=== PATIENT | male | born 1960 | race Caucasian/White ===

== ENCOUNTER → 2017-12-01 12:18 | Outpatient (CLI) | payer OTHER, MEDICAID, SELFPAY ==
[2017-12-01 15:00] LABS: Free T4, Direct Thyroxine 1.03 ng/dL (0.78-2.19)
[2017-12-01 15:14] LABS: Thyroid Stimulating Hormone 3.39 uIU/mL (0.47-4.68)
== END ==
PROVIDERS: Family Provider Physician Assistant; PCP Physician Assistant; Visit Provider Physician Assistant
DX: E03.9 Hypothyroidism, unspecified (principal)
CPT/HCPCS: 36415; 84439; 84443

== ENCOUNTER → 2018-05-12 11:30 | Outpatient (CLI) | payer OTHER, MEDICAID, SELFPAY ==
[2018-05-12 12:45] LABS: Alanine Aminotransferase 57 IU/L (21-72); Albumin 4.3 g/dL (3.5-5.0); Albumin Globulin Ratio 1.3 (1.0-2.8); Alkaline Phosphatase 69 U/L (38-126); Aspartate Aminotransferase 70 IU/L (17-59); Blood Urea Nitrogen 7 mg/dL (9-20); Calcium 9.2 mg/dL (8.4-10.2); Carbon Dioxide 25 mmol/L (22-32); Chloride 98 mmol/L (98-107); Cholesterol 232 mg/dL (140-199); Estimated Glomerular Filt Rate > 60.0 mL/min (>60); Globulin 3.4 g/dL (1.7-4.1); Glucose 123 mg/dL (70-100); HDL Cholesterol 56 mg/dL (40-60); HEMOLYSIS < 15 (0-50); LDL Cholesterol Calculated 147 mg/dL (<100); Potassium 4.8 mmol/L (3.4-5.1); Sodium 135 mmol/L (137-145); Total Protein 7.7 g/dL (6.3-8.2); Triglycerides 145 mg/dL (35-150); Uric Acid 5.5 mg/dL (3.5-8.5)
[2018-05-12 13:00] LABS: Free T4, Direct Thyroxine 1.12 ng/dL (0.78-2.19)
[2018-05-12 13:14] LABS: Thyroid Stimulating Hormone 3.42 uIU/mL (0.47-4.68)
== END ==
PROVIDERS: Family Provider Physician Assistant; PCP Physician Assistant; Visit Provider Physician Assistant
DX: E03.9 Hypothyroidism, unspecified (principal); E78.5 Hyperlipidemia, unspecified; I10 Essential (primary) hypertension; M10.9 Gout, unspecified
CPT/HCPCS: 36415; 80053; 80061; 84439; 84443; 84550

== ENCOUNTER → 2018-10-19 09:36 | Outpatient (CLI) | payer OTHER, MEDICAID, SELFPAY ==
[2018-10-19 11:12] LABS: Alanine Aminotransferase 45 IU/L (21-72); Albumin 4.3 g/dL (3.5-5.0); Albumin Globulin Ratio 1.1 (1.0-2.8); Alkaline Phosphatase 89 U/L (38-126); Aspartate Aminotransferase 70 IU/L (17-59); BUN Creatinine Ratio 7.1 (6-22); Bilirubin Total 1.2 mg/dL (0.2-1.3); Blood Urea Nitrogen 5 mg/dL (9-20); Calcium 9.4 mg/dL (8.4-10.2); Carbon Dioxide 25 mmol/L (22-32); Chloride 100 mmol/L (98-107); Cholesterol 254 mg/dL (140-199); Estimated Glomerular Filt Rate > 60.0 mL/min (>60); Glucose 134 mg/dL (70-100); HDL Cholesterol 48 mg/dL (40-60); HEMOLYSIS < 15 (0-50); LDL Cholesterol Calculated 165 mg/dL (<100); Potassium 4.4 mmol/L (3.4-5.1); Sodium 136 mmol/L (137-145); Total Protein 8.3 g/dL (6.3-8.2); Triglycerides 203 mg/dL (35-150); Uric Acid 6.7 mg/dL (3.5-8.5)
[2018-10-19 11:25] LABS: Thyroid Stimulating Hormone 3.32 uIU/mL (0.47-4.68)
== END ==
PROVIDERS: Family Provider Physician Assistant; PCP Physician Assistant; Visit Provider Physician Assistant
DX: E03.9 Hypothyroidism, unspecified (principal); E78.5 Hyperlipidemia, unspecified; I10 Essential (primary) hypertension; R73.01 Impaired fasting glucose; E79.0 Hyperuricemia without signs of inflammatory arthritis and tophaceous disease; Z51.81 Encounter for therapeutic drug level monitoring
CPT/HCPCS: 36415; 80053; 80061; 83036; 84443; 84550

== ENCOUNTER → 2018-12-21 08:13 | Outpatient (CLI) | payer OTHER, MEDICAID, SELFPAY ==
[2018-12-21 09:32] LABS: Cholesterol 165 mg/dL (140-199); HDL Cholesterol 62 mg/dL (40-60); LDL Cholesterol Calculated 69 mg/dL (<100); Triglycerides 168 mg/dL (35-150)
[2018-12-21 09:56] LABS: Creatinine Urine Random 66.9 mg/dL
[2018-12-21 09:59] LABS: Microalbumi Creatinin Ratio Ur 13.4 ug/mg CR (<30); Microalbumin Urine Random 0.9 mg/dL (0-1.6)
== END ==
PROVIDERS: PCP Physician Assistant; Visit Provider Physician Assistant
DX: E78.5 Hyperlipidemia, unspecified (principal); I10 Essential (primary) hypertension
CPT/HCPCS: 36415; 80061; 82043; 82570

== ENCOUNTER → 2019-05-24 10:50 | Outpatient (CLI) | payer OTHER, MEDICAID, SELFPAY ==
[2019-05-24 12:02] LABS: Hemoglobin A1C% w Est Avg Glu 5.2 % (4.0-6.0)
[2019-05-24 12:24] LABS: Alanine Aminotransferase 27 IU/L (<50); Albumin 4.3 g/dL (3.5-5.0); Albumin Globulin Ratio 1.2 (1.0-2.8); Alkaline Phosphatase 99 U/L (38-126); Aspartate Aminotransferase 54 IU/L (17-59); BUN Creatinine Ratio 7.1 (6-22); Bilirubin Total 0.7 mg/dL (0.2-1.3); Blood Urea Nitrogen 5 mg/dL (9-20); Carbon Dioxide 23 mmol/L (22-32); Chloride 98 mmol/L (98-107); Cholesterol 160 mg/dL (140-199); Estimated Glomerular Filt Rate > 60.0 mL/min (>60); Globulin 3.6 g/dL (1.7-4.1); Glucose 116 mg/dL (80-110); HDL Cholesterol 54 mg/dL (40-60); HEMOLYSIS < 15 (0-50); LDL Cholesterol Calculated 58 mg/dL (<100); Potassium 4.5 mmol/L (3.4-5.1); Sodium 135 mmol/L (137-145); Total Protein 7.9 g/dL (6.3-8.2); Triglycerides 241 mg/dL (35-150); Uric Acid 5.8 mg/dL (3.5-8.5)
[2019-05-24 12:54] LABS: Thyroid Stimulating Hormone 3.22 uIU/mL (0.47-4.68)
[2019-05-24 15:44] LABS: Creatinine Urine Random 29.5 mg/dL
[2019-05-24 15:49] LABS: Microalbumi Creatinin Ratio Ur 20.3 ug/mg CR (<30); Microalbumin Urine Random < 0.6 mg/dL (0-1.6)
== END ==
PROVIDERS: PCP Physician Assistant; Visit Provider Physician Assistant
DX: E03.9 Hypothyroidism, unspecified (principal); E78.5 Hyperlipidemia, unspecified; I10 Essential (primary) hypertension; R73.01 Impaired fasting glucose; E79.0 Hyperuricemia without signs of inflammatory arthritis and tophaceous disease
CPT/HCPCS: 36415; 80053; 80061; 82043; 82570; 83036; 84443; 84550

== ENCOUNTER → 2020-04-04 09:59 | Outpatient (CLI) | payer OTHER, MEDICAID, SELFPAY ==
[2020-04-04 11:17] LABS: Alanine Aminotransferase 17 IU/L (<50); Albumin 3.5 g/dL (3.5-5.0); Albumin Globulin Ratio 0.8 (1.0-2.8); Alkaline Phosphatase 124 U/L (38-126); Aspartate Aminotransferase 32 IU/L (17-59); BUN Creatinine Ratio 6.3 (6-22); Blood Urea Nitrogen 11 mg/dL (9-20); Calcium 8.6 mg/dL (8.4-10.2); Carbon Dioxide 22 mmol/L (22-32); Chloride 105 mmol/L (98-107); Cholesterol 99 mg/dL (140-199); Estimated Glomerular Filt Rate 40.2 mL/min (>60); Globulin 4.4 g/dL (1.7-4.1); Glucose 123 mg/dL (80-110); HDL Cholesterol 49 mg/dL (40-60); Potassium 4.7 mmol/L (3.4-5.1); Sodium 135 mmol/L (137-145); Total Protein 7.9 g/dL (6.3-8.2); Triglycerides 88 mg/dL (35-150); Uric Acid 5.8 mg/dL (3.5-8.5)
[2020-04-04 11:18] LABS: HEMOLYSIS < 15 (0-50); LDL Cholesterol Calculated 32 mg/dL (<100)
[2020-04-04 11:29] LABS: Free T4, Direct Thyroxine 1.19 ng/dL (0.78-2.19)
[2020-04-04 11:43] LABS: Thyroid Stimulating Hormone 4.39 uIU/mL (0.47-4.68)
== END ==
PROVIDERS: PCP Internal Medicine; Referring Provider Internal Medicine; Visit Provider Internal Medicine
DX: E03.9 Hypothyroidism, unspecified (principal); E78.5 Hyperlipidemia, unspecified; E79.0 Hyperuricemia without signs of inflammatory arthritis and tophaceous disease; I10 Essential (primary) hypertension
CPT/HCPCS: 36415; 80053; 80061; 84153; 84439; 84443; 84550

== ENCOUNTER → 2020-11-27 10:49 | Outpatient (CLI) | payer OTHER, MEDICAID, SELFPAY ==
[2020-11-27 12:34] LABS: Alanine Aminotransferase 16 IU/L (<50); Albumin 3.6 g/dL (3.5-5.0); Albumin Globulin Ratio 0.9 (1.0-2.8); Alkaline Phosphatase 106 U/L (38-126); Aspartate Aminotransferase 34 IU/L (17-59); BUN Creatinine Ratio 7.2 (6-22); Bilirubin Total 0.6 mg/dL (0.2-1.3); Blood Urea Nitrogen 10 mg/dL (9-20); Calcium 8.8 mg/dL (8.4-10.2); Carbon Dioxide 21 mmol/L (22-32); Chloride 103 mmol/L (98-107); Cholesterol 109 mg/dL (140-199); Estimated Glomerular Filt Rate 52.4 mL/min (>60); Glucose 105 mg/dL (80-110); HDL Cholesterol 76 mg/dL (40-60); HEMOLYSIS < 15 (0-50); LDL Cholesterol Calculated 23 mg/dL (<100); Sodium 131 mmol/L (137-145); Total Protein 7.6 g/dL (6.3-8.2); Triglycerides 50 mg/dL (35-150)
[2020-11-27 13:10] LABS: Free T4, Direct Thyroxine 1.06 ng/dL (0.78-2.19)
== END ==
PROVIDERS: PCP Internal Medicine; Referring Provider Internal Medicine; Visit Provider Internal Medicine
DX: E03.9 Hypothyroidism, unspecified (principal); E78.5 Hyperlipidemia, unspecified; I10 Essential (primary) hypertension; R73.01 Impaired fasting glucose
CPT/HCPCS: 36415; 80053; 80061; 84439; 84443

== ENCOUNTER 2021-05-29 09:45 | Outpatient (RCR) | payer OTHER, MEDICAID, SELFPAY ==
--- NOTE | 2021-03-14 09:04 | PT.OIE ---
Current Diagnoses Other abnormalities of gait and mobility (03/13/21) Unspecified abnormalities of gait and mobility (03/13/21) Past Medical History (Last Reviewed 01/02/20 @ 16:23 by Neil Silver MD) Anxiety Bipolar disorder (2007) Depression (2007) Essential hypertension Gout Hearing loss Hyperlipidemia Hypothyroidism (09/30/17) Past Surgical History (Last Reviewed 01/02/20 @ 16:23 by Neil Silver MD) Status post colonoscopy Visit Care Team Role Provider Type Neil Silver MD Attending Provider Physician Primary Care Provider Referring Provider Specialty: Internal Medicine Address: [address] [place] [address], [address] [place] [address], [facility] Email: [email or web address] Physical Therapy Initial Evaluation PT-OP-A Visit Information Start: 03/14/21 08:46 Freq: Status: Active Protocol: Document 03/13/21 12:58 OF (Rec: 03/14/21 09:04 OF [email or web address]) Out-Patient Physical Therapy Visit Information Visit Information Visit Type Initial Evaluation Visit Start Time 11:15 Visit Stop Time 11:58 Total Visit Minutes 43 Visit Number 1 Evaluation Information Evaluation Date 03/13/21 PT-OP-B Current Condition Start: 03/14/21 08:46 Freq: Status: Active Protocol: Document 03/13/21 12:58 OF (Rec: 03/14/21 09:04 OF [email or web address]) Current Condition History of Current Condition Onset Date 1.5yrs prior History of Current Condition Pt states he broke his pinky toe 01/2020, he claims this was the beginning of his balance difficulty Treatment Goals Patient/Caregiver Goals get back to riding my bike, improve my balance Prior Functional Status Baseline Function- ADL's Independent Baseline Function- Mobility Independent Baseline Function- Gait wide path, lateral lean bidirectional Baseline Function- Other 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 Current Functional Impairments (Reported) Functional Limitations- Other Pt has poor endurance, LE weakness, and impaired dynamic balance PT-OP-C Subjective Start: 03/14/21 08:46 Freq: Status: Active Protocol: Document 03/13/21 12:58 OF (Rec: 03/14/21 09:04 OF [email or web address]) OP-PT Subjective Patient Comments Patient Comments Pt reports single fall over past 6 months Patient Reported Progress Same OP-PT Pain Assessment Pain Assessment Grid Paper Pain Assessment Grid Completed Yes Location L lateral foot Intensity 4 Scale Used Numeric (0 - 10) Description Sharp Frequency Occasional Pain Aggravating Factors Activity,Exercise,Standing Pain Alleviating Factors Inactivity PT-OP-D Balance Start: 03/14/21 08:46 Freq: Status: Active Protocol: Document 03/13/21 12:58 OF (Rec: 03/14/21 09:04 OF [email or web address]) OP-PT Balance Assessment Sitting Balance Static Sitting Balance Ability Normal Dynamic Sitting Balance Ability Normal Standing Balance Static Standing Balance Ability Good Dynamic Standing Balance Ability Good Zavala Fall Scale Copyright Permission PT-OP-E Functional Tests Start: 03/14/21 08:46 Freq: Status: Active Protocol: Document 03/13/21 12:58 OF (Rec: 03/14/21 09:04 OF [email or web address]) Functional Tests Timed Up and Go (TUG) Score 18.5 Comments high fall risk TUG Impairment Rating 80 to <100% Impaired (Score 18 -19) PT-OP-G Mobility & Gait Start: 03/14/21 08:46 Freq: Status: Active Protocol: Document 03/13/21 12:58 OF (Rec: 03/14/21 09:04 OF [email or web address]) OP Gait Assessment Gait Gait Assistance Required: Standby Assistance Distance (Feet) 225 Able to Maintain Weight Bearing Status Yes During Gait Assistive Devices Assistive Device None Gait Deviations General Gait Pattern Decreased Stride Length, Lateral Trunk Lean,Wide Based Gait Factors Limiting Gait Function Factors Limiting Gait Function Incoordination,Poor Balance PT-OP-H Neuro Start: 03/14/21 08:46 Freq: Status: Active Protocol: Document 03/13/21 12:58 OF (Rec: 03/14/21 09:04 OF [email or web address]) Sensation Evaluation Gross Sensation Gross Sensation WNL Comments Summary Comments pt demonstrates normal sensation to light touch in all extremeties Coordination Evaluation Comments Coordination Comments slow heel/ching bilateral PT-OP-M Strength Start: 03/14/21 08:46 Freq: Status: Active Protocol: Document 03/13/21 12:58 OF (Rec: 03/14/21 09:04 OF [email or web address]) Hip Strength Hip Manual Muscle Testing L Flexion (L2) 3+ Fair+ Extension (S1) 3+ Fair+ Abduction 3+ Fair+ R Flexion (L2) 3+ Fair+ Extension (S1) 3+ Fair+ Abduction 3+ Fair+ Knee Strength Knee Manual Muscle Testing L Flexion (S2) 3+ Fair+ Extension (L3) 3 Fair R Flexion (S2) 3+ Fair+ Extension (L3) 3+ Fair+ Ankle/Foot Strength Ankle and Foot Manual Muscle Testing L Dorsiflexion (L4) 3+ Fair+ Plantarflexion (S1) 3+ Fair+ R Dorsiflexion (L4) 3+ Fair+ Plantarflexion (S1) 3 Fair PT-OP-Q Treatments Start: 03/14/21 08:46 Freq: Status: Active Protocol: Document 03/13/21 12:58 OF (Rec: 03/14/21 09:04 OF [email or web address]) Therapeutic Exercises Standing Exercises Marching Side bilateral Reps/Minutes 3x20 Comments difficulty coordinating leg lifts heel/toe lifts Side bilateral Reps/Minutes 3x10 Comments for HEP Self-Care/Home Management Treatment Education Patient Education Body Mechanics,Fall Risk,Home Exercise Program Other Education safety with AMB, benefits of cane to reduce fall risk PT-OP-T Assessment and Plan Start: 03/14/21 08:46 Freq: Status: Active Protocol: Document 03/13/21 12:58 OF (Rec: 03/14/21 09:04 OF [email or web address]) Physical Therapy Assessment Rehab Potential Rehabilitation Potential Good Evaluation Complexity Number of Personal Factors/Comorbidities 1-2 Number of Body Systems Impaired 1-2 Clinical Presentation at Evaluation Stable Impairments Impairments Activity Tolerance,Balance, Coordination,Gait,Strength Goals 3 Impairment high fall risk Short Term Goal (STG) Pt will improve TUG score < 15sec to demo improved dynamic balance STG Duration 2 weeks Compensation And Benefits Administrator Goal (LTG) pt will improve TUG score to < 12sec to reduce fall risk within community LTG Duration 6 weeks 2 Impairment LE weakness Short Term Goal (STG) Pt will perform sit to stand without UE assist x5 to demonstrate improved LE strength STG Duration 2 weeks Compensation And Benefits Administrator Goal (LTG) Pt will complete >14 sit to stands in 30sec to demonstrate improved community mobility LTG Duration 6 weeks 1 Impairment pt lacks HEP Short Term Goal (STG) Pt will be I with HEP for LE strengthening STG Duration 2 weeks Assessment Summary Assessment Moris is a 60yo male referred for difficulty walking and balance deficits. He states the problem originated January 2020 when he broke his pinky toe. He has been progressively less active since. He has impaired righting reactions, wide based gait, and is a high fall risk per TUG and 30sec sit to stand assessments. He reports bipolar depression and controlled hypertension as his only relevant PMHx. He was hypertensive upon evaluation 180/85 seated, 180/90 standing . He denies dizziness with positional changes. He will require skilled therapy to improve his LE strength, normalize his gait pattern, and reduce fall risk. Physical Therapy Plan Frequency and Duration Frequency of Treatment 1-2x/week Duration of Treatment 6 weeks Plan of Care Start Date 03/13/21 Plan of Care End Date 04/25/21 Therapeutic Interventions Therapeutic Interventions Balance Training,Gait Training ,Home Exercise Program,Joint Mobilizations,Manual Therapy, Neuromuscular Re-education, Patient/Caregiver Education, Self-Care/Home Management, Therapeutic Activities, Therapeutic Exercises Next Visit Focus/Plan Next Note Type Treatment Note Next Visit Plan assess HEP performance, progress LE strengthening, incorporate balance training
--- NOTE | 2021-03-14 09:04 | PT.OPPOC ---
Physical, Occupational & Speech Therapy At [facility] Current Diagnoses Other abnormalities of gait and mobility (03/13/21) Unspecified abnormalities of gait and mobility (03/13/21) Visit Care Team Role Provider Type Neil Silver MD Attending Provider Physician Primary Care Provider Referring Provider Specialty: Internal Medicine Address: [address] [place] [address], [address], [facility] Email: [email or web address] Plan Of Care PT-OP-T Assessment and Plan Start: 03/14/21 08:46 Freq: Status: Active Protocol: Document 03/13/21 12:58 OF (Rec: 03/14/21 09:04 OF [email or web address]) Physical Therapy Assessment Rehab Potential Rehabilitation Potential Good Evaluation Complexity Number of Personal Factors/Comorbidities 1-2 Number of Body Systems Impaired 1-2 Clinical Presentation at Evaluation Stable Impairments Impairments Activity Tolerance,Balance, Coordination,Gait,Strength Goals 3 Impairment high fall risk Short Term Goal (STG) Pt will improve TUG score < 15sec to demo improved dynamic balance STG Duration 2 weeks Assembler Type Bar And Segment Goal (LTG) pt will improve TUG score to < 12sec to reduce fall risk within community LTG Duration 6 weeks 2 Impairment LE weakness Short Term Goal (STG) Pt will perform sit to stand without UE assist x5 to demonstrate improved LE strength STG Duration 2 weeks Assembler Type Bar And Segment Goal (LTG) Pt will complete >14 sit to stands in 30sec to demonstrate improved community mobility LTG Duration 6 weeks 1 Impairment pt lacks HEP Short Term Goal (STG) Pt will be I with HEP for LE strengthening STG Duration 2 weeks Assessment Summary Assessment Moris is a 60yo male referred for difficulty walking and balance deficits. He states the problem originated January 2020 when he broke his pinky toe. He has been progressively less active since. He has impaired righting reactions, wide based gait, and is a high fall risk per TUG and 30sec sit to stand assessments. He reports bipolar depression and controlled hypertension as his only relevant PMHx. He was hypertensive upon evaluation 180/85 seated, 180/90 standing . He denies dizziness with positional changes. He will require skilled therapy to improve his LE strength, normalize his gait pattern, and reduce fall risk. Physical Therapy Plan Frequency and Duration Frequency of Treatment 1-2x/week Duration of Treatment 6 weeks Plan of Care Start Date 03/13/21 Plan of Care End Date 04/25/21 Therapeutic Interventions Therapeutic Interventions Balance Training,Gait Training ,Home Exercise Program,Joint Mobilizations,Manual Therapy, Neuromuscular Re-education, Patient/Caregiver Education, Self-Care/Home Management, Therapeutic Activities, Therapeutic Exercises Next Visit Focus/Plan Next Note Type Treatment Note Next Visit Plan assess HEP performance, progress LE strengthening, incorporate balance training Plan of Care Dates Plan of Care Start Date 03/13/21 Plan of Care End Date 04/25/21 Electronically Signed by: Sarkis Serrano, PT 03/14/21 0904 Please Sign and Return: I have reviewed this Plan of Care and certify that the skilled therapy services above are required to meet the patient?s needs. Physician Signature Date Printed Name and Credentials Clinical Instructor Signature Printed Name and Credentials
--- NOTE | 2021-03-22 14:37 | PT.OTN ---
Current Diagnoses Other abnormalities of gait and mobility (03/22/21) Unspecified abnormalities of gait and mobility (03/22/21) Physical Therapy Treatment Note PT-OP-A Visit Information Start: 03/14/21 08:46 Freq: Status: Active Protocol: Document 03/22/21 14:31 OF (Rec: 03/22/21 14:37 OF [email or web address]) Out-Patient Physical Therapy Visit Information Visit Information Visit Type Treatment Note Visit Start Time 13:48 Visit Stop Time 14:20 Total Visit Minutes 32 Visit Number 2 Evaluation Information Evaluation Date 03/13/21 PT-OP-B Current Condition Start: 03/14/21 08:46 Freq: Status: Active Protocol: Document 03/13/21 12:58 OF (Rec: 03/14/21 09:04 OF [email or web address]) Current Condition History of Current Condition Onset Date 1.5yrs prior History of Current Condition Pt states he broke his pinky toe 01/2020, he claims this was the beginning of his balance difficulty Treatment Goals Patient/Caregiver Goals get back to riding my bike, improve my balance Prior Functional Status Baseline Function- ADL's Independent Baseline Function- Mobility Independent Baseline Function- Gait wide path, lateral lean bidirectional Baseline Function- Other 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 Current Functional Impairments (Reported) Functional Limitations- Other Pt has poor endurance, LE weakness, and impaired dynamic balance PT-OP-C Subjective Start: 03/14/21 08:46 Freq: Status: Active Protocol: Document 03/22/21 14:31 OF (Rec: 03/22/21 14:37 OF [email or web address]) OP-PT Subjective Patient Comments Patient Comments I think my dizziness comes from my depression Patient Reported Progress Same OP-PT Pain Assessment Pain Assessment Grid Paper Pain Assessment Grid Completed No: pt denies pain today PT-OP-D Balance Start: 03/14/21 08:46 Freq: Status: Active Protocol: Document 03/13/21 12:58 OF (Rec: 03/14/21 09:04 OF [email or web address]) OP-PT Balance Assessment Sitting Balance Static Sitting Balance Ability Normal Dynamic Sitting Balance Ability Normal Standing Balance Static Standing Balance Ability Good Dynamic Standing Balance Ability Good Zavala Fall Scale Copyright Permission PT-OP-E Functional Tests Start: 03/14/21 08:46 Freq: Status: Active Protocol: Document 03/13/21 12:58 OF (Rec: 03/14/21 09:04 OF [email or web address]) Functional Tests Timed Up and Go (TUG) Score 18.5 Comments high fall risk TUG Impairment Rating 80 to <100% Impaired (Score 18 -19) PT-OP-G Mobility & Gait Start: 03/14/21 08:46 Freq: Status: Active Protocol: Document 03/13/21 12:58 OF (Rec: 03/14/21 09:04 OF [email or web address]) OP Gait Assessment Gait Gait Assistance Required: Standby Assistance Distance (Feet) 225 Able to Maintain Weight Bearing Status Yes During Gait Assistive Devices Assistive Device None Gait Deviations General Gait Pattern Decreased Stride Length, Lateral Trunk Lean,Wide Based Gait Factors Limiting Gait Function Factors Limiting Gait Function Incoordination,Poor Balance PT-OP-H Neuro Start: 03/14/21 08:46 Freq: Status: Active Protocol: Document 03/13/21 12:58 OF (Rec: 03/14/21 09:04 OF [email or web address]) Sensation Evaluation Gross Sensation Gross Sensation WNL Comments Summary Comments pt demonstrates normal sensation to light touch in all extremeties Coordination Evaluation Comments Coordination Comments slow heel/ching bilateral PT-OP-M Strength Start: 03/14/21 08:46 Freq: Status: Active Protocol: Document 03/13/21 12:58 OF (Rec: 03/14/21 09:04 OF [email or web address]) Hip Strength Hip Manual Muscle Testing L Flexion (L2) 3+ Fair+ Extension (S1) 3+ Fair+ Abduction 3+ Fair+ R Flexion (L2) 3+ Fair+ Extension (S1) 3+ Fair+ Abduction 3+ Fair+ Knee Strength Knee Manual Muscle Testing L Flexion (S2) 3+ Fair+ Extension (L3) 3 Fair R Flexion (S2) 3+ Fair+ Extension (L3) 3+ Fair+ Ankle/Foot Strength Ankle and Foot Manual Muscle Testing L Dorsiflexion (L4) 3+ Fair+ Plantarflexion (S1) 3+ Fair+ R Dorsiflexion (L4) 3+ Fair+ Plantarflexion (S1) 3 Fair PT-OP-Q Treatments Start: 03/14/21 08:46 Freq: Status: Active Protocol: Document 03/22/21 14:31 OF (Rec: 03/22/21 14:37 OF [email or web address]) Cardio Equipment Recumbent Bicycle Duration (Minutes) 3 Resistance 5 Other cues for consistent pedalling, pt declines further activity Therapeutic Exercises Standing Exercises sit to stands Side bilateral Reps/Minutes 3x5 Comments pt requires cues for anterior weightshifting Marching Side bilateral Reps/Minutes 3x20 Comments difficulty coordinating leg lifts heel/toe lifts Side bilateral Reps/Minutes 3x10 Comments for HEP Gait Training Gait Activity dual tasking Treatment Focus gaze dissociation, lateral stepping, ant/post stepping Comments pt reports inconsistent dizziness with varying activity Self-Care/Home Management Treatment Education Patient Education Home Exercise Program PT-OP-T Assessment and Plan Start: 03/14/21 08:46 Freq: Status: Active Protocol: Document 03/22/21 14:31 OF (Rec: 03/22/21 14:37 OF [email or web address]) Physical Therapy Assessment Rehab Potential Rehabilitation Potential Good Evaluation Complexity Number of Personal Factors/Comorbidities 1-2 Number of Body Systems Impaired 1-2 Clinical Presentation at Evaluation Stable Impairments Impairments Activity Tolerance,Balance, Coordination,Gait,Strength Goals 3 Impairment high fall risk Short Term Goal (STG) Pt will improve TUG score < 15sec to demo improved dynamic balance STG Duration 2 weeks Assisted Goal (LTG) pt will improve TUG score to < 12sec to reduce fall risk within community LTG Duration 6 weeks 2 Impairment LE weakness Short Term Goal (STG) Pt will perform sit to stand without UE assist x5 to demonstrate improved LE strength STG Duration 2 weeks Assisted Goal (LTG) Pt will complete >14 sit to stands in 30sec to demonstrate improved community mobility LTG Duration 6 weeks 1 Impairment pt lacks HEP Short Term Goal (STG) Pt will be I with HEP for LE strengthening STG Duration 2 weeks Progress Towards Goals Progress Towards Goals Progressing Toward Goals Assessment Summary Assessment Moris has difficulty participating today, states he has dizziness occasionally, he believes from his depression. He refuses >3min of cycling after requesting to use recumbant bike. He has limited endurance with standing activity and reports fatigue throughout session. Physical Therapy Plan Frequency and Duration Frequency of Treatment 1-2x/week Duration of Treatment 6 weeks Plan of Care Start Date 03/13/21 Plan of Care End Date 04/25/21 Therapeutic Interventions Therapeutic Interventions Balance Training,Gait Training ,Home Exercise Program,Joint Mobilizations,Manual Therapy, Neuromuscular Re-education, Patient/Caregiver Education, Self-Care/Home Management, Therapeutic Activities, Therapeutic Exercises Next Visit Focus/Plan Next Note Type Treatment Note Next Visit Plan gentle increase in activity, cues for safety with ADL and gait training, benefits of AD
--- NOTE | 2021-03-27 13:26 | PT.OTN ---
Current Diagnoses Other abnormalities of gait and mobility (03/27/21) Unspecified abnormalities of gait and mobility (03/27/21) Physical Therapy Treatment Note PT-OP-A Visit Information Start: 03/14/21 08:46 Freq: Status: Active Protocol: Document 03/27/21 13:22 OF (Rec: 03/27/21 13:26 OF [id number]) Out-Patient Physical Therapy Visit Information Visit Information Visit Type Treatment Note Visit Start Time 12:57 Visit Stop Time 13:21 Total Visit Minutes 24 Visit Number 3 Evaluation Information Evaluation Date 03/13/21 PT-OP-B Current Condition Start: 03/14/21 08:46 Freq: Status: Active Protocol: Document 03/13/21 12:58 OF (Rec: 03/14/21 09:04 OF [email or web address]) Current Condition History of Current Condition Onset Date 1.5yrs prior History of Current Condition Pt states he broke his pinky toe 01/2020, he claims this was the beginning of his balance difficulty Treatment Goals Patient/Caregiver Goals get back to riding my bike, improve my balance Prior Functional Status Baseline Function- ADL's Independent Baseline Function- Mobility Independent Baseline Function- Gait wide path, lateral lean bidirectional Baseline Function- Other 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 Patient Reported Progress Same OP-PT Pain Assessment Pain Assessment Grid Paper Pain Assessment Grid Completed No: pt denies pain today PT-OP-D Balance Start: 03/14/21 08:46 Freq: Status: Active Protocol: Document 03/13/21 12:58 OF (Rec: 03/14/21 09:04 OF [email or web address]) OP-PT Balance Assessment Sitting Balance Static Sitting Balance Ability Normal Dynamic Sitting Balance Ability Normal Standing Balance Static Standing Balance Ability Good Dynamic Standing Balance Ability Good Zavala Fall Scale Copyright Permission PT-OP-E Functional Tests Start: 03/14/21 08:46 Freq: Status: Active Protocol: Document 03/13/21 12:58 OF (Rec: 03/14/21 09:04 OF [email or web address]) Functional Tests Timed Up and Go (TUG) Score 18.5 Comments high fall risk TUG Impairment Rating 80 to <100% Impaired (Score 18 -19) PT-OP-G Mobility & Gait Start: 03/14/21 08:46 Freq: Status: Active Protocol: Document 03/13/21 12:58 OF (Rec: 03/14/21 09:04 OF [email or web address]) OP Gait Assessment Gait Gait Assistance Required: Standby Assistance Distance (Feet) 225 Able to Maintain Weight Bearing Status Yes During Gait Assistive Devices Assistive Device None Gait Deviations General Gait Pattern Decreased Stride Length, Lateral Trunk Lean,Wide Based Gait Factors Limiting Gait Function Factors Limiting Gait Function Incoordination,Poor Balance PT-OP-H Neuro Start: 03/14/21 08:46 Freq: Status: Active Protocol: Document 03/13/21 12:58 OF (Rec: 03/14/21 09:04 OF [email or web address]) Sensation Evaluation Gross Sensation Gross Sensation WNL Comments Summary Comments pt demonstrates normal sensation to light touch in all extremeties Coordination Evaluation Comments Coordination Comments slow heel/ching bilateral PT-OP-M Strength Start: 03/14/21 08:46 Freq: Status: Active Protocol: Document 03/13/21 12:58 OF (Rec: 03/14/21 09:04 OF [email or web address]) Hip Strength Hip Manual Muscle Testing L Flexion (L2) 3+ Fair+ Extension (S1) 3+ Fair+ Abduction 3+ Fair+ R Flexion (L2) 3+ Fair+ Extension (S1) 3+ Fair+ Abduction 3+ Fair+ Knee Strength Knee Manual Muscle Testing L Flexion (S2) 3+ Fair+ Extension (L3) 3 Fair R Flexion (S2) 3+ Fair+ Extension (L3) 3+ Fair+ Ankle/Foot Strength Ankle and Foot Manual Muscle Testing L Dorsiflexion (L4) 3+ Fair+ Plantarflexion (S1) 3+ Fair+ R Dorsiflexion (L4) 3+ Fair+ Plantarflexion (S1) 3 Fair PT-OP-Q Treatments Start: 03/14/21 08:46 Freq: Status: Active Protocol: Document 03/27/21 13:22 OF (Rec: 03/27/21 13:26 OF [id number]) Cardio Equipment Recumbent Bicycle Duration (Minutes) 2 Resistance 5 Other cues for consistent pedalling, pt declines further cycling Therapeutic Exercises Standing Exercises hamstring stretch Side bilateral Reps/Minutes [id number] Comments cues for UE assist and LE positioning sit to stands Side bilateral Reps/Minutes 3x5 Comments pt requires cues for anterior weightshifting Marching Side bilateral Reps/Minutes 3x20 Comments difficulty coordinating leg lifts heel/toe lifts Side bilateral Reps/Minutes 3x10 Comments for HEP Self-Care/Home Management Treatment Education Patient Education Home Exercise Program PT-OP-T Assessment and Plan Start: 03/14/21 08:46 Freq: Status: Active Protocol: Document 03/27/21 13:22 OF (Rec: 03/27/21 13:26 OF [id number]) Physical Therapy Assessment Rehab Potential Rehabilitation Potential Good Evaluation Complexity Number of Personal Factors/Comorbidities 1-2 Number of Body Systems Impaired 1-2 Clinical Presentation at Evaluation Stable Impairments Impairments Activity Tolerance,Balance, Coordination,Gait,Strength Goals 3 Impairment high fall risk Short Term Goal (STG) Pt will improve TUG score < 15sec to demo improved dynamic balance STG Duration 2 weeks Senior Living Goal (LTG) pt will improve TUG score to < 12sec to reduce fall risk within community LTG Duration 6 weeks 2 Impairment LE weakness Short Term Goal (STG) Pt will perform sit to stand without UE assist x5 to demonstrate improved LE strength STG Duration 2 weeks Produce Buyer Goal (LTG) Pt will complete >14 sit to stands in 30sec to demonstrate improved community mobility LTG Duration 6 weeks 1 Impairment pt lacks HEP Short Term Goal (STG) Pt will be I with HEP for LE strengthening STG Duration 2 weeks Progress Towards Goals Progress Towards Goals Slow Progress due to Attendance Issues,Slow Progress due to Medical Issues ,Slow Progress due to Noncompliance Assessment Summary Assessment Moris declines further activity today. He requests another HEP printout, and states he would like to be finished for the day. He denies pain or dizziness today. Declines further intervention today. Physical Therapy Plan Frequency and Duration Frequency of Treatment 1-2x/week Duration of Treatment 6 weeks Plan of Care Start Date 03/13/21 Plan of Care End Date 04/25/21 Therapeutic Interventions Therapeutic Interventions Balance Training,Gait Training ,Home Exercise Program,Joint Mobilizations,Manual Therapy, Neuromuscular Re-education, Patient/Caregiver Education, Self-Care/Home Management, Therapeutic Activities, Therapeutic Exercises Next Visit Focus/Plan Next Note Type Treatment Note Next Visit Plan progress LE strengthening and dynamic balance training
--- NOTE | 2021-04-03 12:03 | PT.OTN ---
Current Diagnoses Other abnormalities of gait and mobility (04/03/21) Unspecified abnormalities of gait and mobility (04/03/21) Physical Therapy Treatment Note PT-OP-A Visit Information Start: 03/14/21 08:46 Freq: Status: Active Protocol: Document 04/03/21 11:16 AMB (Rec: 04/03/21 12:03 AMB [id number]) Out-Patient Physical Therapy Visit Information Visit Information Visit Type Treatment Note Visit Start Time 11:15 Visit Stop Time 12:00 Total Visit Minutes 45 Visit Number 3 PT-OP-B Current Condition Start: 03/14/21 08:46 Freq: Status: Active Protocol: Document 03/13/21 12:58 OF (Rec: 03/14/21 09:04 OF [email or web address]) Current Condition History of Current Condition Onset Date 1.5yrs prior History of Current Condition Pt states he broke his pinky toe 01/2020, he claims this was the beginning of his balance difficulty Treatment Goals Patient/Caregiver Goals get back to riding my bike, improve my balance Prior Functional Status Baseline Function- ADL's Independent Baseline Function- Mobility Independent Baseline Function- Gait wide path, lateral lean bidirectional Baseline Function- Other 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 Wants to be able to perform a floor transfer, feels like legs are too weak to do that at this point. Patient Reported Progress Improving PT-OP-D Balance Start: 03/14/21 08:46 Freq: Status: Active Protocol: Document 03/13/21 12:58 OF (Rec: 03/14/21 09:04 OF [email or web address]) OP-PT Balance Assessment Sitting Balance Static Sitting Balance Ability Normal Dynamic Sitting Balance Ability Normal Standing Balance Static Standing Balance Ability Good Dynamic Standing Balance Ability Good Zavala Fall Scale Copyright Permission PT-OP-E Functional Tests Start: 03/14/21 08:46 Freq: Status: Active Protocol: Document 03/13/21 12:58 OF (Rec: 03/14/21 09:04 OF [email or web address]) Functional Tests Timed Up and Go (TUG) Score 18.5 Comments high fall risk TUG Impairment Rating 80 to <100% Impaired (Score 18 -19) PT-OP-G Mobility & Gait Start: 03/14/21 08:46 Freq: Status: Active Protocol: Document 03/13/21 12:58 OF (Rec: 03/14/21 09:04 OF [email or web address]) OP Gait Assessment Gait Gait Assistance Required: Standby Assistance Distance (Feet) 225 Able to Maintain Weight Bearing Status Yes During Gait Assistive Devices Assistive Device None Gait Deviations General Gait Pattern Decreased Stride Length, Lateral Trunk Lean,Wide Based Gait Factors Limiting Gait Function Factors Limiting Gait Function Incoordination,Poor Balance PT-OP-H Neuro Start: 03/14/21 08:46 Freq: Status: Active Protocol: Document 03/13/21 12:58 OF (Rec: 03/14/21 09:04 OF [email or web address]) Sensation Evaluation Gross Sensation Gross Sensation WNL Comments Summary Comments pt demonstrates normal sensation to light touch in all extremeties Coordination Evaluation Comments Coordination Comments slow heel/ching bilateral PT-OP-M Strength Start: 03/14/21 08:46 Freq: Status: Active Protocol: Document 03/13/21 12:58 OF (Rec: 03/14/21 09:04 OF [email or web address]) Hip Strength Hip Manual Muscle Testing L Flexion (L2) 3+ Fair+ Extension (S1) 3+ Fair+ Abduction 3+ Fair+ R Flexion (L2) 3+ Fair+ Extension (S1) 3+ Fair+ Abduction 3+ Fair+ Knee Strength Knee Manual Muscle Testing L Flexion (S2) 3+ Fair+ Extension (L3) 3 Fair R Flexion (S2) 3+ Fair+ Extension (L3) 3+ Fair+ Ankle/Foot Strength Ankle and Foot Manual Muscle Testing L Dorsiflexion (L4) 3+ Fair+ Plantarflexion (S1) 3+ Fair+ R Dorsiflexion (L4) 3+ Fair+ Plantarflexion (S1) 3 Fair PT-OP-Q Treatments Start: 03/14/21 08:46 Freq: Status: Active Protocol: Document 04/03/21 11:16 AMB (Rec: 04/03/21 12:03 AMB [id number]) Cardio Equipment Recumbent Bicycle Duration (Minutes) 5 Resistance 5 Gym Equipment Shuttle Recovery Bilateral Squats Resistance 50# Shuttle Recovery Platform Stable Reps/Time 2x10 Therapeutic Exercises Standing Exercises hip abd Reps/Minutes 10 Comments finger tip support on bar, cues for posture sit to stands Side bilateral Reps/Minutes 3x5 Comments pt requires cues for anterior weightshifting Neuro Re-Education Treatment Balance Activities head turns Details WBOS, slow, eyes open Surface firm Reps/Duration 30 seconds x 2 PT-OP-T Assessment and Plan Start: 03/14/21 08:46 Freq: Status: Active Protocol: Document 04/03/21 11:16 AMB (Rec: 04/03/21 12:03 AMB [id number]) Physical Therapy Assessment Goals 3 Impairment high fall risk Short Term Goal (STG) Pt will improve TUG score < 15sec to demo improved dynamic balance STG Duration 2 weeks Residential Goal (LTG) pt will improve TUG score to < 12sec to reduce fall risk within community LTG Duration 6 weeks 2 Impairment LE weakness Short Term Goal (STG) Pt will perform sit to stand without UE assist x5 to demonstrate improved LE strength STG Duration 2 weeks Octave Board Racker Goal (LTG) Pt will complete >14 sit to stands in 30sec to demonstrate improved community mobility LTG Duration 6 weeks 1 Impairment pt lacks HEP Short Term Goal (STG) Pt will be I with HEP for LE strengthening STG Duration 2 weeks Assessment Summary Assessment Moris was able to tolerate a full session of therapy today. He was able to tolerate more strengthening, although progression is slow. He reports he is compliant with his HEP. Physical Therapy Plan Next Visit Focus/Plan Next Note Type Treatment Note Next Visit Plan slowly progress LE strengthening and dynamic balance training
--- NOTE | 2021-04-05 11:10 | PT.OTN ---
Current Diagnoses Other abnormalities of gait and mobility (04/05/21) Unspecified abnormalities of gait and mobility (04/05/21) Physical Therapy Treatment Note PT-OP-A Visit Information Start: 03/14/21 08:46 Freq: Status: Active Protocol: Document 04/05/21 10:30 MB (Rec: 04/05/21 11:09 MB [id number]) Out-Patient Physical Therapy Visit Information Visit Information Visit Type Treatment Note Visit Start Time 10:30 Visit Stop Time 11:10 Total Visit Minutes 40 Visit Number 4 PT-OP-B Current Condition Start: 03/14/21 08:46 Freq: Status: Active Protocol: Document 03/13/21 12:58 OF (Rec: 03/14/21 09:04 OF [email or web address]) Current Condition History of Current Condition Onset Date 1.5yrs prior History of Current Condition Pt states he broke his pinky toe 01/2020, he claims this was the beginning of his balance difficulty Treatment Goals Patient/Caregiver Goals get back to riding my bike, improve my balance Prior Functional Status Baseline Function- ADL's Independent Baseline Function- Mobility Independent Baseline Function- Gait wide path, lateral lean bidirectional Baseline Function- Other 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 His neck muscles hurt. He has trouble rememering to stand up straight. PT-OP-D Balance Start: 03/14/21 08:46 Freq: Status: Active Protocol: Document 03/13/21 12:58 OF (Rec: 03/14/21 09:04 OF [email or web address]) OP-PT Balance Assessment Sitting Balance Static Sitting Balance Ability Normal Dynamic Sitting Balance Ability Normal Standing Balance Static Standing Balance Ability Good Dynamic Standing Balance Ability Good Zavala Fall Scale Copyright Permission PT-OP-E Functional Tests Start: 03/14/21 08:46 Freq: Status: Active Protocol: Document 03/13/21 12:58 OF (Rec: 03/14/21 09:04 OF [email or web address]) Functional Tests Timed Up and Go (TUG) Score 18.5 Comments high fall risk TUG Impairment Rating 80 to <100% Impaired (Score 18 -19) PT-OP-G Mobility & Gait Start: 03/14/21 08:46 Freq: Status: Active Protocol: Document 03/13/21 12:58 OF (Rec: 03/14/21 09:04 OF [email or web address]) OP Gait Assessment Gait Gait Assistance Required: Standby Assistance Distance (Feet) 225 Able to Maintain Weight Bearing Status Yes During Gait Assistive Devices Assistive Device None Gait Deviations General Gait Pattern Decreased Stride Length, Lateral Trunk Lean,Wide Based Gait Factors Limiting Gait Function Factors Limiting Gait Function Incoordination,Poor Balance PT-OP-H Neuro Start: 03/14/21 08:46 Freq: Status: Active Protocol: Document 03/13/21 12:58 OF (Rec: 03/14/21 09:04 OF [email or web address]) Sensation Evaluation Gross Sensation Gross Sensation WNL Comments Summary Comments pt demonstrates normal sensation to light touch in all extremeties Coordination Evaluation Comments Coordination Comments slow heel/ching bilateral PT-OP-M Strength Start: 03/14/21 08:46 Freq: Status: Active Protocol: Document 03/13/21 12:58 OF (Rec: 03/14/21 09:04 OF [email or web address]) Hip Strength Hip Manual Muscle Testing L Flexion (L2) 3+ Fair+ Extension (S1) 3+ Fair+ Abduction 3+ Fair+ R Flexion (L2) 3+ Fair+ Extension (S1) 3+ Fair+ Abduction 3+ Fair+ Knee Strength Knee Manual Muscle Testing L Flexion (S2) 3+ Fair+ Extension (L3) 3 Fair R Flexion (S2) 3+ Fair+ Extension (L3) 3+ Fair+ Ankle/Foot Strength Ankle and Foot Manual Muscle Testing L Dorsiflexion (L4) 3+ Fair+ Plantarflexion (S1) 3+ Fair+ R Dorsiflexion (L4) 3+ Fair+ Plantarflexion (S1) 3 Fair PT-OP-Q Treatments Start: 03/14/21 08:46 Freq: Status: Active Protocol: Document 04/05/21 10:30 MB (Rec: 04/05/21 11:09 MB [id number]) Cardio Equipment Recumbent Elliptical (CURRENT) Duration (Minutes) 10 Resistance 1-3 Seat Position 13 Other UEs and LEs Therapeutic Exercises Standing Exercises Chin tuck and scapular retraction against wall Comments 5 reps slowly Scapular retraction with band behind back Equipment Used Level 1 band Comments Too challenging for pt today hip abd Side bilateral Reps/Minutes 10 reps Comments Bar in the front and alternating leg, cues to keep leg straight hamstring stretch Side bilateral Reps/Minutes 2 reps each leg x30 sec Comments Right hand on step rail, leg up on rail sit to stands Comments UE use in 30 sec. 1st trial: 2 reps; 2nd trial: 5 reps; 3rd trial: 5 reps Marching Side bilateral Comments 20 reps x1, bar at the right, large movements, slow, alternating heel/toe lifts Side bilateral Equipment Used Bar in gym Comments 20 reps x1, cues to stand upright, chin tuck PT-OP-T Assessment and Plan Start: 03/14/21 08:46 Freq: Status: Active Protocol: Document 04/05/21 10:30 MB (Rec: 04/05/21 11:09 MB [id number]) Physical Therapy Assessment Rehab Potential Rehabilitation Potential Good Evaluation Complexity Number of Personal Factors/Comorbidities 1-2 Number of Body Systems Impaired 1-2 Clinical Presentation at Evaluation Stable Impairments Impairments Activity Tolerance,Balance, Coordination,Gait,Strength Goals 3 Impairment high fall risk Short Term Goal (STG) Pt will improve TUG score < 15sec to demo improved dynamic balance STG Duration 2 weeks Support Team Member Goal (LTG) pt will improve TUG score to < 12sec to reduce fall risk within community LTG Duration 6 weeks 2 Impairment LE weakness Short Term Goal (STG) Pt will perform sit to stand without UE assist x5 to demonstrate improved LE strength STG Duration 2 weeks Support Team Member Goal (LTG) Pt will complete >14 sit to stands in 30sec to demonstrate improved community mobility LTG Duration 6 weeks 1 Impairment pt lacks HEP Short Term Goal (STG) Pt will be I with HEP for LE strengthening STG Duration 2 weeks Assessment Summary Assessment Pt is a very deconditioned 60 y/o male and he has some cognitive and hearing challenges. 4 30 sec trials of sit to stands with UEs today and 4th trial, pt could do 5 reps. Progressed time on recumbent stepper today and reviewed current standing exercises. Added chin tuck and scapular retraction to improve posture and tried this against the wall today. See next treatment plan comments below for possible exercise progression exercises. Physical Therapy Plan Frequency and Duration Frequency of Treatment 1-2x/week Duration of Treatment 6 weeks Plan of Care Start Date 03/13/21 Plan of Care End Date 04/25/21 Therapeutic Interventions Therapeutic Interventions Balance Training,Gait Training ,Home Exercise Program,Joint Mobilizations,Manual Therapy, Neuromuscular Re-education, Patient/Caregiver Education, Self-Care/Home Management, Therapeutic Activities, Therapeutic Exercises Next Visit Focus/Plan Next Note Type Treatment Note Next Visit Plan Consider side stepping and backward walking with counter support Could add LAQ, clam, shoulder horizontal abduction with big chest and chin tuck and ankle eversion and DF with band for strengthening in sitting Could add Romberg or other balance exercise in the corner with chair in front of him Could add scapular retraction and shoulder ER with band in doorway for postural improvement
--- NOTE | 2021-04-09 15:03 | PT.OTN ---
Current Diagnoses Other abnormalities of gait and mobility (04/09/21) Unspecified abnormalities of gait and mobility (04/09/21) Physical Therapy Treatment Note PT-OP-A Visit Information Start: 03/14/21 08:46 Freq: Status: Active Protocol: Document 04/09/21 14:58 OF (Rec: 04/09/21 15:03 OF [id number]) Out-Patient Physical Therapy Visit Information Visit Information Visit Type Treatment Note Visit Start Time 14:25 Visit Stop Time 14:55 Total Visit Minutes 30 Visit Number 5 Evaluation Information Evaluation Date 03/13/21 PT-OP-B Current Condition Start: 03/14/21 08:46 Freq: Status: Active Protocol: Document 03/13/21 12:58 OF (Rec: 03/14/21 09:04 OF [email or web address]) Current Condition History of Current Condition Onset Date 1.5yrs prior History of Current Condition Pt states he broke his pinky toe 01/2020, he claims this was the beginning of his balance difficulty Treatment Goals Patient/Caregiver Goals get back to riding my bike, improve my balance Prior Functional Status Baseline Function- ADL's Independent Baseline Function- Mobility Independent Baseline Function- Gait wide path, lateral lean bidirectional Baseline Function- Other 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 Pt reports improved dynamic balance at home-I feel steadier Patient Reported Progress Improving OP-PT Pain Assessment Pain Assessment Grid Paper Pain Assessment Grid Completed No: pt denies pain today PT-OP-D Balance Start: 03/14/21 08:46 Freq: Status: Active Protocol: Document 03/13/21 12:58 OF (Rec: 03/14/21 09:04 OF [email or web address]) OP-PT Balance Assessment Sitting Balance Static Sitting Balance Ability Normal Dynamic Sitting Balance Ability Normal Standing Balance Static Standing Balance Ability Good Dynamic Standing Balance Ability Good Zavala Fall Scale Copyright Permission PT-OP-E Functional Tests Start: 03/14/21 08:46 Freq: Status: Active Protocol: Document 03/13/21 12:58 OF (Rec: 03/14/21 09:04 [email or web address] Functional Tests Timed Up and Go (TUG) Score 18.5 Comments high fall risk TUG Impairment Rating 80 to <100% Impaired (Score 18 -19) PT-OP-G Mobility & Gait Start: 03/14/21 08:46 Freq: Status: Active Protocol: Document 03/13/21 12:58 OF (Rec: 03/14/21 09:04 [email or web address] OP Gait Assessment Gait Gait Assistance Required: Standby Assistance Distance (Feet) 225 Able to Maintain Weight Bearing Status Yes During Gait Assistive Devices Assistive Device None Gait Deviations General Gait Pattern Decreased Stride Length, Lateral Trunk Lean,Wide Based Gait Factors Limiting Gait Function Factors Limiting Gait Function Incoordination,Poor Balance PT-OP-H Neuro Start: 03/14/21 08:46 Freq: Status: Active Protocol: Document 03/13/21 12:58 OF (Rec: 03/14/21 09:04 OF [email or web address]) Sensation Evaluation Gross Sensation Gross Sensation WNL Comments Summary Comments pt demonstrates normal sensation to light touch in all extremeties Coordination Evaluation Comments Coordination Comments slow heel/ching bilateral PT-OP-M Strength Start: 03/14/21 08:46 Freq: Status: Active Protocol: Document 03/13/21 12:58 OF (Rec: 03/14/21 09:04 OF [email or web address]) Hip Strength Hip Manual Muscle Testing L Flexion (L2) 3+ Fair+ Extension (S1) 3+ Fair+ Abduction 3+ Fair+ R Flexion (L2) 3+ Fair+ Extension (S1) 3+ Fair+ Abduction 3+ Fair+ Knee Strength Knee Manual Muscle Testing L Flexion (S2) 3+ Fair+ Extension (L3) 3 Fair R Flexion (S2) 3+ Fair+ Extension (L3) 3+ Fair+ Ankle/Foot Strength Ankle and Foot Manual Muscle Testing L Dorsiflexion (L4) 3+ Fair+ Plantarflexion (S1) 3+ Fair+ R Dorsiflexion (L4) 3+ Fair+ Plantarflexion (S1) 3 Fair PT-OP-Q Treatments Start: 03/14/21 08:46 Freq: Status: Active Protocol: Document 04/09/21 14:58 OF (Rec: 04/09/21 15:03 OF [id number]) Cardio Equipment Recumbent Bicycle Duration (Minutes) 5 Resistance 5 Therapeutic Exercises Sitting Exercises knee ext Sitting Exercise Name knee ext machine Side bilateral Resistance 2 plates Reps/Minutes 2x10 Standing Exercises hip abd Side bilateral Reps/Minutes 10 reps Comments Bar in the front and alternating leg, cues to keep leg straight hamstring stretch Side bilateral Reps/Minutes 2 reps each leg x30 sec Comments Right hand on step rail, leg up on rail sit to stands Comments pt completes 5 reps, 2 sets Marching Side bilateral Comments 20 reps x1, cues for stability with stance heel/toe lifts Side bilateral Equipment Used Bar in gym Comments 20 reps x1, cues to stand upright, chin tuck Self-Care/Home Management Treatment Education Patient Education Home Exercise Program PT-OP-T Assessment and Plan Start: 03/14/21 08:46 Freq: Status: Active Protocol: Document 04/09/21 14:58 OF (Rec: 04/09/21 15:03 OF [id number]) Physical Therapy Assessment Rehab Potential Rehabilitation Potential Good Evaluation Complexity Number of Personal Factors/Comorbidities 1-2 Number of Body Systems Impaired 1-2 Impairments Impairments Activity Tolerance,Balance, Coordination,Gait,Strength Goals 3 Impairment high fall risk Short Term Goal (STG) Pt will improve TUG score < 15sec to demo improved dynamic balance STG Duration 2 weeks Early Childhood Education Coordinator Goal (LTG) pt will improve TUG score to < 12sec to reduce fall risk within community LTG Duration 6 weeks 2 Impairment LE weakness Short Term Goal (STG) Pt will perform sit to stand without UE assist x5 to demonstrate improved LE strength STG Duration 2 weeks Half-Way Goal (LTG) Pt will complete >14 sit to stands in 30sec to demonstrate improved community mobility LTG Duration 6 weeks 1 Impairment pt lacks HEP Short Term Goal (STG) Pt will be I with HEP for LE strengthening STG Duration 2 weeks Progress Towards Goals Progress Towards Goals Slow Progress due to Attendance Issues,Slow Progress due to Medical Issues ,Slow Progress due to Noncompliance Assessment Summary Assessment Moris reports improved dynamic balance at home, soreness after HEP. He states he attempts HEP most days. He has limited endurance, flat affect throughout session. He declines further intervention today. Physical Therapy Plan Frequency and Duration Frequency of Treatment 1-2x/week Duration of Treatment 6 weeks Plan of Care Start Date 03/13/21 Plan of Care End Date 04/25/21 Therapeutic Interventions Therapeutic Interventions Balance Training,Gait Training ,Home Exercise Program,Joint Mobilizations,Manual Therapy, Neuromuscular Re-education, Patient/Caregiver Education, Self-Care/Home Management, Therapeutic Activities, Therapeutic Exercises Next Visit Focus/Plan Next Note Type Treatment Note Next Visit Plan Progress dynamic balance training, LE strengthening
--- NOTE | 2021-04-11 15:03 | PT.OTN ---
Current Diagnoses Other abnormalities of gait and mobility (04/11/21) Unspecified abnormalities of gait and mobility (04/11/21) Physical Therapy Treatment Note PT-OP-A Visit Information Start: 03/14/21 08:46 Freq: Status: Active Protocol: Document 04/11/21 14:56 OF (Rec: 04/11/21 15:03 OF [email or web address]) Out-Patient Physical Therapy Visit Information Visit Information Visit Type Treatment Note Visit Start Time 14:30 Visit Stop Time 14:56 Total Visit Minutes 26 Visit Number 6 Evaluation Information Evaluation Date 03/13/21 PT-OP-B Current Condition Start: 03/14/21 08:46 Freq: Status: Active Protocol: Document 03/13/21 12:58 OF (Rec: 03/14/21 09:04 OF [email or web address]) Current Condition History of Current Condition Onset Date 1.5yrs prior History of Current Condition Pt states he broke his pinky toe 01/2020, he claims this was the beginning of his balance difficulty Treatment Goals Patient/Caregiver Goals get back to riding my bike, improve my balance Prior Functional Status Baseline Function- ADL's Independent Baseline Function- Mobility Independent Baseline Function- Gait wide path, lateral lean bidirectional Baseline Function- Other 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 Patient Reported Progress Improving OP-PT Pain Assessment Pain Assessment Grid Paper Pain Assessment Grid Completed No: pt denies pain today PT-OP-D Balance Start: 03/14/21 08:46 Freq: Status: Active Protocol: Document 03/13/21 12:58 OF (Rec: 03/14/21 09:04 OF [email or web address]) OP-PT Balance Assessment Sitting Balance Static Sitting Balance Ability Normal Dynamic Sitting Balance Ability Normal Standing Balance Static Standing Balance Ability Good Dynamic Standing Balance Ability Good Zavala Fall Scale Copyright Permission PT-OP-E Functional Tests Start: 03/14/21 08:46 Freq: Status: Active Protocol: Document 03/13/21 12:58 OF (Rec: 03/14/21 09:04 OF [email or web address]) Functional Tests Timed Up and Go (TUG) Score 18.5 Comments high fall risk TUG Impairment Rating 80 to <100% Impaired (Score 18 -19) PT-OP-G Mobility & Gait Start: 03/14/21 08:46 Freq: Status: Active Protocol: Document 03/13/21 12:58 OF (Rec: 03/14/21 09:04 OF [email or web address]) OP Gait Assessment Gait Gait Assistance Required: Standby Assistance Distance (Feet) 225 Able to Maintain Weight Bearing Status Yes During Gait Assistive Devices Assistive Device None Gait Deviations General Gait Pattern Decreased Stride Length, Lateral Trunk Lean,Wide Based Gait Factors Limiting Gait Function Factors Limiting Gait Function Incoordination,Poor Balance PT-OP-H Neuro Start: 03/14/21 08:46 Freq: Status: Active Protocol: Document 03/13/21 12:58 OF (Rec: 03/14/21 09:04 OF [email or web address]) Sensation Evaluation Gross Sensation Gross Sensation WNL Comments Summary Comments pt demonstrates normal sensation to light touch in all extremeties Coordination Evaluation Comments Coordination Comments slow heel/ching bilateral PT-OP-M Strength Start: 03/14/21 08:46 Freq: Status: Active Protocol: Document 03/13/21 12:58 OF (Rec: 03/14/21 09:04 OF [email or web address]) Hip Strength Hip Manual Muscle Testing L Flexion (L2) 3+ Fair+ Extension (S1) 3+ Fair+ Abduction 3+ Fair+ R Flexion (L2) 3+ Fair+ Extension (S1) 3+ Fair+ Abduction 3+ Fair+ Knee Strength Knee Manual Muscle Testing L Flexion (S2) 3+ Fair+ Extension (L3) 3 Fair R Flexion (S2) 3+ Fair+ Extension (L3) 3+ Fair+ Ankle/Foot Strength Ankle and Foot Manual Muscle Testing L Dorsiflexion (L4) 3+ Fair+ Plantarflexion (S1) 3+ Fair+ R Dorsiflexion (L4) 3+ Fair+ Plantarflexion (S1) 3 Fair PT-OP-Q Treatments Start: 03/14/21 08:46 Freq: Status: Active Protocol: Document 04/11/21 14:56 OF (Rec: 04/11/21 15:03 OF [email or web address]) Cardio Equipment Recumbent Bicycle Duration (Minutes) 3 Resistance 3 Other pt declines further cycling Therapeutic Exercises Sitting Exercises knee ext Sitting Exercise Name knee ext machine Side bilateral Resistance 2 plates Reps/Minutes 3x10 Standing Exercises hip ext Side bilateral Reps/Minutes 3x10 Comments bar for UE support hip abd Side bilateral Reps/Minutes 10 reps Comments bilat UE, alternating leg, cues to keep leg straight hamstring stretch Side bilateral Reps/Minutes 2 reps each leg x30 sec Comments Right hand on step rail, leg up on rail sit to stands Comments pt completes 5 reps, 2 sets Marching Side bilateral Comments 20 reps x3, cues for stability with stance heel/toe lifts Side bilateral Equipment Used Bar in gym Comments 20 reps x1, cues to stand upright, chin tuck Self-Care/Home Management Treatment Education Patient Education Home Exercise Program PT-OP-T Assessment and Plan Start: 03/14/21 08:46 Freq: Status: Active Protocol: Document 04/11/21 14:56 OF (Rec: 04/11/21 15:03 OF [email or web address]) Physical Therapy Assessment Rehab Potential Rehabilitation Potential Good Evaluation Complexity Number of Personal Factors/Comorbidities 1-2 Number of Body Systems Impaired 1-2 Clinical Presentation at Evaluation Stable Impairments Impairments Activity Tolerance,Balance, Coordination,Gait,Strength Goals 3 Impairment high fall risk Short Term Goal (STG) Pt will improve TUG score < 15sec to demo improved dynamic balance STG Duration 2 weeks Flexible Machining System Machinist Goal (LTG) pt will improve TUG score to < 12sec to reduce fall risk within community LTG Duration 6 weeks 2 Impairment LE weakness Short Term Goal (STG) Pt will perform sit to stand without UE assist x5 to demonstrate improved LE strength STG Duration 2 weeks Flexible Machining System Machinist Goal (LTG) Pt will complete >14 sit to stands in 30sec to demonstrate improved community mobility LTG Duration 6 weeks 1 Impairment pt lacks HEP Short Term Goal (STG) Pt will be I with HEP for LE strengthening STG Duration 2 weeks Progress Towards Goals Progress Towards Goals Progressing Toward Goals Assessment Summary Assessment Moris states he has performed HEP at home, not daily, but more frequently. He reports difficulty with sit to stand without UE assist, he is aware of functional gains with increased strength, but again stops treatment early. He states he has had enough today Physical Therapy Plan Frequency and Duration Frequency of Treatment 1-2x/week Duration of Treatment 6 weeks Plan of Care Start Date 03/13/21 Plan of Care End Date 04/25/21 Therapeutic Interventions Therapeutic Interventions Balance Training,Gait Training ,Home Exercise Program,Joint Mobilizations,Manual Therapy, Neuromuscular Re-education, Patient/Caregiver Education, Self-Care/Home Management, Therapeutic Activities, Therapeutic Exercises Next Visit Focus/Plan Next Note Type Treatment Note Next Visit Plan progress quad, glute strengthening. Encourage pt for further tx time.
--- NOTE | 2021-04-19 13:42 | PT.OTN ---
Current Diagnoses Other abnormalities of gait and mobility (04/19/21) Unspecified abnormalities of gait and mobility (04/19/21) Physical Therapy Treatment Note PT-OP-A Visit Information Start: 03/14/21 08:46 Freq: Status: Active Protocol: Document 04/19/21 12:57 AMB (Rec: 04/19/21 13:42 AMB [id number]) Out-Patient Physical Therapy Visit Information Visit Information Visit Type Progress Note Visit Start Time 13:00 Visit Stop Time 13:45 Total Visit Minutes 45 Visit Number 7 PT-OP-B Current Condition Start: 03/14/21 08:46 Freq: Status: Active Protocol: Document 03/13/21 12:58 OF (Rec: 03/14/21 09:04 OF [email or web address]) Current Condition History of Current Condition Onset Date 1.5yrs prior History of Current Condition Pt states he broke his pinky toe 01/2020, he claims this was the beginning of his balance difficulty Treatment Goals Patient/Caregiver Goals get back to riding my bike, improve my balance Prior Functional Status Baseline Function- ADL's Independent Baseline Function- Mobility Independent Baseline Function- Gait wide path, lateral lean bidirectional Baseline Function- Other 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 Isn't yet ready to practice floor transfer. PT-OP-D Balance Start: 03/14/21 08:46 Freq: Status: Active Protocol: Document 03/13/21 12:58 OF (Rec: 03/14/21 09:04 OF [email or web address]) OP-PT Balance Assessment Sitting Balance Static Sitting Balance Ability Normal Dynamic Sitting Balance Ability Normal Standing Balance Static Standing Balance Ability Good Dynamic Standing Balance Ability Good Zavala Fall Scale Copyright Permission PT-OP-E Functional Tests Start: 03/14/21 08:46 Freq: Status: Active Protocol: Document 03/13/21 12:58 OF (Rec: 03/14/21 09:04 OF [email or web address]) Functional Tests Timed Up and Go (TUG) Score 18.5 Comments high fall risk TUG Impairment Rating 80 to <100% Impaired (Score 18 -19) PT-OP-G Mobility & Gait Start: 03/14/21 08:46 Freq: Status: Active Protocol: Document 03/13/21 12:58 OF (Rec: 03/14/21 09:04 OF [email or web address]) OP Gait Assessment Gait Gait Assistance Required: Standby Assistance Distance (Feet) 225 Able to Maintain Weight Bearing Status Yes During Gait Assistive Devices Assistive Device None Gait Deviations General Gait Pattern Decreased Stride Length, Lateral Trunk Lean,Wide Based Gait Factors Limiting Gait Function Factors Limiting Gait Function Incoordination,Poor Balance PT-OP-H Neuro Start: 03/14/21 08:46 Freq: Status: Active Protocol: Document 03/13/21 12:58 OF (Rec: 03/14/21 09:04 OF [email or web address]) Sensation Evaluation Gross Sensation Gross Sensation WNL Comments Summary Comments pt demonstrates normal sensation to light touch in all extremeties Coordination Evaluation Comments Coordination Comments slow heel/ching bilateral PT-OP-M Strength Start: 03/14/21 08:46 Freq: Status: Active Protocol: Document 03/13/21 12:58 OF (Rec: 03/14/21 09:04 OF [email or web address]) Hip Strength Hip Manual Muscle Testing L Flexion (L2) 3+ Fair+ Extension (S1) 3+ Fair+ Abduction 3+ Fair+ R Flexion (L2) 3+ Fair+ Extension (S1) 3+ Fair+ Abduction 3+ Fair+ Knee Strength Knee Manual Muscle Testing L Flexion (S2) 3+ Fair+ Extension (L3) 3 Fair R Flexion (S2) 3+ Fair+ Extension (L3) 3+ Fair+ Ankle/Foot Strength Ankle and Foot Manual Muscle Testing L Dorsiflexion (L4) 3+ Fair+ Plantarflexion (S1) 3+ Fair+ R Dorsiflexion (L4) 3+ Fair+ Plantarflexion (S1) 3 Fair PT-OP-Q Treatments Start: 03/14/21 08:46 Freq: Status: Active Protocol: Document 04/19/21 12:57 AMB (Rec: 04/19/21 13:42 AMB [id number]) Therapeutic Exercises Standing Exercises sit to stands Comments pt completes 5 reps, 2 sets Other Exercises quadruped LE ext Other Exercise Name on large mat table Reps/Minutes 2x5 Gait Training Gait Activity TUG Comments 19 then 17 second, no AD PT-OP-T Assessment and Plan Start: 03/14/21 08:46 Freq: Status: Active Protocol: Document 04/19/21 12:57 AMB (Rec: 04/19/21 13:42 AMB [id number]) Physical Therapy Assessment Goals 3 Impairment high fall risk Short Term Goal (STG) Pt will improve TUG score < 15sec to demo improved dynamic balance STG Duration 2 weeks Group Home Goal (LTG) pt will improve TUG score to < 12sec to reduce fall risk within community LTG Duration 6 weeks 2 Impairment LE weakness Short Term Goal (STG) Pt will perform sit to stand without UE assist x5 to demonstrate improved LE strength STG Duration 2 weeks Group Home Goal (LTG) Pt will complete >14 sit to stands in 30sec to demonstrate improved community mobility LTG Duration 6 weeks 1 Impairment pt lacks HEP Short Term Goal (STG) Pt will be I with HEP for LE strengthening STG Duration 2 weeks PROGRESSING Assessment Summary Assessment 18 sec TUG, 36 for 5x/sit to stand. Moris was moving slow today and was not able to tolerate a full 45 minute session. He is showing some improvement and reports consistency with his HEP. HE would benefit from further PT to further decrease his fall risk, improve his gait and advance transfers. Physical Therapy Plan Frequency and Duration Frequency of Treatment 1x/Week Duration of Treatment 6 weeks Plan of Care Start Date 04/19/21 Plan of Care End Date 05/31/21 Therapeutic Interventions Therapeutic Interventions Balance Training,Gait Training ,Home Exercise Program,Joint Mobilizations,Manual Therapy, Neuromuscular Re-education, Patient/Caregiver Education, Self-Care/Home Management, Therapeutic Activities, Therapeutic Exercises Next Visit Focus/Plan Next Note Type Treatment Note Next Visit Plan progress quad, glute strengthening. Encourage pt for further tx time.
--- NOTE | 2021-04-19 13:43 | PT.OPPOC ---
Physical, Occupational & Speech Therapy At [facility] Current Diagnoses Other abnormalities of gait and mobility (04/19/21) Unspecified abnormalities of gait and mobility (04/19/21) Visit Care Team Role Provider Type Neil Silver MD Attending Provider Physician Primary Care Provider Referring Provider Specialty: Internal Medicine Address: [address] [place] [address], [address], [facility] Email: [email or web address] Plan Of Care PT-OP-T Assessment and Plan Start: 03/14/21 08:46 Freq: Status: Active Protocol: Document 04/19/21 12:57 AMB (Rec: 04/19/21 13:42 AMB [id number]) Physical Therapy Assessment Goals 3 Impairment high fall risk Short Term Goal (STG) Pt will improve TUG score < 15sec to demo improved dynamic balance STG Duration 2 weeks Long-Term Goal (LTG) pt will improve TUG score to < 12sec to reduce fall risk within community LTG Duration 6 weeks 2 Impairment LE weakness Short Term Goal (STG) Pt will perform sit to stand without UE assist x5 to demonstrate improved LE strength STG Duration 2 weeks Metal Stud Framer Goal (LTG) Pt will complete >14 sit to stands in 30sec to demonstrate improved community mobility LTG Duration 6 weeks 1 Impairment pt lacks HEP Short Term Goal (STG) Pt will be I with HEP for LE strengthening STG Duration 2 weeks PROGRESSING Assessment Summary Assessment 18 sec TUG, 36 for 5x/sit to stand. Moris was moving slow today and was not able to tolerate a full 45 minute session. He is showing some improvement and reports consistency with his HEP. HE would benefit from further PT to further decrease his fall risk, improve his gait and advance transfers. Physical Therapy Plan Frequency and Duration Frequency of Treatment 1x/Week Duration of Treatment 6 weeks Plan of Care Start Date 04/19/21 Plan of Care End Date 05/31/21 Therapeutic Interventions Therapeutic Interventions Balance Training,Gait Training ,Home Exercise Program,Joint Mobilizations,Manual Therapy, Neuromuscular Re-education, Patient/Caregiver Education, Self-Care/Home Management, Therapeutic Activities, Therapeutic Exercises Next Visit Focus/Plan Next Note Type Treatment Note Next Visit Plan progress quad, glute strengthening. Encourage pt for further tx time. Plan of Care Dates Plan of Care Start Date 04/19/21 Plan of Care End Date 05/31/21 Electronically Signed by: Jeannette Lara, PT 04/19/21 0476 Please Sign and Return: I have reviewed this Plan of Care and certify that the skilled therapy services above are required to meet the patient?s needs. Physician Signature Date Printed Name and Credentials Clinical Instructor Signature Printed Name and Credentials
--- NOTE | 2021-04-26 10:01 | PT.OTN ---
Current Diagnoses Other abnormalities of gait and mobility (04/26/21) Unspecified abnormalities of gait and mobility (04/26/21) Physical Therapy Treatment Note PT-OP-A Visit Information Start: 03/14/21 08:46 Freq: Status: Active Protocol: Document 04/26/21 08:53 MA (Rec: 04/26/21 10:01 MA [id number]) Out-Patient Physical Therapy Visit Information Visit Information Visit Type Treatment Note Visit Start Time 08:58 Visit Stop Time 09:40 Total Visit Minutes 42 Visit Number 8 Number of ASPARAGUS BUNCHER Visits 1 PT-OP-B Current Condition Start: 03/14/21 08:46 Freq: Status: Active Protocol: Document 03/13/21 12:58 OF (Rec: 03/14/21 09:04 OF [email or web address]) Current Condition History of Current Condition Onset Date 1.5yrs prior History of Current Condition Pt states he broke his pinky toe 01/2020, he claims this was the beginning of his balance difficulty Treatment Goals Patient/Caregiver Goals get back to riding my bike, improve my balance Prior Functional Status Baseline Function- ADL's Independent Baseline Function- Mobility Independent Baseline Function- Gait wide path, lateral lean bidirectional Baseline Function- Other 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 I feel like I finally have my feet back underneath me, so that's good. PT-OP-D Balance Start: 03/14/21 08:46 Freq: Status: Active Protocol: Document 03/13/21 12:58 OF (Rec: 03/14/21 09:04 OF [email or web address]) OP-PT Balance Assessment Sitting Balance Static Sitting Balance Ability Normal Dynamic Sitting Balance Ability Normal Standing Balance Static Standing Balance Ability Good Dynamic Standing Balance Ability Good Zavala Fall Scale Copyright Permission PT-OP-E Functional Tests Start: 03/14/21 08:46 Freq: Status: Active Protocol: Document 03/13/21 12:58 OF (Rec: 03/14/21 09:04 OF [email or web address]) Functional Tests Timed Up and Go (TUG) Score 18.5 Comments high fall risk TUG Impairment Rating 80 to <100% Impaired (Score 18 -19) PT-OP-G Mobility & Gait Start: 03/14/21 08:46 Freq: Status: Active Protocol: Document 03/13/21 12:58 OF (Rec: 03/14/21 09:04 OF [email or web address]) OP Gait Assessment Gait Gait Assistance Required: Standby Assistance Distance (Feet) 225 Able to Maintain Weight Bearing Status Yes During Gait Assistive Devices Assistive Device None Gait Deviations General Gait Pattern Decreased Stride Length, Lateral Trunk Lean,Wide Based Gait Factors Limiting Gait Function Factors Limiting Gait Function Incoordination,Poor Balance PT-OP-H Neuro Start: 03/14/21 08:46 Freq: Status: Active Protocol: Document 03/13/21 12:58 OF (Rec: 03/14/21 09:04 OF [email or web address]) Sensation Evaluation Gross Sensation Gross Sensation WNL Comments Summary Comments pt demonstrates normal sensation to light touch in all extremeties Coordination Evaluation Comments Coordination Comments slow heel/ching bilateral PT-OP-M Strength Start: 03/14/21 08:46 Freq: Status: Active Protocol: Document 03/13/21 12:58 OF (Rec: 03/14/21 09:04 OF [email or web address]) Hip Strength Hip Manual Muscle Testing L Flexion (L2) 3+ Fair+ Extension (S1) 3+ Fair+ Abduction 3+ Fair+ R Flexion (L2) 3+ Fair+ Extension (S1) 3+ Fair+ Abduction 3+ Fair+ Knee Strength Knee Manual Muscle Testing L Flexion (S2) 3+ Fair+ Extension (L3) 3 Fair R Flexion (S2) 3+ Fair+ Extension (L3) 3+ Fair+ Ankle/Foot Strength Ankle and Foot Manual Muscle Testing L Dorsiflexion (L4) 3+ Fair+ Plantarflexion (S1) 3+ Fair+ R Dorsiflexion (L4) 3+ Fair+ Plantarflexion (S1) 3 Fair PT-OP-Q Treatments Start: 03/14/21 08:46 Freq: Status: Active Protocol: Document 04/26/21 08:53 MA (Rec: 04/26/21 10:01 MA [id number]) Cardio Equipment Recumbent Stepper (Sci-Fit) Duration (Minutes) 5 Seat Position 11 Gym Equipment Shuttle Balance Yellow Clips Details WBOS, NBOS Reps/Duration 4 min Comments allowing pt to hover hands over rails Therapeutic Exercises Supine Exercises SLR Supine Exercise Name Straight leg raise Side bilateral Reps/Minutes x5 Comments cues for knee extension Bridges Reps/Minutes x5 Comments added to HEP Standing Exercises hip ext Side bilateral Reps/Minutes 3x10 Comments bar for UE support hip abd Side bilateral Reps/Minutes 10 reps Comments bilat UE, alternating leg, cues to keep leg straight sit to stands Standing Exercise Name with armrests Comments pt completes 5 reps, 2 sets Other Exercises quadruped LE ext Other Exercise Name on large mat table Reps/Minutes x5 Neuro Re-Education Treatment Balance Activities Foam Details WBOS, NBOS - EC trials Surface blue foam Reps/Duration x1 min ea Tandem Stance Surface solid Reps/Duration x1 min Self-Care/Home Management Treatment Education Patient Education Home Exercise Program Other Education Added supine SLR, bridges, and tandem stance with support to HEP. Discussed building back up strength, challenging pt while in PT, and trying floor transfers while pt is in a controlled enviornment here in PT where he can be assisted. PT-OP-T Assessment and Plan Start: 03/14/21 08:46 Freq: Status: Active Protocol: Document 04/26/21 08:53 MA (Rec: 04/26/21 10:01 MA [id number]) Physical Therapy Assessment Goals 3 Impairment high fall risk Short Term Goal (STG) Pt will improve TUG score < 15sec to demo improved dynamic balance STG Duration 2 weeks Night Cleaner Goal (LTG) pt will improve TUG score to < 12sec to reduce fall risk within community LTG Duration 6 weeks 2 Impairment LE weakness Short Term Goal (STG) Pt will perform sit to stand without UE assist x5 to demonstrate improved LE strength STG Duration 2 weeks Night Cleaner Goal (LTG) Pt will complete >14 sit to stands in 30sec to demonstrate improved community mobility LTG Duration 6 weeks 1 Impairment pt lacks HEP Short Term Goal (STG) Pt will be I with HEP for LE strengthening STG Duration 2 weeks PROGRESSING Assessment Summary Assessment Pt has difficulty with newest HEP exercises of hip ext due to pt having pillow top mattress and c/o shoulders giving out. Practiced on solid surface here in therapy with pt only able to complete 5x before c/o fatigue. Educated pt on importance of keeping up with therapy and of practicing more difficult tasks while he is in a safe environment at PT with pt agreeing to try higher level balance challenge on shuttle balance this session. He continues to decline working on floor transfers. Spoke with pt about how long it will take to get strength back after primarily sitting for 6 months and becoming deconditioned. Pt showing good understanding of needing to attempt longer therapy sessions and pushing himself to try more challenging tasks while in controlled environment. Added bridges, SLR, and tandem stance with support to HEP. Pt completes ~ 5 of every exercise this session . PT encourages pt to try 2x5 of everyting and build up to completing 10 in a row as strength progresses. Physical Therapy Plan Frequency and Duration Frequency of Treatment 1x/Week Duration of Treatment 6 weeks Plan of Care Start Date 04/19/21 Plan of Care End Date 05/31/21 Therapeutic Interventions Therapeutic Interventions Balance Training,Gait Training ,Home Exercise Program,Joint Mobilizations,Manual Therapy, Neuromuscular Re-education, Patient/Caregiver Education, Self-Care/Home Management, Therapeutic Activities, Therapeutic Exercises Next Visit Focus/Plan Next Note Type Treatment Note Next Visit Plan Continue balance work on shuttle balance, tandem stance on solid surface, and encourage pt to build up to completing 10 reps of all exercises vs 2x5 reps progress quad, glute strengthening. Encourage pt for further tx time.
--- NOTE | 2021-05-08 10:28 | PT.OTN ---
Current Diagnoses Other abnormalities of gait and mobility (05/08/21) Unspecified abnormalities of gait and mobility (05/08/21) Physical Therapy Treatment Note PT-OP-A Visit Information Start: 03/14/21 08:46 Freq: Status: Active Protocol: Document 05/08/21 09:02 AMB (Rec: 05/08/21 09:47 AMB [id number]) Out-Patient Physical Therapy Visit Information Visit Information Visit Type Treatment Note Visit Start Time 09:00 Visit Stop Time 09:35 Total Visit Minutes 35 Visit Number 9 PT-OP-B Current Condition Start: 03/14/21 08:46 Freq: Status: Active Protocol: Document 03/13/21 12:58 OF (Rec: 03/14/21 09:04 OF [email or web address]) Current Condition History of Current Condition Onset Date 1.5yrs prior History of Current Condition Pt states he broke his pinky toe 01/2020, he claims this was the beginning of his balance difficulty Treatment Goals Patient/Caregiver Goals get back to riding my bike, improve my balance Prior Functional Status Baseline Function- ADL's Independent Baseline Function- Mobility Independent Baseline Function- Gait wide path, lateral lean bidirectional Baseline Function- Other 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 He has been having a bit of back pain , he thinks because of the bridges. PT-OP-D Balance Start: 03/14/21 08:46 Freq: Status: Active Protocol: Document 03/13/21 12:58 OF (Rec: 03/14/21 09:04 OF [email or web address]) OP-PT Balance Assessment Sitting Balance Static Sitting Balance Ability Normal Dynamic Sitting Balance Ability Normal Standing Balance Static Standing Balance Ability Good Dynamic Standing Balance Ability Good Zavala Fall Scale Copyright Permission PT-OP-E Functional Tests Start: 03/14/21 08:46 Freq: Status: Active Protocol: Document 03/13/21 12:58 OF (Rec: 03/14/21 09:04 OF [facility]) Functional Tests Timed Up and Go (TUG) Score 18.5 Comments high fall risk TUG Impairment Rating 80 to <100% Impaired (Score 18 -19) PT-OP-G Mobility & Gait Start: 03/14/21 08:46 Freq: Status: Active Protocol: Document 03/13/21 12:58 OF (Rec: 03/14/21 09:04 OF [email or web address]) OP Gait Assessment Gait Gait Assistance Required: Standby Assistance Distance (Feet) 225 Able to Maintain Weight Bearing Status Yes During Gait Assistive Devices Assistive Device None Gait Deviations General Gait Pattern Decreased Stride Length, Lateral Trunk Lean,Wide Based Gait Factors Limiting Gait Function Factors Limiting Gait Function Incoordination,Poor Balance PT-OP-H Neuro Start: 03/14/21 08:46 Freq: Status: Active Protocol: Document 03/13/21 12:58 OF (Rec: 03/14/21 09:04 OF [email or web address]) Sensation Evaluation Gross Sensation Gross Sensation WNL Comments Summary Comments pt demonstrates normal sensation to light touch in all extremeties Coordination Evaluation Comments Coordination Comments slow heel/ching bilateral PT-OP-M Strength Start: 03/14/21 08:46 Freq: Status: Active Protocol: Document 03/13/21 12:58 OF (Rec: 03/14/21 09:04 OF [facility]) Hip Strength Hip Manual Muscle Testing L Flexion (L2) 3+ Fair+ Extension (S1) 3+ Fair+ Abduction 3+ Fair+ R Flexion (L2) 3+ Fair+ Extension (S1) 3+ Fair+ Abduction 3+ Fair+ Knee Strength Knee Manual Muscle Testing L Flexion (S2) 3+ Fair+ Extension (L3) 3 Fair R Flexion (S2) 3+ Fair+ Extension (L3) 3+ Fair+ Ankle/Foot Strength Ankle and Foot Manual Muscle Testing L Dorsiflexion (L4) 3+ Fair+ Plantarflexion (S1) 3+ Fair+ R Dorsiflexion (L4) 3+ Fair+ Plantarflexion (S1) 3 Fair PT-OP-Q Treatments Start: 03/14/21 08:46 Freq: Status: Active Protocol: Document 05/08/21 09:00 AMB (Rec: 05/08/21 10:19 AMB [id number]) Cardio Equipment Recumbent Bicycle Duration (Minutes) 5 Resistance 10 Therapeutic Exercises Standing Exercises step ups Standing Exercise Name 6 forward alternating Reps/Minutes 10 Comments with rail support lunges Standing Exercise Name forward with UE support Reps/Minutes 10 PT-OP-T Assessment and Plan Start: 03/14/21 08:46 Freq: Status: Active Protocol: Document 05/08/21 09:00 AMB (Rec: 05/08/21 10:19 AMB [id number]) Physical Therapy Assessment Assessment Summary Assessment Moris was hesitant about practicing the floor transfer here today but agrees to try it next visit. Did well with lunges but does need heavy UE support, encouraged to be mindful not to overuse his back muscles with the bridges. Physical Therapy Plan Next Visit Focus/Plan Next Note Type Treatment Note Next Visit Plan Continue balance work on shuttle balance, tandem stance on solid surface, and encourage pt to build up to completing 10 reps of all exercises vs 2x5 reps progress quad, glute strengthening. Encourage pt for further tx time.
--- NOTE | 2021-05-15 15:32 | PT.OTN ---
Current Diagnoses Other abnormalities of gait and mobility (05/15/21) Unspecified abnormalities of gait and mobility (05/15/21) Physical Therapy Treatment Note PT-OP-A Visit Information Start: 03/14/21 08:46 Freq: Status: Active Protocol: Document 05/15/21 09:45 AMB (Rec: 05/15/21 15:23 AMB [email or web address]) Out-Patient Physical Therapy Visit Information Visit Information Visit Type Progress Note Visit Start Time 09:45 Visit Stop Time 10:30 Total Visit Minutes 45 Visit Number 10 PT-OP-B Current Condition Start: 03/14/21 08:46 Freq: Status: Active Protocol: Document 03/13/21 12:58 OF (Rec: 03/14/21 09:04 OF [email or web address]) Current Condition History of Current Condition Onset Date 1.5yrs prior History of Current Condition Pt states he broke his pinky toe 01/2020, he claims this was the beginning of his balance difficulty Treatment Goals Patient/Caregiver Goals get back to riding my bike, improve my balance Prior Functional Status Baseline Function- ADL's Independent Baseline Function- Mobility Independent Baseline Function- Gait wide path, lateral lean bidirectional Baseline Function- Other 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 PT-OP-D Balance Start: 03/14/21 08:46 Freq: Status: Active Protocol: Document 03/13/21 12:58 OF (Rec: 03/14/21 09:04 OF [email or web address]) OP-PT Balance Assessment Sitting Balance Static Sitting Balance Ability Normal Dynamic Sitting Balance Ability Normal Standing Balance Static Standing Balance Ability Good Dynamic Standing Balance Ability Good Zavala Fall Scale Copyright Permission PT-OP-E Functional Tests Start: 03/14/21 08:46 Freq: Status: Active Protocol: Document 03/13/21 12:58 OF (Rec: 03/14/21 09:04 OF [email or web address]) Functional Tests Timed Up and Go (TUG) Score 18.5 Comments high fall risk TUG Impairment Rating 80 to <100% Impaired (Score 18 -19) PT-OP-G Mobility & Gait Start: 03/14/21 08:46 Freq: Status: Active Protocol: Document 03/13/21 12:58 OF (Rec: 03/14/21 09:04 OF [email or web address]) OP Gait Assessment Gait Gait Assistance Required: Standby Assistance Distance (Feet) 225 Able to Maintain Weight Bearing Status Yes During Gait Assistive Devices Assistive Device None Gait Deviations General Gait Pattern Decreased Stride Length, Lateral Trunk Lean,Wide Based Gait Factors Limiting Gait Function Factors Limiting Gait Function Incoordination,Poor Balance PT-OP-H Neuro Start: 03/14/21 08:46 Freq: Status: Active Protocol: Document 03/13/21 12:58 OF (Rec: 03/14/21 09:04 OF [email or web address]) Sensation Evaluation Gross Sensation Gross Sensation WNL Comments Summary Comments pt demonstrates normal sensation to light touch in all extremeties Coordination Evaluation Comments Coordination Comments slow heel/ching bilateral PT-OP-M Strength Start: 03/14/21 08:46 Freq: Status: Active Protocol: Document 03/13/21 12:58 OF (Rec: 03/14/21 09:04 OF [email or web address]) Hip Strength Hip Manual Muscle Testing L Flexion (L2) 3+ Fair+ Extension (S1) 3+ Fair+ Abduction 3+ Fair+ R Flexion (L2) 3+ Fair+ Extension (S1) 3+ Fair+ Abduction 3+ Fair+ Knee Strength Knee Manual Muscle Testing L Flexion (S2) 3+ Fair+ Extension (L3) 3 Fair R Flexion (S2) 3+ Fair+ Extension (L3) 3+ Fair+ Ankle/Foot Strength Ankle and Foot Manual Muscle Testing L Dorsiflexion (L4) 3+ Fair+ Plantarflexion (S1) 3+ Fair+ R Dorsiflexion (L4) 3+ Fair+ Plantarflexion (S1) 3 Fair PT-OP-Q Treatments Start: 03/14/21 08:46 Freq: Status: Active Protocol: Document 05/15/21 09:45 AMB (Rec: 05/15/21 15:23 AMB [email or web address]) Cardio Equipment Recumbent Bicycle Duration (Minutes) 5 Resistance 10 Therapeutic Exercises Supine Exercises Bridges Reps/Minutes x5 Comments cues for TA stab, push heels into table Standing Exercises step ups Standing Exercise Name 6 forward alternating Reps/Minutes 10 Comments with rail support lunges Standing Exercise Name forward with UE support Reps/Minutes 10 sit to stands Standing Exercise Name without arm rests Reps/Minutes 10 Comments cue forward lean PT-OP-T Assessment and Plan Start: 03/14/21 08:46 Freq: Status: Active Protocol: Document 05/15/21 09:49 AMB (Rec: 05/15/21 10:27 AMB [id number]) Physical Therapy Assessment Goals 3 Impairment high fall risk Short Term Goal (STG) Pt will improve TUG score < 15sec to demo improved dynamic balance STG Duration 2 weeks--16 seconds Halfway Goal (LTG) pt will improve TUG score to < 12sec to reduce fall risk within community LTG Duration 6 weeks 2 Impairment LE weakness Short Term Goal (STG) Pt will perform sit to stand without UE assist x5 to demonstrate improved LE strength STG Duration MET Halfway Goal (LTG) Pt will complete >14 sit to stands in 30sec to demonstrate improved community mobility LTG Duration 6 weeks---5 in 30 seconds 1 Impairment pt lacks HEP Short Term Goal (STG) Pt will be I with HEP for LE strengthening STG Duration 2 weeks PROGRESSING Assessment Summary Assessment Moris has shown some improvement in gait speed, but self selects a slow pace due to feeling like he is falling forward when he walks faster. He has shown good improvement in LE strength. Physical Therapy Plan Frequency and Duration Frequency of Treatment 1x/Week Duration of Treatment 6 weeks Plan of Care Start Date 04/19/21 Plan of Care End Date 05/31/21 Next Visit Focus/Plan Next Note Type Treatment Note Next Visit Plan Continue balance work on shuttle balance, tandem stance on solid surface, and encourage pt to build up to completing 10 reps of all exercises vs 2x5 reps progress quad, glute strengthening. Encourage pt for further tx time.
--- NOTE | 2021-05-22 10:34 | PT.OTN ---
Current Diagnoses Other abnormalities of gait and mobility (05/22/21) Unspecified abnormalities of gait and mobility (05/22/21) Physical Therapy Treatment Note PT-OP-A Visit Information Start: 03/14/21 08:46 Freq: Status: Active Protocol: Document 05/22/21 09:05 AMB (Rec: 05/22/21 09:45 AMB [id number]) Out-Patient Physical Therapy Visit Information Visit Information Visit Type Treatment Note Visit Start Time 09:00 Visit Stop Time 09:45 Total Visit Minutes 45 Visit Number 11 PT-OP-B Current Condition Start: 03/14/21 08:46 Freq: Status: Active Protocol: Document 03/13/21 12:58 OF (Rec: 03/14/21 09:04 OF [email or web address]) Current Condition History of Current Condition Onset Date 1.5yrs prior History of Current Condition Pt states he broke his pinky toe 01/2020, he claims this was the beginning of his balance difficulty Treatment Goals Patient/Caregiver Goals get back to riding my bike, improve my balance Prior Functional Status Baseline Function- ADL's Independent Baseline Function- Mobility Independent Baseline Function- Gait wide path, lateral lean bidirectional Baseline Function- Other 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 PT-OP-D Balance Start: 03/14/21 08:46 Freq: Status: Active Protocol: Document 03/13/21 12:58 OF (Rec: 03/14/21 09:04 OF [email or web address]) OP-PT Balance Assessment Sitting Balance Static Sitting Balance Ability Normal Dynamic Sitting Balance Ability Normal Standing Balance Static Standing Balance Ability Good Dynamic Standing Balance Ability Good Zavala Fall Scale Copyright Permission PT-OP-E Functional Tests Start: 03/14/21 08:46 Freq: Status: Active Protocol: Document 03/13/21 12:58 OF (Rec: 03/14/21 09:04 OF [email or web address]) Functional Tests Timed Up and Go (TUG) Score 18.5 Comments high fall risk TUG Impairment Rating 80 to <100% Impaired (Score 18 -19) PT-OP-G Mobility & Gait Start: 03/14/21 08:46 Freq: Status: Active Protocol: Document 03/13/21 12:58 OF (Rec: 03/14/21 09:04 OF [email or web address]) OP Gait Assessment Gait Gait Assistance Required: Standby Assistance Distance (Feet) 225 Able to Maintain Weight Bearing Status Yes During Gait Assistive Devices Assistive Device None Gait Deviations General Gait Pattern Decreased Stride Length, Lateral Trunk Lean,Wide Based Gait Factors Limiting Gait Function Factors Limiting Gait Function Incoordination,Poor Balance PT-OP-H Neuro Start: 03/14/21 08:46 Freq: Status: Active Protocol: Document 03/13/21 12:58 OF (Rec: 03/14/21 09:04 OF [email or web address]) Sensation Evaluation Gross Sensation Gross Sensation WNL Comments Summary Comments pt demonstrates normal sensation to light touch in all extremeties Coordination Evaluation Comments Coordination Comments slow heel/ching bilateral PT-OP-M Strength Start: 03/14/21 08:46 Freq: Status: Active Protocol: Document 03/13/21 12:58 OF (Rec: 03/14/21 09:04 OF [email or web address]) Hip Strength Hip Manual Muscle Testing L Flexion (L2) 3+ Fair+ Extension (S1) 3+ Fair+ Abduction 3+ Fair+ R Flexion (L2) 3+ Fair+ Extension (S1) 3+ Fair+ Abduction 3+ Fair+ Knee Strength Knee Manual Muscle Testing L Flexion (S2) 3+ Fair+ Extension (L3) 3 Fair R Flexion (S2) 3+ Fair+ Extension (L3) 3+ Fair+ Ankle/Foot Strength Ankle and Foot Manual Muscle Testing L Dorsiflexion (L4) 3+ Fair+ Plantarflexion (S1) 3+ Fair+ R Dorsiflexion (L4) 3+ Fair+ Plantarflexion (S1) 3 Fair PT-OP-Q Treatments Start: 03/14/21 08:46 Freq: Status: Active Protocol: Document 05/22/21 09:00 AMB (Rec: 05/25/21 10:33 AMB [email or web address]) Cardio Equipment Recumbent Bicycle Duration (Minutes) 5 Resistance 10 Therapeutic Exercises Supine Exercises SLR Supine Exercise Name Straight leg raise Side bilateral Reps/Minutes x5 Comments cues for knee extension Bridges Reps/Minutes x5 Comments cues for TA stab, push heels into table Standing Exercises step ups Standing Exercise Name 6 forward alternating Reps/Minutes 10 Comments with rail support lunges Standing Exercise Name forward with UE support Reps/Minutes 10 sit to stands Standing Exercise Name without arm rests Reps/Minutes 10 Comments cue forward lean Neuro Re-Education Treatment Balance Activities Tandem Stance Surface solid Reps/Duration x1 min head turns Details WBOS, slow, eyes open Surface firm Reps/Duration 30 seconds x 2 PT-OP-T Assessment and Plan Start: 03/14/21 08:46 Freq: Status: Active Protocol: Document 05/22/21 09:05 AMB (Rec: 05/22/21 09:45 AMB [id number]) Physical Therapy Assessment Assessment Summary Assessment Worked on quad weakness today, does have quad lag with SLR. Continues to feel less balanced when walking faster. Physical Therapy Plan Next Visit Focus/Plan Next Note Type Treatment Note Next Visit Plan Continue balance work on shuttle balance, tandem stance on solid surface, and encourage pt to build up to completing 10 reps of all exercises vs 2x5 reps progress quad, glute strengthening. Encourage pt for further tx time.
--- NOTE | 2021-05-29 14:10 | PT.OTN ---
Current Diagnoses Other abnormalities of gait and mobility (05/29/21) Unspecified abnormalities of gait and mobility (05/29/21) Physical Therapy Treatment Note PT-OP-A Visit Information Start: 03/14/21 08:46 Freq: Status: Active Protocol: Document 05/29/21 09:45 AMB (Rec: 05/29/21 10:33 AMB [id number]) Out-Patient Physical Therapy Visit Information Visit Information Visit Type Treatment Note Visit Start Time 09:45 Visit Stop Time 10:30 Total Visit Minutes 45 Visit Number 12 PT-OP-B Current Condition Start: 03/14/21 08:46 Freq: Status: Active Protocol: Document 03/13/21 12:58 OF (Rec: 03/14/21 09:04 OF [email or web address]) Current Condition History of Current Condition Onset Date 1.5yrs prior History of Current Condition Pt states he broke his pinky toe 01/2020, he claims this was the beginning of his balance difficulty Treatment Goals Patient/Caregiver Goals get back to riding my bike, improve my balance Prior Functional Status Baseline Function- ADL's Independent Baseline Function- Mobility Independent Baseline Function- Gait wide path, lateral lean bidirectional Baseline Function- Other 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 PT-OP-D Balance Start: 03/14/21 08:46 Freq: Status: Active Protocol: Document 03/13/21 12:58 OF (Rec: 03/14/21 09:04 OF [email or web address]) OP-PT Balance Assessment Sitting Balance Static Sitting Balance Ability Normal Dynamic Sitting Balance Ability Normal Standing Balance Static Standing Balance Ability Good Dynamic Standing Balance Ability Good Zavala Fall Scale Copyright Permission PT-OP-E Functional Tests Start: 03/14/21 08:46 Freq: Status: Active Protocol: Document 03/13/21 12:58 OF (Rec: 03/14/21 09:04 OF [email or web address]) Functional Tests Timed Up and Go (TUG) Score 18.5 Comments high fall risk TUG Impairment Rating 80 to <100% Impaired (Score 18 -19) PT-OP-G Mobility & Gait Start: 03/14/21 08:46 Freq: Status: Active Protocol: Document 03/13/21 12:58 OF (Rec: 03/14/21 09:04 OF [email or web address]) OP Gait Assessment Gait Gait Assistance Required: Standby Assistance Distance (Feet) 225 Able to Maintain Weight Bearing Status Yes During Gait Assistive Devices Assistive Device None Gait Deviations General Gait Pattern Decreased Stride Length, Lateral Trunk Lean,Wide Based Gait Factors Limiting Gait Function Factors Limiting Gait Function Incoordination,Poor Balance PT-OP-H Neuro Start: 03/14/21 08:46 Freq: Status: Active Protocol: Document 03/13/21 12:58 OF (Rec: 03/14/21 09:04 OF [email or web address]) Sensation Evaluation Gross Sensation Gross Sensation WNL Comments Summary Comments pt demonstrates normal sensation to light touch in all extremeties Coordination Evaluation Comments Coordination Comments slow heel/ching bilateral PT-OP-M Strength Start: 03/14/21 08:46 Freq: Status: Active Protocol: Document 03/13/21 12:58 OF (Rec: 03/14/21 09:04 OF [email or web address]) Hip Strength Hip Manual Muscle Testing L Flexion (L2) 3+ Fair+ Extension (S1) 3+ Fair+ Abduction 3+ Fair+ R Flexion (L2) 3+ Fair+ Extension (S1) 3+ Fair+ Abduction 3+ Fair+ Knee Strength Knee Manual Muscle Testing L Flexion (S2) 3+ Fair+ Extension (L3) 3 Fair R Flexion (S2) 3+ Fair+ Extension (L3) 3+ Fair+ Ankle/Foot Strength Ankle and Foot Manual Muscle Testing L Dorsiflexion (L4) 3+ Fair+ Plantarflexion (S1) 3+ Fair+ R Dorsiflexion (L4) 3+ Fair+ Plantarflexion (S1) 3 Fair PT-OP-Q Treatments Start: 03/14/21 08:46 Freq: Status: Active Protocol: Document 05/29/21 09:45 AMB (Rec: 05/29/21 10:33 AMB [id number]) Cardio Equipment Recumbent Bicycle Duration (Minutes) 5 Resistance 10 Therapeutic Exercises Sitting Exercises knee ext Sitting Exercise Name 2# ankle weight Side bilateral Reps/Minutes 3x10 Standing Exercises lunges Standing Exercise Name forward with UE support Reps/Minutes 10 hip ext Standing Exercise Name #2 t band Side bilateral Reps/Minutes 3x10 Comments bar for UE support hip abd Standing Exercise Name #2 t band Side bilateral Reps/Minutes 10 reps Comments bilat UE, alternating leg, cues to keep leg straight sit to stands Standing Exercise Name without arm rests Reps/Minutes 10 Comments cue forward lean Gait Training Gait Activity 1 Description for speed Device Used none Level of Assistance SBA Surface smooth Distance/Duration 400' PT-OP-T Assessment and Plan Start: 03/14/21 08:46 Freq: Status: Active Protocol: Document 05/29/21 09:45 AMB (Rec: 05/29/21 10:33 AMB [id number]) Physical Therapy Assessment Assessment Summary Assessment Worked on glute strengthening, standing abd with t band was challenging. Physical Therapy Plan Next Visit Focus/Plan Next Note Type Treatment Note Next Visit Plan Continue balance work on shuttle balance, tandem stance on solid surface, and encourage pt to build up to completing 10 reps of all exercises vs 2x5 reps progress quad, glute strengthening. Encourage pt for further tx time.
--- NOTE | 2021-06-10 15:52 | PT.OPPOC ---
Physical, Occupational & Speech Therapy At [facility] Current Diagnoses Other abnormalities of gait and mobility (05/29/21) Unspecified abnormalities of gait and mobility (05/29/21) Visit Care Team Role Provider Type Neil Silver MD Attending Provider Physician Primary Care Provider Referring Provider Specialty: Internal Medicine Address: [address] [place] [address], [address], [facility] Email: [email or web address] Plan Of Care PT-OP-T Assessment and Plan Start: 03/14/21 08:46 Freq: Status: Active Protocol: Document 06/10/21 15:50 AMB (Rec: 06/10/21 15:52 AMB [email or web address]) Physical Therapy Assessment Goals 3 Impairment high fall risk Short Term Goal (STG) Pt will improve TUG score < 15sec to demo improved dynamic balance STG Duration 2 weeks--16 seconds Detention Goal (LTG) pt will improve TUG score to < 12sec to reduce fall risk within community LTG Duration 6 weeks 2 Impairment LE weakness Short Term Goal (STG) Pt will perform sit to stand without UE assist x5 to demonstrate improved LE strength STG Duration MET Detention Goal (LTG) Pt will complete >14 sit to stands in 30sec to demonstrate improved community mobility LTG Duration 6 weeks---5 in 30 seconds 1 Impairment pt lacks HEP Short Term Goal (STG) Pt will be I with HEP for LE strengthening STG Duration 2 weeks PROGRESSING Physical Therapy Plan Frequency and Duration Frequency of Treatment 1x/Week Duration of Treatment 6 weeks Plan of Care Start Date 06/10/21 Plan of Care End Date 07/22/21 Therapeutic Interventions Therapeutic Interventions Balance Training,Gait Training ,Home Exercise Program,Joint Mobilizations,Manual Therapy, Neuromuscular Re-education, Patient/Caregiver Education, Self-Care/Home Management, Therapeutic Activities, Therapeutic Exercises Next Visit Focus/Plan Next Note Type Treatment Note Next Visit Plan Continue balance work on shuttle balance, tandem stance on solid surface, and encourage pt to build up to completing 10 reps of all exercises vs 2x5 reps progress quad, glute strengthening. Encourage pt for further tx time. Plan of Care Dates Plan of Care Start Date 06/10/21 Plan of Care End Date 07/22/21 Electronically Signed by: Jeannette Lara, PT 06/10/21 1552 Please Sign and Return: I have reviewed this Plan of Care and certify that the skilled therapy services above are required to meet the patient?s needs. Physician Signature Date Printed Name and Credentials Clinical Instructor Signature Printed Name and Credentials
--- NOTE | 2021-06-19 10:22 | PT.OPDS ---
Current Diagnoses Other abnormalities of gait and mobility (05/29/21) Unspecified abnormalities of gait and mobility (05/29/21) Visit Care Team Role Provider Type Neil Silver MD Attending Provider Physician Primary Care Provider Referring Provider Specialty: Internal Medicine Address: [address] [place] [address], [address], [facility] Email: [email or web address] Visit Number Visit Number 12 Discharge Summary PT-OP-B Current Condition Start: 03/14/21 08:46 Freq: Status: Active Protocol: Document 03/13/21 12:58 OF (Rec: 03/14/21 09:04 OF [email or web address]) Current Condition History of Current Condition Onset Date 1.5yrs prior History of Current Condition Pt states he broke his pinky toe 01/2020, he claims this was the beginning of his balance difficulty Treatment Goals Patient/Caregiver Goals get back to riding my bike, improve my balance Prior Functional Status Baseline Function- ADL's Independent Baseline Function- Mobility Independent Baseline Function- Gait wide path, lateral lean bidirectional Baseline Function- Other 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 PT-OP-D Balance Start: 03/14/21 08:46 Freq: Status: Active Protocol: Document 03/13/21 12:58 OF (Rec: 03/14/21 09:04 OF [email or web address]) OP-PT Balance Assessment Sitting Balance Static Sitting Balance Ability Normal Dynamic Sitting Balance Ability Normal Standing Balance Static Standing Balance Ability Good Dynamic Standing Balance Ability Good Zavala Fall Scale Copyright Permission PT-OP-E Functional Tests Start: 03/14/21 08:46 Freq: Status: Active Protocol: Document 03/13/21 12:58 OF (Rec: 03/14/21 09:04 OF [email or web address]) Functional Tests Timed Up and Go (TUG) Score 18.5 Comments high fall risk TUG Impairment Rating 80 to <100% Impaired (Score 18 -19) PT-OP-G Mobility & Gait Start: 03/14/21 08:46 Freq: Status: Active Protocol: Document 03/13/21 12:58 OF (Rec: 03/14/21 09:04 OF [email or web address]) OP Gait Assessment Gait Gait Assistance Required: Standby Assistance Distance (Feet) 225 Able to Maintain Weight Bearing Status Yes During Gait Assistive Devices Assistive Device None Gait Deviations General Gait Pattern Decreased Stride Length, Lateral Trunk Lean,Wide Based Gait Factors Limiting Gait Function Factors Limiting Gait Function Incoordination,Poor Balance PT-OP-H Neuro Start: 03/14/21 08:46 Freq: Status: Active Protocol: Document 03/13/21 12:58 OF (Rec: 03/14/21 09:04 OF [email or web address]) Sensation Evaluation Gross Sensation Gross Sensation WNL Comments Summary Comments pt demonstrates normal sensation to light touch in all extremeties Coordination Evaluation Comments Coordination Comments slow heel/ching bilateral PT-OP-M Strength Start: 03/14/21 08:46 Freq: Status: Active Protocol: Document 03/13/21 12:58 OF (Rec: 03/14/21 09:04 OF [email or web address]) Hip Strength Hip Manual Muscle Testing L Flexion (L2) 3+ Fair+ Extension (S1) 3+ Fair+ Abduction 3+ Fair+ R Flexion (L2) 3+ Fair+ Extension (S1) 3+ Fair+ Abduction 3+ Fair+ Knee Strength Knee Manual Muscle Testing L Flexion (S2) 3+ Fair+ Extension (L3) 3 Fair R Flexion (S2) 3+ Fair+ Extension (L3) 3+ Fair+ Ankle/Foot Strength Ankle and Foot Manual Muscle Testing L Dorsiflexion (L4) 3+ Fair+ Plantarflexion (S1) 3+ Fair+ R Dorsiflexion (L4) 3+ Fair+ Plantarflexion (S1) 3 Fair PT-OP-T Assessment and Plan Start: 03/14/21 08:46 Freq: Status: Active Protocol: Document 06/19/21 10:17 AMB (Rec: 06/19/21 10:22 AMB [email or web address]) Physical Therapy Assessment Goals 3 Impairment high fall risk Short Term Goal (STG) Pt will improve TUG score < 15sec to demo improved dynamic balance STG Duration 2 weeks--16 seconds Residential Goal (LTG) pt will improve TUG score to < 12sec to reduce fall risk within community LTG Duration 6 weeks 2 Impairment LE weakness Short Term Goal (STG) Pt will perform sit to stand without UE assist x5 to demonstrate improved LE strength STG Duration MET Residential Goal (LTG) Pt will complete >14 sit to stands in 30sec to demonstrate improved community mobility LTG Duration 6 weeks---5 in 30 seconds 1 Impairment pt lacks HEP Short Term Goal (STG) Pt will be I with HEP for LE strengthening STG Duration 2 weeks PROGRESSING Assessment Summary Assessment Pt had canceled and no showed his last few appointments, so he is now discharged. He had met some of his goals and was very consistent with his HEP, but continued to have slow gait.
== END 2021-08-13 09:31 ==
LOC: PHYS 09:45
PROVIDERS: PCP Internal Medicine; Referring Provider Internal Medicine; Visit Provider Internal Medicine
DX: R26.9 Unspecified abnormalities of gait and mobility (principal); R26.89 Other abnormalities of gait and mobility
CPT/HCPCS: 97110; 97112; 97116; 97161

== ENCOUNTER → 2022-02-25 15:55 | Outpatient (CLI) | payer OTHER, MEDICAID, SELFPAY ==
[2022-02-25 16:35] LABS: Add Manual Diff / Slide Review NO; Basophils Absolute Auto 0 /uL (0-100); Basophils Percent Auto 1.2 % (0-2); Eosinophils Absolute Auto 300 /uL (0-450); Eosinophils Percent Auto 14.7 % (2-4); Hematocrit 22.1 % (41-53); Hemoglobin 7.4 g/dL (13.5-17.5); Lymphocytes Absolute Auto 600 /uL (1100-4500); Lymphocytes Percent Auto 30.9 % (25-40); Mean Corpuscular HGB Conc 33.3 % (30-36); Mean Corpuscular Hemoglobin 31.6 PG (26-34); Mean Corpuscular Volume 95.1 fL (80-100); Monocytes Absolute Auto 200 /uL (0-900); Monocytes Percent Auto 13.4 % (3-14); Neutrophils Absolute Auto 700 /uL (1500-7000); Neutrophils Percent Auto 39.8 % (50-75); Platelet Count 101 X10^3/uL (150-400); Red Blood Cell Count 2.33 X10^6/uL (4.5-5.9); Red Cell Distribution Width 14.4 % (11.6-14.8)
[2022-02-25 16:47] LABS: Alanine Aminotransferase 9 IU/L (<50); Albumin 2.9 g/dL (3.5-5.0); Albumin Globulin Ratio 0.7 (1.0-2.8); Alkaline Phosphatase 96 U/L (38-126); Aspartate Aminotransferase 20 IU/L (17-59); BUN Creatinine Ratio 12.7 (6-22); Bilirubin Total 0.5 mg/dL (0.2-1.3); Blood Urea Nitrogen 20 mg/dL (9-20); C-Reactive Protein Quant 1.2 mg/dL (<1.0); Calcium 8.1 mg/dL (8.4-10.2); Carbon Dioxide 19 mmol/L (22-32); Chloride 108 mmol/L (98-107); Estimated Glomerular Filt Rate 49 mL/min (>60); Globulin 4.2 g/dL (1.7-4.1); Glucose 85 mg/dL (80-110); HEMOLYSIS < 15 (0-50); Potassium 4.7 mmol/L (3.4-5.1); Sodium 133 mmol/L (137-145); Total Protein 7.1 g/dL (6.3-8.2); Uric Acid 4.3 mg/dL (3.5-8.5)
[2022-02-25 17:02] LABS: Free T4, Direct Thyroxine 1.19 ng/dL (0.78-2.19)
[2022-02-25 17:27] LABS: Thyroid Stimulating Hormone 8.31 uIU/mL (0.47-4.68)
[2022-02-25 20:14] LABS: Erythrocyte Sedimentation Rate 89 MM/HR (0-15)
[2022-02-26 06:56] LABS: Hemoglobin A1C% w Est Avg Glu 4.6 % (4.0-6.0)
== END ==
PROVIDERS: PCP Internal Medicine; Referring Provider Internal Medicine; Visit Provider Internal Medicine
DX: E03.9 Hypothyroidism, unspecified (principal); E78.5 Hyperlipidemia, unspecified; E79.0 Hyperuricemia without signs of inflammatory arthritis and tophaceous disease; I10 Essential (primary) hypertension; M10.9 Gout, unspecified; R73.9 Hyperglycemia, unspecified
CPT/HCPCS: 36415; 80053; 83036; 84439; 84443; 84550; 85025; 85651; 86140

== ENCOUNTER → 2022-03-04 14:06 | Outpatient (CLI) | payer OTHER, MEDICAID, SELFPAY ==
--- NOTE | 2022-03-04 14:07 | DI.US.S_ITS ---
PROCEDURE: US ABDOMEN LIMITED INDICATIONS: ENLARGED LIVER; ASCITIES TECHNIQUE: Real-time focused scanning was performed of the abdomen, with image documentation. COMPARISON: None. FINDINGS: The liver demonstrates enlarged size. The liver demonstrates generalized moderately increased echogenicity. This decreases ultrasound sensitivity for detection of hepatic masses. The liver demonstrates a nodular appearance. The main portal vein demonstrates normal size and demonstrates normal appearing, hepatopetal flow. Moderate to prominent ascites can be seen. IMPRESSION: Moderate to prominent ascites is seen. Cirrhotic appearing liver. Dictated by: Alfred Estrada M.D. on 03/04/2022 at 13:51 Approved by: Alfred Estrada M.D. on 03/04/2022 at 13:52
== END ==
PROVIDERS: PCP Internal Medicine; Referring Provider Internal Medicine; Visit Provider Internal Medicine
DX: R18.8 Other ascites (principal)
CPT/HCPCS: 76705

== ENCOUNTER → 2022-05-19 13:12 | Outpatient (CLI) | payer OTHER, MEDICAID, SELFPAY ==
[2022-05-19 13:35] VITALS: BP 135/68; PULSE 61; RESP 20; TEMP 36.1; O2SAT 100
[2022-05-19] MEDS: EPOETIN ALFA-EPBX 20,000 UNIT/ML VIAL 20000 UNIT SUBCUT (13:59)
== END ==
PROVIDERS: PCP Internal Medicine; Referring Provider Internal Medicine Hematology & Oncology; Visit Provider Internal Medicine Hematology & Oncology
DX: D46.Z Other myelodysplastic syndromes (principal); I12.9 Hypertensive chronic kidney disease with stage 1 through stage 4 chronic kidney disease, or unspecified chronic kidney disease; N18.9 Chronic kidney disease, unspecified; D63.1 Anemia in chronic kidney disease
CPT/HCPCS: 36415; 85014; 85018; 96372; Q5106

== ENCOUNTER → 2022-06-02 13:23 | Outpatient (CLI) | payer OTHER, MEDICAID, SELFPAY ==
[2022-06-02 13:47] VITALS: BP 147/74; PULSE 66; RESP 18; TEMP 35.9; O2SAT 100
[2022-06-02] MEDS: EPOETIN ALFA-EPBX 20,000 UNIT/ML VIAL 20000 UNIT SUBCUT (14:24)
== END ==
PROVIDERS: PCP Internal Medicine; Referring Provider Internal Medicine Hematology & Oncology; Visit Provider Internal Medicine Hematology & Oncology
DX: D46.Z Other myelodysplastic syndromes (principal); I12.9 Hypertensive chronic kidney disease with stage 1 through stage 4 chronic kidney disease, or unspecified chronic kidney disease; N18.9 Chronic kidney disease, unspecified; D63.1 Anemia in chronic kidney disease
CPT/HCPCS: 36415; 85007; 85025; 96372; Q5106

== ENCOUNTER 2022-06-13 13:58 | Inpatient (IN) | payer OTHER, MEDICAID, SELFPAY ==
[2022-06-13] VITALS (17 sets, daily range): BP systolic 93–119; BP diastolic 52–82; PULSE 41–66; RESP 15–22; TEMP 35.6–36.4; O2SAT 92–100; BMI 25.7; BMI 22.8
[2022-06-13 14:33] LABS: Add Manual Diff / Slide Review NO; Basophils Absolute Auto 0 /uL (0-100); Basophils Percent Auto 0.8 % (0-2); Eosinophils Absolute Auto 100 /uL (0-450); Eosinophils Percent Auto 3.5 % (2-4); Hematocrit 25.4 % (41-53); Hemoglobin 8.5 g/dL (13.5-17.5); Lymphocytes Absolute Auto 400 /uL (1100-4500); Lymphocytes Percent Auto 14.1 % (25-40); Mean Corpuscular HGB Conc 33.3 % (30-36); Mean Corpuscular Hemoglobin 31.6 PG (26-34); Mean Corpuscular Volume 94.7 fL (80-100); Monocytes Absolute Auto 500 /uL (0-900); Monocytes Percent Auto 16.8 % (3-14); Neutrophils Absolute Auto 2100 /uL (1500-7000); Neutrophils Percent Auto 64.8 % (50-75); Platelet Count 93 X10^3/uL (150-400); Red Blood Cell Count 2.69 X10^6/uL (4.5-5.9); Red Cell Distribution Width 15.2 % (11.6-14.8); White Blood Cell Count 3.2 X10^3/uL (4.5-11.0)
[2022-06-13 14:37] LABS: INR 1.1 (0.9-1.3); Prothrombin Time 12.9 SECONDS (10.1-12.7)
[2022-06-13 14:40] LABS: Ammonia (NH3) < 9 umol/L (9-30); PTT Partial Thromboplastin Tim 28 SECONDS (26-36)
[2022-06-13 14:41] LABS: Alanine Aminotransferase 14 IU/L (<50); Albumin 3.8 g/dL (3.5-5.0); Albumin Globulin Ratio 0.9 (1.0-2.8); Alkaline Phosphatase 85 U/L (38-126); Aspartate Aminotransferase 17 IU/L (17-59); BUN Creatinine Ratio 21.1 (6-22); Bilirubin Total 0.6 mg/dL (0.2-1.3); Blood Urea Nitrogen 62 mg/dL (9-20); Carbon Dioxide 11 mmol/L (22-32); Chloride 100 mmol/L (98-107); Creatine Kinase 39 U/L (55-170); Estimated Glomerular Filt Rate 23 mL/min (>60); Globulin 4.3 g/dL (1.7-4.1); Glucose 105 mg/dL (80-110); HEMOLYSIS < 15 (0-50); Lipase 47 U/L (23-300); Sodium 127 mmol/L (137-145); Total Protein 8.1 g/dL (6.3-8.2)
[2022-06-13 14:44] LABS: Potassium 6.4 mmol/L (3.4-5.1)
[2022-06-13 14:52] LABS: Troponin I < 0.012 ng/mL (0.01-0.034)
[2022-06-13 15:50] LABS: COVID19 -Nasal RAPID Negative (Negative)
--- NOTE | 2022-06-13 15:58 | ED_ITS ---
HPI - General Adult General Chief complaint: Abdominal Pain Stated complaint: naval hernia is leaking shooting out of a hole Time Seen by Provider: 06/13/22 14:32 History of Present Illness HPI narrative: Patient has history of liver cirrhosis/alcohol abuse/in vocal hernia/ascites. Patient states 3 days ago the umbilical hernia started leaking clear/yellow fluid. Worse when he stands up. Currently not taking. Ostomy bag placed over patient's hernia. It was removed for examination. No prior history umbilical hernia surgery. Related Data Previous Rx's Medication Instructions Recorded levothyroxine 75 mcg tablet 75 mcg PO DAILY #90 tabs 03/18/22 quetiapine 300 mg tablet,extended 300 mg PO BID #120 tabs 03/24/22 release 24 hr (Seroquel XR) atorvastatin 20 mg tablet 20 mg PO BEDTIME #90 tabs 04/21/22 cyanocobalamin (vitamin B-12) 1,000 mcg PO DAILY #90 tabs 04/25/22 1,000 mcg tablet folic acid 1 mg tablet 1 mg PO DAILY #90 tabs 04/25/22 propranolol 60 mg tablet 30 mg PO HS #90 tabs 05/22/22 trazodone 100 mg tablet 200 mg PO HS #60 tabs 06/02/22 spironolactone 25 mg tablet 50 mg PO BID #180 tabs 06/16/22 tramadol 50 mg tablet 50 mg PO QID PRN Pain, Moderate 06/16/22 (4-6) #30 tabs Allergies Allergy/AdvReac Type Severity Reaction Status Date / Time No Known Drug Allergies Allergy Verified 06/13/22 14:25 Review of Systems Review of Systems Narrative: GENERAL: negative chills, fatigue, malaise, fever, sweats. HEENT: negative sinus pain, ear pain, sore throat RESPIRATORY: negative dyspnea, cough CARDIOVASCULAR: negative chest pain, palpitations GASTROINTESTINAL: negative nausea, vomiting, abdominal pain : negative dysuria, frequency, hematuria MUSCULOSKELETAL: negative muscle or bony pain SKIN: negative rash, skin lesions NEUROLOGIC: negative weakness, numbness ROS Unobtainable: All systems reviewed & are unremarkable except as noted in HPI and below Patient History Medical History Anxiety Bipolar disorder (2007) Depression (2007) Essential hypertension Gout Hearing loss Hyperlipidemia Hypothyroidism (09/30/17) Surgical History Status post colonoscopy Family History Father Age: 89 History of stroke History of cancer Prostate cancer Social History household members: none Smoking Status: Never smoker second hand exposure: No alcohol intake: current substance use type: former substance user Smoking Status: Never smoker alcohol intake frequency: 3 or more drinks per day Alcohol type: hard liquor Substance Use Type: does not use Exam Narrative Exam Narrative: GENERAL: in no distress, not toxic not dyspneic HEAD: Normocephalic. EYES: Pupils equal round No scleral icterus. ENT: Mucous membranes moist. NECK: Trachea midline. CARDIOVASCULAR: Regular rate and rhythm without murmurs RESPIRATORY: Clear to auscultation. Breath sounds equal bilaterally. No wheezes, rales, or rhonchi. GASTROINTESTINAL: Abdomen soft, non-tender, there is a soft reducible umbilical hernia. Small opening at the center of the hernia. However no drainage. Ostomy bag is placed over to collect any fluid. Abdomen soft nontender no peritoneal signs. Bowel sounds are present. EXTREMITIES: No gross deformities. BACK: No flank tenderness. NEURO: AOx4. Clear speech no facial droop steady self gait in hallway to the bathroom and back. SKIN: Warm and dry PSYCH: Not anxious, is cooperative Initial Vital Signs Initial Vital Signs: Vital Signs Temperature 96.1 F L 06/13/22 14:04 Pulse Rate 46 L 06/13/22 14:04 Respiratory Rate 18 06/13/22 14:04 Blood Pressure 108/54 L 06/13/22 14:04 Pulse Oximetry 100 06/13/22 14:04 Oxygen Delivery Method 06/13/22 14:04 Course Course Course Narrative: No new issues during course of stay Decision to Admit Date: 06/13/22 Decision to Admit time: 16:07 Orders Ordered: Discontinued Medications Acetaminophen (Acetaminophen 325 Mg Tablet) 650 mg PO Q6H PRN PRN Reason: Fever/Mild Pain (1-3) Atorvastatin Calcium (Atorvastatin 20 Mg Tablet) 20 mg PO BEDTIME JANIE Last Admin: 06/13/22 20:49 Dose: 20 mg Documented By: TITA Bupivacaine HCl (Bupivacaine 0.5% (Pf) Vial) 30 ml INJ NOW ONE Stop: 06/14/22 15:14 Last Admin: 06/14/22 15:13 Dose: 20 ml Documented By: PETER Cyanocobalamin (Cyanocobalamin (Vitamin B-12) 500 Mcg Tablet) 1,000 mcg PO DAILY [facility] Last Admin: 06/14/22 09:25 Dose: 1,000 mcg Documented By: WANDA Dextrose (Dextrose 50 % In Water 25 Gm/50 Ml Syringe) 25 gm IV NOW ONE Stop: 06/14/22 06:28 Last Admin: 06/14/22 08:46 Dose: 25 gm Documented By: WANDA Folic Acid (Folic Acid 1 Mg Tablet) 1 mg PO DAILY [facility] Last Admin: 06/14/22 09:25 Dose: 1 mg Documented By: WANDA Furosemide (Furosemide 40 Mg/4 Ml Vial) 20 mg IV NOW ONE Stop: 06/14/22 06:54 Last Admin: 06/14/22 08:47 Dose: 20 mg Documented By: WANDA Furosemide (Furosemide 20 Mg Tablet) 40 mg PO DAILY [facility] Last Admin: 06/15/22 09:36 Dose: Not Given Documented By: ANTHONY Hydromorphone HCl (Hydromorphone 2 Mg Inj) 0 mg IV Q5MIN PRN PRN Reason: Pain, Mild (1-3) Calcium Gluconate 9.3 meq/ (Sodium Chloride) 70 mls @ 140 mls/hr IV NOW ONE Stop: 06/13/22 16:37 Last Infusion: 06/13/22 17:31 Dose: 140 mls/hr Documented By: Admin: 06/13/22 17:07 Dose: 140 mls/hr Documented By: NISHA Sodium Chloride (Normal Saline 0.9%) 1,000 mls @ 100 mls/hr IV CONT [facility] Last Admin: 06/14/22 08:01 Dose: 100 mls/hr Documented By: Infusion: 06/14/22 08:01 Dose: 0 mls/hr Documented By: Infusion: 06/14/22 06:36 Dose: 0 mls/hr Documented By: Infusion: 06/14/22 05:38 Dose: 100 mls/hr Documented By: Infusion: 06/14/22 04:25 Dose: 0 mls/hr Documented By: Admin: 06/13/22 18:38 Dose: 75 mls/hr Documented By: FAREED Sodium Chloride (Normal Saline 0.9%) 500 mls @ 500 mls/hr IV NOW [facility] Stop: 06/14/22 06:00 Last Admin: 06/14/22 04:25 Dose: 500 mls/hr Documented By: TITA Sodium Chloride (Normal Saline 0.9%) 1,000 mls @ 1,000 mls/hr IV BOLUS ONE Stop: 06/14/22 07:22 Last Admin: 06/14/22 06:41 Dose: 1,000 mls/hr Documented By: TITA Dextrose (D10w) 1,000 mls @ 50 mls/hr IV CONT [facility] Last Admin: 06/14/22 09:05 Dose: 50 mls/hr Documented By: WANDA Calcium Gluconate 9.3 meq/ (Sodium Chloride) 70 mls @ 140 mls/hr IV NOW ONE Stop: 06/14/22 12:31 Last Infusion: 06/14/22 13:23 Dose: 0 mls/hr Documented By: Admin: 06/14/22 12:15 Dose: 140 mls/hr Documented By: LILIANE Cefotetan Disodium 2 gm/ (Sodium Chloride) 100 mls @ 200 mls/hr IV NOW ONE Stop: 06/14/22 12:07 Last Infusion: 06/14/22 14:46 Dose: 0 mls/hr Documented By: Admin: 06/14/22 14:30 Dose: 200 mls/hr Documented By: FREDY Insulin Human Regular (Insulin Regular 100 Unit/Ml 3 Ml Vial) 10 unit IV NOW ONE Stop: 06/14/22 06:51 Last Admin: 06/14/22 08:47 Dose: 10 unit Documented By: WANDA Co-signed By: Levothyroxine Sodium (Levothyroxine 75 Mcg Tablet) 75 mcg PO DAILY@0600 [facility] Last Admin: 06/14/22 06:24 Dose: 75 mcg Documented By: TITA Naloxone HCl (Naloxone 0.4 Mg/Ml Vial) 0.2 mg IV Q2MIN PRN PRN Reason: Opiate Reversal Nf - Quetiapine ( Seroquel Xr) 300 Mg Er Tablet 300 mg PO BID [facility] Last Admin: 06/16/22 11:20 Dose: 300 mg Documented By: Admin: 06/15/22 21:01 Dose: 300 mg Documented By: MS(2) Admin: 06/15/22 11:03 Dose: Not Given Documented By: Admin: 06/15/22 09:19 Dose: Not Given Documented By: Admin: 06/14/22 09:26 Dose: 300 mg Documented By: Admin: 06/13/22 22:22 Dose: Not Given Documented By: TITA Home Medication (Storage) 0 each PO PRN PRN PRN Reason: HOME MEDICATION STORAGE Nf - Quetiapine ( Seroquel Xr) 300 Mg Er Tablet 300 mg PO BEDTIME [facility] Last Admin: 06/15/22 21:02 Dose: 300 mg Documented By: PATO2) Nf - Quetiapine Er ( (Seroquel Xr) 300 Mg) 300 mg PO BID [facility] Last Admin: 06/17/22 09:37 Dose: 300 mg Documented By: Admin: 06/16/22 21:32 Dose: 300 mg Documented By: Admin: 06/16/22 11:25 Dose: Not Given Documented By: FAREED Ondansetron HCl (Ondansetron 4 Mg/2 Ml Inj) 4 mg IV NOW PRN PRN Reason: Nausea And Vomiting Ondansetron HCl (Ondansetron 4 Mg/2 Ml Inj) 4 mg IV Q4HR PRN PRN Reason: Nausea And Vomiting Potassium Chloride (Potassium Chloride 20 Meq Tab) 20 meq PO DAILY [facility] Last Admin: 06/15/22 09:34 Dose: Not Given Documented By: ANTHONY Propranolol HCl (Propranolol 10 Mg Tablet) 30 mg PO BEDTIME [facility] Last Admin: 06/16/22 21:32 Dose: 30 mg Documented By: Admin: 06/15/22 21:01 Dose: 30 mg Documented By: MS(2) Admin: 06/14/22 20:24 Dose: 30 mg Documented By: PATO2) Sodium Chloride (Sodium Chloride 0.9% 100 Ml) 500 ml INJ NOW ONE Stop: 06/14/22 04:17 Last Admin: 06/14/22 05:00 Dose: Not Given Documented By: TITA Sodium Chloride (Sodium Chloride 0.9% Flush) 10 ml IV BID [facility] Last Admin: 06/17/22 09:42 Dose: Not Given Documented By: Admin: 06/16/22 21:32 Dose: 10 ml Documented By: Admin: 06/16/22 10:00 Dose: 10 ml Documented By: Admin: 06/16/22 02:25 Dose: 10 ml Documented By: MS(2) Sodium Polystyrene Sulfonate (Sodium Polystyrene Sulfon/Sorb 15 Gm/60 Ml Cup) 30 gm PO NOW ONE Stop: 06/13/22 16:09 Last Admin: 06/13/22 17:07 Dose: 30 gm Documented By: NISHA Sodium Polystyrene Sulfonate (Sodium Polystyrene Sulfon/Sorb 15 Gm/60 Ml Cup) 30 gm PO NOW ONE Stop: 06/14/22 04:06 Last Admin: 06/14/22 04:36 Dose: 30 gm Documented By: TITA Spironolactone (Spironolactone 25 Mg Tablet) 25 mg PO BID [facility] Last Admin: 06/15/22 21:01 Dose: 25 mg Documented By: (2) Admin: 06/15/22 09:35 Dose: Not Given Documented By: Admin: 06/14/22 20:24 Dose: 25 mg Documented By: (2) Spironolactone (Spironolactone 25 Mg Tablet) 50 mg PO BID [facility] Last Admin: 06/17/22 09:37 Dose: 50 mg Documented By: Admin: 06/16/22 21:33 Dose: 50 mg Documented By: Admin: 06/16/22 10:00 Dose: 50 mg Documented By: FAREED Tramadol HCl (Tramadol 50 Mg Tablet) 50 mg PO QID PRN PRN Reason: Pain, Moderate (4-6) Tramadol HCl (Tramadol 50 Mg Tablet) 100 mg PO QID PRN PRN Reason: Pain, Moderate (6-8) Last Admin: 06/15/22 17:30 Dose: 100 mg Documented By: Admin: 06/15/22 04:54 Dose: 100 mg Documented By: (2) Trazodone HCl (Trazodone 100 Mg Tablet) 200 mg PO BEDTIME [facility] Last Admin: 06/13/22 20:48 Dose: 200 mg Documented By: TITA Trazodone HCl (Trazodone 100 Mg Tablet) 200 mg PO BEDTIME [facility] Last Admin: 06/16/22 21:32 Dose: 200 mg Documented By: Admin: 06/15/22 21:00 Dose: 200 mg Documented By: MS(2) Reevaluation(s) Reevaluation #1: No new issues. Patient does agree understand for admission. Time: 16:07 Consultations Consultation #1: Spoke with primary care, Dr. Silver, will admit patient. Agrees for calcium glu conate and Kayexalate p.o.. Agrees with general surgery consult. Time: 16:07 Consultation #2: Spoke with general surgery Dr. Mitchell, she will speak with Dr. Silver regarding surgery Time: 16:21 Vital Signs Vital signs: Vital Signs - 8 hr 06/13/22 14:04 06/13/22 14:21 06/13/22 14:21 Temperature 96.1 F L Pulse Rate 46 L 41 L Respiratory Rate 18 16 Blood Pressure 108/54 L 93/52 L Pulse Oximetry 100 98 Oxygen Delivery Method Room Air Room Air 06/13/22 14:30 06/13/22 14:31 06/13/22 14:31 Temperature Pulse Rate 50 L 61 Respiratory Rate 19 17 Blood Pressure 115/82 Pulse Oximetry 98 100 Oxygen Delivery Method 06/13/22 14:45 06/13/22 14:45 06/13/22 15:00 Temperature Pulse Rate 62 Respiratory Rate 15 Blood Pressure 117/57 L 119/56 L Pulse Oximetry 99 Oxygen Delivery Method 06/13/22 15:00 06/13/22 15:15 06/13/22 15:15 Temperature Pulse Rate 62 62 Respiratory Rate 15 20 Blood Pressure 113/59 L Pulse Oximetry 100 98 Oxygen Delivery Method 06/13/22 15:30 06/13/22 15:30 06/13/22 15:45 Temperature Pulse Rate 62 64 Respiratory Rate 15 22 Blood Pressure 112/59 L Pulse Oximetry 99 99 Oxygen Delivery Method 06/13/22 16:00 Temperature Pulse Rate 66 Respiratory Rate 17 Blood Pressure Pulse Oximetry 100 Oxygen Delivery Method Room Air Medical Decision Making Differential Diagnosis Differential Diagnosis: Ascites/umbilical hernia/fistula/hyperkalemia/renal injury Lab Data Result diagrams: 06/16/22 07:11 06/17/22 07:57 Labs: Lab Results 06/13/22 06/13/22 06/13/22 Range/Units 14:15 14:15 14:15 WBC 3.2 L (4.5-11.0) X10^3/uL RBC 2.69 L (4.5-5.9) X10^6/uL Hgb 8.5 L (13.5-17.5) g/dL Hct 25.4 L (41-53) % MCV 94.7 (80-100) fL MCH 31.6 (26-34) PG MCHC 33.3 (30-36) % RDW 15.2 H (11.6-14.8) % Plt Count 93 L (150-400) X10^3/uL Neut % (Auto) 64.8 (50-75) % Lymph % (Auto) 14.1 L (25-40) % [place] % (Auto) 16.8 H (3-14) % Eos % (Auto) 3.5 (2-4) % Baso % (Auto) 0.8 (0-2) % Neut # (Auto) 2100 (2654-5963) /uL Lymph # (Auto) 400 L (4892-2869) /uL [place] # (Auto) 500 (0-900) /uL Eos # (Auto) 100 (0-450) /uL Baso # (Auto) 0 (0-100) /uL PT 12.9 H (10.1-12.7) SECONDS INR 1.1 (0.9-1.3) APTT 28 (26-36) SECONDS Sodium 127 L (137-145) mmol/L Potassium 6.4 H* (3.4-5.1) mmol/L Chloride 100 (98-107) mmol/L Carbon Dioxide 11 L (22-32) mmol/L BUN 62 H (9-20) mg/dL Creatinine 2.94 H (0.66-1.25) mg/dL Estimated GFR 23 L (>60) mL/min BUN/Creatinine Ratio 21.1 (6-22) Glucose 105 (80-110) mg/dL Calcium 9.0 (8.4-10.2) mg/dL Total Bilirubin 0.6 (0.2-1.3) mg/dL AST 17 (17-59) IU/L ALT 14 (<50) IU/L Alkaline Phosphatase 85 (38-126) U/L Ammonia (9-30) umol/L Total Creatine Kinase 39 L (55-170) U/L CK-MB (CK-2) TNP CK-MB (CK-2) Rel Index TNP Troponin I < 0.012 (0.01-0.034) ng/mL Total Protein 8.1 (6.3-8.2) g/dL Albumin 3.8 (3.5-5.0) g/dL Globulin 4.3 H (1.7-4.1) g/dL Albumin/Globulin Ratio 0.9 L (1.0-2.8) Lipase 47 (23-300) U/L Ethyl Alcohol ( - 10) mg/dL SARS-CoV-2 (PCR) (Negative) Blood Type Antibody Screen 06/13/22 06/13/22 06/13/22 Range/Units 14:15 14:15 15:09 WBC (4.5-11.0) X10^3/uL RBC (4.5-5.9) X10^6/uL Hgb (13.5-17.5) g/dL Hct (41-53) % MCV (80-100) fL MCH (26-34) PG MCHC (30-36) % RDW (11.6-14.8) % Plt Count (150-400) X10^3/uL Neut % (Auto) (50-75) % Lymph % (Auto) (25-40) % [place] % (Auto) (3-14) % Eos % (Auto) (2-4) % Baso % (Auto) (0-2) % Neut # (Auto) (0509-1553) /uL Lymph # (Auto) (6583-6174) /uL [place] # (Auto) (0-900) /uL Eos # (Auto) (0-450) /uL Baso # (Auto) (0-100) /uL PT (10.1-12.7) SECONDS INR (0.9-1.3) APTT (26-36) SECONDS Sodium (137-145) mmol/L Potassium (3.4-5.1) mmol/L Chloride (98-107) mmol/L Carbon Dioxide (22-32) mmol/L BUN (9-20) mg/dL Creatinine (0.66-1.25) mg/dL Estimated GFR (>60) mL/min BUN/Creatinine Ratio (6-22) Glucose (80-110) mg/dL Calcium (8.4-10.2) mg/dL Total Bilirubin (0.2-1.3) mg/dL AST (17-59) IU/L ALT (<50) IU/L Alkaline Phosphatase (38-126) U/L Ammonia < 9 L (9-30) umol/L Total Creatine Kinase (55-170) U/L CK-MB (CK-2) CK-MB (CK-2) Rel Index Troponin I (0.01-0.034) ng/mL Total Protein (6.3-8.2) g/dL Albumin (3.5-5.0) g/dL Globulin (1.7-4.1) g/dL Albumin/Globulin Ratio (1.0-2.8) Lipase (23-300) U/L Ethyl Alcohol ( - 10) mg/dL SARS-CoV-2 (PCR) Negative (Negative) Blood Type B Positive Antibody Screen Negative 06/13/22 Range/Units 16:10 WBC (4.5-11.0) X10^3/uL RBC (4.5-5.9) X10^6/uL Hgb (13.5-17.5) g/dL Hct (41-53) % MCV (80-100) fL MCH (26-34) PG MCHC (30-36) % RDW (11.6-14.8) % Plt Count (150-400) X10^3/uL Neut % (Auto) (50-75) % Lymph % (Auto) (25-40) % [place] % (Auto) (3-14) % Eos % (Auto) (2-4) % Baso % (Auto) (0-2) % Neut # (Auto) (7857-0864) /uL Lymph # (Auto) (5253-2876) /uL [place] # (Auto) (0-900) /uL Eos # (Auto) (0-450) /uL Baso # (Auto) (0-100) /uL PT (10.1-12.7) SECONDS INR (0.9-1.3) APTT (26-36) SECONDS Sodium (137-145) mmol/L Potassium (3.4-5.1) mmol/L Chloride (98-107) mmol/L Carbon Dioxide (22-32) mmol/L BUN (9-20) mg/dL Creatinine (0.66-1.25) mg/dL Estimated GFR (>60) mL/min BUN/Creatinine Ratio (6-22) Glucose (80-110) mg/dL Calcium (8.4-10.2) mg/dL Total Bilirubin (0.2-1.3) mg/dL AST (17-59) IU/L ALT (<50) IU/L Alkaline Phosphatase (38-126) U/L Ammonia (9-30) umol/L Total Creatine Kinase (55-170) U/L CK-MB (CK-2) CK-MB (CK-2) Rel Index Troponin I (0.01-0.034) ng/mL Total Protein (6.3-8.2) g/dL Albumin (3.5-5.0) g/dL Globulin (1.7-4.1) g/dL Albumin/Globulin Ratio (1.0-2.8) Lipase (23-300) U/L Ethyl Alcohol 13 H ( - 10) mg/dL SARS-CoV-2 (PCR) (Negative) Blood Type Antibody Screen ECG Data Interpretation: Sinus rhythm rate [address] elevation or depression MDM Narrative Medical decision making narrative: 62-year-old male patient here for reducible umbilical hernia ongoing for years however last 3 days has had what appears to be a fistula with leaking ascitic fluid since this past Thursday. Denies any fever abdominal pain. Patient has history of alcohol abuse and chronic renal failure and anemia. I have reviewed laboratory studies and vital signs. No imaging indicated at this time. Differential diagnosis includes but not limited to ascites/umbilical hernia fistula/acute renal failure/hyperkalemia. Kayexalate as well as calcium gluconate have been started in the emergency department . General surgery consult has been started. Discharge Plan Departure Patient Disposition: Admitted as Observation Clinical Impression: Acute hyperkalemia, Acute kidney injury, Hernia, umbilical Admit Date/Time: 06/13/22 16:11 Admit Provider: Neil Silver
--- NOTE | 2022-06-13 16:08 | P.HP_ITS ---
History of Present Illness History of Present Illness Date Patient Seen: 06/13/22 Time Patient Seen: 16:08 Chief complaint: naval hernia is leaking shooting out of a hole Narrative: 62-year-old male admitted via emergency department because of acute kidney injur y and hyperkalemia. He presented to the ER actually complaining about fluid leaking out of his known umbilical hernia. Patient with history of significant ascites with abdominal distention etcetera. He reports that for the last 3 or 4 days he is had leakage including an actual stream coming from his umbilical hernia which is been quite bothersome. No abdominal pain no pain around the area no redness just the annoyance of fluid leaking out. He did not take any more of his diuretics or changes medications except cutting back on the propranolol as he and I had suggested. ER evaluation discovered his elevated creatinine over baseline as well as his hyperkalemia. He is admitted for continued management of these 2 issues primarily as well as evaluation of his umbilical hernia Patient also with significant myelodysplastic syndrome although his CBC today is at baseline or better. Does have persistent thrombocytopenia as well as anemia. Patient with known cirrhosis of the liver likely secondary to alcohol, with referral to GI not yet completed, slight he is controlled with diuretic therapy including spironolactone and furosemide Patient History Medical History (Updated 06/13/22 @ 19:14 by Milagros Mitchell MD) Anxiety Bipolar disorder (2007) Depression (2007) Essential hypertension Gout Hearing loss Hyperlipidemia Hypothyroidism (09/30/17) Surgical History Status post colonoscopy Family & Social History Family History Father Age: 89 History of stroke History of cancer Prostate cancer Safety & Behavioral: Feels Safe in Current Yes Environment Been Physically Hurt or No Threatened By a Person Tobacco & Substance use: Smoking Status Never smoker alcohol intake current alcohol intake frequency 3 or more drinks per day Substance Use Type does not use Meds Home Medications and Allergies Home Medications Medication Instructions Recorded Confirmed Type furosemide 20 mg tablet 40 mg PO QAM #60 tabs 02/25/22 06/13/22 Rx spironolactone 25 mg tablet 25 mg PO BID #90 tabs 03/14/22 06/13/22 Rx levothyroxine 75 mcg tablet 75 mcg PO DAILY #90 tabs 03/18/22 06/13/22 Rx quetiapine 300 mg tablet,extended 300 mg PO BID #120 tabs 03/24/22 06/13/22 Rx release 24 hr (Seroquel XR) potassium chloride 20 mEq 20 meq PO DAILY #90 tabs 03/25/22 06/13/22 Rx tablet,extended release(part/cryst) atorvastatin 20 mg tablet 20 mg PO BEDTIME #90 tabs 04/21/22 06/13/22 Rx cyanocobalamin (vitamin B-12) 1,000 mcg PO DAILY #90 tabs 04/25/22 06/13/22 Rx 1,000 mcg tablet folic acid 1 mg tablet 1 mg PO DAILY #90 tabs 04/25/22 06/13/22 Rx propranolol 60 mg tablet 30 mg PO HS #90 tabs 05/22/22 06/13/22 Rx trazodone 100 mg tablet 200 mg PO HS #60 tabs 06/02/22 06/13/22 Rx tramadol 50 mg tablet 50 mg PO QID PRN Pain, Moderate 06/16/22 Rx (4-6) #30 tabs Allergies Allergy/AdvReac Type Severity Reaction Status Date / Time No Known Drug Allergies Allergy Verified 06/13/22 14:25 Review of Systems Review of Systems ROS: Yes All systems reviewed with the patient and are negative except as otherwise documented Exam Vital Signs (past 8 hours): - 06/13/22 14:04 06/13/22 14:21 06/13/22 14:21 Temperature 96.1 F L Pulse Rate 46 L 41 L Respiratory Rate 18 16 Blood Pressure 108/54 L 93/52 L Pulse Oximetry 100 98 Oxygen Delivery Method Room Air Room Air 06/13/22 14:30 06/13/22 14:31 06/13/22 14:31 Temperature Pulse Rate 50 L 61 Respiratory Rate 19 17 Blood Pressure 115/82 Pulse Oximetry 98 100 Oxygen Delivery Method 06/13/22 14:45 06/13/22 14:45 06/13/22 15:00 Temperature Pulse Rate 62 Respiratory Rate 15 Blood Pressure 117/57 L 119/56 L Pulse Oximetry 99 Oxygen Delivery Method 06/13/22 15:00 06/13/22 15:15 06/13/22 15:15 Temperature Pulse Rate 62 62 Respiratory Rate 15 20 Blood Pressure 113/59 L Pulse Oximetry 100 98 Oxygen Delivery Method 06/13/22 15:30 06/13/22 15:30 06/13/22 15:45 Temperature Pulse Rate 62 64 Respiratory Rate 15 22 Blood Pressure 112/59 L Pulse Oximetry 99 99 Oxygen Delivery Method 06/13/22 16:00 Temperature Pulse Rate 66 Respiratory Rate 17 Blood Pressure Pulse Oximetry 100 Oxygen Delivery Method Room Air Oxygen Delivery Method Room Air Narrative Exam Narrative: Middle-aged male who looks somewhat older than his stated age in no obvious distress lying on a gurney in the emergency department HEENT-unremarkable Lungs-clear with good breath sounds Heart-regular rate and rhythm Abdomen-modestly distended but less so than I have seen previously, positive fluid wave, positive bowel tones, no tenderness rebound or guarding, umbilical hernia covered by ostomy bag but no obvious abnormality Extremities-no cyanosis clubbing or edema Neuro-alert orient x3 moves all 4 extremities no focal findings gait not tested Objective Labs Result Diagrams: 06/15/22 11:50 06/15/22 11:50 Labs: Laboratory Results - last 24 hr 06/13/22 06/13/22 06/13/22 14:15 14:15 14:15 WBC 3.2 L RBC 2.69 L Hgb 8.5 L Hct 25.4 L MCV 94.7 MCH 31.6 MCHC 33.3 RDW 15.2 H Plt Count 93 L Neut % (Auto) 64.8 Lymph % (Auto) 14.1 L [place] % (Auto) 16.8 H Eos % (Auto) 3.5 Baso % (Auto) 0.8 Neut # (Auto) 2100 Lymph # (Auto) 400 L [place] # (Auto) 500 Eos # (Auto) 100 Baso # (Auto) 0 PT 12.9 H INR 1.1 APTT 28 Sodium 127 L Potassium 6.4 H* Chloride 100 Carbon Dioxide 11 L BUN 62 H Creatinine 2.94 H Estimated GFR 23 L BUN/Creatinine Ratio 21.1 Glucose 105 Calcium 9.0 Total Bilirubin 0.6 AST 17 ALT 14 Alkaline Phosphatase 85 Ammonia Total Creatine Kinase 39 L CK-MB (CK-2) TNP CK-MB (CK-2) Rel Index TNP Troponin I < 0.012 Total Protein 8.1 Albumin 3.8 Globulin 4.3 H Albumin/Globulin Ratio 0.9 L Lipase 47 SARS-CoV-2 (PCR) 06/13/22 06/13/22 14:15 15:09 WBC RBC Hgb Hct MCV MCH MCHC RDW Plt Count Neut % (Auto) Lymph % (Auto) [place] % (Auto) Eos % (Auto) Baso % (Auto) Neut # (Auto) Lymph # (Auto) [place] # (Auto) Eos # (Auto) Baso # (Auto) PT INR APTT Sodium Potassium Chloride Carbon Dioxide BUN Creatinine Estimated GFR BUN/Creatinine Ratio Glucose Calcium Total Bilirubin AST ALT Alkaline Phosphatase Ammonia < 9 L Total Creatine Kinase CK-MB (CK-2) CK-MB (CK-2) Rel Index Troponin I Total Protein Albumin Globulin Albumin/Globulin Ratio Lipase SARS-CoV-2 (PCR) Negative Assessment & Plan Assessment & Plan narrative: 1. Hyperkalemia with acute kidney injury-hopefully secondary to a bit of over- diuresis in attempt to treat his abdominal ascites. Will hold his diuretic therapy and given some gentle IV fluids in effort to improve both of these numbers. As far as the hyperkalemia go he is already been effectively initially treated in emergency department will plan to repeat potassium later this evening and give additional Kayexalate as necessary. Fortunately no evidence of complic ation his EKG looks okay etcetera. Continue monitor him on telemetry until his potassium is under 5.5 or so 2. Umbilical hernia with probable ascitic fluid leaking-no evidence of complication at this point. ER suggested General surgery evaluate him for need for potential future repair and I think that is entirely appropriate. Could consider paracentesis to reduce intra-abdominal pressure to allow us to heal to some degree although he is certainly going to reaccumulate fluid on some level. 3. GI-patient with known cirrhosis still pending GI evaluation unfortunately. Continue with perhaps lower dose diuretic therapy in the future assuming his acute kidney injury improves off diuretics as above 4. Bradycardia-patient known to be bradycardic at times. Does take beta-sacha at bedtime and I think that should be further decreased (already been decreased his an outpatient) and perhaps even discontinue. I am going to hold it for now and may not need to restart upon discharge. Patient wants to have registered nurse cardiac telemetry performed still waiting for that to be done as well. 5. Hypertension-as of patient on beta-sacha therapy but somewhat hypotensive at this time. That would go along with his relative volume depletion from the diuretic therapy. Continue to hold his beta-sacha and monitor blood pressure while we gently give him some IV fluids 6. Hypothyroidism-continue patient's usual thyroid replacement 7. Bipolar-continue patient's usual medications 8. VTE prophylaxis-SCDs will be employed. Given his thrombocytopenia I do not believe he is a candidate for any sort of heparin 9. Code status-patient should be full code in the event of a sudden cardiac or respiratory arrest which is not at this point anticipated in any way shape or form COVID-19 COVID-19 status: Negative Result date/Date tested (Pos, Neg/Pending): 06/13/22
[2022-06-13 17:06] LABS: Ethanol (ETOH) 13 mg/dL
[2022-06-13] MEDS: SODIUM POLYSTYRENE SULFON/SORB 15 GM/60 ML CUP 30 GM PO (17:07)
[2022-06-13] MEDS: CALCIUM GLUCONATE 9.3 MEQ in SODIUM CHLORIDE 0.9% 50 ML 140 MEQ IV (17:07)
[2022-06-13] MEDS: SODIUM CHLORIDE 0.9% 1,000 ML 75 ML IV (18:38)
--- NOTE | 2022-06-13 18:54 | PC.NURSE ---
Pt arrived from ED at 1725, settled in to room. VSS, afebrile, denies SOB on RA. Abdomen distended. He is given a low sodium tray but denies appetite due to feeling bloated. LBM 06/12/22. Belly button with outpouching hernia appears stoma like and draining scant mariajose looking fluid. MD Mitchell at bedside evaluating patient. Plan for pt to go to surgery and be NPO after midnight for surgery in A.M. If medically cleared by MD Silver. pt placed on telemetry. Given Kaexylate by ED and calicium acetate for k+6.4. pt reports slight dizziness with standing. Oriented to room and unit routines. He acknowledged he will call when wanting to get out of bed. call light in reach, bed alarm on.
--- NOTE | 2022-06-13 19:01 | P.CONS_ITS ---
History of Present Illness Consult details Date Patient Seen: 06/13/22 Time Patient Seen: 17:30 Chief complaint: naval hernia is leaking shooting out of a hole Reason for consult: leaking umbilical hernia Requesting provider: ED* *Temvaibhav Narrative: Mr. Bae is presenting to the ED with about 3 days of drainage from skin breakdown at the point of an umbilical hernia. He states that he has had the hernia for 6-8 months. He seems to have little understanding of his liver disease and doesn't recognize the word, acites. He states he has not ever needed a drainage of his abdominal fluid before. Each day that passed, more drainage was occurring. He estimates about 1 liter (about the amount that would fit in the urinal at his bedside) has drained in total. Per the medical record, he is an alcoholic, has myelodysplastic syndrome with anemia and throbocytopenia (plt 93 today) and poor compliance with medication. His INR is 1.1. He presents with ALEXIS and hyperkalemia among other electrolyte abnormalities. Meds Home Medications and Allergies Home Medications Medication Instructions Recorded Confirmed Type furosemide 20 mg tablet 40 mg PO QAM #60 tabs 02/25/22 05/22/22 Rx spironolactone 25 mg tablet 25 mg PO BID #90 tabs 03/14/22 05/22/22 Rx levothyroxine 75 mcg tablet 75 mcg PO DAILY #90 tabs 03/18/22 05/22/22 Rx quetiapine 300 mg tablet,extended 300 mg PO BID #120 tabs 03/24/22 05/22/22 Rx release 24 hr (Seroquel XR) potassium chloride 20 mEq 20 meq PO DAILY #90 tabs 03/25/22 05/22/22 Rx tablet,extended release(part/cryst) atorvastatin 20 mg tablet 20 mg PO BEDTIME #90 tabs 04/21/22 05/22/22 Rx cyanocobalamin (vitamin B-12) 1,000 mcg PO DAILY #90 tabs 04/25/22 05/22/22 Rx 1,000 mcg tablet folic acid 1 mg tablet 1 mg PO DAILY #90 tabs 04/25/22 05/22/22 Rx propranolol 60 mg tablet 30 mg PO HS #90 tabs 05/22/22 05/22/22 Rx trazodone 100 mg tablet 200 mg PO HS #60 tabs 06/02/22 Rx Allergies Allergy/AdvReac Type Severity Reaction Status Date / Time No Known Drug Allergies Allergy Verified 06/13/22 14:25 Exam Vital Signs (past 8 hours): - 06/13/22 14:04 06/13/22 14:21 06/13/22 14:21 Temperature 96.1 F L Pulse Rate 46 L 41 L Respiratory Rate 18 16 Blood Pressure 108/54 L 93/52 L Pulse Oximetry 100 98 Oxygen Delivery Method Room Air Room Air Oxygen Flow Rate 06/13/22 14:30 06/13/22 14:31 06/13/22 14:31 Temperature Pulse Rate 50 L 61 Respiratory Rate 19 17 Blood Pressure 115/82 Pulse Oximetry 98 100 Oxygen Delivery Method Oxygen Flow Rate 06/13/22 14:45 06/13/22 14:45 06/13/22 15:00 Temperature Pulse Rate 62 Respiratory Rate 15 Blood Pressure 117/57 L 119/56 L Pulse Oximetry 99 Oxygen Delivery Method Oxygen Flow Rate 06/13/22 15:00 06/13/22 15:15 06/13/22 15:15 Temperature Pulse Rate 62 62 Respiratory Rate 15 20 Blood Pressure 113/59 L Pulse Oximetry 100 98 Oxygen Delivery Method Oxygen Flow Rate 06/13/22 15:30 06/13/22 15:30 06/13/22 15:45 Temperature Pulse Rate 62 64 Respiratory Rate 15 22 Blood Pressure 112/59 L Pulse Oximetry 99 99 Oxygen Delivery Method Oxygen Flow Rate 06/13/22 16:00 06/13/22 16:52 06/13/22 16:15 Temperature Pulse Rate 66 65 Respiratory Rate 17 18 Blood Pressure 107/56 L 99/56 L Pulse Oximetry 100 99 Oxygen Delivery Method Room Air Room Air Oxygen Flow Rate 06/13/22 16:15 06/13/22 16:30 06/13/22 16:30 Temperature Pulse Rate 64 65 Respiratory Rate Blood Pressure 107/56 L Pulse Oximetry 98 99 Oxygen Delivery Method Oxygen Flow Rate 06/13/22 16:45 06/13/22 16:45 06/13/22 17:00 Temperature Pulse Rate 65 Respiratory Rate 15 Blood Pressure 112/57 L 113/56 L Pulse Oximetry 99 Oxygen Delivery Method Oxygen Flow Rate 06/13/22 17:00 06/13/22 17:51 Temperature 97.5 F L Pulse Rate 66 61 Respiratory Rate 17 17 Blood Pressure 119/73 Pulse Oximetry 99 92 Oxygen Delivery Method Oxygen Flow Rate 0 Oxygen Delivery Method Room Air Oxygen Flow Rate 0 Narrative Exam Narrative: Gen: is is alert oriented cooperative and pleasant. he has a thin appearance of malnourishment. Res: breathing non labored on room air Abd: there is distension with fluid wave. There is a non tender umbilical hernia with leakage of acites fluid. THis has been dressed with an ostomy appliance. Ext: very thin, with muscle wasting. Objective Labs Result Diagrams: 06/13/22 14:15 06/13/22 14:15 Labs: Laboratory Results - last 24 hr 06/13/22 06/13/22 06/13/22 14:15 14:15 14:15 WBC 3.2 L RBC 2.69 L Hgb 8.5 L Hct 25.4 L MCV 94.7 MCH 31.6 MCHC 33.3 RDW 15.2 H Plt Count 93 L Neut % (Auto) 64.8 Lymph % (Auto) 14.1 L [place] % (Auto) 16.8 H Eos % (Auto) 3.5 Baso % (Auto) 0.8 Neut # (Auto) 2100 Lymph # (Auto) 400 L [place] # (Auto) 500 Eos # (Auto) 100 Baso # (Auto) 0 PT 12.9 H INR 1.1 APTT 28 Sodium 127 L Potassium 6.4 H* Chloride 100 Carbon Dioxide 11 L BUN 62 H Creatinine 2.94 H Estimated GFR 23 L BUN/Creatinine Ratio 21.1 Glucose 105 Calcium 9.0 Total Bilirubin 0.6 AST 17 ALT 14 Alkaline Phosphatase 85 Ammonia Total Creatine Kinase 39 L CK-MB (CK-2) TNP CK-MB (CK-2) Rel Index TNP Troponin I < 0.012 Total Protein 8.1 Albumin 3.8 Globulin 4.3 H Albumin/Globulin Ratio 0.9 L Lipase 47 Ethyl Alcohol SARS-CoV-2 (PCR) Blood Type Antibody Screen 06/13/22 06/13/22 06/13/22 14:15 14:15 15:09 WBC RBC Hgb Hct MCV MCH MCHC RDW Plt Count Neut % (Auto) Lymph % (Auto) [place] % (Auto) Eos % (Auto) Baso % (Auto) Neut # (Auto) Lymph # (Auto) [place] # (Auto) Eos # (Auto) Baso # (Auto) PT INR APTT Sodium Potassium Chloride Carbon Dioxide BUN Creatinine Estimated GFR BUN/Creatinine Ratio Glucose Calcium Total Bilirubin AST ALT Alkaline Phosphatase Ammonia < 9 L Total Creatine Kinase CK-MB (CK-2) CK-MB (CK-2) Rel Index Troponin I Total Protein Albumin Globulin Albumin/Globulin Ratio Lipase Ethyl Alcohol SARS-CoV-2 (PCR) Negative Blood Type B Positive Antibody Screen Negative 06/13/22 16:10 WBC RBC Hgb Hct MCV MCH MCHC RDW Plt Count Neut % (Auto) Lymph % (Auto) [place] % (Auto) Eos % (Auto) Baso % (Auto) Neut # (Auto) Lymph # (Auto) [place] # (Auto) Eos # (Auto) Baso # (Auto) PT INR APTT Sodium Potassium Chloride Carbon Dioxide BUN Creatinine Estimated GFR BUN/Creatinine Ratio Glucose Calcium Total Bilirubin AST ALT Alkaline Phosphatase Ammonia Total Creatine Kinase CK-MB (CK-2) CK-MB (CK-2) Rel Index Troponin I Total Protein Albumin Globulin Albumin/Globulin Ratio Lipase Ethyl Alcohol 13 H SARS-CoV-2 (PCR) Blood Type Antibody Screen [facility] Medical History (Updated 06/13/22 @ 19:14 by Milagros Mitchell MD) Anxiety Bipolar disorder (2007) Depression (2007) Essential hypertension Gout Hearing loss Hyperlipidemia Hypothyroidism (09/30/17) Surgical History Status post colonoscopy Family History Father Age: 89 History of stroke History of cancer Prostate cancer Tobacco & Substance Use Smoking Status: Never smoker second hand exposure: No alcohol intake: current substance use type: former substance user Assessment & Plan Assessment and plan (1) Skin breakdown: Status: Acute (2) Hernia, umbilical: Status: Acute (3) Acute hyperkalemia: Status: Acute (4) Acute kidney injury: Status: Acute (5) Cirrhosis of liver: Qualifiers: Hepatic cirrhosis type: alcoholic cirrhosis Ascites presence: with ascites Qualified Code(s): K70.31 - Alcoholic cirrhosis of liver with ascites Status: Acute (6) Malnutrition: Status: Acute Assessment & Plan narrative: Repair of this hernia is recommended. First his ALEXIS and electrolytes should be corrected, but it is possible that the loss of fluid from this lesion is what has caused these imbalances, and I recommend that the repair is urgent. Of course surgical repair in the setting of malnourishment, poor compliance, alcoholism and liver failure with asites if frought with difficulties; however, it must be done, if not repaired the skin break down will be expected to continue to worsen and leak causing worsening skin problems and electrolyte imb alances. I discussed this with the patient and explained the risks. He understands the benefit of repair and the risks and would like to proceed as soon as possible. I have reserved a slot on the OR schedule for tomorrow. This will be cancelled or delayed if the electrolytes are still not corrected, but repair should be done prior to discharge. Please contact me directly on my cell at [phone] with questions or concerns. Time Spent With Patient Critical Care time: I spent a total of [] minutes of critical care time on this patient's care today; this time is exclusive of procedural time.
[2022-06-13] MEDS: TRAZODONE 100 MG TABLET 200 MG PO (20:48)
[2022-06-13] MEDS: ATORVASTATIN 20 MG TABLET PO (20:49)
[2022-06-13 22:16] LABS: HEMOLYSIS < 15 (0-50)
[2022-06-13 22:21] LABS: Potassium 6.3 mmol/L (3.4-5.1)
[2022-06-14] VITALS (9 sets, daily range): BP systolic 114–148; BP diastolic 43–77; PULSE 77–111; RESP 12–18; TEMP 35.5–36.3; O2SAT 96–100
[2022-06-14] MEDS: SODIUM CHLORIDE 0.9% 500 ML IV (04:25)
[2022-06-14] MEDS: SODIUM POLYSTYRENE SULFON/SORB 15 GM/60 ML CUP 30 GM PO (04:36)
[2022-06-14 06:03] LABS: Add Manual Diff / Slide Review NO; Basophils Absolute Auto 0 /uL (0-100); Basophils Percent Auto 0.6 % (0-2); Eosinophils Absolute Auto 100 /uL (0-450); Eosinophils Percent Auto 3.4 % (2-4); Hematocrit 24.3 % (41-53); Hemoglobin 8.3 g/dL (13.5-17.5); Lymphocytes Absolute Auto 200 /uL (1100-4500); Lymphocytes Percent Auto 9.1 % (25-40); Mean Corpuscular HGB Conc 34.2 % (30-36); Mean Corpuscular Hemoglobin 31.5 PG (26-34); Mean Corpuscular Volume 92.2 fL (80-100); Monocytes Absolute Auto 300 /uL (0-900); Monocytes Percent Auto 15.7 % (3-14); Neutrophils Absolute Auto 1500 /uL (1500-7000); Neutrophils Percent Auto 71.2 % (50-75); Platelet Count 85 X10^3/uL (150-400); Red Blood Cell Count 2.64 X10^6/uL (4.5-5.9); Red Cell Distribution Width 14.9 % (11.6-14.8); White Blood Cell Count 2.1 X10^3/uL (4.5-11.0)
[2022-06-14 06:07] LABS: BUN Creatinine Ratio 22.9 (6-22); Blood Urea Nitrogen 58 mg/dL (9-20); Calcium 8.2 mg/dL (8.4-10.2); Carbon Dioxide 13 mmol/L (22-32); Chloride 104 mmol/L (98-107); Estimated Glomerular Filt Rate 28 mL/min (>60); Glucose 128 mg/dL (80-110); HEMOLYSIS < 15 (0-50); Sodium 128 mmol/L (137-145)
[2022-06-14 06:08] LABS: Potassium 5.6 mmol/L (3.4-5.1)
[2022-06-14] MEDS: LEVOTHYROXINE 75 MCG TABLET PO (06:24)
[2022-06-14] MEDS: SODIUM CHLORIDE 0.9% 1,000 ML 1000 ML IV (06:41)
--- NOTE | 2022-06-14 07:37 | PC.NURSE ---
Dr. Mitchell notified with potassium level of 5.6 ordered bolus of NS 1000. Infusing at this time, also ordered to place another IV access & pt. is agreeable to the plan. Will report to day RN.
[2022-06-14] MEDS: SODIUM CHLORIDE 0.9% 1,000 ML 100 ML IV (08:01)
--- NOTE | 2022-06-14 08:36 | PM.PN.1 ---
Subjective Subjective Date Patient Seen: 06/14/22 Time Patient Seen: 08:36 Interval history: Patient seen and evaluated this morning says he is doing well. Has lots of leakage from his umbilical hernia. No complaints of pain fever chills nausea or vomiting. Discussed care with Dr. Mitchell. Exam Vital Signs (past 8 hours): - 06/14/22 04:18 Temperature 96.7 F L Pulse Rate 87 Respiratory Rate 18 Blood Pressure 115/58 L Pulse Oximetry 99 Oxygen Flow Rate 0 Oxygen Delivery Method Room Air Oxygen Flow Rate 0 Narrative Exam Narrative: Gen.: Alert good historian HEENT: Pupils equal round and reactive or mucosa is moist neck is supple Cardio: S1-S2 regular rate and rhythm Respiratory: Normal respiratory effort lungs are clear Abdomen: Abdomen distended. Drainage from his umbilical hernia site Extremities: Warm dry perfused some mild edema Neurologic: Grossly intact. Objective Labs Result Diagrams: 06/14/22 05:40 06/14/22 19:09 Labs: Laboratory Results - last 24 hr 06/13/22 06/13/22 06/13/22 14:15 14:15 14:15 WBC 3.2 L RBC 2.69 L Hgb 8.5 L Hct 25.4 L MCV 94.7 MCH 31.6 MCHC 33.3 RDW 15.2 H Plt Count 93 L Neut % (Auto) 64.8 Lymph % (Auto) 14.1 L [place] % (Auto) 16.8 H Eos % (Auto) 3.5 Baso % (Auto) 0.8 Neut # (Auto) 2100 Lymph # (Auto) 400 L [place] # (Auto) 500 Eos # (Auto) 100 Baso # (Auto) 0 PT 12.9 H INR 1.1 APTT 28 Sodium 127 L Potassium 6.4 H* Chloride 100 Carbon Dioxide 11 L BUN 62 H Creatinine 2.94 H Estimated GFR 23 L BUN/Creatinine Ratio 21.1 Glucose 105 Calcium 9.0 Total Bilirubin 0.6 AST 17 ALT 14 Alkaline Phosphatase 85 Ammonia Total Creatine Kinase 39 L CK-MB (CK-2) TNP CK-MB (CK-2) Rel Index TNP Troponin I < 0.012 Total Protein 8.1 Albumin 3.8 Globulin 4.3 H Albumin/Globulin Ratio 0.9 L Lipase 47 Ethyl Alcohol SARS-CoV-2 (PCR) Blood Type Antibody Screen 06/13/22 06/13/22 06/13/22 14:15 14:15 15:09 WBC RBC Hgb Hct MCV MCH MCHC RDW Plt Count Neut % (Auto) Lymph % (Auto) [place] % (Auto) Eos % (Auto) Baso % (Auto) Neut # (Auto) Lymph # (Auto) [place] # (Auto) Eos # (Auto) Baso # (Auto) PT INR APTT Sodium Potassium Chloride Carbon Dioxide BUN Creatinine Estimated GFR BUN/Creatinine Ratio Glucose Calcium Total Bilirubin AST ALT Alkaline Phosphatase Ammonia < 9 L Total Creatine Kinase CK-MB (CK-2) CK-MB (CK-2) Rel Index Troponin I Total Protein Albumin Globulin Albumin/Globulin Ratio Lipase Ethyl Alcohol SARS-CoV-2 (PCR) Negative Blood Type B Positive Antibody Screen Negative 06/13/22 06/13/22 06/14/22 16:10 22:05 05:40 WBC 2.1 L RBC 2.64 L Hgb 8.3 L Hct 24.3 L MCV 92.2 MCH 31.5 MCHC 34.2 RDW 14.9 H Plt Count 85 L Neut % (Auto) 71.2 Lymph % (Auto) 9.1 L [place] % (Auto) 15.7 H Eos % (Auto) 3.4 Baso % (Auto) 0.6 Neut # (Auto) 1500 Lymph # (Auto) 200 L [place] # (Auto) 300 Eos # (Auto) 100 Baso # (Auto) 0 PT INR APTT Sodium Potassium 6.3 H* Chloride Carbon Dioxide BUN Creatinine Estimated GFR BUN/Creatinine Ratio Glucose Calcium Total Bilirubin AST ALT Alkaline Phosphatase Ammonia Total Creatine Kinase CK-MB (CK-2) CK-MB (CK-2) Rel Index Troponin I Total Protein Albumin Globulin Albumin/Globulin Ratio Lipase Ethyl Alcohol 13 H SARS-CoV-2 (PCR) Blood Type Antibody Screen 06/14/22 05:40 WBC RBC Hgb Hct MCV MCH MCHC RDW Plt Count Neut % (Auto) Lymph % (Auto) [place] % (Auto) Eos % (Auto) Baso % (Auto) Neut # (Auto) Lymph # (Auto) [place] # (Auto) Eos # (Auto) Baso # (Auto) PT INR APTT Sodium 128 L Potassium 5.6 H Chloride 104 Carbon Dioxide 13 L BUN 58 H Creatinine 2.53 H Estimated GFR 28 L BUN/Creatinine Ratio 22.9 H Glucose 128 H Calcium 8.2 L Total Bilirubin AST ALT Alkaline Phosphatase Ammonia Total Creatine Kinase CK-MB (CK-2) CK-MB (CK-2) Rel Index Troponin I Total Protein Albumin Globulin Albumin/Globulin Ratio Lipase Ethyl Alcohol SARS-CoV-2 (PCR) Blood Type Antibody Screen [facility] Medical History (Updated 06/13/22 @ 19:14 by Milagros Mitchell MD) Anxiety Bipolar disorder (2007) Depression (2007) Essential hypertension Gout Hearing loss Hyperlipidemia Hypothyroidism (09/30/17) Surgical History Status post colonoscopy Family History Father Age: 89 History of stroke History of cancer Prostate cancer Social History household members: none Smoking Status: Never smoker second hand exposure: No alcohol intake: current substance use type: former substance user Assessment & Plan Assessment and plan (1) Hernia, umbilical: Status: Acute (2) Cirrhosis of liver: Qualifiers: Hepatic cirrhosis type: alcoholic cirrhosis Ascites presence: with ascites Qualified Code(s): K70.31 - Alcoholic cirrhosis of liver with ascites Status: Acute Plan Hyperkalemia with acute kidney injury possible causes diuresis and continue leakage from ascites from his umbilical hernia. Continue to work on improved kidney function received some fluid boluses last night. Kidney function has improved. Continue with D10 insulin Kayexalate. Was given calcium gluconate in the emergency department. Do not need to do that again. Once potassium under 5.5 I think patient should be stable for surgery. Umbilical hernia ascites leak no signs of infection. General surgery has evaluated him. Anticipated taking him to surgery NPO status. Discussed case with Dr. Mitchell. Feels like patient needs urgent surgery to repair hernia. Continue to work on potassium lowering mechanisms. Acute on chronic kidney failure. Continue with IV fluids. Cirrhosis. Patient known cirrhosis pending GI evaluation. Patient on Lasix spironolactone. Significant abdominal ascites. Pancytopenia. With neutropenia anemia thrombocytopenia due to underlying alcohol misuse disorder. Hemoglobin hematocrit stable at this point. Platelet counts 80. White blood cell counts low. No signs of current infection. Hypertension. Patient previously on beta-sacha. Blood pressure stable at this point. Will adjust blood pressure medication as needed Hypothyroidism continue with thyroid replacement. Bipolar continue with current medication. VTE prophylaxis with SCDs. Code status full code. Time Spent With Patient Critical Care time: I spent a total of [] minutes of critical care time on this patient's care today; this time is exclusive of procedural time.
[2022-06-14] MEDS: DEXTROSE 50 % IN WATER 25 GM/50 ML SYRINGE IV (08:46)
[2022-06-14] MEDS: FUROSEMIDE 40 MG/4 ML VIAL 20 MG IV (08:47)
[2022-06-14] MEDS: INSULIN REGULAR 100 UNIT/ML 3 ML VIAL 10 UNIT IV (08:47)
[2022-06-14] MEDS: DEXTROSE 10 % IN WATER 1,000 ML 50 ML IV (09:05)
[2022-06-14] MEDS: FOLIC ACID 1 MG TABLET PO (09:25)
[2022-06-14] MEDS: CYANOCOBALAMIN (VITAMIN B-12) 500 MCG TABLET 1000 MCG PO (09:25)
[2022-06-14] MEDS: QUETIAPINE 300 MG 300 EACH PO (09:26)
[2022-06-14] MEDS: CALCIUM GLUCONATE 9.3 MEQ in SODIUM CHLORIDE 0.9% 50 ML 140 MEQ IV (12:15)
[2022-06-14 12:43] LABS: HEMOLYSIS < 15 (0-50); Potassium 4.4 mmol/L (3.4-5.1)
--- NOTE | 2022-06-14 14:24 | PM.PREOP ---
Pre-operative Note Interval Note History & Physical reviewed/Exam performed by Physician: Yes Changes to H&P: No H&P completed within 30 days and has changed as indicated here:: K corrected. fluid resus - Cr improved.
[2022-06-14] MEDS: CEFOTETAN 2 GM in SODIUM CHLORIDE 0.9% 100 ML IV (14:30)
--- NOTE | 2022-06-14 14:57 | SUR.OPER ---
Supine on padded OR bed, head on pillow, arms secured on padded arm boards at <90 degrees abduction, legs uncrossed, safety belt at thigh, tape over blanket over lower legs.
[2022-06-14] MEDS: BUPIVACAINE 0.5% (PF) VIAL 30 ML INJ (15:13)
--- NOTE | 2022-06-14 15:15 | CM.DANOTE ---
Initial DCP Assessment Note Pt is a 62 yo male, resident of [place] , arrives with a leaking umbilical hernia and being taken to the OR for repair, patient with acute kidney injury and hyperkalemia Consult to social media director placed. Per chart, patient is an alcoholic with known cirrhosis of the liver likely secondary to alcohol with medication non compliance. In addition, patient w/dx of Bipolar Disorder with Depression PCP: Neil Silver Payer: Isma/REBA Met w/patient at bedside this afternoon to introduce self and role, MILLICENT Mansfield in room as well Patient explains that he lives alone in his mother's house, his mom recently moved into [facility] and is doing well Patient admits he does not like going out much and does not like being around others. When asked why patient waited 6 months to see a doctor about his hernia he replied I guess I'm stubborn and thought it would get better on it's own Discussed dx of Bipolar Disorder; patient says he feels stable on his current medication regimen and that they work for me. Patient denies the need for a counselor or psychiatrist at this time. Patient reports drinking two beers every evening and denies other substance use Patient becomes tearful when this MEDICAL TRANSPORT SPECIALIST asks about his adult children; patient says he doesn't like to call and bother them. Patient says he has a brother, does not elaborate Patient denies drinking as a problem in his life. Patient willing to consider HH services if recommended by the doctor. EBER team will plan to follow closely as medical POC unfolds EBER Kuo Discharge Planning/Care Management CM Discharge Assessment Start: 06/14/22 15:12 Freq: Status: Active Protocol: Document 06/14/22 15:12 FLY (Rec: 06/14/22 15:15 FLY [id number]) Discharge Planning Assessment Assigned [employer] Operator EBER Perla DPOA/Assigned Designee Name brother Reyes Contact Information [phone] Advance Directives? No Advance Directives on File No History Provided By Patient Prior Living Arrangements House Household Members none Type of transporation used prior to Drives own vehicle admit Independent with ADL's Yes Is patient alert and oriented? Yes Patient/Family Preference Home with Home Health Barriers to Discharge No Comment Patient plans to discharge home; willing to discuss HH services if recommended upon DC Discharge Plan Home Transportation Arrangement Family vs REBA transport (?) Referrals Initiated None needed Additional Comment Follow to r/o need for HH Whiteboard Updated in Patient Room with Yes name and ext. # of [employer]ing Unit Operator
[2022-06-14 19:28] LABS: Alanine Aminotransferase 13 IU/L (<50); Albumin 3.1 g/dL (3.5-5.0); Albumin Globulin Ratio 0.9 (1.0-2.8); Alkaline Phosphatase 79 U/L (38-126); Aspartate Aminotransferase 16 IU/L (17-59); BUN Creatinine Ratio 22.2 (6-22); Bilirubin Total 0.4 mg/dL (0.2-1.3); Blood Urea Nitrogen 53 mg/dL (9-20); Calcium 8.5 mg/dL (8.4-10.2); Carbon Dioxide 16 mmol/L (22-32); Chloride 102 mmol/L (98-107); Estimated Glomerular Filt Rate 30 mL/min (>60); Globulin 3.6 g/dL (1.7-4.1); Glucose 129 mg/dL (80-110); HEMOLYSIS < 15 (0-50); Potassium 4.1 mmol/L (3.4-5.1); Sodium 131 mmol/L (137-145); Total Protein 6.7 g/dL (6.3-8.2)
--- NOTE | 2022-06-14 19:37 | PM.OP.1 ---
Procedure & Clinicians Procedure: umbilical hernia repair Same procedure as scheduled: Yes Indications: skin breakdown and leakage of peritoneal fluid from umbilical hernia Surgeon: Milagros Mitchell Click Yes if Unassisted: Yes Anesthesia Type: General Operative Notes Specimen(s): none sent Procedure in detail: Patient was taken to the operating room and placed supine on the operating room table. Preoperative cefotetan was given. Bilateral SCDs were in place and running. A time out was preformed. General endotracheal anesthesia was induced. An ostomy appliance was taken down from the umbilical leakage site. The abdomen was then prepped and draped in the usual sterile fashion. A local anesthetic was used to infuse around the umbilicus. An incision was made with a 15 blade scalpel removing all macerated and injured skin. Next this incision was carried down through into the subcutaneous tissues and the hernia sac was identified. The sac was dissected free from the surrounding subcutaneous tissues and followed down to the fascial layer. The fascial layer was freed and the peritoneal sac was removed along with the macerated skin and then the remaining edges of the peritoneal sac were closed with a pursestring suture. The hernia was able to be pulled quite a bit away from the abdominal cavity due to the laxity of the abdominal wall, and all bowel and fluid was well below any dissection or sac that was encountered or closed. The actual fascial defect was, in fact quite small, approximately 2 cm in diameter. I was able to clear a pocket between the peritoneal layer underneath and the fascia that would accommodate a small sized Ventralex mesh. The mesh was placed into position and secured with 2x 0 Prolene sutures. Next in order to just restore the normal anatomy, a figure of 8 was placed through the fascial layer and closed the defect over top of the mesh using a 0-Prolene. Next, the subcutaneous tissue was closed with 3-0 Vicryl sutures in an interrupted fashion. Finally, more 3-0 Vicryl sutures were used in a pursestring technique to bring together the remaining skin edges into a wound resembling an umbilicus. The skin was covered with skin glue. The patient tolerated the procedure well there was minimal blood loss and there were no complications. Post-operative Condition: stable Disposition: Acute Care Plan for aftercare: If there is significant acites build up, could consider paracentesis to protect the wound from tension while healing. Will follow along.
[2022-06-14] MEDS: PROPRANOLOL 10 MG TABLET 30 MG PO (20:24)
[2022-06-14] MEDS: SPIRONOLACTONE 25 MG TABLET PO (20:24)
[2022-06-15 01:00] VITALS: BP 98/49; PULSE 60; RESP 18; TEMP 36.7; O2SAT 98
[2022-06-15] MEDS: TRAMADOL 50 MG TABLET 100 MG PO ×2 (04:54→17:30)
[2022-06-15 05:47] VITALS: BP 105/74; PULSE 58; RESP 16; TEMP 36.4; O2SAT 100
[2022-06-15 08:00] VITALS: BP 109/56; PULSE 73; RESP 16; TEMP 36.3; O2SAT 99
--- NOTE | 2022-06-15 08:13 | P.PN_ITS ---
Subjective Subjective Date Patient Seen: 06/15/22 Time Patient Seen: 08:14 Interval history: Patient seen and evaluated this morning. Says he is doing well. Feels good. Diarrhea little bit yesterday that is improved due to the Kayexalate that was given. Some mild abdominal pain. Says he feels much better. Still little bit of weakness. Says he only drinks 2 beers a day to go through pretty severe withdrawal he does not do that anymore. No significant drainage from his umbilical repair. Patient's kidney function has improved. Potassium is in a stable range. Exam Vital Signs (past 8 hours): - 06/15/22 01:00 06/15/22 05:47 Temperature 98.1 F 97.6 F Pulse Rate 60 58 L Respiratory Rate 18 16 Blood Pressure 98/49 L 105/74 Pulse Oximetry 98 100 Oxygen Flow Rate 0 0 Oxygen Delivery Method Room Air Oxygen Flow Rate 0 Narrative Exam Narrative: Gen.: Alert good historian HEENT: Pupils round and reactive or mucosa is moist Cardio: Regular rate and rhythm Respiratory: Lungs are clear no wheezes or crackles Abdomen: Abdomen soft increase fluid. Hernia site no signs of infection and intact Extremities: Warm dry perfused Objective Labs Result Diagrams: 06/14/22 05:40 06/14/22 19:09 Labs: Laboratory Results - last 24 hr 06/14/22 06/14/22 12:24 19:09 Sodium 131 L Potassium 4.4 D 4.1 Chloride 102 Carbon Dioxide 16 L BUN 53 H Creatinine 2.39 H Estimated GFR 30 L BUN/Creatinine Ratio 22.2 H Glucose 129 H Calcium 8.5 Total Bilirubin 0.4 AST 16 L ALT 13 Alkaline Phosphatase 79 Total Protein 6.7 Albumin 3.1 L Globulin 3.6 Albumin/Globulin Ratio 0.9 L [facility] Medical History (Updated 06/13/22 @ 19:14 by Milagros Mitchell MD) Anxiety Bipolar disorder (2007) Depression (2007) Essential hypertension Gout Hearing loss Hyperlipidemia Hypothyroidism (09/30/17) Surgical History Status post colonoscopy Family History Father Age: 89 History of stroke History of cancer Prostate cancer Social History household members: none Smoking Status: Never smoker second hand exposure: No alcohol intake: current substance use type: former substance user Assessment & Plan Assessment and plan (1) Hernia, umbilical: Status: Acute (2) Essential hypertension: Status: Chronic (3) Myelodysplastic syndrome with single lineage dysplasia: Status: Acute Plan Hyperkalemia with acute kidney injury patient's hyperkalemia is improved. Given Kayexalate D5 insulin had some diarrhea yesterday. Potassium last check was 4.1. Labs are pending for this morning. Monitor closely ins and outs and fluid status. Umbilical hernia ascites leak no signs of infection.? Patient had surgical repair yesterday of his hernia. Looks good today no significant drainage. Up ambulate and advance diet as per General surgery. Will need therapeutic para centesis to keep the fluid off while the surgical site heals. Acute on chronic kidney failure.? Improving. Received lots of IV fluid yesterday. Having significant output from his hernia which is made fluid balance judgment difficult. Cirrhosis.? Patient known cirrhosis pending GI evaluation.? Patient on Lasix spironolactone.? Significant abdominal ascites. Will need paracentesis over the next few weeks to allow for healing of abdominal hernia Pancytopenia.? With neutropenia anemia thrombocytopenia evaluation by Oncology. Patient has mild myelodysplastic disorder. Monitor blood counts including hemoglobin hematocrit platelet and white blood cell count. Hypertension.? Patient previously on beta-sacha.? Blood pressure stable at this point.? Will adjust blood pressure medication as needed Hypothyroidism continue with thyroid replacement.? Bipolar continue with current medication by restarting his trazodone and Seroquel. He says he does not do well off of it. He takes it every night. As well as his propranolol. VTE prophylaxis with SCDs. Disposition and plan. Ambulate food hopefully discharge 24 hours. Time Spent With Patient Critical Care time: I spent a total of [] minutes of critical care time on this patient's care today; this time is exclusive of procedural time.
--- NOTE | 2022-06-15 11:53 | PM.PNPO.1 ---
Subjective Subjective Interval history: Feeling better today. Pleased with the hernia repair appearance. Pain is controlled Exam Vital Signs (past 8 hours): - 06/15/22 05:47 06/15/22 08:00 Temperature 97.6 F 97.3 F L Pulse Rate 58 L 73 Respiratory Rate 16 16 Blood Pressure 105/74 109/56 L Pulse Oximetry 100 99 Oxygen Flow Rate 0 0 Oxygen Delivery Method Room Air Oxygen Flow Rate 0 Narrative Exam Narrative: Alert oriented and pleasant. Poor dentition. The wound is clean dry and intact. There is an increasing amount of abdominal fluid though no tension on the abdominal wall today. Fluid wave. Objective Labs Result Diagrams: 06/14/22 05:40 06/14/22 19:09 Labs: Laboratory Results - last 24 hr 06/14/22 06/14/22 12:24 19:09 Sodium 131 L Potassium 4.4 D 4.1 Chloride 102 Carbon Dioxide 16 L BUN 53 H Creatinine 2.39 H Estimated GFR 30 L BUN/Creatinine Ratio 22.2 H Glucose 129 H Calcium 8.5 Total Bilirubin 0.4 AST 16 L ALT 13 Alkaline Phosphatase 79 Total Protein 6.7 Albumin 3.1 L Globulin 3.6 Albumin/Globulin Ratio 0.9 L PFSH Medical History (Updated 06/13/22 @ 19:14 by Milagros Mitchell MD) Anxiety Bipolar disorder (2007) Depression (2007) Essential hypertension Gout Hearing loss Hyperlipidemia Hypothyroidism (09/30/17) Surgical History Status post colonoscopy Family History Father Age: 89 History of stroke History of cancer Prostate cancer Social History household members: none Smoking Status: Never smoker second hand exposure: No alcohol intake: current substance use type: former substance user Assessment & Plan Post-op Postoperative Procedures: Procedures Operation Date: 06/14/22 09:30 Actual Procedure Side Surgeon p Hernia Repair - Umbilical Not Applicable Milagros Mitchell MD Postoperative day: 1 Postoperative plan narrative: Postop day 1 status post umbilical hernia repair. From a surgical perspective generally these patients can be discharged. In this particular case I would request that he has close follow-up with me to monitor for signs of infection and buildup of ascites. In the next few days if enough ascites the build up I may ask for a paracentesis to keep tension off of the repair as it heals for the 1st couple weeks. I want him to see me in my office on Thursday this week if he is discharged prior to then. If he is discharged afterwards then Thursday next week should be good. I will continue to follow please contact me directly if you have any questions or concerns thank you.
[2022-06-15 11:58] VITALS: BP 109/65; PULSE 74; RESP 16; TEMP 35.9; O2SAT 98
[2022-06-15 12:41] LABS: Add Manual Diff / Slide Review NO; Basophils Absolute Auto 0 /uL (0-100); Basophils Percent Auto 1.2 % (0-2); Eosinophils Absolute Auto 100 /uL (0-450); Eosinophils Percent Auto 3.9 % (2-4); Hematocrit 23.8 % (41-53); Hemoglobin 8.2 g/dL (13.5-17.5); Lymphocytes Absolute Auto 400 /uL (1100-4500); Lymphocytes Percent Auto 14.9 % (25-40); Mean Corpuscular HGB Conc 34.6 % (30-36); Mean Corpuscular Hemoglobin 31.8 PG (26-34); Monocytes Absolute Auto 400 /uL (0-900); Monocytes Percent Auto 15.2 % (3-14); Neutrophils Absolute Auto 1600 /uL (1500-7000); Neutrophils Percent Auto 64.8 % (50-75); Platelet Count 117 X10^3/uL (150-400); Red Blood Cell Count 2.59 X10^6/uL (4.5-5.9); Red Cell Distribution Width 14.9 % (11.6-14.8); White Blood Cell Count 2.5 X10^3/uL (4.5-11.0)
[2022-06-15 13:03] LABS: BUN Creatinine Ratio 20.7 (6-22); Blood Urea Nitrogen 53 mg/dL (9-20); Calcium 8.1 mg/dL (8.4-10.2); Carbon Dioxide 15 mmol/L (22-32); Chloride 101 mmol/L (98-107); Estimated Glomerular Filt Rate 27 mL/min (>60); Glucose 101 mg/dL (80-110); HEMOLYSIS < 15 (0-50); Potassium 4.2 mmol/L (3.4-5.1); Sodium 128 mmol/L (137-145)
[2022-06-15 17:47] VITALS: BP 102/65; PULSE 74; RESP 16; TEMP 35.9; O2SAT 100
[2022-06-15] MEDS: TRAZODONE 100 MG TABLET 200 MG PO (21:00)
[2022-06-15] MEDS: SPIRONOLACTONE 25 MG TABLET PO (21:01)
[2022-06-15] MEDS: PROPRANOLOL 10 MG TABLET 30 MG PO (21:01)
[2022-06-15] MEDS: QUETIAPINE 300 MG 300 EACH PO ×2 (21:01→21:02)
[2022-06-15 21:04] VITALS: BP 121/69; PULSE 73; RESP 17; TEMP 36.1; O2SAT 98
[2022-06-16] VITALS (8 sets, daily range): BP systolic 94–118; BP diastolic 45–66; PULSE 58–72; RESP 15–18; TEMP 35.8–36.6; O2SAT 94–100
[2022-06-16] MEDS: SODIUM CHLORIDE 0.9% FLUSH 10 ML IV ×3 (02:25→21:32)
--- NOTE | 2022-06-16 07:43 | P.PN_ITS ---
Subjective Subjective Date Patient Seen: 06/16/22 Time Patient Seen: 07:43 Interval history: Patient had is ventral hernia repair done on the third, day after admission, very small defect apparently and easily closed. Concern of course remains over reaccumulation of tense ascitic fluid with abdominal distention to interfere with wound healing Patient's renal function borderline improved. Hyperkalemia now resolved. Exam Vital Signs (past 8 hours): - 06/16/22 01:39 06/16/22 05:45 Temperature 96.7 F L 96.4 F L Pulse Rate 62 62 Respiratory Rate 17 17 Blood Pressure 117/66 94/60 Pulse Oximetry 99 99 Oxygen Delivery Method Room Air Oxygen Flow Rate 0 Objective Labs Result Diagrams: 06/16/22 07:11 06/15/22 11:50 Labs: Laboratory Results - last 24 hr 06/15/22 06/15/22 11:50 11:50 WBC 2.5 L RBC 2.59 L Hgb 8.2 L Hct 23.8 L MCV 92.0 MCH 31.8 MCHC 34.6 RDW 14.9 H Plt Count 117 L Neut % (Auto) 64.8 Lymph % (Auto) 14.9 L [place] % (Auto) 15.2 H Eos % (Auto) 3.9 Baso % (Auto) 1.2 Neut # (Auto) 1600 Lymph # (Auto) 400 L [place] # (Auto) 400 Eos # (Auto) 100 Baso # (Auto) 0 Sodium 128 L Potassium 4.2 Chloride 101 Carbon Dioxide 15 L BUN 53 H Creatinine 2.56 H Estimated GFR 27 L BUN/Creatinine Ratio 20.7 Glucose 101 Calcium 8.1 L [facility] Medical History (Updated 06/13/22 @ 19:14 by Milagros Mitchell MD) Anxiety Bipolar disorder (2007) Depression (2007) Essential hypertension Gout Hearing loss Hyperlipidemia Hypothyroidism (09/30/17) Surgical History Status post colonoscopy Family History Father Age: 89 History of stroke History of cancer Prostate cancer Social History household members: none Smoking Status: Never smoker second hand exposure: No alcohol intake: current substance use type: former substance user Assessment & Plan Assessment & Plan narrative: 1. Status post ventral hernia repair-as per surgery yesterday patient likely ready for discharge from a surgical standpoint. Emphasis on keeping his ascitic fluid buildup to a minimum. This will be complicated by his new renal dysfunction. May need repeat paracentesis to manage his fluid more than diuretic therapy given the renal dysfunction 2. Cirrhosis with significant abdominal ascites-as above I am hesitant to return him to his prior level of diuretic therapy. Perhaps emphasizing more spironolactone unless furosemide will be the answer. I have discontinued furosemide and potassium with it today in favor of increasing his spironolactone and will plan to do that upon discharge 3. Acute kidney injury-this could be secondary to more of a hepatorenal syndrome or secondary to to aggressive diuresis with both spironolactone and furosemide. Hopeful for the latter rather than the former. I am going to have patient remain off furosemide and potassium for now but increase his spironolactone. As above need to keep his ascitic fluid to a minimum but I am afraid that is likely going to require frequent paracentesis rather than aggressive diuretic therapy. 4. Hypertension-if anything patient is modestly hypotensive which is his standard. On minimal dose beta-sacha therapy which provides both some control the blood pressure as well as some prophylaxis for development esophageal varices, variceal bleeding etcetera. Continue with low-dose propranolol 5. Bipolar-continue patient's usual medications 6. Myelodysplastic disorder-patient is somewhat more anemic than usual this morning. Do not believe he would benefit from transfusion at this time. Continue monitor his overall physical status. Overall patient is much improved. However given his persistent renal dysfunction as well as the need to continue monitor his level of ascites I think he would benefit from an additional 24 hours in the hospital. Plan to recheck renal function tomorrow and reassess his abdominal fluid with some alteration in his oral diuretic therapy as above. However in all likelihood he will be ready for discharge tomorrow with close outpatient follow-up both with General surgery and myself Note: Greater than 30 minutes total time was spent on day of service, evaluating the patient on the floor, including examining the patient, discussing clinical course with clinical and nursing staff, reviewing clinical course in the computer, preparing documentation and writing orders for continued management of care, discussing status with family as appropriate, reviewing plans for the next 24 hours with both patient/family and nursing staff as appropriate.
[2022-06-16 08:08] LABS: Add Manual Diff / Slide Review NO; Basophils Absolute Auto 0 /uL (0-100); Basophils Percent Auto 1.4 % (0-2); Eosinophils Absolute Auto 200 /uL (0-450); Eosinophils Percent Auto 11.1 % (2-4); Hemoglobin 7.2 g/dL (13.5-17.5); Lymphocytes Absolute Auto 500 /uL (1100-4500); Lymphocytes Percent Auto 23.6 % (25-40); Mean Corpuscular HGB Conc 34.6 % (30-36); Mean Corpuscular Hemoglobin 31.3 PG (26-34); Mean Corpuscular Volume 90.5 fL (80-100); Monocytes Absolute Auto 400 /uL (0-900); Monocytes Percent Auto 17.8 % (3-14); Neutrophils Absolute Auto 900 /uL (1500-7000); Neutrophils Percent Auto 46.1 % (50-75); Platelet Count 123 X10^3/uL (150-400); Red Cell Distribution Width 14.9 % (11.6-14.8); White Blood Cell Count 2.1 X10^3/uL (4.5-11.0)
[2022-06-16 08:10] LABS: Hematocrit 20.8 % (41-53)
[2022-06-16] MEDS: SPIRONOLACTONE 25 MG TABLET 50 MG PO ×2 (10:00→21:33)
[2022-06-16] MEDS: QUETIAPINE 300 MG 300 EACH PO ×2 (11:20→21:32)
--- NOTE | 2022-06-16 11:48 | P.PN_ITS ---
Subjective Subjective Interval history: No complaints or concerns this morning pain is controlled. Tolerating regular diet. Exam Vital Signs (past 8 hours): - 06/16/22 05:45 06/16/22 07:00 Temperature 96.4 F L 97.8 F Pulse Rate 62 63 Respiratory Rate 17 16 Blood Pressure 94/60 118/61 Pulse Oximetry 99 100 Oxygen Flow Rate 0 Oxygen Delivery Method Room Air Oxygen Flow Rate 0 Narrative Exam Narrative: Wound is clean dry and intact. Ascitic fluid is beginning to buildup. Objective Labs Result Diagrams: 06/16/22 07:11 06/15/22 11:50 Labs: Laboratory Results - last 24 hr 06/15/22 06/15/22 06/16/22 11:50 11:50 07:11 WBC 2.5 L 2.1 L RBC 2.59 L 2.30 L Hgb 8.2 L 7.2 L Hct 23.8 L 20.8 L* MCV 92.0 90.5 MCH 31.8 31.3 MCHC 34.6 34.6 RDW 14.9 H 14.9 H Plt Count 117 L 123 L Neut % (Auto) 64.8 46.1 L Lymph % (Auto) 14.9 L 23.6 L [place] % (Auto) 15.2 H 17.8 H Eos % (Auto) 3.9 11.1 H Baso % (Auto) 1.2 1.4 Neut # (Auto) 1600 900 L Lymph # (Auto) 400 L 500 L [place] # (Auto) 400 400 Eos # (Auto) 100 200 Baso # (Auto) 0 0 Sodium 128 L Potassium 4.2 Chloride 101 Carbon Dioxide 15 L BUN 53 H Creatinine 2.56 H Estimated GFR 27 L BUN/Creatinine Ratio 20.7 Glucose 101 Calcium 8.1 L PFS Medical History (Updated 06/13/22 @ 19:14 by Milagros Mitchell MD) Anxiety Bipolar disorder (2007) Depression (2007) Essential hypertension Gout Hearing loss Hyperlipidemia Hypothyroidism (09/30/17) Surgical History Status post colonoscopy Family History Father Age: 89 History of stroke History of cancer Prostate cancer Social History household members: none Smoking Status: Never smoker second hand exposure: No alcohol intake: current substance use type: former substance user Assessment & Plan Assessment and plan (1) Skin breakdown: Status: Acute (2) Malnutrition: Status: Acute (3) Cirrhosis of liver: Qualifiers: Hepatic cirrhosis type: alcoholic cirrhosis Ascites presence: with ascites Qualified Code(s): K70.31 - Alcoholic cirrhosis of liver with ascites Status: Acute (4) Hernia, umbilical: Status: Acute Plan Postop day 2 status post umbilical hernia repair Ascitic fluid is beginning to build up and I am wondering if in the next 2 or 3 days he would bear benefit from a paracentesis. I will talk to my office staff to see how this can be arranged. I definitely want to see him no later than Thursday in my clinic next week. I think he will need a close follow-up and I am thinking maybe I wonder if I could get him in some wear to be checked the end of this week, if he is discharged tomorrow. Time Spent With Patient Critical Care time: I spent a total of [] minutes of critical care time on this patient's care today; this time is exclusive of procedural time.
[2022-06-16 12:01] LABS: BUN Creatinine Ratio 20.4 (6-22); Blood Urea Nitrogen 51 mg/dL (9-20); Calcium 7.9 mg/dL (8.4-10.2); Carbon Dioxide 15 mmol/L (22-32); Chloride 101 mmol/L (98-107); Estimated Glomerular Filt Rate 28 mL/min (>60); Glucose 90 mg/dL (80-110); HEMOLYSIS < 15 (0-50); Potassium 4.2 mmol/L (3.4-5.1); Sodium 127 mmol/L (137-145)
--- NOTE | 2022-06-16 12:49 | CM.DPC ---
DCP Cont: Per MD and Surgeon, pt making some progress but will likely continue to have fluid build up and may need regular paracentesis to drain the fluid. Surgeon and MD anticipate pt may be stable for d/c home tomorrow but will need very close follow up with [facility] and PCP. Plan: SW to follow closely for possible d/c home tomorrow if medically stable and very close outpt follow up and follow for any further identified discharge planning needs. EBER Villafana
[2022-06-16 19:26] LABS: Hepatitis B Surface Antigen NEGATIVE s/c (NEGATIVE)
[2022-06-16 19:44] LABS: Hep C Virus Ab w/Reflex Quant NEGATIVE s/c (NEGATIVE)
[2022-06-16] MEDS: PROPRANOLOL 10 MG TABLET 30 MG PO (21:32)
[2022-06-16] MEDS: TRAZODONE 100 MG TABLET 200 MG PO (21:32)
[2022-06-17 03:00] VITALS: BP 108/66; PULSE 83; RESP 20; TEMP 35.8; O2SAT 93
[2022-06-17 08:00] VITALS: BP 107/68; PULSE 63; RESP 16; TEMP 35.9; O2SAT 100
--- NOTE | 2022-06-17 08:28 | PM.DS.1 ---
History of Present Illness History of Present Illness Date Patient Seen: 06/17/22 Time Patient Seen: 08:29 Chief complaint: Naval hernia is leaking shooting out of a hole Narrative: 62-year-old male admitted via emergency department because of acute kidney injury and hyperkalemia.? He presented to the ER actually complaining about fluid leaking out of his known umbilical hernia.? Patient with history of significant ascites with abdominal distention etcetera.? He reports that for the last 3 or 4 days he is had leakage including an actual stream coming from his umbilical hernia which is been quite bothersome.? No abdominal pain no pain around the area no redness just the annoyance of fluid leaking out.? He did not take any more of his diuretics or changes medications except cutting back on the propranolol as he and I had suggested. ER evaluation discovered his elevated creatinine over baseline as well as his hyperkalemia.? He is admitted for continued management of these 2 issues primarily as well as evaluation of his umbilical hernia Patient also with significant myelodysplastic syndrome although his CBC today is at baseline or better.? Does have persistent thrombocytopenia as well as anemia.? Patient with known cirrhosis of the liver likely secondary to alcohol, with referral to GI not yet completed, slight he is controlled with diuretic therapy including spironolactone and furosemide Discharge Providers Provider Date of admission: 06/13/22 16:11 Discharge Date: 06/17/22 Primary care physician: Neil Silver MD Consults: 06/13/22 18:54 Consult to Physician Practice Consultant Routine Comment: 06/14/22 12:08 Consult to General Surgery Routine Comment: Consulting Provider: Milagros Mitchell Reason for consultation: umbilical hernia wiuth skin break down, leaking acites. Has provider been notified: Yes Discharge provider: Neil Silver MD Summary Hospital Course Discharge Diagnosis: 1. Umbilical hernia, now repair 2. Large volume ascites with resulting leak through umbilical hernia 3. Acute kidney injury 4. Cirrhosis of liver secondary to alcohol 5. Hypertension 6. Hypothyroidism 7. Myelodysplastic syndrome with anemia thrombocytopenia 8. Bipolar disorder with depression, in remission 9. Hyperlipidemia 10. Hyperkalemia, resolved Hospital Course: Patient presented to the ED because of leakage from his umbilical hernia. He had only modest volume ascites present at the time. Evaluation in the ER revealed the acute kidney injury As far as the hernia goes he was seen in consultation by General surgery who took him to the OR for repair of his hernia on the 14 of June. He had apparently a small defect and easy repair performed Because of his elevated creatinine and evidence of acute kidney injury his diuretic therapy was adjusted as it was felt to be a source of his acute kidney injury. Diuretics including spironolactone and furosemide were started in effort to help control his ascites. Was also given small volume of IV fluids. With this his creatinine did improve slightly. However it did not dramatically improved. Upon discharge patient was discharged off of furosemide and on spironolactone in effort to control the ascites but allow for improvement in renal function at the same time. Patient was also hyperkalemic upon admission. This is felt to be multifactorial including patient's ongoing use of oral potassium supplementation as well as his acute kidney injury. The potassium was corrected his renal function improved slightly and his oral potassium will be discontinued upon discharge Patient's blood counts were relatively stable within his usual range. He was somewhat more anemic prior to discharge any was upon admission. He will continue follow with Hematology as an outpatient Patient modestly bradycardic intermittently his propranolol doses been reduced but continued due to its beneficial effect on reducing risk of variceal bleeding in the setting of cirrhosis etcetera Status at Discharge Cognitive/behavioral status at discharge: at baseline, oriented Functional status at discharge: uses cane/walker Overall status at discharge: patient is progressing back to baseline Time Spent with Patient Time spent: Greater than 30 minutes Exam Vital Signs (past 8 hours): - 06/17/22 03:00 Temperature 96.5 F L Pulse Rate 83 Respiratory Rate 20 Blood Pressure 108/66 Pulse Oximetry 93 Oxygen Flow Rate 0 Oxygen Delivery Method Room Air Oxygen Flow Rate 0 Objective Labs Result Diagrams: 06/16/22 07:11 06/16/22 07:11 Labs: Laboratory Results - last 24 hr 06/15/22 06/15/22 06/16/22 11:50 15:15 07:11 Sodium 127 L Potassium 4.2 Chloride 101 Carbon Dioxide 15 L BUN 51 H Creatinine 2.50 H Estimated GFR 28 L BUN/Creatinine Ratio 20.4 Glucose 90 Calcium 7.9 L Ceruloplasmin 25.0 Hep Bs Antigen Negative Hepatitis C Antibody Negative [facility] Medical History Anxiety Bipolar disorder (2007) Depression (2007) Essential hypertension Gout Hearing loss Hyperlipidemia Hypothyroidism (09/30/17) Surgical History Status post colonoscopy Family History Father Age: 89 History of stroke History of cancer Prostate cancer Social History household members: none Smoking Status: Never smoker second hand exposure: No alcohol intake: current substance use type: former substance user Discharge Assessment & Plan Assessment and Plan Plan of Treatment: Patient to be discharged home. He will continue on spironolactone at a higher dose than upon admission but will have his furosemide and potassium supplementation discontinued. He will be followed closely by General surgery regarding wound healing and development of recurrent ascites. He may need paracentesis to better control his ascites while allowing his wound to heal Patient be seen by Dr. Silver in the outpatient clinic at an upcoming appointment that was previously scheduled. He will need careful management of his renal dysfunction Patient has been referred to gastroenterology but has yet to actually be seen. This process needs to continue to fully help evaluate and manage his cirrhosis and end-stage liver disease Discharge Plan Discharge Plan Patient Disposition: Home Discharge orders & Medications Prescriptions: New tramadol 50 mg Tablet 50 mg PO QID PRN (Reason: Pain, Moderate (4-6)) Qty: 30 0RF Continued levothyroxine 75 mcg tablet 75 mcg PO DAILY Qty: 90 3RF Rx Instructions: Take one tablet daily. quetiapine [Seroquel XR] 300 mg tablet extended release 24 hr 300 mg PO BID Qty: 120 6RF atorvastatin 20 mg tablet 20 mg PO BEDTIME Qty: 90 3RF trazodone 100 mg tablet 200 mg PO HS Qty: 60 6RF folic acid 1 mg tablet 1 mg PO DAILY Qty: 90 3RF cyanocobalamin (vitamin B-12) 1,000 mcg tablet 1,000 mcg PO DAILY Qty: 90 3RF propranolol 60 mg tablet 30 mg PO HS Qty: 90 0RF Rx Instructions: Take one tablet by mouth once a day. Changed spironolactone 25 mg tablet 50 mg PO BID Qty: 180 3RF Discontinued potassium chloride 20 mEq tablet,ER particles/crystals 20 meq PO DAILY Qty: 90 3RF furosemide 20 mg tablet 40 mg PO QAM Qty: 60 3RF Follow up/Referrals: Milagros Mitchell MD [Physician] - 1 Week (Before end of day ThursdayJun 20, per Dr. Mitchell) Neil Silver MD [Primary Care Provider] - 06/27/22 3:00 pm (Keep June 27 appointment) Discharge Health Status Multidrug resistant organism: No MDRO Diet/Activity/Treatments Diet: Diet as Tolerated Visit Report/Discharge Packet Instructions: DI for Hernia Repair, DI for Prescription Opioid Use, [facility]: Wound Care Stand Alone Forms: Surgery Discharge Discharge Data Primary Care Provider: Neil Silver
[2022-06-17 08:30] LABS: BUN Creatinine Ratio 23.9 (6-22); Blood Urea Nitrogen 54 mg/dL (9-20); Calcium 8.4 mg/dL (8.4-10.2); Carbon Dioxide 17 mmol/L (22-32); Chloride 98 mmol/L (98-107); Estimated Glomerular Filt Rate 32 mL/min (>60); Glucose 99 mg/dL (80-110); HEMOLYSIS < 15 (0-50); Potassium 5.3 mmol/L (3.4-5.1); Sodium 126 mmol/L (137-145)
[2022-06-17] MEDS: SPIRONOLACTONE 25 MG TABLET 50 MG PO (09:37)
[2022-06-17] MEDS: QUETIAPINE 300 MG 300 EACH PO (09:37)
--- NOTE | 2022-06-17 12:15 | PC.NURSE ---
Discharge instructions and home care handouts reviewed with patient. He states understanding and has no further questions at this time. Follow up appointments as scheduled with surgeon and his PCP. Patient escorted out via wheelchair by LC with all his belongings to discharge to home.
--- NOTE | 2022-06-17 15:20 | CM.DPNOTE ---
DC Note Discharge home today, close outpatient f/u. patient denies needs from this [facility] JW
[2022-06-18 05:27] LABS: Hepatitis B Surf Ab Qualitativ Non Reactive (.)
[2022-06-18 10:31] LABS: Smooth Muscle Antibody 7 Units (0-19)
[2022-06-19 13:47] LABS: ANA Screen, IFA Negative (.)
== END 2022-06-17 12:22 | disposition home or self-care (01) | DRG 229 ==
LOC: ED 16:08 → AC 19:16
PROVIDERS: Family Medicine; Surgery; Admitting Provider Internal Medicine; Emergency Provider Emergency Medicine; PCP Internal Medicine; Referring Provider Emergency Medicine; Visit Provider Internal Medicine
PROC: 0DQV0ZZ Repair Mesentery, Open Approach (ICD-10-PCS; principal; 2022-06-14 09:30)
DX: K42.9 Umbilical hernia without obstruction or gangrene (principal); N17.9 Acute kidney failure, unspecified; E87.5 Hyperkalemia; D61.818 Other pancytopenia; I10 Essential (primary) hypertension; E03.9 Hypothyroidism, unspecified; R00.1 Bradycardia, unspecified; D46.9 Myelodysplastic syndrome, unspecified; K70.31 Alcoholic cirrhosis of liver with ascites; F31.70 Bipolar disorder, currently in remission, most recent episode unspecified; E78.5 Hyperlipidemia, unspecified; Z20.822 Contact with and (suspected) exposure to COVID-19
CPT/HCPCS: 36415; 49585; 80048; 80053; 80320; 82140; 82390; 82550; 82784; 82962; 83516; 83690; 84132; 84484; 85025; 85610; 85730; 86038; 86255; 86706; 86803; 86850; 86900; 86901; 87340; 87635; 93005; 96365; 99222; 99232; 99233; 99238; 99283; 99284; C9803; J0330; J0610; J1940; J2405; J2704; J3010

== ENCOUNTER → 2022-06-27 15:30 | Outpatient (CLI) | payer OTHER, MEDICAID, SELFPAY ==
[2022-06-13 18:42] VITALS: BMI 22.8
[2022-06-27 17:27] LABS: BUN Creatinine Ratio 16.7 (6-22); Blood Urea Nitrogen 40 mg/dL (9-20); Calcium 8.3 mg/dL (8.4-10.2); Carbon Dioxide 14 mmol/L (22-32); Chloride 103 mmol/L (98-107); Estimated Glomerular Filt Rate 30 mL/min (>60); Glucose 99 mg/dL (80-110); HEMOLYSIS < 15 (0-50); Sodium 129 mmol/L (137-145)
== END ==
PROVIDERS: PCP Internal Medicine; Referring Provider Internal Medicine; Visit Provider Internal Medicine
DX: K70.31 Alcoholic cirrhosis of liver with ascites (principal); N17.9 Acute kidney failure, unspecified
CPT/HCPCS: 36415; 80048

== ENCOUNTER → 2022-07-09 11:22 | Outpatient (CLI) | payer OTHER, MEDICAID, SELFPAY ==
[2022-06-13 18:42] VITALS: BMI 22.8
[2022-07-09 12:41] LABS: BUN Creatinine Ratio 15.9 (6-22); Blood Urea Nitrogen 40 mg/dL (9-20); Calcium 8.3 mg/dL (8.4-10.2); Carbon Dioxide 10 mmol/L (22-32); Chloride 110 mmol/L (98-107); Estimated Glomerular Filt Rate 28 mL/min (>60); Glucose 83 mg/dL (80-110); HEMOLYSIS < 15 (0-50); Sodium 133 mmol/L (137-145)
== END ==
PROVIDERS: Student in an Organized Health Care Education/Training Program; PCP Internal Medicine; Referring Provider Internal Medicine; Visit Provider Internal Medicine
DX: E87.5 Hyperkalemia (principal)
CPT/HCPCS: 36415; 80048

== ENCOUNTER 2022-07-09 13:50 | Observation (INO) | payer OTHER, MEDICAID, SELFPAY ==
[2022-06-13 18:42] VITALS: BMI 22.8
[2022-07-09] VITALS (138 sets, daily range): BP systolic 87–159; BP diastolic 46–83; PULSE 28–72; RESP 11–23; TEMP 35.3–36.4; O2SAT 88–100; BMI 24.3
--- NOTE | 2022-07-09 14:21 | DI.RAD.S_ITS ---
PROCEDURE: XR CHEST 1V INDICATIONS: chest pain TECHNIQUE: One view of the chest was acquired. COMPARISON: None. FINDINGS: Surgical changes and devices: None. Lungs and pleura: Subtle pulmonary radiopacities are present at the right lung base. The lungs are otherwise clear. No pleural effusion or pneumothorax. Mediastinum: Mediastinal contours appear normal. Heart size is normal. Bones and chest wall: No suspicious bony lesions. Overlying soft tissues appear unremarkable. IMPRESSION: Right basilar pulmonary radiopacities suspicious for aspiration/infection. Short interval followup is recommended with resolution of the patient's symptoms to ensure there is no underlying pulmonary pathology. Dictated by: Keesha English M.D. on 07/09/2022 at 15:31 Approved by: Keesha English M.D. on 07/09/2022 at 15:31
[2022-07-09] MEDS: ATROPINE 1 MG/10 ML SYRINGE IV (14:22)
--- NOTE | 2022-07-09 14:24 | ED.RECABL ---
HPI - Recheck/Abnormal Lab/Rx General Chief Complaint: Recheck/Abnormal Lab/Rx Stated Complaint: Poss cardiac arrest Time Seen by Provider: 07/09/22 14:21 Source: patient Mode of arrival: Wheelchair History of Present Illness HPI narrative: Patient is a 62-year-old male who presents from clinic today with hyperkalemia potassium of 7. 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 Patient states that he is noticed that he is had low heart rate for a little while now. It sounds as though he had a syncopal episode on he has contusion around his right eye. He overall looks extremely pale week he is hard of hearing. He is is able to stand. However his heart rate is noted to be in the 30 Related Data Previous Rx's Medication Instructions Recorded levothyroxine 75 mcg tablet 75 mcg PO DAILY #90 tabs 03/18/22 quetiapine 300 mg tablet,extended 300 mg PO BID #120 tabs 03/24/22 release 24 hr (Seroquel XR) atorvastatin 20 mg tablet 20 mg PO BEDTIME #90 tabs 04/21/22 cyanocobalamin (vitamin B-12) 1,000 mcg PO DAILY #90 tabs 04/25/22 1,000 mcg tablet folic acid 1 mg tablet 1 mg PO DAILY #90 tabs 04/25/22 trazodone 100 mg tablet 200 mg PO HS #60 tabs 06/02/22 tramadol 50 mg tablet 50 mg PO QID PRN Pain, Moderate 06/16/22 (4-6) #30 tabs furosemide 20 mg tablet 20 mg PO DAILY #90 tabs 07/10/22 Allergies Allergy/AdvReac Type Severity Reaction Status Date / Time No Known Drug Allergies Allergy Verified 06/27/22 14:54 Review of Systems Review of Systems ROS Unobtainable: All systems reviewed & are unremarkable except as noted in HPI and below Patient History Medical History (Updated 07/10/22 @ 07:43 by Neil Silver MD) Anxiety Bipolar disorder (2007) Chronic renal failure, stage 3 (moderate) Depression (2007) Essential hypertension Gout Hearing loss Hernia, umbilical Hyperlipidemia Hypothyroidism (09/30/17) Surgical History H/O hernia repair Status post colonoscopy Family History Father Age: 89 History of stroke History of cancer Prostate cancer Social History household members: none Smoking Status: Never smoker second hand exposure: No alcohol intake: current substance use type: former substance user Smoking Status: Never smoker alcohol intake frequency: 3 or more drinks per day Alcohol type: beer Substance Use Type: does not use Exam Initial Vital Signs Initial Vital Signs: Vital Signs Temperature 97.5 F L 07/09/22 13:57 Pulse Rate 35 L 07/09/22 13:57 Respiratory Rate 20 07/09/22 13:57 Blood Pressure 113/52 L 07/09/22 13:57 Pulse Oximetry 97 07/09/22 13:57 Oxygen Delivery Method 07/09/22 13:57 GENERAL: Pale alert 62-year-old male hard of hearing HEENT: Head atraumatic,EOMI, pupils reactive, face symmetric, moist mucous membranes CARDIOVASCULAR: Regular rate and rhythm without murmurs, rubs or gallops. RESPIRATORY: Breath sounds equal bilaterally, no wheezes rales or rhonchi. ABDOMEN: Soft, ascites noted but not distended EXTREMITIES: Normal range of motion, no clubbing or edema. Neurovascularly intact NEUROLOGICAL: Alert and oriented x4 SKIN: Warm, dry, no laceration, no petechiae, no rashes or lesions. Course Orders Ordered: Discontinued Medications Albuterol (Albuterol 2.5 Mg/3 Ml Neb (Adult)) 10 mg INH NOW ONE Stop: 07/09/22 14:37 Last Admin: 07/09/22 14:41 Dose: 10 mg Documented By: CAPO Atorvastatin Calcium (Atorvastatin 20 Mg Tablet) 20 mg PO BEDTIME JANIE Atropine Sulfate (Atropine 1 Mg/10 Ml Syringe) 0.5 mg IV NOW ONE Stop: 07/09/22 15:30 Last Admin: 07/09/22 15:30 Dose: 0.5 mg Documented By: TRAVIS Atropine Sulfate (Atropine 1 Mg/10 Ml Syringe) 0.5 mg IV NOW ONE Stop: 07/09/22 18:34 Last Admin: 07/09/22 14:18 Dose: Not Given Documented By: TRAVIS Furosemide (Furosemide 40 Mg/4 Ml Vial) 40 mg IV NOW ONE Stop: 07/09/22 14:37 Last Admin: 07/09/22 14:43 Dose: 40 mg Documented By: TRAVIS(2) Glucagon (Glucagon,Human Recombinant 1 Mg/Ml Vial) 1 mg IV NOW ONE Stop: 07/09/22 17:00 Last Admin: 07/09/22 18:04 Dose: 1 mg Documented By: TRAVIS Sodium Chloride (Normal Saline 0.9%) 1,000 mls @ 150 mls/hr IV CONT JANIE Last Infusion: 07/10/22 08:26 Dose: 0 mls/hr Documented By: Admin: 07/09/22 14:39 Dose: 150 mls/hr Documented By: TRAVIS(2) Sodium Chloride (Normal Saline 0.9%) 1,000 mls @ 1,000 mls/hr IV BOLUS ONE Stop: 07/09/22 15:22 Last Infusion: 07/09/22 15:34 Dose: 0 mls/hr Documented By: Admin: 07/09/22 14:28 Dose: 1,000 mls/hr Documented By: TRAVIS(2) Dextrose (D10w) 250 mls @ 999 mls/hr IV PRN PRN PRN Reason: Hypoglycemia Last Infusion: 07/09/22 16:25 Dose: 0 mls/hr Documented By: Admin: 07/09/22 16:13 Dose: 999 mls/hr Documented By: Infusion: 07/09/22 14:53 Dose: 0 mls/hr Documented By: TRAVIS(2) Admin: 07/09/22 14:33 Dose: 999 mls/hr Documented By: TRAVIS(2) Calcium Chloride 1,000 mg/ (Sodium Chloride) 110 mls @ 110 mls/hr IV NOW ONE Stop: 07/09/22 14:30 Last Infusion: 07/09/22 15:34 Dose: 0 mls/hr Documented By: Admin: 07/09/22 14:43 Dose: 110 mls/hr Documented By: TRAVIS(2) Calcium Gluconate 4.65 meq/ (Sodium Chloride) 60 mls @ 180 mls/hr IV NOW ONE Stop: 07/09/22 14:51 Last Admin: 07/09/22 14:44 Dose: Not Given Documented By: TRAVIS(2) NOREPINEPHRINE BITARTRATE/D5W (Levophed) 4 mg in 250 mls @ 30 mls/hr IV TITRATE JANIE; Protocol Last Titration: 07/09/22 16:30 Dose: 0 mcg/min, 0 mls/hr Documented By: Titration: 07/09/22 16:25 Dose: 0 mcg/min, 0 mls/hr Documented By: Titration: 07/09/22 16:05 Dose: 4 mcg/min, 15 mls/hr Documented By: Admin: 07/09/22 15:50 Dose: 8 mcg/min, 30 mls/hr Documented By: TRAVIS Dextrose (D10w) 1,000 mls @ 200 mls/hr IV CONT JANIE Last Infusion: 07/09/22 21:15 Dose: 250 mls/hr Documented By: Admin: 07/09/22 17:14 Dose: 200 mls/hr Documented By: TRAVIS Sodium Chloride (Normal Saline 0.45%) 1,000 mls @ 100 mls/hr IV CONT JANIE Last Infusion: 07/10/22 10:36 Dose: 0 mls/hr Documented By: TRAVIS(2) Admin: 07/10/22 00:30 Dose: 100 mls/hr Documented By: NAINA Insulin Human Regular (Insulin Regular 100 Unit/Ml 3 Ml Vial) 5 unit IV NOW ONE Stop: 07/09/22 14:24 Last Admin: 07/09/22 14:34 Dose: 5 unit Documented By: TRAVIS(2) Co-signed By: TRAVIS Insulin Human Regular (Insulin Regular 100 Unit/Ml 3 Ml Vial) 10 unit IV NOW ONE Stop: 07/09/22 16:58 Last Admin: 07/09/22 17:14 Dose: 10 unit Documented By: TRAVIS Co-signed By: TRAVIS(2) Levothyroxine Sodium (Levothyroxine 75 Mcg Tablet) 75 mcg PO DAILY JANIE Naloxone HCl (Naloxone 0.4 Mg/Ml Vial) 0.2 mg IV Q2MIN PRN PRN Reason: Opiate Reversal Tramadol HCl (Tramadol 50 Mg Tablet) 50 mg PO QID PRN PRN Reason: Pain, Moderate (4-6) Trazodone HCl (Trazodone 100 Mg Tablet) 200 mg PO BEDTIME JANIE Last Admin: 07/10/22 00:27 Dose: 200 mg Documented By: NAINA Vital Signs Vital signs: Vital Signs - 8 hr 07/09/22 13:57 07/09/22 14:07 07/09/22 14:08 Temperature 97.5 F L Pulse Rate 35 L 33 L 32 L Respiratory Rate 20 20 18 Blood Pressure 113/52 L Pulse Oximetry 97 97 97 Oxygen Delivery Method Room Air 07/09/22 14:08 07/09/22 14:10 07/09/22 14:15 Temperature Pulse Rate 31 L 28 L Respiratory Rate 17 18 Blood Pressure 114/56 L Pulse Oximetry 98 100 Oxygen Delivery Method 07/09/22 14:19 07/09/22 14:19 07/09/22 14:20 Temperature Pulse Rate 53 L 53 L Respiratory Rate 15 17 Blood Pressure 128/68 Pulse Oximetry 88 L 97 Oxygen Delivery Method 07/09/22 14:25 07/09/22 14:25 07/09/22 14:30 Temperature Pulse Rate 50 L 56 L Respiratory Rate 17 20 Blood Pressure 159/66 H Pulse Oximetry 99 99 Oxygen Delivery Method 07/09/22 14:33 07/09/22 14:33 07/09/22 14:35 Temperature Pulse Rate 53 L 51 L Respiratory Rate 19 18 Blood Pressure 136/58 L Pulse Oximetry 99 98 Oxygen Delivery Method 07/09/22 14:36 07/09/22 14:36 07/09/22 14:38 Temperature Pulse Rate 53 L 51 L Respiratory Rate 17 16 Blood Pressure 155/66 H Pulse Oximetry 98 98 Oxygen Delivery Method 07/09/22 14:38 07/09/22 14:40 07/09/22 14:40 Temperature Pulse Rate 35 L Respiratory Rate 15 Blood Pressure 133/60 115/57 L Pulse Oximetry 98 Oxygen Delivery Method 07/09/22 14:43 07/09/22 14:43 07/09/22 14:45 Temperature Pulse Rate 36 L 36 L Respiratory Rate 16 18 Blood Pressure 132/57 L Pulse Oximetry 99 98 Oxygen Delivery Method 07/09/22 14:46 07/09/22 14:46 07/09/22 14:50 Temperature Pulse Rate 37 L 37 L Respiratory Rate 11 L 14 Blood Pressure 104/57 L Pulse Oximetry 99 98 Oxygen Delivery Method 07/09/22 14:51 07/09/22 14:51 07/09/22 14:54 Temperature 96.1 F L Pulse Rate 37 L 38 L Respiratory Rate 14 16 Blood Pressure 107/53 L Pulse Oximetry 98 100 Oxygen Delivery Method 07/09/22 14:54 07/09/22 14:55 07/09/22 14:58 Temperature 96.3 F L 96.4 F L Pulse Rate 38 L 38 L Respiratory Rate 13 14 Blood Pressure 87/55 L Pulse Oximetry 100 99 Oxygen Delivery Method 07/09/22 14:58 07/09/22 15:00 07/09/22 15:01 Temperature 96.4 F L 96.4 F L Pulse Rate 37 L 38 L Respiratory Rate 13 15 Blood Pressure 120/57 L Pulse Oximetry 100 99 Oxygen Delivery Method 07/09/22 15:01 07/09/22 15:03 07/09/22 15:03 Temperature 96.4 F L Pulse Rate 38 L Respiratory Rate 16 Blood Pressure 116/56 L 116/52 L Pulse Oximetry 98 Oxygen Delivery Method 07/09/22 15:05 07/09/22 15:05 07/09/22 15:10 Temperature 96.4 F L 96.4 F L Pulse Rate 38 L 38 L Respiratory Rate 19 14 Blood Pressure 112/57 L Pulse Oximetry 100 100 Oxygen Delivery Method 07/09/22 15:15 07/09/22 15:20 07/09/22 15:23 Temperature 96.4 F L 96.4 F L 96.4 F L Pulse Rate 40 L 37 L 36 L Respiratory Rate 17 12 13 Blood Pressure Pulse Oximetry 100 100 100 Oxygen Delivery Method 07/09/22 15:23 07/09/22 15:25 07/09/22 15:25 Temperature 96.4 F L Pulse Rate 36 L Respiratory Rate 11 L Blood Pressure 114/56 L 114/58 L Pulse Oximetry 100 Oxygen Delivery Method 07/09/22 15:28 07/09/22 15:28 07/09/22 15:30 Temperature 96.3 F L Pulse Rate 37 L Respiratory Rate 15 Blood Pressure 116/55 L 122/58 L Pulse Oximetry 100 Oxygen Delivery Method 07/09/22 15:30 07/09/22 15:33 07/09/22 15:33 Temperature 96.3 F L 96.3 F L Pulse Rate 36 L 42 L Respiratory Rate 16 13 Blood Pressure 125/59 L Pulse Oximetry 100 100 Oxygen Delivery Method 07/09/22 15:35 07/09/22 15:36 07/09/22 15:36 Temperature 96.3 F L 96.3 F L Pulse Rate 41 L 41 L Respiratory Rate 14 15 Blood Pressure 124/59 L Pulse Oximetry 99 99 Oxygen Delivery Method 07/09/22 15:38 07/09/22 15:38 07/09/22 15:40 Temperature 96.3 F L Pulse Rate 41 L Respiratory Rate 14 Blood Pressure 128/59 L 123/58 L Pulse Oximetry 100 Oxygen Delivery Method 07/09/22 15:40 07/09/22 15:43 07/09/22 15:43 Temperature 96.3 F L 96.3 F L Pulse Rate 41 L 39 L Respiratory Rate 13 15 Blood Pressure 117/59 L Pulse Oximetry 100 100 Oxygen Delivery Method 07/09/22 15:45 07/09/22 15:45 07/09/22 15:48 Temperature 96.3 F L Pulse Rate 40 L Respiratory Rate 15 Blood Pressure 115/59 L 119/58 L Pulse Oximetry 100 Oxygen Delivery Method 07/09/22 15:48 07/09/22 15:50 07/09/22 15:53 Temperature 96.3 F L 96.3 F L Pulse Rate 38 L 38 L Respiratory Rate 14 13 Blood Pressure 107/54 L Pulse Oximetry 100 100 Oxygen Delivery Method 07/09/22 15:53 07/09/22 15:55 07/09/22 16:00 Temperature 96.3 F L 96.3 F L 96.3 F L Pulse Rate 38 L 37 L 50 L Respiratory Rate 17 17 17 Blood Pressure Pulse Oximetry 100 100 100 Oxygen Delivery Method 07/09/22 16:04 07/09/22 16:04 07/09/22 16:05 Temperature 96.3 F L 96.3 F L Pulse Rate 36 L 36 L Respiratory Rate 18 15 Blood Pressure 131/59 L Pulse Oximetry 100 100 Oxygen Delivery Method 07/09/22 16:06 07/09/22 16:06 07/09/22 16:08 Temperature 96.3 F L Pulse Rate 35 L Respiratory Rate 15 Blood Pressure 128/59 L 123/55 L Pulse Oximetry 100 Oxygen Delivery Method 07/09/22 16:08 07/09/22 16:10 07/09/22 16:11 Temperature 96.3 F L 96.3 F L 96.3 F L Pulse Rate 36 L 35 L 35 L Respiratory Rate 17 14 15 Blood Pressure Pulse Oximetry 100 100 100 Oxygen Delivery Method 07/09/22 16:11 07/09/22 16:13 07/09/22 16:13 Temperature 96.3 F L Pulse Rate 35 L Respiratory Rate 17 Blood Pressure 103/56 L 114/59 L Pulse Oximetry 100 Oxygen Delivery Method 07/09/22 16:15 07/09/22 16:15 07/09/22 16:19 Temperature 96.3 F L Pulse Rate 35 L Respiratory Rate 14 Blood Pressure 117/61 129/58 L Pulse Oximetry 100 Oxygen Delivery Method 07/09/22 16:19 07/09/22 16:20 07/09/22 16:20 Temperature 96.3 F L 96.3 F L Pulse Rate 34 L 34 L Respiratory Rate 16 16 Blood Pressure 115/55 L Pulse Oximetry 100 100 Oxygen Delivery Method 07/09/22 16:23 07/09/22 16:23 07/09/22 16:25 Temperature 96.3 F L Pulse Rate 33 L Respiratory Rate 16 Blood Pressure 122/58 L 113/59 L Pulse Oximetry 99 Oxygen Delivery Method 07/09/22 16:25 07/09/22 16:28 07/09/22 16:28 Temperature 96.3 F L 96.3 F L Pulse Rate 34 L 34 L Respiratory Rate 12 15 Blood Pressure 115/55 L Pulse Oximetry 100 100 Oxygen Delivery Method 07/09/22 16:30 07/09/22 16:30 07/09/22 16:33 Temperature 96.3 F L 96.3 F L Pulse Rate 35 L 34 L Respiratory Rate 13 13 Blood Pressure 103/57 L Pulse Oximetry 100 100 Oxygen Delivery Method 07/09/22 16:33 07/09/22 16:35 07/09/22 16:36 Temperature 96.3 F L 96.3 F L Pulse Rate 35 L 35 L Respiratory Rate 14 16 Blood Pressure 101/58 L Pulse Oximetry 100 100 Oxygen Delivery Method 07/09/22 16:36 07/09/22 16:38 07/09/22 16:38 Temperature 96.1 F L Pulse Rate 35 L Respiratory Rate 14 Blood Pressure 109/55 L 109/55 L Pulse Oximetry 100 Oxygen Delivery Method 07/09/22 16:40 07/09/22 16:40 07/09/22 16:45 Temperature 96.1 F L 96.1 F L Pulse Rate 34 L 34 L Respiratory Rate 14 15 Blood Pressure 114/55 L Pulse Oximetry 100 100 Oxygen Delivery Method 07/09/22 16:46 07/09/22 16:46 07/09/22 16:50 Temperature 96.1 F L 96.1 F L Pulse Rate 34 L 34 L Respiratory Rate 18 14 Blood Pressure 105/53 L Pulse Oximetry 100 100 Oxygen Delivery Method 07/09/22 16:54 07/09/22 16:54 07/09/22 16:55 Temperature 96.1 F L 96.1 F L Pulse Rate 35 L 34 L Respiratory Rate 13 14 Blood Pressure 118/54 L Pulse Oximetry 100 100 Oxygen Delivery Method 07/09/22 16:56 07/09/22 16:56 07/09/22 17:00 Temperature 96.1 F L 96.1 F L Pulse Rate 34 L 34 L Respiratory Rate 14 13 Blood Pressure 115/57 L Pulse Oximetry 100 100 Oxygen Delivery Method 07/09/22 17:05 07/09/22 17:06 07/09/22 17:06 Temperature 96.1 F L 96.1 F L Pulse Rate 34 L 34 L Respiratory Rate 14 13 Blood Pressure 108/58 L Pulse Oximetry 100 100 Oxygen Delivery Method 07/09/22 17:10 07/09/22 17:15 07/09/22 17:18 Temperature 96.1 F L 96.1 F L 96.1 F L Pulse Rate 34 L 32 L 33 L Respiratory Rate 16 20 18 Blood Pressure Pulse Oximetry 100 100 100 Oxygen Delivery Method 07/09/22 17:18 07/09/22 17:20 07/09/22 17:20 Temperature 96.1 F L Pulse Rate 33 L Respiratory Rate 17 Blood Pressure 106/51 L 105/53 L Pulse Oximetry 100 Oxygen Delivery Method 07/09/22 17:25 07/09/22 17:26 07/09/22 17:26 Temperature 96.1 F L 96.1 F L Pulse Rate 34 L 34 L Respiratory Rate 15 15 Blood Pressure 112/55 L Pulse Oximetry 100 100 Oxygen Delivery Method 07/09/22 17:30 07/09/22 17:30 07/09/22 17:35 Temperature 96.1 F L 96.1 F L Pulse Rate 39 L 41 L Respiratory Rate 20 14 Blood Pressure 100/50 L Pulse Oximetry 94 100 Oxygen Delivery Method 07/09/22 17:36 07/09/22 17:36 07/09/22 17:40 Temperature 96.1 F L 96.1 F L Pulse Rate 38 L 58 L Respiratory Rate 15 18 Blood Pressure 96/46 L Pulse Oximetry 100 100 Oxygen Delivery Method 07/09/22 17:40 07/09/22 17:45 07/09/22 17:45 Temperature 95.9 F L Pulse Rate 63 Respiratory Rate 19 Blood Pressure 129/60 130/68 Pulse Oximetry 100 Oxygen Delivery Method 07/09/22 17:50 07/09/22 17:50 07/09/22 17:55 Temperature 95.9 F L Pulse Rate 62 Respiratory Rate 17 Blood Pressure 126/62 125/83 Pulse Oximetry 100 Oxygen Delivery Method 07/09/22 17:55 07/09/22 18:00 07/09/22 18:00 Temperature 95.9 F L 95.7 F L Pulse Rate 63 61 Respiratory Rate 21 19 Blood Pressure 129/60 Pulse Oximetry 100 100 Oxygen Delivery Method 07/09/22 18:05 07/09/22 18:05 07/09/22 18:10 Temperature 95.7 F L 95.7 F L Pulse Rate 61 63 Respiratory Rate 19 21 Blood Pressure 131/61 Pulse Oximetry 100 99 Oxygen Delivery Method 07/09/22 18:10 07/09/22 18:28 07/09/22 18:15 Temperature Pulse Rate 60 Respiratory Rate 18 Blood Pressure 123/57 L 147/63 H 125/58 L Pulse Oximetry 99 Oxygen Delivery Method 07/09/22 18:15 07/09/22 18:23 07/09/22 18:23 Temperature 95.7 F L 95.7 F L Pulse Rate 62 61 Respiratory Rate 18 19 Blood Pressure 136/63 Pulse Oximetry 100 100 Oxygen Delivery Method 07/09/22 18:25 07/09/22 18:25 07/09/22 18:29 Temperature 95.7 F L 95.7 F L Pulse Rate 72 59 L Respiratory Rate 23 22 Blood Pressure 122/57 L Pulse Oximetry 100 100 Oxygen Delivery Method 07/09/22 18:29 07/09/22 18:30 07/09/22 18:30 Temperature 95.7 F L Pulse Rate 62 Respiratory Rate 17 Blood Pressure 149/66 H 149/66 H Pulse Oximetry 100 Oxygen Delivery Method 07/09/22 18:35 07/09/22 18:35 07/09/22 18:40 Temperature 95.7 F L 95.7 F L Pulse Rate 61 61 Respiratory Rate 18 20 Blood Pressure 146/58 H Pulse Oximetry 100 100 Oxygen Delivery Method 07/09/22 18:40 07/09/22 18:45 07/09/22 18:45 Temperature 95.7 F L Pulse Rate 61 Respiratory Rate 18 Blood Pressure 136/65 137/67 Pulse Oximetry 100 Oxygen Delivery Method 07/09/22 18:51 07/09/22 18:51 07/09/22 18:55 Temperature 95.7 F L Pulse Rate 60 Respiratory Rate 20 Blood Pressure 141/62 H 137/61 Pulse Oximetry 100 Oxygen Delivery Method 07/09/22 18:55 07/09/22 19:00 07/09/22 19:00 Temperature 95.5 F L 95.5 F L Pulse Rate 61 60 Respiratory Rate 17 15 Blood Pressure 149/68 H Pulse Oximetry 100 100 Oxygen Delivery Method 07/09/22 19:05 07/09/22 19:05 07/09/22 19:10 Temperature 95.5 F L 95.5 F L Pulse Rate 62 60 Respiratory Rate 20 16 Blood Pressure 151/72 H Pulse Oximetry 100 100 Oxygen Delivery Method 07/09/22 19:10 07/09/22 19:15 07/09/22 19:15 Temperature 95.5 F L Pulse Rate 60 Respiratory Rate 17 Blood Pressure 149/65 H 146/69 H Pulse Oximetry 100 Oxygen Delivery Method 07/09/22 19:20 07/09/22 19:20 07/09/22 19:25 Temperature 95.7 F L 95.7 F L Pulse Rate 59 L 60 Respiratory Rate 16 16 Blood Pressure 140/63 Pulse Oximetry 100 100 Oxygen Delivery Method 07/09/22 19:25 07/09/22 19:30 07/09/22 19:30 Temperature 95.7 F L Pulse Rate 59 L Respiratory Rate 16 Blood Pressure 137/64 145/68 H Pulse Oximetry 100 Oxygen Delivery Method 07/09/22 19:36 07/09/22 19:36 07/09/22 19:40 Temperature 95.7 F L Pulse Rate 60 Respiratory Rate 16 Blood Pressure 140/76 133/72 Pulse Oximetry 100 Oxygen Delivery Method 07/09/22 19:40 07/09/22 19:45 07/09/22 19:45 Temperature 95.7 F L 95.7 F L Pulse Rate 59 L 59 L Respiratory Rate 15 16 Blood Pressure 143/76 H Pulse Oximetry 100 100 Oxygen Delivery Method 07/09/22 19:50 07/09/22 19:50 07/09/22 19:56 Temperature 95.7 F L Pulse Rate 58 L Respiratory Rate 15 Blood Pressure 142/72 H 146/62 H Pulse Oximetry 100 Oxygen Delivery Method 07/09/22 19:56 07/09/22 20:00 Temperature 95.7 F L 95.7 F L Pulse Rate 58 L 58 L Respiratory Rate 16 16 Blood Pressure Pulse Oximetry 100 100 Oxygen Delivery Method MDM - Recheck/Abnormal Lab/Rx Lab Data Result diagrams: 07/10/22 06:38 07/10/22 06:38 Labs: Lab Results 07/09/22 07/09/22 07/09/22 Range/Units 14:13 14:13 14:13 WBC 2.4 L (4.5-11.0) X10^3/uL RBC 2.23 L (4.5-5.9) X10^6/uL Hgb 7.0 L (13.5-17.5) g/dL Hct 21.0 L (41-53) % MCV 94.2 (80-100) fL MCH 31.3 (26-34) PG MCHC 33.2 (30-36) % RDW 15.8 H (11.6-14.8) % Plt Count 96 L (150-400) X10^3/uL Neut % (Auto) 44.0 L (50-75) % Lymph % (Auto) 31.4 (25-40) % [place] % (Auto) 15.4 H (3-14) % Eos % (Auto) 8.2 H (2-4) % Baso % (Auto) 1.0 (0-2) % Neut # (Auto) 1000 L (2658-6081) /uL Lymph # (Auto) 700 L (2625-0789) /uL [place] # (Auto) 400 (0-900) /uL Eos # (Auto) 200 (0-450) /uL Baso # (Auto) 0 (0-100) /uL PT 13.1 H (10.1-12.7) SECONDS INR 1.1 (0.9-1.3) APTT 31 (26-36) SECONDS Sodium 131 L (137-145) mmol/L Potassium 7.0 H* (3.4-5.1) mmol/L Chloride 109 H (98-107) mmol/L Carbon Dioxide 10 L (22-32) mmol/L BUN 39 H (9-20) mg/dL Creatinine 2.42 H (0.66-1.25) mg/dL Estimated GFR 29 L (>60) mL/min BUN/Creatinine Ratio 16.1 (6-22) Glucose 97 (80-110) mg/dL Lactate (0.7-2.1) mmol/L Calcium 8.2 L (8.4-10.2) mg/dL Phosphorus (2.3-3.7) mg/dL Magnesium (1.6-2.3) mg/dL Total Bilirubin 0.3 (0.2-1.3) mg/dL AST 22 (17-59) IU/L ALT 17 (<50) IU/L Alkaline Phosphatase 69 (38-126) U/L Total Creatine Kinase 43 L (55-170) U/L CK-MB (CK-2) TNP CK-MB (CK-2) Rel Index TNP Troponin I < 0.012 (0.01-0.034) ng/mL Total Protein 7.2 (6.3-8.2) g/dL Albumin 3.3 L (3.5-5.0) g/dL Globulin 3.9 (1.7-4.1) g/dL Albumin/Globulin Ratio 0.8 L (1.0-2.8) Lipase 112 (23-300) U/L Procalcitonin 0.07 (<0.5) ng/mL SARS-CoV-2 (PCR) (Negative) Blood Type Antibody Screen 07/09/22 07/09/22 07/09/22 Range/Units 14:13 14:13 14:20 WBC (4.5-11.0) X10^3/uL RBC (4.5-5.9) X10^6/uL Hgb (13.5-17.5) g/dL Hct (41-53) % MCV (80-100) fL MCH (26-34) PG MCHC (30-36) % RDW (11.6-14.8) % Plt Count (150-400) X10^3/uL Neut % (Auto) (50-75) % Lymph % (Auto) (25-40) % [place] % (Auto) (3-14) % Eos % (Auto) (2-4) % Baso % (Auto) (0-2) % Neut # (Auto) (0520-2540) /uL Lymph # (Auto) (3294-4711) /uL [place] # (Auto) (0-900) /uL Eos # (Auto) (0-450) /uL Baso # (Auto) (0-100) /uL PT (10.1-12.7) SECONDS INR (0.9-1.3) APTT (26-36) SECONDS Sodium (137-145) mmol/L Potassium (3.4-5.1) mmol/L Chloride (98-107) mmol/L Carbon Dioxide (22-32) mmol/L BUN (9-20) mg/dL Creatinine (0.66-1.25) mg/dL Estimated GFR (>60) mL/min BUN/Creatinine Ratio (6-22) Glucose (80-110) mg/dL Lactate 1.4 (0.7-2.1) mmol/L Calcium (8.4-10.2) mg/dL Phosphorus 5.1 H (2.3-3.7) mg/dL Magnesium 2.0 (1.6-2.3) mg/dL Total Bilirubin (0.2-1.3) mg/dL AST (17-59) IU/L ALT (<50) IU/L Alkaline Phosphatase (38-126) U/L Total Creatine Kinase (55-170) U/L CK-MB (CK-2) CK-MB (CK-2) Rel Index Troponin I (0.01-0.034) ng/mL Total Protein (6.3-8.2) g/dL Albumin (3.5-5.0) g/dL Globulin (1.7-4.1) g/dL Albumin/Globulin Ratio (1.0-2.8) Lipase (23-300) U/L Procalcitonin (<0.5) ng/mL SARS-CoV-2 (PCR) (Negative) Blood Type B Positive Antibody Screen Negative 07/09/22 07/09/22 07/09/22 Range/Units 16:22 17:40 17:59 WBC (4.5-11.0) X10^3/uL RBC (4.5-5.9) X10^6/uL Hgb (13.5-17.5) g/dL Hct (41-53) % MCV (80-100) fL MCH (26-34) PG MCHC (30-36) % RDW (11.6-14.8) % Plt Count (150-400) X10^3/uL Neut % (Auto) (50-75) % Lymph % (Auto) (25-40) % [place] % (Auto) (3-14) % Eos % (Auto) (2-4) % Baso % (Auto) (0-2) % Neut # (Auto) (5387-7240) /uL Lymph # (Auto) (0199-1240) /uL [place] # (Auto) (0-900) /uL Eos # (Auto) (0-450) /uL Baso # (Auto) (0-100) /uL PT (10.1-12.7) SECONDS INR (0.9-1.3) APTT (26-36) SECONDS Sodium 131 L 130 L (137-145) mmol/L Potassium 6.6 H* 6.0 H (3.4-5.1) mmol/L Chloride 111 H 109 H (98-107) mmol/L Carbon Dioxide 10 L 10 L (22-32) mmol/L BUN 37 H 37 H (9-20) mg/dL Creatinine 2.26 H 2.22 H (0.66-1.25) mg/dL Estimated GFR 32 L 32 L (>60) mL/min BUN/Creatinine Ratio 16.4 16.7 (6-22) Glucose 101 77 L (80-110) mg/dL Lactate (0.7-2.1) mmol/L Calcium 8.7 8.5 (8.4-10.2) mg/dL Phosphorus (2.3-3.7) mg/dL Magnesium (1.6-2.3) mg/dL Total Bilirubin 0.3 (0.2-1.3) mg/dL AST 20 (17-59) IU/L ALT 16 (<50) IU/L Alkaline Phosphatase 67 (38-126) U/L Total Creatine Kinase (55-170) U/L CK-MB (CK-2) CK-MB (CK-2) Rel Index Troponin I (0.01-0.034) ng/mL Total Protein 6.8 (6.3-8.2) g/dL Albumin 3.1 L (3.5-5.0) g/dL Globulin 3.7 (1.7-4.1) g/dL Albumin/Globulin Ratio 0.8 L (1.0-2.8) Lipase (23-300) U/L Procalcitonin (<0.5) ng/mL SARS-CoV-2 (PCR) Negative (Negative) Blood Type Antibody Screen Point of Care Testing Glucose POC [address] scan - head: Radiologist's Impression: [address] [address] [address] Scan Report Signed Patient: Moris Bae MR#: [id number] : 1960 Acct:[id number] Age/Sex: 62 / M Date of Service: 07/09/22 Loc: 90A-1 Accession Number: [id number] ?? Procedure: CT head/brain wo con Ordering Provider: Harriet Ordonez D.O. PROCEDURE:? CT HEAD/BRAIN WO CON ? INDICATIONS:? syncope ? TECHNIQUE:? Noncontrast 4.5 mm thick angled axial sections acquired from the foramen magnum to the vertex, with coronal and sagittal reformats.? For radiation dose reduction, the following was used:? automated exposure control, adjustment of mA and/or kV according to patient size.? ? COMPARISON:? None. ? FINDINGS:? Image quality:? Excellent.? ? CSF spaces:? Basal cisterns are patent.? No extra-axial fluid collections.? Ventricles are normal in size and shape.? ? Brain:? No midline shift.? No intracranial masses or hemorrhage.? Lutz-white matter interface is normal.? ? Skull and face:? Calvarium and visualized facial bones are intact, without suspicious lesions.? ? Sinuses:? Visualized sinuses demonstrate trace right maxillary sinus mucosal thickening. ? IMPRESSION:? 1. No acute intracranial process. ? ? Dictated by: Yvonne Aponte M.D. on 07/09/2022 at 20:26 ? ? Chest x-ray: Radiologist's Impression: nt: Moris Bae MR#: [id number] : 1960 Acct:[id number] Age/Sex: 62 / M Date of Service: 07/09/22 Loc: ED Accession Number: [id number] ?? Procedure: XR chest 1V Ordering Provider: Harriet Ordonez D.O. PROCEDURE:? XR CHEST 1V ? INDICATIONS:? chest pain ? TECHNIQUE:? One view of the chest was acquired.? ? COMPARISON:? None. ? FINDINGS:? ? Surgical changes and devices:? None.? ? Lungs and pleura:? Subtle pulmonary radiopacities are present at the right lung base.? The lungs are otherwise clear.? No pleural effusion or pneumothorax. ? Mediastinum:? Mediastinal contours appear normal.? Heart size is normal.? ? Bones and chest wall:? No suspicious bony lesions.? Overlying soft tissues appear unremarkable.? ? IMPRESSION:? Right basilar pulmonary radiopacities suspicious for aspiration/infection. Short interval followup is recommended with resolution of the patient's symptoms to ensure there is no underlying pulmonary pathology. ? ? ? Dictated by: Keesha English M.D. on 07/09/2022 at 15:31 ? ? Approved by: Keesha English M.D. on 07/09/2022 at 15:31 ? ECG Data Interpretation: Sinus bradycardia rate [address] changes EKG 2. Normal sinus rhythm rate 61 ID interval 204 QRS [address] changes MDM Narrative Medical decision making narrative: Patient 62-year-old male history of liver cirrhosis secondary to alcohol abuse recent admission with hyperkalemia and acute kidney injury presents today with outpatient labs and elevated potassium of 7.0. Patient is also noted to be extremely bradycardic with heart rate in the 30s. He reports a syncopal episode last week. Potassium is confirmed of 7.0 he is given 5 units of insulin dextrose calcium gluconate, Lokelma Lasix and albuterol. Repeat potassium shows a mild decreased to 6.6. He remains bradycardic. Concern that patient might need dialysis for his persistent hyperkalemia. He is given a 2nd dose of 5 units of insulin. He is also given glucagon he is noted to be on a beta sacha nadolol. Who was also given 2 doses of atropine which did to briefly health. He was briefly put on Levophed to help with heart rate. Does 1700 Dr. Guo cardiology consulted in regards to persistent bradycardia. At this time he agrees hold beta-sacha correct potassium nothing for Cardiology to do at this time. 1720 Dr Lerma, nephrology updated on patient's persistent hyperkalemia persistent bradycardia at this time can give bicarb drip of 150 mEq for persistent hyperkalemia agrees with 2nd dose of IV insulin can still have another dose of calcium gluconate. Try to get potassium below 6. If potassium can go below 6 there is no need for emergent dialysis. He does not have any beds available any way. Agrees with holding beta-sacha. 2nd dose of insulin seems to have helped patient's heart rate is in certainly went from the 30s to 60s and he has remained stable. Glucose has also stabilized as well Dr. Montes updated on patient's symptoms test results Cardiology and Nephrology recommendations agrees with admission. Unfortunately no beds available upstairs the patient will be boarding in the emergency department. Repeat BMP is pending. Critical Care Time Critical Care Time Critical Care Time: Yes Total Critical Care Time: 100 Attestation: The high probability of a clinically significant, sudden or life threatening deterioration of the [cardiovascular] system(s) required my full and direct attention, intervention and personal management. The aggregate critical care time was 100 minutes. This time is in addition to time spent performing reported procedures but includes the following: [x] Data Review and interpretation [x] Patient assessment and monitoring of vital signs [x] Documentation [x] Medication orders and management Discharge Plan Departure Patient Disposition: Admitted As Inpatient Clinical Impression: Acute hyperkalemia, CKD (chronic kidney disease), Bradycardia Admit Date/Time: 07/09/22 20:24 Admit Provider: Phani Montes
[2022-07-09 14:28] LABS: Add Manual Diff / Slide Review NO; Basophils Absolute Auto 0 /uL (0-100); Eosinophils Absolute Auto 200 /uL (0-450); Eosinophils Percent Auto 8.2 % (2-4); Lymphocytes Absolute Auto 700 /uL (1100-4500); Lymphocytes Percent Auto 31.4 % (25-40); Mean Corpuscular HGB Conc 33.2 % (30-36); Mean Corpuscular Hemoglobin 31.3 PG (26-34); Mean Corpuscular Volume 94.2 fL (80-100); Monocytes Absolute Auto 400 /uL (0-900); Monocytes Percent Auto 15.4 % (3-14); Neutrophils Absolute Auto 1000 /uL (1500-7000); Platelet Count 96 X10^3/uL (150-400); Red Blood Cell Count 2.23 X10^6/uL (4.5-5.9); Red Cell Distribution Width 15.8 % (11.6-14.8); White Blood Cell Count 2.4 X10^3/uL (4.5-11.0)
[2022-07-09] MEDS: SODIUM CHLORIDE 0.9% 1,000 ML 1000 ML IV (14:28)
[2022-07-09] MEDS: DEXTROSE 10 % IN WATER 250 ML 999 ML IV ×2 (14:33→16:13)
[2022-07-09 14:34] LABS: INR 1.1 (0.9-1.3); Prothrombin Time 13.1 SECONDS (10.1-12.7)
[2022-07-09] MEDS: INSULIN REGULAR 100 UNIT/ML 3 ML VIAL IV (14:34)
[2022-07-09 14:37] LABS: PTT Partial Thromboplastin Tim 31 SECONDS (26-36)
[2022-07-09 14:38] LABS: Lactate (Lactic Acid) 1.4 mmol/L (0.7-2.1)
[2022-07-09 14:39] LABS: Alanine Aminotransferase 17 IU/L (<50); Albumin 3.3 g/dL (3.5-5.0); Albumin Globulin Ratio 0.8 (1.0-2.8); Alkaline Phosphatase 69 U/L (38-126); Aspartate Aminotransferase 22 IU/L (17-59); BUN Creatinine Ratio 16.1 (6-22); Bilirubin Total 0.3 mg/dL (0.2-1.3); Blood Urea Nitrogen 39 mg/dL (9-20); Calcium 8.2 mg/dL (8.4-10.2); Carbon Dioxide 10 mmol/L (22-32); Chloride 109 mmol/L (98-107); Creatine Kinase 43 U/L (55-170); Estimated Glomerular Filt Rate 29 mL/min (>60); Globulin 3.9 g/dL (1.7-4.1); Glucose 97 mg/dL (80-110); HEMOLYSIS 16 (0-50); Lipase 112 U/L (23-300); Sodium 131 mmol/L (137-145); Total Protein 7.2 g/dL (6.3-8.2)
[2022-07-09] MEDS: SODIUM CHLORIDE 0.9% 1,000 ML 150 ML IV (14:39)
[2022-07-09] MEDS: ALBUTEROL 2.5 MG/3 ML NEB (ADULT) 10 MG INH (14:41)
[2022-07-09] MEDS: CALCIUM CHLORIDE 1,000 MG in SODIUM CHLORIDE 0.9% 100 ML 110 MG IV (14:43)
[2022-07-09] MEDS: FUROSEMIDE 40 MG/4 ML VIAL IV (14:43)
[2022-07-09 14:51] LABS: Troponin I < 0.012 ng/mL (0.01-0.034)
[2022-07-09 14:55] LABS: Phosphorous 5.1 mg/dL (2.3-3.7); Procalcitonin 0.07 ng/mL (<0.5)
--- NOTE | 2022-07-09 15:00 | PC.NURSE ---
1415 pt triaged with significant bradycardia, pt placed with pads on chest and code cart off but nearby, 1418 pharmacy at , atropine given 0.5 mg and ns started at bolus rate, running to gravity. 1422 ongoing iv and labs 1440 labs and blood gas confirm critical labs 1455 lasix iv given, dextrose bolus completed, iv insulin completed, first ns bolus almost complete, calcium chloride from pharmacy infusing, duron catheter placed with total 100 cc urine clear yellow sent to lab, albuterol treatment running by consumer experience consultant.
--- NOTE | 2022-07-09 15:18 | PC.NURSE ---
md dr almodovar verbal order to increase infusion rate of cacl to run over 10 mins, infusion increased to run as such on pump.
[2022-07-09] MEDS: SODIUM ZIRCONIUM CYCLOSILICATE 10 GM POWD.PACK PO (15:30)
[2022-07-09] MEDS: ATROPINE 1 MG/10 ML SYRINGE 0.5 MG IV (15:30)
[2022-07-09] MEDS: NOREPINEPHRINE BITARTRATE/D5W 4 MG/250 ML PLAST..BAG 30 MG IV (15:50)
--- NOTE | 2022-07-09 16:17 | PC.NURSE ---
1600 urine in lab if needed for ua
[2022-07-09 16:52] LABS: Alanine Aminotransferase 16 IU/L (<50); Albumin 3.1 g/dL (3.5-5.0); Albumin Globulin Ratio 0.8 (1.0-2.8); Alkaline Phosphatase 67 U/L (38-126); Aspartate Aminotransferase 20 IU/L (17-59); BUN Creatinine Ratio 16.4 (6-22); Bilirubin Total 0.3 mg/dL (0.2-1.3); Blood Urea Nitrogen 37 mg/dL (9-20); Calcium 8.7 mg/dL (8.4-10.2); Carbon Dioxide 10 mmol/L (22-32); Chloride 111 mmol/L (98-107); Estimated Glomerular Filt Rate 32 mL/min (>60); Globulin 3.7 g/dL (1.7-4.1); Glucose 101 mg/dL (80-110); HEMOLYSIS < 15 (0-50); Sodium 131 mmol/L (137-145); Total Protein 6.8 g/dL (6.3-8.2)
[2022-07-09 16:57] LABS: Potassium 6.6 mmol/L (3.4-5.1)
[2022-07-09] MEDS: INSULIN REGULAR 100 UNIT/ML 3 ML VIAL 10 UNIT IV (17:14)
[2022-07-09] MEDS: DEXTROSE 10 % IN WATER 1,000 ML 200 ML IV (17:14)
[2022-07-09] MEDS: GLUCAGON,HUMAN RECOMBINANT 1 MG/ML VIAL IV (18:04)
--- NOTE | 2022-07-09 18:13 | DI.CT.S_ITS ---
PROCEDURE: CT HEAD/BRAIN WO CON INDICATIONS: syncope TECHNIQUE: Noncontrast 4.5 mm thick angled axial sections acquired from the foramen magnum to the vertex, with coronal and sagittal reformats. For radiation dose reduction, the following was used: automated exposure control, adjustment of mA and/or kV according to patient size. COMPARISON: None. FINDINGS: Image quality: Excellent. CSF spaces: Basal cisterns are patent. No extra-axial fluid collections. Ventricles are normal in size and shape. Brain: No midline shift. No intracranial masses or hemorrhage. Lutz-white matter interface is normal. Skull and face: Calvarium and visualized facial bones are intact, without suspicious lesions. Sinuses: Visualized sinuses demonstrate trace right maxillary sinus mucosal thickening. IMPRESSION: 1. No acute intracranial process. Dictated by: Yvonne Aponte M.D. on 07/09/2022 at 20:26 Approved by: Yvonne Aponte M.D. on 07/09/2022 at 20:27
[2022-07-09 18:16] LABS: BUN Creatinine Ratio 16.7 (6-22); Blood Urea Nitrogen 37 mg/dL (9-20); Calcium 8.5 mg/dL (8.4-10.2); Carbon Dioxide 10 mmol/L (22-32); Chloride 109 mmol/L (98-107); Estimated Glomerular Filt Rate 32 mL/min (>60); Glucose 77 mg/dL (80-110); HEMOLYSIS < 15 (0-50); Sodium 130 mmol/L (137-145)
[2022-07-09 18:24] LABS: COVID19 -Nasal RAPID Negative (Negative)
--- NOTE | 2022-07-09 19:20 | PC.NURSE ---
Report received - assumed care of pt at this time
--- NOTE | 2022-07-09 19:45 | PC.NURSE ---
Pt states that he is feeling ok - warm blankets provided for comfort - asking about home medications for the evening (trazadone and seroquel) - aware
--- NOTE | 2022-07-09 20:15 | PC.NURSE ---
Resting quietly in NAD - no needs voiced - PWD with respirations equal and unlabored bilaterally - alert and oriented - speaking in full clear sentences - VSS
--- NOTE | 2022-07-09 20:50 | PC.NURSE ---
Redraw of labs at this time - tolerated well Warm blankets given for comfort
[2022-07-09 21:14] LABS: BUN Creatinine Ratio 17.4 (6-22); Blood Urea Nitrogen 38 mg/dL (9-20); Calcium 8.1 mg/dL (8.4-10.2); Carbon Dioxide 12 mmol/L (22-32); Chloride 108 mmol/L (98-107); Estimated Glomerular Filt Rate 33 mL/min (>60); Glucose 117 mg/dL (80-110); HEMOLYSIS 18 (0-50); Sodium 129 mmol/L (137-145)
[2022-07-09 21:24] LABS: Potassium 6.4 mmol/L (3.4-5.1)
--- NOTE | 2022-07-09 21:30 | PC.NURSE ---
Continues to rest easily without concern - no needs voiced - awaiting admit orders
--- NOTE | 2022-07-09 22:00 | PC.NURSE ---
Resting quietly in NAD - no needs voiced - PWD with respirations equal and unlabored bilaterally - alert and oriented - speaking in full clear sentences
--- NOTE | 2022-07-09 22:05 | PC.NURSE ---
No changes in pt status at this time
--- NOTE | 2022-07-09 23:00 | PC.NURSE ---
No changes in pt status at this time
[2022-07-10] VITALS (18 sets, daily range): BP systolic 115–153; BP diastolic 55–69; PULSE 52–59; RESP 13–22; TEMP 35.9–37; O2SAT 97–100
--- NOTE | 2022-07-10 | PC.NURSE ---
Resting quietly with eyes closed - left to rest at this time - VSS - PWD with respirations equal and unlabored bilaterally
[2022-07-10] MEDS: TRAZODONE 100 MG TABLET 200 MG PO (00:27)
[2022-07-10] MEDS: SODIUM ZIRCONIUM CYCLOSILICATE 10 GM POWD.PACK PO ×2 (00:27→10:15)
[2022-07-10] MEDS: SODIUM CHLORIDE 0.45% 1,000 ML 100 ML IV (00:30)
--- NOTE | 2022-07-10 01:00 | PC.NURSE ---
No changes in pt status at this time
--- NOTE | 2022-07-10 02:00 | PC.NURSE ---
Continues to rest quietly in NAD with eyes closed - no needs voiced - PWD -VSS
--- NOTE | 2022-07-10 03:00 | PC.NURSE ---
No changes at this time in pt status
--- NOTE | 2022-07-10 04:00 | PC.NURSE ---
No changes in pt status or assessment at this time
--- NOTE | 2022-07-10 05:00 | PC.NURSE ---
No changes at this time - eyes closed - VSS
--- NOTE | 2022-07-10 05:25 | PC.NURSE ---
Awake - states that he is doing ok - alert and oriented - PWD with respirations equal and unlabored bilaterally - warm blankets given for comfort
--- NOTE | 2022-07-10 06:24 | PC.NURSE ---
No changes in pt status at this time
[2022-07-10 06:59] LABS: Hematocrit 21.7 % (41-53); Hemoglobin 7.3 g/dL (13.5-17.5); Mean Corpuscular HGB Conc 33.7 % (30-36); Mean Corpuscular Hemoglobin 31.7 PG (26-34); Mean Corpuscular Volume 94.1 fL (80-100); Platelet Count 86 X10^3/uL (150-400); Red Blood Cell Count 2.31 X10^6/uL (4.5-5.9); Red Cell Distribution Width 15.7 % (11.6-14.8)
[2022-07-10 07:01] LABS: White Blood Cell Count 1.7 X10^3/uL (4.5-11.0)
[2022-07-10 07:02] LABS: Add Manual Diff / Slide Review YES; INR 1.1 (0.9-1.3)
[2022-07-10 07:09] LABS: Alanine Aminotransferase 15 IU/L (<50); Albumin Globulin Ratio 0.8 (1.0-2.8); Alkaline Phosphatase 75 U/L (38-126); Aspartate Aminotransferase 17 IU/L (17-59); BUN Creatinine Ratio 16.7 (6-22); Bilirubin Total 0.5 mg/dL (0.2-1.3); Blood Urea Nitrogen 34 mg/dL (9-20); Calcium 8.1 mg/dL (8.4-10.2); Carbon Dioxide 10 mmol/L (22-32); Chloride 108 mmol/L (98-107); Estimated Glomerular Filt Rate 36 mL/min (>60); Globulin 3.6 g/dL (1.7-4.1); Glucose 93 mg/dL (80-110); HEMOLYSIS < 15 (0-50); Sodium 130 mmol/L (137-145); Total Protein 6.6 g/dL (6.3-8.2)
--- NOTE | 2022-07-10 07:16 | PC.NURSE ---
Report to dayshift RN team - care relinquished at this time
[2022-07-10 07:19] LABS: Potassium 6.5 mmol/L (3.4-5.1)
--- NOTE | 2022-07-10 07:33 | P.HP_ITS ---
History of Present Illness History of Present Illness Date Patient Seen: 07/10/22 Time Patient Seen: 07:34 Chief complaint: Poss cardiac arrest Narrative: 62-year-old male well known to me admitted via emergency department because of hyperkalemia Patient with known cirrhosis secondary to alcohol intake as well as myelodysplastic syndrome status post recent umbilical hernia repair also with known chronic renal failure demonstrated hyperkalemia with potassium of 7.0 on routine lab work. He was directed to the emergency department after repeat labs demonstrated similar numbers Patient was asymptomatic and treated appropriately emergency department with p otassium after treatment ranging from 6.0-6.5. Patient chronically on spironolactone in effort to help manage his ascites specially in the setting of a recent abdominal hernia repair to allow for full healing. Patient recently demonstrated some hyperkalemia and had his furosemide and potassium supplementation discontinued at that point. In addition patient was found to have a heart rate in the 30s with apparently a syncopal or near syncopal event on the 06 of July. With correction of his electrolyte disturbances and discontinuation of his nadolol monitoring in the hospital has demonstrated return of heart rate to the 50s with no further significant bradycardia Patient History Medical History (Updated 07/10/22 @ 07:43 by Neil Silver MD) Anxiety Bipolar disorder (2007) Chronic renal failure, stage 3 (moderate) Depression (2007) Essential hypertension Gout Hearing loss Hernia, umbilical Hyperlipidemia Hypothyroidism (09/30/17) Surgical History H/O hernia repair Status post colonoscopy Family & Social History Family History Father Age: 89 History of stroke History of cancer Prostate cancer Social History: household members none Safety & Behavioral: Feels Safe in Current Yes Environment Been Physically Hurt or No Threatened By a Person Tobacco & Substance use: Smoking Status Never smoker alcohol intake current alcohol intake frequency 3 or more drinks per day Substance Use Type does not use Meds Home Medications and Allergies Home Medications Medication Instructions Recorded Confirmed Type levothyroxine 75 mcg tablet 75 mcg PO DAILY #90 tabs 03/18/22 06/27/22 Rx quetiapine 300 mg tablet,extended 300 mg PO BID #120 tabs 03/24/22 06/27/22 Rx release 24 hr (Seroquel XR) atorvastatin 20 mg tablet 20 mg PO BEDTIME #90 tabs 04/21/22 06/27/22 Rx cyanocobalamin (vitamin B-12) 1,000 mcg PO DAILY #90 tabs 04/25/22 06/27/22 Rx 1,000 mcg tablet folic acid 1 mg tablet 1 mg PO DAILY #90 tabs 04/25/22 06/27/22 Rx trazodone 100 mg tablet 200 mg PO HS #60 tabs 06/02/22 06/27/22 Rx tramadol 50 mg tablet 50 mg PO QID PRN Pain, Moderate 06/16/22 06/27/22 Rx (4-6) #30 tabs furosemide 20 mg tablet 20 mg PO DAILY #90 tabs 07/10/22 Rx Allergies Allergy/AdvReac Type Severity Reaction Status Date / Time No Known Drug Allergies Allergy Verified 06/27/22 14:54 Review of Systems Review of Systems ROS: Yes All systems reviewed with the patient and are negative except as otherwise documented Exam Vital Signs (past 8 hours): - 07/09/22 23:35 07/09/22 23:35 07/09/22 23:40 Temperature 96.4 F L 96.4 F L Pulse Rate 56 L 55 L Respiratory Rate 15 15 Blood Pressure 135/66 Pulse Oximetry 100 100 07/09/22 23:40 07/09/22 23:45 07/09/22 23:45 Temperature 96.4 F L Pulse Rate 55 L Respiratory Rate 16 Blood Pressure 126/68 128/66 Pulse Oximetry 100 07/09/22 23:50 07/09/22 23:50 07/09/22 23:55 Temperature 96.4 F L 96.4 F L Pulse Rate 54 L 55 L Respiratory Rate 17 15 Blood Pressure 132/63 Pulse Oximetry 100 100 07/09/22 23:55 07/10/22 00:00 07/10/22 00:00 Temperature 96.6 F L Pulse Rate 54 L Respiratory Rate 16 Blood Pressure 129/64 130/64 Pulse Oximetry 100 07/10/22 00:05 07/10/22 00:05 07/10/22 00:10 Temperature 96.6 F L 96.6 F L Pulse Rate 54 L 55 L Respiratory Rate 16 16 Blood Pressure 125/62 Pulse Oximetry 100 100 07/10/22 00:10 07/10/22 00:15 07/10/22 00:15 Temperature 96.6 F L Pulse Rate 54 L Respiratory Rate 14 Blood Pressure 125/63 133/65 Pulse Oximetry 100 07/10/22 00:20 07/10/22 00:20 07/10/22 00:25 Temperature 96.6 F L 96.6 F L Pulse Rate 54 L 56 L Respiratory Rate 16 20 Blood Pressure 135/65 Pulse Oximetry 100 100 07/10/22 00:25 07/10/22 00:30 07/10/22 00:30 Temperature 96.6 F L Pulse Rate 57 L Respiratory Rate 19 Blood Pressure 132/64 149/65 H Pulse Oximetry 100 07/10/22 00:35 07/10/22 00:35 07/10/22 00:40 Temperature 96.6 F L 96.6 F L Pulse Rate 56 L 56 L Respiratory Rate 15 13 Blood Pressure 146/66 H Pulse Oximetry 100 100 07/10/22 00:40 07/10/22 00:45 07/10/22 00:45 Temperature 96.6 F L Pulse Rate 57 L Respiratory Rate 22 Blood Pressure 142/68 H 138/69 Pulse Oximetry 100 07/10/22 02:00 07/10/22 04:00 07/10/22 04:00 Temperature 97.2 F L 97.7 F Pulse Rate 56 L 57 L Respiratory Rate 16 16 Blood Pressure 135/63 Pulse Oximetry 100 100 07/10/22 06:00 Temperature 98.1 F Pulse Rate 56 L Respiratory Rate 17 Blood Pressure Pulse Oximetry 100 Oxygen Delivery Method Room Air Narrative Exam Narrative: Pale male who looks much older than his stated age lying on a gurney in the emergency department HEENT unremarkable, with the exception of bruising around the right eye (from recent fall per patient) Lungs-clear with good breath sounds Heart-regular rate and rhythm Abdomen-minimal distention no fluid wave well-healed umbilical hernia surgery with tiny eschar Extremities-no cyanosis clubbing or edema Neuro-alert oriented x3 moves all 4 extremities no asterixis or other changes. Gait not tested Objective Labs Result Diagrams: 07/10/22 06:38 07/10/22 06:38 Labs: Laboratory Results - last 24 hr 07/09/22 07/09/22 07/09/22 14:13 14:13 14:13 WBC 2.4 L RBC 2.23 L Hgb 7.0 L Hct 21.0 L MCV 94.2 MCH 31.3 MCHC 33.2 RDW 15.8 H Plt Count 96 L Neut % (Auto) 44.0 L Lymph % (Auto) 31.4 [place] % (Auto) 15.4 H Eos % (Auto) 8.2 H Baso % (Auto) 1.0 Neut # (Auto) 1000 L Lymph # (Auto) 700 L [place] # (Auto) 400 Eos # (Auto) 200 Baso # (Auto) 0 PT 13.1 H INR 1.1 APTT 31 Sodium 131 L Potassium 7.0 H* Chloride 109 H Carbon Dioxide 10 L BUN 39 H Creatinine 2.42 H Estimated GFR 29 L BUN/Creatinine Ratio 16.1 Glucose 97 Lactate Calcium 8.2 L Phosphorus Magnesium Total Bilirubin 0.3 AST 22 ALT 17 Alkaline Phosphatase 69 Total Creatine Kinase 43 L CK-MB (CK-2) TNP CK-MB (CK-2) Rel Index TNP Troponin I < 0.012 Total Protein 7.2 Albumin 3.3 L Globulin 3.9 Albumin/Globulin Ratio 0.8 L Lipase 112 Procalcitonin 0.07 SARS-CoV-2 (PCR) Blood Type Antibody Screen 07/09/22 07/09/22 07/09/22 14:13 14:13 14:20 WBC RBC Hgb Hct MCV MCH MCHC RDW Plt Count Neut % (Auto) Lymph % (Auto) [place] % (Auto) Eos % (Auto) Baso % (Auto) Neut # (Auto) Lymph # (Auto) [place] # (Auto) Eos # (Auto) Baso # (Auto) PT INR APTT Sodium Potassium Chloride Carbon Dioxide BUN Creatinine Estimated GFR BUN/Creatinine Ratio Glucose Lactate 1.4 Calcium Phosphorus 5.1 H Magnesium 2.0 Total Bilirubin AST ALT Alkaline Phosphatase Total Creatine Kinase CK-MB (CK-2) CK-MB (CK-2) Rel Index Troponin I Total Protein Albumin Globulin Albumin/Globulin Ratio Lipase Procalcitonin SARS-CoV-2 (PCR) Blood Type B Positive Antibody Screen Negative 07/09/22 07/09/22 07/09/22 16:22 17:40 17:59 WBC RBC Hgb Hct MCV MCH MCHC RDW Plt Count Neut % (Auto) Lymph % (Auto) [place] % (Auto) Eos % (Auto) Baso % (Auto) Neut # (Auto) Lymph # (Auto) [place] # (Auto) Eos # (Auto) Baso # (Auto) PT INR APTT Sodium 131 L 130 L Potassium 6.6 H* 6.0 H Chloride 111 H 109 H Carbon Dioxide 10 L 10 L BUN 37 H 37 H Creatinine 2.26 H 2.22 H Estimated GFR 32 L 32 L BUN/Creatinine Ratio 16.4 16.7 Glucose 101 77 L Lactate Calcium 8.7 8.5 Phosphorus Magnesium Total Bilirubin 0.3 AST 20 ALT 16 Alkaline Phosphatase 67 Total Creatine Kinase CK-MB (CK-2) CK-MB (CK-2) Rel Index Troponin I Total Protein 6.8 Albumin 3.1 L Globulin 3.7 Albumin/Globulin Ratio 0.8 L Lipase Procalcitonin SARS-CoV-2 (PCR) Negative Blood Type Antibody Screen 07/09/22 07/10/22 07/10/22 20:50 06:38 06:38 WBC 1.7 L* RBC 2.31 L Hgb 7.3 L Hct 21.7 L MCV 94.1 MCH 31.7 MCHC 33.7 RDW 15.7 H Plt Count 86 L Neut % (Auto) Not Reportable Lymph % (Auto) Not Reportable [place] % (Auto) Not Reportable Eos % (Auto) Not Reportable Baso % (Auto) Not Reportable Neut # (Auto) Lymph # (Auto) Not Reportable [place] # (Auto) Not Reportable Eos # (Auto) Baso # (Auto) Not Reportable PT 13.0 H INR 1.1 APTT Sodium 129 L Potassium 6.4 H* Chloride 108 H Carbon Dioxide 12 L BUN 38 H Creatinine 2.19 H Estimated GFR 33 L BUN/Creatinine Ratio 17.4 Glucose 117 H Lactate Calcium 8.1 L Phosphorus Magnesium Total Bilirubin AST ALT Alkaline Phosphatase Total Creatine Kinase CK-MB (CK-2) CK-MB (CK-2) Rel Index Troponin I Total Protein Albumin Globulin Albumin/Globulin Ratio Lipase Procalcitonin SARS-CoV-2 (PCR) Blood Type Antibody Screen 07/10/22 06:38 WBC RBC Hgb Hct MCV MCH MCHC RDW Plt Count Neut % (Auto) Lymph % (Auto) [place] % (Auto) Eos % (Auto) Baso % (Auto) Neut # (Auto) Lymph # (Auto) [place] # (Auto) Eos # (Auto) Baso # (Auto) PT INR APTT Sodium 130 L Potassium 6.5 H* Chloride 108 H Carbon Dioxide 10 L BUN 34 H Creatinine 2.04 H Estimated GFR 36 L BUN/Creatinine Ratio 16.7 Glucose 93 Lactate Calcium 8.1 L Phosphorus Magnesium Total Bilirubin 0.5 AST 17 ALT 15 Alkaline Phosphatase 75 Total Creatine Kinase CK-MB (CK-2) CK-MB (CK-2) Rel Index Troponin I Total Protein 6.6 Albumin 3.0 L Globulin 3.6 Albumin/Globulin Ratio 0.8 L Lipase Procalcitonin SARS-CoV-2 (PCR) Blood Type Antibody Screen Assessment & Plan Assessment & Plan narrative: 1. Hyperkalemia-now much improved after treatment via emergency department. Patient obviously needs to stay off spironolactone and I think will need ultimately outpatient consultation with Nephrology given that he is demonstrating inability to manage electrolytes appropriately in addition to his elevated creatinine BUN etcetera. These numbers (BUN/creatinine) remained relatively stable however. Patient's potassium has been stable and we have a known etiology for his hyperkalemia. I feel comfortable discharging him later this morning with close outpatient follow-up 2. Myelodysplasia-patient's CBC continues to demonstrate abnormalities consistent with his known bone marrow disease. Nothing particularly new or different he remains quite anemic with leukopenia, and thrombocytopenia. However all these numbers are within their most recent ranges. Patient has missed several appointments with Hematology due to his hospitalization with his hernia repair etcetera. Would need to get him back on track with Oncology/Hem atology as well. 3. Status post recent umbilical hernia repair-repair appears to be healing nicely no particular issues with this. Would advocate continued diuretic therapy to minimize ascites to allow for complete healing 4. Cirrhosis-patient is not going to tolerate spironolactone for control of his ascites. I am going to put him back on low-dose furosemide without any potassium supplementation obviously. He continues on nadolol for prevention varices and or variceal bleeding 5. Bradycardia/hypertension-patient's bradycardia likely at least in part due to his electrolyte disturbances but also did was beta-sacha therapy. Patient does not demonstrated varices (in part because he is yet to be seen by GI despite several attempts to get him seen dating back several months). At this point he needs to have his beta-sacha therapy discontinued obviously upon discharge as well. He has been stable with heart rate in the 50s since his electrolytes were corrected and without additional dosing of his nadolol while being monitored here in the hospital. Overall patient's numbers are much improved and stable over a long enough time that I feel comfortable discharging him COVID-19 COVID-19 status: Negative Result date/Date tested (Pos, Neg/Pending): 07/09/22
[2022-07-10 07:41] LABS: Neutrophils Absolute Manual 986 /uL (3000-5900); Total Cells Counted 50
[2022-07-10 07:43] LABS: Anisocytosis 1+
--- NOTE | 2022-07-10 10:47 | PC.NURSE ---
spoke to dr lawrence verified pt dc home, piv and duron catheter removed.
== END 2022-07-10 12:00 | disposition home or self-care (01) | DRG 425 ==
LOC: ED 14:21 → AC 20:44
PROVIDERS: Admitting Provider Family Medicine; Emergency Provider Emergency Medicine; PCP Internal Medicine; Referring Provider Emergency Medicine; Visit Provider Internal Medicine
DX: E87.6 Hypokalemia (principal); D46.9 Myelodysplastic syndrome, unspecified; R00.1 Bradycardia, unspecified; I10 Essential (primary) hypertension; K70.31 Alcoholic cirrhosis of liver with ascites; R55 Syncope and collapse; S00.11XA Contusion of right eyelid and periocular area, initial encounter; X58.XXXA Exposure to other specified factors, initial encounter; Z20.822 Contact with and (suspected) exposure to COVID-19; E78.5 Hyperlipidemia, unspecified
CPT/HCPCS: 36415; 70450; 71045; 80048; 80053; 82550; 82962; 83605; 83690; 83735; 84100; 84145; 84484; 85007; 85025; 85610; 85730; 86850; 86900; 86901; 87635; 93005; 93010; 96365; 96367; 96368; 96375; 96376; 99235; 99285; 99291; 99292; C9803; G0378; J0461; J1610; J1940; J7050; J7613

== ENCOUNTER → 2022-07-15 14:34 | Outpatient (CLI) | payer OTHER, MEDICAID, SELFPAY ==
[2022-06-13 18:42] VITALS: BMI 22.8
[2022-07-15 15:33] LABS: BUN Creatinine Ratio 14.6 (6-22); Blood Urea Nitrogen 23 mg/dL (9-20); Calcium 7.8 mg/dL (8.4-10.2); Carbon Dioxide 15 mmol/L (22-32); Chloride 102 mmol/L (98-107); Estimated Glomerular Filt Rate 49 mL/min (>60); Glucose 87 mg/dL (80-110); HEMOLYSIS < 15 (0-50); Potassium 5.1 mmol/L (3.4-5.1); Sodium 128 mmol/L (137-145)
== END ==
PROVIDERS: PCP Internal Medicine; Referring Provider Internal Medicine; Visit Provider Internal Medicine
DX: E87.5 Hyperkalemia (principal); N18.30 Chronic kidney disease, stage 3 unspecified
CPT/HCPCS: 36415; 80048

== ENCOUNTER → 2022-07-24 17:10 | Outpatient (CLI) | payer OTHER, MEDICAID, SELFPAY ==
[2022-06-13 18:42] VITALS: BMI 22.8
[2022-07-24 18:25] LABS: BUN Creatinine Ratio 14.9 (6-22); Blood Urea Nitrogen 24 mg/dL (9-20); Calcium 7.9 mg/dL (8.4-10.2); Carbon Dioxide 19 mmol/L (22-32); Chloride 98 mmol/L (98-107); Estimated Glomerular Filt Rate 48 mL/min (>60); Glucose 88 mg/dL (80-110); HEMOLYSIS < 15 (0-50); Potassium 4.1 mmol/L (3.4-5.1); Sodium 130 mmol/L (137-145)
== END ==
PROVIDERS: PCP Internal Medicine; Referring Provider Internal Medicine; Visit Provider Internal Medicine
DX: E87.5 Hyperkalemia (principal); K74.60 Unspecified cirrhosis of liver; N18.30 Chronic kidney disease, stage 3 unspecified
CPT/HCPCS: 36415; 80048

== ENCOUNTER → 2022-09-11 11:45 | Outpatient (CLI) | payer OTHER, MEDICAID, SELFPAY ==
[2022-06-13 18:42] VITALS: BMI 22.8
[2022-09-11 12:49] LABS: Hematocrit 22.6 % (41-53); Hemoglobin 7.6 g/dL (13.5-17.5)
[2022-09-11 13:08] LABS: BUN Creatinine Ratio 13.7 (6-22); Blood Urea Nitrogen 26 mg/dL (9-20); Carbon Dioxide 28 mmol/L (22-32); Chloride 100 mmol/L (98-107); Estimated Glomerular Filt Rate 39 mL/min (>60); Glucose 98 mg/dL (80-110); HEMOLYSIS < 15 (0-50); Potassium 3.8 mmol/L (3.4-5.1); Sodium 136 mmol/L (137-145)
== END ==
PROVIDERS: PCP Internal Medicine; Referring Provider Internal Medicine Nephrology; Visit Provider Internal Medicine Nephrology
DX: N17.9 Acute kidney failure, unspecified (principal)
CPT/HCPCS: 36415; 80048; 85014; 85018

== ENCOUNTER → 2022-09-19 12:04 | Outpatient (CLI) | payer OTHER, MEDICAID, SELFPAY ==
[2022-06-13 18:42] VITALS: BMI 22.8
[2022-09-19 12:48] LABS: Platelet Count 167 X10^3/uL (150-400)
[2022-09-19 12:56] LABS: INR 1.3 (0.9-1.3); Prothrombin Time 15.5 SECONDS (10.1-12.7)
== END ==
PROVIDERS: PCP Internal Medicine; Referring Provider Internal Medicine; Visit Provider Internal Medicine
DX: Z01.812 Encounter for preprocedural laboratory examination (principal); Z01.818 Encounter for other preprocedural examination
CPT/HCPCS: 85049; 85610

== ENCOUNTER → 2022-09-24 07:48 | Outpatient (CLI) | payer OTHER, MEDICAID, SELFPAY ==
[2022-06-13 18:42] VITALS: BMI 22.8
--- NOTE | 2022-09-24 07:49 | DI.US.S_ITS ---
PROCEDURE: US PARACENTESIS INDICATIONS: cirrhosis of liver with ascites TECHNIQUE: The indications, alternatives, benefits, risks, and complications of the procedure were explained to the patient. Written informed consent was obtained and placed in the chart. The abdomen and pelvis were examined sonographically, and an appropriate site was chosen for paracentesis. The skin was prepared and draped in the usual sterile fashion, and 1% lidocaine was infiltrated from the skin down through the peritoneal surface. A 19-gauge catheter-covered needle was then introduced into the peritoneal space, the catheter was advanced and the needle was withdrawn, and thereafter peritoneal fluid was withdrawn. The catheter was then removed and a dressing was applied. The fluid was discarded if the clinician did not order diagnostic testing of the fluid. COMPARISON: None. FINDINGS: Access site: Right lower quadrant. Needle: One-Step centesis catheter with introducer needle. Fluid volume and description: Clear yellow ascites. Fluid sent for diagnostic testing: No Medications: 1% lidocaine for local anaesthesia. Complications: None. IMPRESSION: Successful ultrasound-guided paracentesis. Dictated by: Moris Davila M.D. on 09/24/2022 at 9:25 Approved by: Moris Davila M.D. on 09/24/2022 at 9:26
== END ==
PROVIDERS: PCP Internal Medicine; Referring Provider Internal Medicine; Visit Provider Internal Medicine
DX: K70.31 Alcoholic cirrhosis of liver with ascites (principal)
CPT/HCPCS: 49083

== ENCOUNTER → 2022-10-03 10:43 | Outpatient (CLI) | payer OTHER, MEDICAID, SELFPAY ==
[2022-06-13 18:42] VITALS: BMI 22.8
[2022-10-03 11:32] LABS: INR 1.2 (0.9-1.3); Prothrombin Time 13.6 SECONDS (10.1-12.7)
[2022-10-03 11:37] LABS: Alanine Aminotransferase 19 IU/L (<50); Albumin 2.7 g/dL (3.5-5.0); Albumin Globulin Ratio 0.7 (1.0-2.8); Alkaline Phosphatase 62 U/L (38-126); Aspartate Aminotransferase 27 IU/L (17-59); BUN Creatinine Ratio 15.4 (6-22); Bilirubin Total 0.3 mg/dL (0.2-1.3); Blood Urea Nitrogen 26 mg/dL (9-20); Calcium 7.7 mg/dL (8.4-10.2); Carbon Dioxide 27 mmol/L (22-32); Chloride 100 mmol/L (98-107); Estimated Glomerular Filt Rate 45 mL/min (>60); Globulin 3.8 g/dL (1.7-4.1); Glucose 93 mg/dL (80-110); HEMOLYSIS < 15 (0-50); Potassium 3.2 mmol/L (3.4-5.1); Sodium 136 mmol/L (137-145); Total Protein 6.5 g/dL (6.3-8.2)
[2022-10-03 12:04] LABS: Iron 43 ug/dL (49-181)
[2022-10-03 12:12] LABS: Ferritin 49 ng/mL (18-464)
[2022-10-03 12:13] LABS: Total Iron Binding Capacity 178 ug/dL (261-462)
== END ==
PROVIDERS: PCP Internal Medicine; Referring Provider Internal Medicine; Visit Provider Internal Medicine
DX: K70.31 Alcoholic cirrhosis of liver with ascites (principal); N18.31 Chronic kidney disease, stage 3a; K76.7 Hepatorenal syndrome; I10 Essential (primary) hypertension; D64.9 Anemia, unspecified
CPT/HCPCS: 36415; 80053; 82728; 83540; 83550; 85610

== ENCOUNTER → 2022-10-27 10:00 | Outpatient (CLI) | payer OTHER, MEDICAID, SELFPAY ==
[2022-06-13 18:42] VITALS: BMI 22.8
[2022-10-27 10:41] LABS: Hematocrit 21.7 % (41-53); Hemoglobin 7.4 g/dL (13.5-17.5)
[2022-10-27 10:58] LABS: BUN Creatinine Ratio 13.3 (6-22); Blood Urea Nitrogen 26 mg/dL (9-20); Calcium 8.2 mg/dL (8.4-10.2); Carbon Dioxide 26 mmol/L (22-32); Chloride 101 mmol/L (98-107); Estimated Glomerular Filt Rate 38 mL/min (>60); Glucose 101 mg/dL (80-110); HEMOLYSIS < 15 (0-50); Potassium 3.2 mmol/L (3.4-5.1); Sodium 137 mmol/L (137-145)
[2022-10-27 11:26] LABS: Iron 45 ug/dL (49-181)
[2022-10-27 11:33] LABS: Ferritin 41 ng/mL (18-464)
[2022-10-27 11:35] LABS: Total Iron Binding Capacity 219 ug/dL (261-462)
== END ==
PROVIDERS: PCP Internal Medicine; Referring Provider Internal Medicine Nephrology; Visit Provider Internal Medicine Nephrology
DX: N17.9 Acute kidney failure, unspecified (principal); N18.31 Chronic kidney disease, stage 3a; K76.7 Hepatorenal syndrome; I10 Essential (primary) hypertension; D64.9 Anemia, unspecified
CPT/HCPCS: 36415; 80048; 82728; 83540; 83550; 85014; 85018

== ENCOUNTER → 2022-11-04 12:04 | Outpatient (CLI) | payer OTHER, MEDICAID, SELFPAY ==
[2022-06-13 18:42] VITALS: BMI 22.8
--- NOTE | 2022-11-04 12:05 | DI.US.S_ITS ---
PROCEDURE: US PARACENTESIS INDICATIONS: Ascites TECHNIQUE: The indications, alternatives, benefits, risks, and complications of the procedure were explained to the patient. Written informed consent was obtained and placed in the chart. The abdomen and pelvis were examined sonographically, and an appropriate site was chosen for paracentesis. The skin was prepared and draped in the usual sterile fashion, and 1% lidocaine was infiltrated from the skin down through the peritoneal surface. A 19-gauge catheter-covered needle was then introduced into the peritoneal space, the catheter was advanced and the needle was withdrawn, and thereafter peritoneal fluid was withdrawn. The catheter was then removed and a dressing was applied. The fluid was discarded if the clinician did not order diagnostic testing of the fluid. COMPARISON: [facility], , PARACENTESIS, 09/24/2022, 8:19. FINDINGS: Access site: Right lower quadrant. Needle: One-Step centesis catheter with introducer needle. Fluid volume and description: 5000 mL; clear. Fluid sent for diagnostic testing: Mild requested. Medications: 1% lidocaine for local anaesthesia. Complications: None. IMPRESSION: Successful ultrasound-guided paracentesis. Dictated by: Alon Velasquez M.D. on 11/04/2022 at 15:11 Approved by: Alon Velasquez M.D. on 11/04/2022 at 15:11
[2022-11-04 12:35] LABS: INR 1.2 (0.9-1.3)
== END ==
PROVIDERS: PCP Internal Medicine; Referring Provider Student in an Organized Health Care Education/Training Program; Visit Provider Student in an Organized Health Care Education/Training Program
DX: Z01.812 Encounter for preprocedural laboratory examination (principal); K70.31 Alcoholic cirrhosis of liver with ascites
CPT/HCPCS: 36415; 49083; 85610

== ENCOUNTER 2022-12-02 10:27 | Emergency (ER) | payer OTHER, MEDICAID, SELFPAY ==
[2022-06-13 18:42] VITALS: BMI 22.8
[2022-12-02 11:08] VITALS: BP 120/70; PULSE 95; RESP 16; TEMP 36.1; O2SAT 99; BMI 29.7
[2022-12-02 11:34] LABS: Add Manual Diff / Slide Review NO; Basophils Absolute Auto 100 /uL (0-100); Eosinophils Absolute Auto 100 /uL (0-450); Eosinophils Percent Auto 5.7 % (2-4); Hemoglobin 8.2 g/dL (13.5-17.5); Lymphocytes Absolute Auto 600 /uL (1100-4500); Lymphocytes Percent Auto 24.8 % (25-40); Mean Corpuscular HGB Conc 34.2 % (30-36); Mean Corpuscular Hemoglobin 29.7 PG (26-34); Mean Corpuscular Volume 86.7 fL (80-100); Monocytes Absolute Auto 200 /uL (0-900); Neutrophils Absolute Auto 1300 /uL (1500-7000); Neutrophils Percent Auto 57.5 % (50-75); Platelet Count 156 X10^3/uL (150-400); Red Blood Cell Count 2.76 X10^6/uL (4.5-5.9); Red Cell Distribution Width 13.5 % (11.6-14.8); White Blood Cell Count 2.3 X10^3/uL (4.5-11.0)
[2022-12-02 11:39] LABS: INR 1.2 (0.9-1.3)
[2022-12-02 11:41] LABS: PTT Partial Thromboplastin Tim 34 SECONDS (26-36)
[2022-12-02 11:44] LABS: Alanine Aminotransferase 15 IU/L (<50); Albumin 3.2 g/dL (3.5-5.0); Albumin Globulin Ratio 0.9 (1.0-2.8); Alkaline Phosphatase 87 U/L (38-126); Aspartate Aminotransferase 24 IU/L (17-59); BUN Creatinine Ratio 16.6 (6-22); Bilirubin Total 0.3 mg/dL (0.2-1.3); Blood Urea Nitrogen 30 mg/dL (9-20); Calcium 8.3 mg/dL (8.4-10.2); Carbon Dioxide 26 mmol/L (22-32); Chloride 101 mmol/L (98-107); Estimated Glomerular Filt Rate 41 mL/min (>60); Globulin 3.7 g/dL (1.7-4.1); Glucose 101 mg/dL (80-110); HEMOLYSIS 16 (0-50); Lipase 96 U/L (23-300); Potassium 3.7 mmol/L (3.4-5.1); Sodium 136 mmol/L (137-145); Total Protein 6.9 g/dL (6.3-8.2)
--- NOTE | 2022-12-02 11:54 | DI.US.S_ITS ---
PROCEDURE: US PARACENTESIS INDICATIONS: abd distension, h/o cirrosis, labs completed. TECHNIQUE: The indications, alternatives, benefits, risks, and complications of the procedure were explained to the patient. Written informed consent was obtained and placed in the chart. The abdomen and pelvis were examined sonographically, and an appropriate site was chosen for paracentesis. The skin was prepared and draped in the usual sterile fashion, and 1% lidocaine was infiltrated from the skin down through the peritoneal surface. A 19-gauge catheter-covered needle was then introduced into the peritoneal space, the catheter was advanced and the needle was withdrawn, and thereafter peritoneal fluid was withdrawn. The catheter was then removed and a dressing was applied. The fluid was discarded if the clinician did not order diagnostic testing of the fluid. COMPARISON: [facility], PARACENTESIS, 09/24/2022, 8:19. FINDINGS: Access site: Right lower quadrant Needle: One-Step centesis catheter with introducer needle. Fluid volume and description: 5000 mL; clear. Fluid sent for diagnostic testing: Not ordered by referring physician. Medications: 1% lidocaine for local anaesthesia. Complications: None. IMPRESSION: Successful ultrasound-guided paracentesis. Dictated by: Alon Velasquez M.D. on 12/02/2022 at 15:16 Approved by: Alon Velasquez M.D. on 12/02/2022 at 15:17
[2022-12-02 12:02] LABS: Bacteria Urine None Seen; Culture Indicated Urine Cult Not Indicated; RBC Urine 0-1/HPF (0-5/HPF); Squamous Epithelial Cell Urine None Seen (0-5/HPF); WBC Urine None Seen (0-5/HPF)
[2022-12-02 13:02] VITALS: BP 145/76; PULSE 82; O2SAT 98
[2022-12-02 13:30] VITALS: PULSE 72; O2SAT 99
[2022-12-02 13:45] VITALS: BP 131/65; PULSE 78; O2SAT 99
--- NOTE | 2022-12-02 13:54 | ED_ITS ---
HPI - Abdominal Pain General Chief Complaint: Abdominal Pain Stated Complaint: paracentisis Time Seen by Provider: 12/02/22 13:32 Source: patient Mode of arrival: Ambulatory History of Present Illness HPI narrative: This is a 62-year-old male with history of chronic kidney disease stage III, cirrhosis who has received repeated paracentesis patient states he is scheduled for monthly paracentesis but did not think that he could make it until his next scheduled appointment. Patient states no fevers or chills. No shortness of breath but his abdomen became very distended and tight and quite uncomfortable. He denies any diarrhea, no black or bloody stools. No vomiting. No issues with urination. He states that he is following with Dr. Huertas with Gastroenterology through 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 Dr. Silver is his primary care. Patient is not actively drinking any alcohol. He is on torsemide as well as spironolactone for diuretics. He states he has not appointment in December with his physician. He states they typically take off 5 L. Related Data Home Medications Medication Instructions Recorded Confirmed spironolactone 25 mg tablet 12.5 mg PO QPM 09/25/22 09/25/22 torsemide 20 mg tablet 40 mg PO QAM 09/25/22 09/25/22 Previous Rx's Medication Instructions Recorded levothyroxine 75 mcg tablet 75 mcg PO DAILY #90 tabs 03/18/22 quetiapine 300 mg tablet,extended 300 mg PO BID #120 tabs 03/24/22 release 24 hr (Seroquel XR) atorvastatin 20 mg tablet 20 mg PO BEDTIME #90 tabs 04/21/22 cyanocobalamin (vitamin B-12) 1,000 mcg PO DAILY #90 tabs 04/25/22 1,000 mcg tablet folic acid 1 mg tablet 1 mg PO DAILY #90 tabs 04/25/22 trazodone 100 mg tablet 200 mg PO HS #60 tabs 06/02/22 Allergies Allergy/AdvReac Type Severity Reaction Status Date / Time No Known Drug Allergies Allergy Verified 09/25/22 16:01 Review of Systems Review of Systems ROS Unobtainable: All systems reviewed & are unremarkable except as noted in HPI and below Patient History Medical History Anxiety Bipolar disorder (2007) Chronic renal failure, stage 3 (moderate) Depression (2008) Essential hypertension Gout Hearing loss Hernia, umbilical Hyperlipidemia Hypothyroidism (09/30/17) Obesity Surgical History H/O hernia repair Status post colonoscopy Family History Father Age: 89 History of stroke History of cancer Prostate cancer Social History household members: none Smoking Status: Never smoker second hand exposure: No alcohol intake: current substance use type: former substance user Smoking Status: Never smoker alcohol intake frequency: 3 or more drinks per day Alcohol type: beer Substance Use Type: does not use Exam Narrative Exam Narrative: GENERAL: Alert and oriented x three, thin male in his face and upper extremities with significantly distended abdomen. HEENT: Head normocephalic, atraumatic, EOMI, pupils reactive, face symmetric, moist mucous membranes NECK: Supple, full range of motion CARDIOVASCULAR: Regular rate and rhythm without murmurs, rubs or gallops. RESPIRATORY: Breath sounds equal bilaterally, no wheezes rales or rhonchi. ABDOMEN: Soft, nontender. Distended. Positive for fluid wave. Positive for caput. Normoactive bowel sounds all 4 quadrants. No guarding or rebound, rigidity, no mass : No CVA tenderness EXTREMITIES: Normal range of motion, no clubbing, mild edema bilateral lower extremities.. Neurovascularly intact NEUROLOGICAL: Cranial nerves II through XII grossly intact. Moving all extremities SKIN: Warm, dry, no petechiae, no rashes or lesions. Initial Vital Signs Initial Vital Signs: Vital Signs Temperature 97.0 F L 12/02/22 11:08 Pulse Rate 95 H 12/02/22 11:08 Respiratory Rate 16 12/02/22 11:08 Blood Pressure 120/70 12/02/22 11:08 Pulse Oximetry 99 12/02/22 11:08 Oxygen Delivery Method Room Air 12/02/22 11:08 Course Orders Ordered: ED Orders 12/02/22 11:20 Complete Blood Count AUTO DIFF Stat Comprehensive Metabolic Panel Stat Lipase Stat PTT Partial Thromboplastin Riley Stat Prothrombin Time INR Stat Urine Microscopic Stat 12/02/22 11:54 US paracentesis Stat Vital Signs Vital signs: Vital Signs - 8 hr 12/02/22 11:08 12/02/22 13:02 12/02/22 13:02 Temperature 97.0 F L Pulse Rate 95 H 82 Respiratory Rate 16 Blood Pressure 120/70 145/76 H Pulse Oximetry 99 98 Oxygen Delivery Method Room Air 12/02/22 13:30 12/02/22 13:45 12/02/22 13:45 Temperature Pulse Rate 72 78 Respiratory Rate Blood Pressure 131/65 Pulse Oximetry 99 99 Oxygen Delivery Method 12/02/22 13:58 12/02/22 13:58 Temperature Pulse Rate 79 Respiratory Rate 18 Blood Pressure 132/68 Pulse Oximetry 99 Oxygen Delivery Method Room Air MDM - Abdominal Pain Lab Data 12/02/22 11:20 12/02/22 11:20 Labs: Lab Results 12/02/22 12/02/22 12/02/22 Range/Units 11:20 11:20 11:20 WBC 2.3 L (4.5-11.0) X10^3/uL RBC 2.76 L (4.5-5.9) X10^6/uL Hgb 8.2 L (13.5-17.5) g/dL Hct 24.0 L (41-53) % MCV 86.7 (80-100) fL MCH 29.7 (26-34) PG MCHC 34.2 (30-36) % RDW 13.5 (11.6-14.8) % Plt Count 156 (150-400) X10^3/uL Neut % (Auto) 57.5 (50-75) % Lymph % (Auto) 24.8 L (25-40) % [place] % (Auto) 9.0 (3-14) % Eos % (Auto) 5.7 H (2-4) % Baso % (Auto) 3.0 H (0-2) % Neut # (Auto) 1300 L (9087-9290) /uL Lymph # (Auto) 600 L (8628-3107) /uL [place] # (Auto) 200 (0-900) /uL Eos # (Auto) 100 (0-450) /uL Baso # (Auto) 100 (0-100) /uL PT 14.0 H (10.1-12.7) SECONDS INR 1.2 (0.9-1.3) APTT 34 (26-36) SECONDS Sodium 136 L (137-145) mmol/L Potassium 3.7 (3.4-5.1) mmol/L Chloride 101 (98-107) mmol/L Carbon Dioxide 26 (22-32) mmol/L BUN 30 H (9-20) mg/dL Creatinine 1.81 H (0.66-1.25) mg/dL Estimated GFR 41 L (>60) mL/min BUN/Creatinine Ratio 16.6 (6-22) Glucose 101 (80-110) mg/dL Calcium 8.3 L (8.4-10.2) mg/dL Total Bilirubin 0.3 (0.2-1.3) mg/dL AST 24 (17-59) IU/L ALT 15 (<50) IU/L Alkaline Phosphatase 87 (38-126) U/L Total Protein 6.9 (6.3-8.2) g/dL Albumin 3.2 L (3.5-5.0) g/dL Globulin 3.7 (1.7-4.1) g/dL Albumin/Globulin Ratio 0.9 L (1.0-2.8) Lipase 96 (23-300) U/L Urine RBC (0-5/HPF) Urine WBC (0-5/HPF) Ur Squamous Epith Cells (0-5/HPF) Urine Bacteria (None) Ur Culture Indicated? 12/02/22 Range/Units 11:20 WBC (4.5-11.0) X10^3/uL RBC (4.5-5.9) X10^6/uL Hgb (13.5-17.5) g/dL Hct (41-53) % MCV (80-100) fL MCH (26-34) PG MCHC (30-36) % RDW (11.6-14.8) % Plt Count (150-400) X10^3/uL Neut % (Auto) (50-75) % Lymph % (Auto) (25-40) % [place] % (Auto) (3-14) % Eos % (Auto) (2-4) % Baso % (Auto) (0-2) % Neut # (Auto) (9302-7032) /uL Lymph # (Auto) (2156-5869) /uL [place] # (Auto) (0-900) /uL Eos # (Auto) (0-450) /uL Baso # (Auto) (0-100) /uL PT (10.1-12.7) SECONDS INR (0.9-1.3) APTT (26-36) SECONDS Sodium (137-145) mmol/L Potassium (3.4-5.1) mmol/L Chloride (98-107) mmol/L Carbon Dioxide (22-32) mmol/L BUN (9-20) mg/dL Creatinine (0.66-1.25) mg/dL Estimated GFR (>60) mL/min BUN/Creatinine Ratio (6-22) Glucose (80-110) mg/dL Calcium (8.4-10.2) mg/dL Total Bilirubin (0.2-1.3) mg/dL AST (17-59) IU/L ALT (<50) IU/L Alkaline Phosphatase (38-126) U/L Total Protein (6.3-8.2) g/dL Albumin (3.5-5.0) g/dL Globulin (1.7-4.1) g/dL Albumin/Globulin Ratio (1.0-2.8) Lipase (23-300) U/L Urine RBC 0-1/hpf (0-5/HPF) Urine WBC None seen (0-5/HPF) Ur Squamous Epith Cells None seen (0-5/HPF) Urine Bacteria None seen (None) Ur Culture Indicated? Cult not indicated Point of care testing: Urine Dip Bedside Urine Glucose Negative Bedside Urine Bilirubin - Negative Bedside Urine Ketone - Negative Urine Specific [place] 1.010 Bedside Urine Occult Blood + Bedside Urine pH 6.0 Bedside Urine Protein - Negative Bedside Urine Urobilinogen - Negative Bedside Urine Nitrite - Negative Bedside Urine Leukocytes - Negative Esterase MDM Narrative Medical decision making narrative: This is a pleasant 62-year-old male, patient platelets, INR are appropriate. Patient's labs show a stable anemia. No significant change to renal function. Patient felt appropriate for paracentesis, this was performed by radiology with ultrasound guidance patient had 5 L removed. Patient tolerated very well no hypotension. He is feeling much improved. He still has some can not fluid on board but feels much better. 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 We will hold off on any medication changes at this time. Discharge Plan Departure Patient Disposition: Home Clinical Impression: Ascites, S/P abdominal paracentesis Activity Restrictions/Additional Instructions: Please reach out to your motor vehicle dispatcher to see if they want to make any medication changes or schedule your outpatient paracentesis more frequently. I hope you continue to feel better. Please return for fevers, new or worsening abdominal back or flank pain, vomiting, new swelling of extremities, chest pain or shortness of breath, lightheadedness or passing out, black or bloody stools or other new or concerning changes. Prescriptions: No Action levothyroxine 75 mcg tablet 75 mcg PO DAILY Qty: 90 3RF Rx Instructions: Take one tablet daily. quetiapine [Seroquel XR] 300 mg tablet extended release 24 hr 300 mg PO BID Qty: 120 6RF atorvastatin 20 mg tablet 20 mg PO BEDTIME Qty: 90 3RF trazodone 100 mg tablet 200 mg PO HS Qty: 60 6RF folic acid 1 mg tablet 1 mg PO DAILY Qty: 90 3RF cyanocobalamin (vitamin B-12) 1,000 mcg tablet 1,000 mcg PO DAILY Qty: 90 3RF spironolactone 25 mg tablet 12.5 mg PO QPM torsemide 20 mg tablet 40 mg PO QAM Referrals: Juan Kelly MD [Non-Staff] - Neil Silver MD [Primary Care Provider] - Stand Alone Forms: Patient Portal/API
[2022-12-02 13:58] VITALS: BP 132/68; PULSE 79; RESP 18; O2SAT 99
== END 2022-12-02 14:13 | disposition home or self-care (01) ==
PROVIDERS: Emergency Provider Emergency Medicine; PCP Internal Medicine
DX: R18.8 Other ascites (principal)
CPT/HCPCS: 36415; 49083; 80053; 81003; 81015; 83690; 85025; 85610; 85730; 99284

== ENCOUNTER → 2022-12-09 12:27 | Outpatient (CLI) | payer OTHER, MEDICAID, SELFPAY ==
[2022-06-13 18:42] VITALS: BMI 22.8
--- NOTE | 2022-12-09 | DI.US.S_ITS ---
PROCEDURE: US PARACENTESIS INDICATIONS: ALCOHOLIC CIRRHOSIS OF LIVER W/ASCITES TECHNIQUE: The indications, alternatives, benefits, risks, and complications of the procedure were explained to the patient. Written informed consent was obtained and placed in the chart. The abdomen and pelvis were examined sonographically, and an appropriate site was chosen for paracentesis. The skin was prepared and draped in the usual sterile fashion, and 1% lidocaine was infiltrated from the skin down through the peritoneal surface. A 19-gauge catheter-covered needle was then introduced into the peritoneal space, the catheter was advanced and the needle was withdrawn, and thereafter peritoneal fluid was withdrawn. The catheter was then removed and a dressing was applied. The fluid was discarded if the clinician did not order diagnostic testing of the fluid. COMPARISON: [facility], , PARACENTESIS, 11/04/2022, 12:48. FINDINGS: Access site: Right lower quadrant. Needle: One-Step centesis catheter with introducer needle. Fluid volume and description: 5000 mL. Fluid sent for diagnostic testing: Not ordered by referring physician. Medications: 1% lidocaine for local anaesthesia. Complications: None. IMPRESSION: Successful ultrasound-guided paracentesis. Dictated by: Alon Velasquez M.D. on 12/09/2022 at 18:18 Approved by: Alon Velasquez M.D. on 12/09/2022 at 18:19
== END ==
PROVIDERS: PCP Internal Medicine; Referring Provider Internal Medicine; Visit Provider Internal Medicine
DX: K70.31 Alcoholic cirrhosis of liver with ascites (principal)
CPT/HCPCS: 49083

== ENCOUNTER 2022-12-12 09:13 | Emergency (ER) | payer OTHER, MEDICAID, SELFPAY ==
[2022-06-13 18:42] VITALS: BMI 22.8
[2022-12-12 09:27] VITALS: BP 130/81; PULSE 85; RESP 18; TEMP 36.8; O2SAT 100; BMI 28.2
[2022-12-12 10:02] LABS: Add Manual Diff / Slide Review NO; Basophils Absolute Auto 0 /uL (0-100); Basophils Percent Auto 1.6 % (0-2); Eosinophils Absolute Auto 200 /uL (0-450); Eosinophils Percent Auto 7.8 % (2-4); Hematocrit 24.2 % (41-53); Hemoglobin 8.2 g/dL (13.5-17.5); Lymphocytes Absolute Auto 500 /uL (1100-4500); Mean Corpuscular HGB Conc 33.8 % (30-36); Mean Corpuscular Volume 85.7 fL (80-100); Monocytes Absolute Auto 200 /uL (0-900); Monocytes Percent Auto 8.2 % (3-14); Neutrophils Absolute Auto 1200 /uL (1500-7000); Neutrophils Percent Auto 57.4 % (50-75); Platelet Count 154 X10^3/uL (150-400); Red Blood Cell Count 2.82 X10^6/uL (4.5-5.9); Red Cell Distribution Width 13.1 % (11.6-14.8)
[2022-12-12 10:05] LABS: INR 1.1 (0.9-1.3); Prothrombin Time 13.1 SECONDS (10.1-12.7)
[2022-12-12 10:08] LABS: PTT Partial Thromboplastin Tim 34 SECONDS (26-36)
--- NOTE | 2022-12-12 10:08 | DI.US.S_ITS ---
PROCEDURE: US PARACENTESIS INDICATIONS: CIRRHOSIS TECHNIQUE: The indications, alternatives, benefits, risks, and complications of the procedure were explained to the patient. Written informed consent was obtained and placed in the chart. The abdomen and pelvis were examined sonographically, and an appropriate site was chosen for paracentesis. The skin was prepared and draped in the usual sterile fashion, and 1% lidocaine was infiltrated from the skin down through the peritoneal surface. A 19-gauge catheter-covered needle was then introduced into the peritoneal space, the catheter was advanced and the needle was withdrawn, and thereafter peritoneal fluid was withdrawn. The catheter was then removed and a dressing was applied. The fluid was discarded if the clinician did not order diagnostic testing of the fluid. COMPARISON: [facility], PARACENTESIS, 12/09/2022, 12:52. [facility], PARACENTESIS, 12/02/2022, 12:20. FINDINGS: Access site: Right lower quadrant Needle: One-Step centesis catheter with introducer needle. Fluid volume and description: 5 solid and mL; clear. Fluid sent for diagnostic testing: Not requested by referring physician. Medications: 1% lidocaine for local anaesthesia. Complications: None. IMPRESSION: Successful ultrasound-guided paracentesis. Dictated by: Alon Velasquez M.D. on 12/12/2022 at 11:55 Approved by: Alon Velasquez M.D. on 12/12/2022 at 11:56
[2022-12-12 10:10] LABS: Alanine Aminotransferase 16 IU/L (<50); Albumin 3.2 g/dL (3.5-5.0); Albumin Globulin Ratio 0.9 (1.0-2.8); Alkaline Phosphatase 80 U/L (38-126); Aspartate Aminotransferase 22 IU/L (17-59); BUN Creatinine Ratio 16.7 (6-22); Bilirubin Total 0.2 mg/dL (0.2-1.3); Blood Urea Nitrogen 34 mg/dL (9-20); Calcium 8.4 mg/dL (8.4-10.2); Carbon Dioxide 26 mmol/L (22-32); Chloride 101 mmol/L (98-107); Estimated Glomerular Filt Rate 36 mL/min (>60); Globulin 3.5 g/dL (1.7-4.1); Glucose 112 mg/dL (80-110); HEMOLYSIS < 15 (0-50); Lipase 331 U/L (23-300); Potassium 3.8 mmol/L (3.4-5.1); Sodium 137 mmol/L (137-145); Total Protein 6.7 g/dL (6.3-8.2)
[2022-12-12 11:31] VITALS: BP 136/70; PULSE 86; RESP 17; O2SAT 98
--- NOTE | 2022-12-12 11:45 | ED.ABDPAIN ---
HPI - Abdominal Pain General Chief Complaint: Abdominal Pain Stated Complaint: needs to have fluid drainned Time Seen by Provider: 12/12/22 09:40 Source: patient Mode of arrival: Ambulatory History of Present Illness HPI narrative: This is a 62-year-old male with history of chronic kidney disease stage 3, cirrhosis who receives repeat paracentesis but is requiring more frequent. Patient was seen on 12/02 by myself for increasing fluid collection. Patient states no fevers or chills cured no shortness of breath. He is quite uncomfortable as his abdomen becomes so tight. He denies any GI or urinary symptoms. No new swelling in his extremities. He did follow-up with Dr. Leticia rahman brokerage clerk at [facility] this Thursday. He states that they increased his order for paracentesis to twice weekly. For whatever reason the order here at our facility read as once every 2 weeks. Patient states he did re-contact the office and they read back the order and it is supposed to be twice weekly. Discussed there is likely a refrigerating machine operator error. Patient primary care is Dr. Silver. He is not actively drinking any alcohol. He is on torsemide as well as spironolactone. He states they typically take off 5 L. Related Data Home Medications Medication Instructions Recorded Confirmed spironolactone 25 mg tablet 12.5 mg PO QPM 09/25/22 09/25/22 torsemide 20 mg tablet 40 mg PO QAM 09/25/22 09/25/22 Previous Rx's Medication Instructions Recorded levothyroxine 75 mcg tablet 75 mcg PO DAILY #90 tabs 03/18/22 quetiapine 300 mg tablet,extended 300 mg PO BID #120 tabs 03/24/22 release 24 hr (Seroquel XR) atorvastatin 20 mg tablet 20 mg PO BEDTIME #90 tabs 04/21/22 cyanocobalamin (vitamin B-12) 1,000 mcg PO DAILY #90 tabs 04/25/22 1,000 mcg tablet folic acid 1 mg tablet 1 mg PO DAILY #90 tabs 04/25/22 trazodone 100 mg tablet 200 mg PO HS #60 tabs 06/02/22 Allergies Allergy/AdvReac Type Severity Reaction Status Date / Time No Known Drug Allergies Allergy Verified 12/12/22 09:31 Review of Systems Review of Systems ROS Unobtainable: All systems reviewed & are unremarkable except as noted in HPI and below Patient History Medical History Anxiety Bipolar disorder (2007) Chronic renal failure, stage 3 (moderate) Depression (2008) Essential hypertension Gout Hearing loss Hernia, umbilical Hyperlipidemia Hypothyroidism (09/30/17) Obesity Surgical History H/O hernia repair Status post colonoscopy Family History Father Age: 89 History of stroke History of cancer Prostate cancer Social History household members: none Smoking Status: Never smoker second hand exposure: No alcohol intake: current substance use type: former substance user Smoking Status: Never smoker alcohol intake frequency: 0-2 drinks per day Alcohol type: beer Substance Use Type: does not use Exam Narrative Exam Narrative: GENERAL: Alert and oriented x three, thin male. HEENT: Head normocephalic, atraumatic, EOMI, pupils reactive, face symmetric, moist mucous membranes NECK: Supple, full range of motion CARDIOVASCULAR: Regular rate and rhythm without murmurs, rubs or gallops. RESPIRATORY: Breath sounds equal bilaterally, no wheezes rales or rhonchi. ABDOMEN: Soft, nontender. Significantly distended abdomen. Positive for keep it. Normoactive bowel sounds all 4 quadrants. No guarding or rebound, rigidity, no mass : No CVA tenderness EXTREMITIES: Normal range of motion, no clubbing or edema. Neurovascularly intact. Normal gait. NEUROLOGICAL: Cranial nerves II through XII grossly intact. Moving all extremities SKIN: Warm, dry, no petechiae, no rashes or lesions. Initial Vital Signs Initial Vital Signs: Vital Signs Temperature 98.3 F 12/12/22 09:27 Pulse Rate 85 12/12/22 09:27 Respiratory Rate 18 12/12/22 09:27 Blood Pressure 130/81 12/12/22 09:27 Pulse Oximetry 100 12/12/22 09:27 Oxygen Delivery Method Room Air 12/12/22 09:27 Course Orders Ordered: ED Orders 12/12/22 10:08 US paracentesis Stat Vital Signs Vital signs: Vital Signs - 8 hr 12/12/22 11:31 Pulse Rate 86 Respiratory Rate 17 Blood Pressure 136/70 Pulse Oximetry 98 Oxygen Delivery Method Room Air MDM - Abdominal Pain Lab Data 12/12/22 09:43 12/12/22 09:43 Labs: Lab Results 12/12/22 12/12/22 12/12/22 Range/Units 09:43 09:43 09:43 WBC 2.0 L (4.5-11.0) X10^3/uL RBC 2.82 L (4.5-5.9) X10^6/uL Hgb 8.2 L (13.5-17.5) g/dL Hct 24.2 L (41-53) % MCV 85.7 (80-100) fL MCH 29.0 (26-34) PG MCHC 33.8 (30-36) % RDW 13.1 (11.6-14.8) % Plt Count 154 (150-400) X10^3/uL Neut % (Auto) 57.4 (50-75) % Lymph % (Auto) 25.0 (25-40) % Person % (Auto) 8.2 (3-14) % Eos % (Auto) 7.8 H (2-4) % Baso % (Auto) 1.6 (0-2) % Neut # (Auto) 1200 L (2847-8300) /uL Lymph # (Auto) 500 L (0930-2191) /uL Person # (Auto) 200 (0-900) /uL Eos # (Auto) 200 (0-450) /uL Baso # (Auto) 0 (0-100) /uL PT 13.1 H (10.1-12.7) SECONDS INR 1.1 (0.9-1.3) APTT 34 (26-36) SECONDS Sodium 137 (137-145) mmol/L Potassium 3.8 (3.4-5.1) mmol/L Chloride 101 (98-107) mmol/L Carbon Dioxide 26 (22-32) mmol/L BUN 34 H (9-20) mg/dL Creatinine 2.03 H (0.66-1.25) mg/dL Estimated GFR 36 L (>60) mL/min BUN/Creatinine Ratio 16.7 (6-22) Glucose 112 H (80-110) mg/dL Calcium 8.4 (8.4-10.2) mg/dL Total Bilirubin 0.2 (0.2-1.3) mg/dL AST 22 (17-59) IU/L ALT 16 (<50) IU/L Alkaline Phosphatase 80 (38-126) U/L Total Protein 6.7 (6.3-8.2) g/dL Albumin 3.2 L (3.5-5.0) g/dL Globulin 3.5 (1.7-4.1) g/dL Albumin/Globulin Ratio 0.9 L (1.0-2.8) Lipase (23-300) U/L 12/12/22 Range/Units 09:43 WBC (4.5-11.0) X10^3/uL RBC (4.5-5.9) X10^6/uL Hgb (13.5-17.5) g/dL Hct (41-53) % MCV (80-100) fL MCH (26-34) PG MCHC (30-36) % RDW (11.6-14.8) % Plt Count (150-400) X10^3/uL Neut % (Auto) (50-75) % Lymph % (Auto) (25-40) % Person % (Auto) (3-14) % Eos % (Auto) (2-4) % Baso % (Auto) (0-2) % Neut # (Auto) (4052-5282) /uL Lymph # (Auto) (4330-5125) /uL Person # (Auto) (0-900) /uL Eos # (Auto) (0-450) /uL Baso # (Auto) (0-100) /uL PT (10.1-12.7) SECONDS INR (0.9-1.3) APTT (26-36) SECONDS Sodium (137-145) mmol/L Potassium (3.4-5.1) mmol/L Chloride (98-107) mmol/L Carbon Dioxide (22-32) mmol/L BUN (9-20) mg/dL Creatinine (0.66-1.25) mg/dL Estimated GFR (>60) mL/min BUN/Creatinine Ratio (6-22) Glucose (80-110) mg/dL Calcium (8.4-10.2) mg/dL Total Bilirubin (0.2-1.3) mg/dL AST (17-59) IU/L ALT (<50) IU/L Alkaline Phosphatase (38-126) U/L Total Protein (6.3-8.2) g/dL Albumin (3.5-5.0) g/dL Globulin (1.7-4.1) g/dL Albumin/Globulin Ratio (1.0-2.8) Lipase 331 H D (23-300) U/L Imaging Data US paracentesis: Radiologist's Impression: [address] [address] Ultrasound Report Signed Patient: Moris Bae MR#: [id number] : 1960 Acct:[id number] Age/Sex: 62 / M Date of Service: 12/12/22 Loc: ED Accession Number: [id number] ?? Procedure: US paracentesis Ordering Provider: Jana Gracia D.O. PROCEDURE:? US PARACENTESIS ? INDICATIONS:? CIRRHOSIS ? TECHNIQUE:? The indications, alternatives, benefits, risks, and complications of the procedure were explained to the patient.? Written informed consent was obtained and placed in the chart. ?The abdomen and pelvis were examined sonographically, and an appropriate site was chosen for paracentesis.? The skin was prepared and draped in the usual sterile fashion, and 1% lidocaine was infiltrated from the skin down through the peritoneal surface.? A 19-gauge catheter-covered needle was then introduced into the peritoneal space, the catheter was advanced and the needle was withdrawn, and thereafter peritoneal fluid was withdrawn.? The catheter was then removed and a dressing was applied.? The fluid was discarded if the clinician did not order diagnostic testing of the fluid.? ? COMPARISON:? [facility], PARACENTESIS, 12/09/2022, 12:52.? [facility], PARACENTESIS, 12/02/2022, 12:20. ? FINDINGS:? Access site:? Right lower quadrant Needle:? One-Step centesis catheter with introducer needle.? Fluid volume and description:? 5 solid and mL; clear. Fluid sent for diagnostic testing:? Not requested by referring physician. Medications:? 1% lidocaine for local anaesthesia.? Complications:? None.? ? IMPRESSION:? Successful ultrasound-guided paracentesis.? ? ? Dictated by: Alon Velasquez M.D. on 12/12/2022 at 11:55 ? ? Approved by: Alon Velasquez M.D. on 12/12/2022 at 11:56?? MDM Narrative Medical decision making narrative: Patient labs show a white count of 2, hemoglobin of 8.2 platelets are appropriate at 1:54 a.m., hemoglobin appears stable from prior visits. Leukopenia also appears stable. Patient's creatinine is 2.03 appears fairly consistent he was 1.96 in October 1 0.8 in November, electrolytes are appropriate, glucose is 112 LFTs are negative lipase is 33.1. Patient had paracentesis with ultrasound, he feels much improved. After discussion sounds like there may have been a refrigerating machine operator between his gastroenterology office in the orders being entered here at our facility for outpatient paracentesis. Discussed if he touches base with scheduling they can either have the order recent or clarify over the phone and this might make things easier. We did discuss he can return if needed. Discussed return precautions. Discharge Plan Departure Patient Disposition: Home Clinical Impression: Ascites Instructions: DI for Ascites Prescriptions: No Action levothyroxine 75 mcg tablet 75 mcg PO DAILY Qty: 90 3RF Rx Instructions: Take one tablet daily. quetiapine [Seroquel XR] 300 mg tablet extended release 24 hr 300 mg PO BID Qty: 120 6RF atorvastatin 20 mg tablet 20 mg PO BEDTIME Qty: 90 3RF trazodone 100 mg tablet 200 mg PO HS Qty: 60 6RF folic acid 1 mg tablet 1 mg PO DAILY Qty: 90 3RF cyanocobalamin (vitamin B-12) 1,000 mcg tablet 1,000 mcg PO DAILY Qty: 90 3RF spironolactone 25 mg tablet 12.5 mg PO QPM torsemide 20 mg tablet 40 mg PO QAM Referrals: Neil Silver MD [Primary Care Provider] - Stand Alone Forms: Patient Portal/API
== END 2022-12-12 11:52 | disposition home or self-care (01) ==
PROVIDERS: Emergency Provider Emergency Medicine; PCP Internal Medicine
DX: R18.8 Other ascites (principal); Z79.899 Other long term (current) drug therapy
CPT/HCPCS: 36415; 49083; 80053; 83690; 85025; 85610; 85730; 99283; 99284

== ENCOUNTER → 2022-12-16 07:43 | Outpatient (CLI) | payer OTHER, MEDICAID, SELFPAY ==
[2022-06-13 18:42] VITALS: BMI 22.8
--- NOTE | 2022-12-16 | DI.US.S_ITS ---
PROCEDURE: US PARACENTESIS INDICATIONS: ASCITES TECHNIQUE: The indications, alternatives, benefits, risks, and complications of the procedure were explained to the patient. Written informed consent was obtained and placed in the chart. The abdomen and pelvis were examined sonographically, and an appropriate site was chosen for paracentesis. The skin was prepared and draped in the usual sterile fashion, and 1% lidocaine was infiltrated from the skin down through the peritoneal surface. A 19-gauge catheter-covered needle was then introduced into the peritoneal space, the catheter was advanced and the needle was withdrawn, and thereafter peritoneal fluid was withdrawn. The catheter was then removed and a dressing was applied. The fluid was discarded if the clinician did not order diagnostic testing of the fluid. COMPARISON: [facility], PARACENTESIS, 12/12/2022, 10:52. FINDINGS: Access site: Right lower abdomen Needle: One-Step centesis catheter with introducer needle. Fluid volume and description: 5000 mL of clear, light mariajose ascites. Fluid sent for diagnostic testing: None sent for testing. Therapeutic paracentesis. Medications: 1% lidocaine for local anaesthesia. Complications: None. IMPRESSION: Successful ultrasound-guided paracentesis. Dictated by: Larry Roche M.D. on 12/16/2022 at 9:47 Approved by: Larry Roche M.D. on 12/16/2022 at 9:48
== END ==
PROVIDERS: PCP Internal Medicine; Referring Provider Internal Medicine; Visit Provider Internal Medicine
DX: K70.31 Alcoholic cirrhosis of liver with ascites (principal)
CPT/HCPCS: 49083

== ENCOUNTER → 2022-12-19 13:08 | Outpatient (CLI) | payer OTHER, MEDICAID, SELFPAY ==
[2022-06-13 18:42] VITALS: BMI 22.8
--- NOTE | 2022-12-19 | DI.US.S_ITS ---
PROCEDURE: US PARACENTESIS INDICATIONS: ALCOHOLIC CIRRHOSIS ASCITES TECHNIQUE: The indications, alternatives, benefits, risks, and complications of the procedure were explained to the patient. Written informed consent was obtained and placed in the chart. The abdomen and pelvis were examined sonographically, and an appropriate site was chosen for paracentesis. The skin was prepared and draped in the usual sterile fashion, and 1% lidocaine was infiltrated from the skin down through the peritoneal surface. A 19-gauge catheter-covered needle was then introduced into the peritoneal space, the catheter was advanced and the needle was withdrawn, and thereafter peritoneal fluid was withdrawn. The catheter was then removed and a dressing was applied. The fluid was discarded if the clinician did not order diagnostic testing of the fluid. COMPARISON: [facility], PARACENTESIS, 12/12/2022, 10:52. FINDINGS: Access site: Right lower quadrant Needle: One-Step centesis catheter with introducer needle. Fluid volume and description: 5000 mL; clear. Fluid sent for diagnostic testing: Not requested by referring physician. Medications: 1% lidocaine for local anaesthesia. Complications: None. IMPRESSION: Successful ultrasound-guided paracentesis. Dictated by: Alon Velasquez M.D. on 12/19/2022 at 14:17 Approved by: Alon Velasquez M.D. on 12/19/2022 at 14:18
== END ==
PROVIDERS: PCP Internal Medicine; Referring Provider Internal Medicine; Visit Provider Internal Medicine
DX: K70.31 Alcoholic cirrhosis of liver with ascites (principal)
CPT/HCPCS: 49083

== ENCOUNTER → 2022-12-23 08:34 | Outpatient (CLI) | payer OTHER, MEDICAID, SELFPAY ==
[2022-06-13 18:42] VITALS: BMI 22.8
--- NOTE | 2022-12-23 | DI.US.S_ITS ---
PROCEDURE: US PARACENTESIS INDICATIONS: Alcoholic cirrhosis of liver with ascites TECHNIQUE: The indications, alternatives, benefits, risks, and complications of the procedure were explained to the patient. Written informed consent was obtained and placed in the chart. The abdomen and pelvis were examined sonographically, and an appropriate site was chosen for paracentesis. The skin was prepared and draped in the usual sterile fashion, and 1% lidocaine was infiltrated from the skin down through the peritoneal surface. A 19-gauge catheter-covered needle was then introduced into the peritoneal space, the catheter was advanced and the needle was withdrawn, and thereafter peritoneal fluid was withdrawn. The catheter was then removed and a dressing was applied. The fluid was discarded if the clinician did not order diagnostic testing of the fluid. COMPARISON: [facility], , PARACENTESIS, 12/19/2022, 13:52. FINDINGS: Access site: Right lower quadrant abdomen. Needle: One-Step centesis catheter with introducer needle. Fluid volume and description: 2.4 L of clear fluid. Fluid sent for diagnostic testing: Non Medications: 1% lidocaine for local anaesthesia. Complications: None. IMPRESSION: Successful ultrasound-guided paracentesis. Dictated by: French Granado M.D. on 12/23/2022 at 10:53 Approved by: French Granado M.D. on 12/23/2022 at 10:55
== END ==
PROVIDERS: PCP Internal Medicine; Referring Provider Internal Medicine; Visit Provider Internal Medicine
DX: K70.31 Alcoholic cirrhosis of liver with ascites (principal)
CPT/HCPCS: 49083

== ENCOUNTER → 2022-12-26 12:37 | Outpatient (CLI) | payer OTHER, MEDICAID, SELFPAY ==
[2022-06-13 18:42] VITALS: BMI 22.8
--- NOTE | 2022-12-26 | DI.US.S_ITS ---
PROCEDURE: US ABDOMEN LIMITED INDICATIONS: ASCITIES TECHNIQUE: Real-time focused scanning was performed of the abdomen, with image documentation. COMPARISON: [facility], PARACENTESIS, 12/23/2022, 8:59. [facility], US PARACENTESIS, 12/19/2022, 13:52. FINDINGS: The patient was scheduled for paracentesis. There is a small amount of ascites, not enough for safe therapeutic paracentesis. IMPRESSION: Small amount of ascites which is not safe for therapeutic paracentesis. Dictated by: Alon Velasquez M.D. on 12/26/2022 at 13:17 Approved by: Alon Velasquez M.D. on 12/26/2022 at 13:18
== END ==
PROVIDERS: PCP Internal Medicine; Referring Provider Internal Medicine; Visit Provider Internal Medicine
DX: K70.31 Alcoholic cirrhosis of liver with ascites (principal)
CPT/HCPCS: 76705

== ENCOUNTER → 2022-12-30 07:47 | Outpatient (CLI) | payer OTHER, MEDICAID, SELFPAY ==
[2022-06-13 18:42] VITALS: BMI 22.8
--- NOTE | 2022-12-30 | DI.US.S_ITS ---
PROCEDURE: US PARACENTESIS INDICATIONS: ALCOHOLIC CIRRHOSIS WITH ASCITES TECHNIQUE: The indications, alternatives, benefits, risks, and complications of the procedure were explained to the patient. Written informed consent was obtained and placed in the chart. The abdomen and pelvis were examined sonographically, and an appropriate site was chosen for paracentesis. The skin was prepared and draped in the usual sterile fashion, and 1% lidocaine was infiltrated from the skin down through the peritoneal surface. A 19-gauge catheter-covered needle was then introduced into the peritoneal space, the catheter was advanced and the needle was withdrawn, and thereafter peritoneal fluid was withdrawn. The catheter was then removed and a dressing was applied. The fluid was discarded if the clinician did not order diagnostic testing of the fluid. COMPARISON: [facility], PARACENTESIS, 12/19/2022, 13:52. FINDINGS: Access site: Right lower quadrant Needle: One-Step centesis catheter with introducer needle. Fluid volume and description: 5000 mL Fluid sent for diagnostic testing: Not ordered by referring physician. Medications: 1% lidocaine for local anaesthesia. Complications: None. IMPRESSION: Successful ultrasound-guided paracentesis. Dictated by: Alon Velasquez M.D. on 12/30/2022 at 10:58 Approved by: Alon Velasquez M.D. on 12/30/2022 at 10:59
== END ==
PROVIDERS: PCP Internal Medicine; Referring Provider Internal Medicine; Visit Provider Internal Medicine
DX: K70.31 Alcoholic cirrhosis of liver with ascites (principal)
CPT/HCPCS: 49083

== ENCOUNTER → 2023-01-06 07:43 | Outpatient (CLI) | payer OTHER, MEDICAID, SELFPAY ==
[2022-06-13 18:42] VITALS: BMI 22.8
--- NOTE | 2023-01-06 | DI.US.S_ITS ---
PROCEDURE: US PARACENTESIS INDICATIONS: ALCOHOLIC CIRRHOSIS WITH ASCITES TECHNIQUE: The indications, alternatives, benefits, risks, and complications of the procedure were explained to the patient. Written informed consent was obtained and placed in the chart. The abdomen and pelvis were examined sonographically, and an appropriate site was chosen for paracentesis. The skin was prepared and draped in the usual sterile fashion, and 1% lidocaine was infiltrated from the skin down through the peritoneal surface. A 19-gauge catheter-covered needle was then introduced into the peritoneal space, the catheter was advanced and the needle was withdrawn, and thereafter peritoneal fluid was withdrawn. The catheter was then removed and a dressing was applied. The fluid was discarded if the clinician did not order diagnostic testing of the fluid. COMPARISON: [facility], PARACENTESIS, 12/30/2022, 8:05. [facility], PARACENTESIS, 12/23/2022, 8:59. FINDINGS: Access site: Right lower quadrant Needle: One-Step centesis catheter with introducer needle. Fluid volume and description: 5000 mL; clear Fluid sent for diagnostic testing: Not requested by referring physician. Medications: 1% lidocaine for local anaesthesia. Complications: None. IMPRESSION: Successful ultrasound-guided paracentesis. Dictated by: Alon Velasquez M.D. on 01/06/2023 at 12:12 Approved by: Alon Velasquez M.D. on 01/06/2023 at 12:13
== END ==
PROVIDERS: PCP Internal Medicine; Referring Provider Internal Medicine; Visit Provider Internal Medicine
DX: K70.31 Alcoholic cirrhosis of liver with ascites (principal)
CPT/HCPCS: 49083

== ENCOUNTER → 2023-01-09 07:38 | Outpatient (CLI) | payer OTHER, MEDICAID, SELFPAY ==
[2022-06-13 18:42] VITALS: BMI 22.8
--- NOTE | 2023-01-09 | DI.US.S_ITS ---
PROCEDURE: US PARACENTESIS INDICATIONS: CIRRHOSIS TECHNIQUE: The indications, alternatives, benefits, risks, and complications of the procedure were explained to the patient. Written informed consent was obtained and placed in the chart. The abdomen and pelvis were examined sonographically, and an appropriate site was chosen for paracentesis. The skin was prepared and draped in the usual sterile fashion, and 1% lidocaine was infiltrated from the skin down through the peritoneal surface. A 19-gauge catheter-covered needle was then introduced into the peritoneal space, the catheter was advanced and the needle was withdrawn, and thereafter peritoneal fluid was withdrawn. The catheter was then removed and a dressing was applied. The fluid was discarded if the clinician did not order diagnostic testing of the fluid. COMPARISON: [facility], PARACENTESIS, 01/06/2023, 8:01. FINDINGS: Access site: Right lower quadrant. Needle: One-Step centesis catheter with introducer needle. Fluid volume and description: 4 L clear fluid. Fluid sent for diagnostic testing: No Medications: 1% lidocaine for local anaesthesia. Complications: None. IMPRESSION: Successful ultrasound-guided paracentesis. Dictated by: Moris Davila M.D. on 01/09/2023 at 11:51 Approved by: Moris Davila M.D. on 01/09/2023 at 11:51
[2023-01-09 09:12] LABS: Add Manual Diff / Slide Review NO; Basophils Absolute Auto 0 /uL (0-100); Basophils Percent Auto 1.2 % (0-2); Eosinophils Absolute Auto 200 /uL (0-450); Hematocrit 26.3 % (41-53); Hemoglobin 8.8 g/dL (13.5-17.5); Lymphocytes Absolute Auto 500 /uL (1100-4500); Lymphocytes Percent Auto 24.9 % (25-40); Mean Corpuscular HGB Conc 33.7 % (30-36); Mean Corpuscular Hemoglobin 28.8 PG (26-34); Mean Corpuscular Volume 85.5 fL (80-100); Monocytes Absolute Auto 200 /uL (0-900); Monocytes Percent Auto 9.8 % (3-14); Neutrophils Absolute Auto 1200 /uL (1500-7000); Neutrophils Percent Auto 56.1 % (50-75); Platelet Count 137 X10^3/uL (150-400); Red Blood Cell Count 3.07 X10^6/uL (4.5-5.9); Red Cell Distribution Width 14.1 % (11.6-14.8); White Blood Cell Count 2.2 X10^3/uL (4.5-11.0)
[2023-01-09 09:19] LABS: INR 1.1 (0.9-1.3); Prothrombin Time 12.6 SECONDS (10.1-12.7)
[2023-01-09 09:29] LABS: BUN Creatinine Ratio 24.6 (6-22); Blood Urea Nitrogen 47 mg/dL (9-20); Calcium 8.5 mg/dL (8.4-10.2); Carbon Dioxide 23 mmol/L (22-32); Chloride 100 mmol/L (98-107); Estimated Glomerular Filt Rate 39 mL/min (>60); Glucose 98 mg/dL (80-110); HEMOLYSIS < 15 (0-50); Potassium 4.1 mmol/L (3.4-5.1); Sodium 134 mmol/L (137-145)
[2023-01-09 09:49] LABS: Free T4, Direct Thyroxine 0.87 ng/dL (0.78-2.19)
[2023-01-09 10:03] LABS: Thyroid Stimulating Hormone 3.45 uIU/mL (0.47-4.68)
== END ==
PROVIDERS: PCP Internal Medicine; Referring Provider Internal Medicine; Visit Provider Internal Medicine
DX: N18.30 Chronic kidney disease, stage 3 unspecified (principal); K70.31 Alcoholic cirrhosis of liver with ascites; E03.9 Hypothyroidism, unspecified
CPT/HCPCS: 36415; 49083; 80048; 84439; 84443; 85025; 85610

== ENCOUNTER → 2023-01-12 15:04 | Outpatient (CLI) | payer OTHER, MEDICAID, SELFPAY ==
[2022-06-13 18:42] VITALS: BMI 22.8
--- NOTE | 2023-01-12 | DI.US.S_ITS ---
PROCEDURE: US PARACENTESIS INDICATIONS: ASCITES - ALCOHOLIC CIRRHOSIS TECHNIQUE: The indications, alternatives, benefits, risks, and complications of the procedure were explained to the patient. Written informed consent was obtained and placed in the chart. The abdomen and pelvis were examined sonographically, and an appropriate site was chosen for paracentesis. The skin was prepared and draped in the usual sterile fashion, and 1% lidocaine was infiltrated from the skin down through the peritoneal surface. A 19-gauge catheter-covered needle was then introduced into the peritoneal space, the catheter was advanced and the needle was withdrawn, and thereafter peritoneal fluid was withdrawn. The catheter was then removed and a dressing was applied. The fluid was discarded if the clinician did not order diagnostic testing of the fluid. COMPARISON: [facility], PARACENTESIS, 01/09/2023, 7:52. FINDINGS: Access site: Lower abdomen Needle: One-Step centesis catheter with introducer needle. Fluid volume and description: 5000 mL; slightly cloudy. Fluid sent for diagnostic testing: Not requested by referring physician. Medications: 1% lidocaine for local anaesthesia. Complications: None. IMPRESSION: Successful ultrasound-guided paracentesis. Dictated by: Alon Velasquez M.D. on 01/12/2023 at 21:21 Approved by: Alon Velasquez M.D. on 01/12/2023 at 21:21
== END ==
PROVIDERS: PCP Internal Medicine; Referring Provider Internal Medicine; Visit Provider Internal Medicine
DX: K70.31 Alcoholic cirrhosis of liver with ascites (principal)
CPT/HCPCS: 49083

== ENCOUNTER → 2023-01-16 07:41 | Outpatient (CLI) | payer OTHER, MEDICAID, SELFPAY ==
[2022-06-13 18:42] VITALS: BMI 22.8
--- NOTE | 2023-01-16 | DI.US.S_ITS ---
PROCEDURE: US PARACENTESIS INDICATIONS: CIRRHOSIS/ASCITES TECHNIQUE: The indications, alternatives, benefits, risks, and complications of the procedure were explained to the patient. Written informed consent was obtained and placed in the chart. The abdomen and pelvis were examined sonographically, and an appropriate site was chosen for paracentesis. The skin was prepared and draped in the usual sterile fashion, and 1% lidocaine was infiltrated from the skin down through the peritoneal surface. A 19-gauge catheter-covered needle was then introduced into the peritoneal space, the catheter was advanced and the needle was withdrawn, and thereafter peritoneal fluid was withdrawn. The catheter was then removed and a dressing was applied. The fluid was discarded if the clinician did not order diagnostic testing of the fluid. COMPARISON: [facility], PARACENTESIS, 01/12/2023, 15:25. [facility], PARACENTESIS, 01/09/2023, 7:52. [facility], PARACENTESIS, 01/06/2023, 8:01. [facility], PARACENTESIS, 12/30/2022, 8:05. FINDINGS: Access site: Right lower paramidline Needle: One-Step centesis catheter with introducer needle. Fluid volume and description: 5 liter cloudy mariajose fluid. Fluid sent for diagnostic testing: Not requested Medications: 1% lidocaine for local anaesthesia. Complications: None. IMPRESSION: Successful ultrasound-guided paracentesis. Approved by: Niranjan Xavier M.D. on 01/16/2023 at 11:05
== END ==
PROVIDERS: PCP Internal Medicine; Referring Provider Internal Medicine; Visit Provider Internal Medicine
DX: K74.60 Unspecified cirrhosis of liver (principal); R18.8 Other ascites
CPT/HCPCS: 49083

== ENCOUNTER → 2023-01-20 07:37 | Outpatient (CLI) | payer OTHER, MEDICAID, SELFPAY ==
[2022-06-13 18:42] VITALS: BMI 22.8
--- NOTE | 2023-01-20 | DI.US.S_ITS ---
PROCEDURE: US PARACENTESIS INDICATIONS: cirrhosis TECHNIQUE: The indications, alternatives, benefits, risks, and complications of the procedure were explained to the patient. Written informed consent was obtained and placed in the chart. The abdomen and pelvis were examined sonographically, and an appropriate site was chosen for paracentesis. The skin was prepared and draped in the usual sterile fashion, and 1% lidocaine was infiltrated from the skin down through the peritoneal surface. A 19-gauge catheter-covered needle was then introduced into the peritoneal space, the catheter was advanced and the needle was withdrawn, and thereafter peritoneal fluid was withdrawn. The catheter was then removed and a dressing was applied. The fluid was discarded if the clinician did not order diagnostic testing of the fluid. COMPARISON: [facility], PARACENTESIS, 01/16/2023, 7:54. [facility], PARACENTESIS, 01/12/2023, 15:25. [facility], PARACENTESIS, 01/09/2023, 7:52. [facility], PARACENTESIS, 01/06/2023, 8:01. FINDINGS: Access site: Left lower quadrant Needle: One-Step centesis catheter with introducer needle. Fluid volume and description: 5 liter cloudy fluid Fluid sent for diagnostic testing: Not requested Medications: 1% lidocaine for local anaesthesia. Complications: None. IMPRESSION: Successful ultrasound-guided paracentesis. Approved by: Niranjan Xavier M.D. on 01/20/2023 at 12:52
== END ==
PROVIDERS: PCP Internal Medicine; Referring Provider Internal Medicine; Visit Provider Internal Medicine
DX: K74.60 Unspecified cirrhosis of liver (principal)
CPT/HCPCS: 49083

== ENCOUNTER → 2023-01-23 12:42 | Outpatient (CLI) | payer OTHER, MEDICAID, SELFPAY ==
[2022-06-13 18:42] VITALS: BMI 22.8
--- NOTE | 2023-01-23 12:43 | DI.US.S_ITS ---
PROCEDURE: US PARACENTESIS INDICATIONS: CIRRHOSIS TECHNIQUE: The indications, alternatives, benefits, risks, and complications of the procedure were explained to the patient. Written informed consent was obtained and placed in the chart. The abdomen and pelvis were examined sonographically, and an appropriate site was chosen for paracentesis. The skin was prepared and draped in the usual sterile fashion, and 1% lidocaine was infiltrated from the skin down through the peritoneal surface. A 19-gauge catheter-covered needle was then introduced into the peritoneal space, the catheter was advanced and the needle was withdrawn, and thereafter peritoneal fluid was withdrawn. The catheter was then removed and a dressing was applied. The fluid was discarded if the clinician did not order diagnostic testing of the fluid. COMPARISON: [facility], , PARACENTESIS, 01/20/2023, 7:57. FINDINGS: Access site: Left lower quadrant in Needle: One-Step centesis catheter with introducer needle. Fluid volume and description: 4 L of chylous fluid Fluid sent for diagnostic testing: No Medications: 1% lidocaine for local anaesthesia. Complications: None. IMPRESSION: Successful ultrasound-guided paracentesis. Dictated by: Jarad Gan M.D. on 01/23/2023 at 14:30 Approved by: Jarad Gan M.D. on 01/23/2023 at 14:32
== END ==
PROVIDERS: PCP Internal Medicine; Referring Provider Internal Medicine; Visit Provider Internal Medicine
DX: K74.60 Unspecified cirrhosis of liver (principal)
CPT/HCPCS: 49083

== ENCOUNTER → 2023-01-27 08:33 | Outpatient (CLI) | payer OTHER, MEDICAID, SELFPAY ==
[2022-06-13 18:42] VITALS: BMI 22.8
--- NOTE | 2023-01-27 | DI.US.S_ITS ---
PROCEDURE: US ABDOMEN LIMITED INDICATIONS: ASCITES TECHNIQUE: Real-time focused scanning was performed of the abdomen, with image documentation. COMPARISON: [facility], , US ABDOMEN LIMITED, 12/26/2022, 13:01. FINDINGS: Small amount of abdominal free fluid present. IMPRESSION: Small amount of abdominal free fluid present, insufficient for safe therapeutic paracentesis. Dictated by: Niranjan Mendoza M.D. on 01/27/2023 at 9:34 Approved by: Niranjan Mendoza M.D. on 01/27/2023 at 9:35
== END ==
PROVIDERS: PCP Internal Medicine; Referring Provider Internal Medicine; Visit Provider Internal Medicine
DX: R18.8 Other ascites (principal)
CPT/HCPCS: 76705

== ENCOUNTER → 2023-01-30 12:50 | Outpatient (CLI) | payer OTHER, MEDICAID, SELFPAY ==
[2022-06-13 18:42] VITALS: BMI 22.8
--- NOTE | 2023-01-30 12:51 | DI.US.S_ITS ---
PROCEDURE: US PARACENTESIS INDICATIONS: cirrhosis TECHNIQUE: The indications, alternatives, benefits, risks, and complications of the procedure were explained to the patient. Written informed consent was obtained and placed in the chart. The abdomen and pelvis were examined sonographically, and an appropriate site was chosen for paracentesis. The skin was prepared and draped in the usual sterile fashion, and 1% lidocaine was infiltrated from the skin down through the peritoneal surface. A 19-gauge catheter-covered needle was then introduced into the peritoneal space, the catheter was advanced and the needle was withdrawn, and thereafter peritoneal fluid was withdrawn. The catheter was then removed and a dressing was applied. The fluid was discarded if the clinician did not order diagnostic testing of the fluid. COMPARISON: [facility], , PARACENTESIS, 01/23/2023, 12:53. FINDINGS: Access site: Right lower quadrant Needle: One-Step centesis catheter with introducer needle. Fluid volume and description: 5 liters chylous fluid Fluid sent for diagnostic testing: No Medications: 1% lidocaine for local anaesthesia. Complications: None. IMPRESSION: Successful ultrasound-guided paracentesis. Dictated by: Jarad Gan M.D. on 01/30/2023 at 14:46 Approved by: Jarad Gan M.D. on 01/30/2023 at 14:46
== END ==
PROVIDERS: PCP Internal Medicine; Referring Provider Internal Medicine; Visit Provider Internal Medicine
DX: K74.60 Unspecified cirrhosis of liver (principal)
CPT/HCPCS: 49083

== ENCOUNTER → 2023-02-03 08:41 | Outpatient (CLI) | payer OTHER, MEDICAID, SELFPAY ==
[2022-06-13 18:42] VITALS: BMI 22.8
--- NOTE | 2023-02-03 | DI.US.S_ITS ---
PROCEDURE: US PARACENTESIS INDICATIONS: cirrhosis TECHNIQUE: The indications, alternatives, benefits, risks, and complications of the procedure were explained to the patient. Written informed consent was obtained and placed in the chart. The abdomen and pelvis were examined sonographically, and an appropriate site was chosen for paracentesis. The skin was prepared and draped in the usual sterile fashion, and 1% lidocaine was infiltrated from the skin down through the peritoneal surface. A 19-gauge catheter-covered needle was then introduced into the peritoneal space, the catheter was advanced and the needle was withdrawn, and thereafter peritoneal fluid was withdrawn. The catheter was then removed and a dressing was applied. The fluid was discarded if the clinician did not order diagnostic testing of the fluid. COMPARISON: [facility], PARACENTESIS, 01/23/2023, 12:53. FINDINGS: Access site: Right lower quadrant Needle: One-Step centesis catheter with introducer needle. Fluid volume and description: 5000 mL; chylous, cloudy and mariajose colored Fluid sent for diagnostic testing: Not requested. Medications: 1% lidocaine for local anaesthesia. Complications: None. IMPRESSION: Successful ultrasound-guided paracentesis. Dictated by: Alon Velasquez M.D. on 02/03/2023 at 12:46 Approved by: Alon Velasquez M.D. on 02/03/2023 at 12:47
== END ==
PROVIDERS: PCP Internal Medicine; Referring Provider Internal Medicine; Visit Provider Internal Medicine
DX: R18.8 Other ascites (principal)
CPT/HCPCS: 49083

== ENCOUNTER → 2023-02-06 08:47 | Outpatient (CLI) | payer OTHER, MEDICAID, SELFPAY ==
[2022-06-13 18:42] VITALS: BMI 22.8
--- NOTE | 2023-02-06 | DI.US.S_ITS ---
PROCEDURE: US PARACENTESIS INDICATIONS: CIRRHOSIS TECHNIQUE: The indications, alternatives, benefits, risks, and complications of the procedure were explained to the patient. Written informed consent was obtained and placed in the chart. The abdomen and pelvis were examined sonographically, and an appropriate site was chosen for paracentesis. The skin was prepared and draped in the usual sterile fashion, and 1% lidocaine was infiltrated from the skin down through the peritoneal surface. A 19-gauge catheter-covered needle was then introduced into the peritoneal space, the catheter was advanced and the needle was withdrawn, and thereafter peritoneal fluid was withdrawn. The catheter was then removed and a dressing was applied. The fluid was discarded if the clinician did not order diagnostic testing of the fluid. COMPARISON: [facility], PARACENTESIS, 02/03/2023, 9:16. [facility], PARACENTESIS, 01/30/2023, 13:00. [facility], PARACENTESIS, 01/23/2023, 12:53. [facility], PARACENTESIS, 01/20/2023, 7:57. FINDINGS: Access site: Right lower quadrant Needle: One-Step centesis catheter with introducer needle. Fluid volume and description: 5 L chylous fluid Fluid sent for diagnostic testing: Not requested Medications: 1% lidocaine for local anaesthesia. Complications: None. IMPRESSION: Successful ultrasound-guided paracentesis. Approved by: Niranjan Xavier M.D. on 02/06/2023 at 11:25
== END ==
PROVIDERS: PCP Internal Medicine; Referring Provider Internal Medicine; Visit Provider Internal Medicine
DX: K74.60 Unspecified cirrhosis of liver (principal)
CPT/HCPCS: 49083

== ENCOUNTER → 2023-02-09 10:12 | Outpatient (CLI) | payer OTHER, MEDICAID, SELFPAY ==
[2022-06-13 18:42] VITALS: BMI 22.8
[2023-02-09 11:05] LABS: Add Manual Diff / Slide Review NO; Basophils Absolute Auto 0 /uL (0-100); Basophils Percent Auto 1.1 % (0-2); Eosinophils Absolute Auto 100 /uL (0-450); Eosinophils Percent Auto 4.8 % (2-4); Hematocrit 26.8 % (41-53); Lymphocytes Absolute Auto 600 /uL (1100-4500); Lymphocytes Percent Auto 22.2 % (25-40); Mean Corpuscular HGB Conc 33.6 % (30-36); Mean Corpuscular Hemoglobin 28.9 PG (26-34); Mean Corpuscular Volume 86.1 fL (80-100); Monocytes Absolute Auto 300 /uL (0-900); Monocytes Percent Auto 9.6 % (3-14); Neutrophils Absolute Auto 1800 /uL (1500-7000); Neutrophils Percent Auto 62.3 % (50-75); Platelet Count 155 X10^3/uL (150-400); Red Blood Cell Count 3.11 X10^6/uL (4.5-5.9); Red Cell Distribution Width 14.9 % (11.6-14.8); White Blood Cell Count 2.9 X10^3/uL (4.5-11.0)
[2023-02-09 11:17] LABS: INR 1.1 (0.9-1.3); Prothrombin Time 12.8 SECONDS (10.1-12.7)
== END ==
PROVIDERS: PCP Internal Medicine; Referring Provider Internal Medicine; Visit Provider Internal Medicine
DX: K70.31 Alcoholic cirrhosis of liver with ascites (principal)
CPT/HCPCS: 36415; 85025; 85610

== ENCOUNTER → 2023-02-10 12:48 | Outpatient (CLI) | payer OTHER, MEDICAID, SELFPAY ==
[2022-06-13 18:42] VITALS: BMI 22.8
--- NOTE | 2023-02-10 | DI.US.S_ITS ---
PROCEDURE: US PARACENTESIS INDICATIONS: ASCITIES; CIRRHOSIS TECHNIQUE: The indications, alternatives, benefits, risks, and complications of the procedure were explained to the patient. Written informed consent was obtained and placed in the chart. The abdomen and pelvis were examined sonographically, and an appropriate site was chosen for paracentesis. The skin was prepared and draped in the usual sterile fashion, and 1% lidocaine was infiltrated from the skin down through the peritoneal surface. A 19-gauge catheter-covered needle was then introduced into the peritoneal space, the catheter was advanced and the needle was withdrawn, and thereafter peritoneal fluid was withdrawn. The catheter was then removed and a dressing was applied. The fluid was discarded if the clinician did not order diagnostic testing of the fluid. COMPARISON: [facility], PARACENTESIS, 02/06/2023, 9:00. FINDINGS: Access site: Right lower quadrant Needle: One-Step centesis catheter with introducer needle. Fluid volume and description: 5000 cc, clear/chylous Fluid sent for diagnostic testing: No Medications: 1% lidocaine for local anaesthesia. Complications: None. IMPRESSION: Successful ultrasound-guided paracentesis. Dictated by: Yvonne Aponte M.D. on 02/10/2023 at 17:16 Approved by: Yvonne Aponte M.D. on 02/10/2023 at 17:16
== END ==
PROVIDERS: PCP Internal Medicine; Referring Provider Internal Medicine; Visit Provider Internal Medicine
DX: K70.31 Alcoholic cirrhosis of liver with ascites (principal)
CPT/HCPCS: 49083

== ENCOUNTER → 2023-02-13 08:49 | Outpatient (CLI) | payer OTHER, MEDICAID, SELFPAY ==
[2022-06-13 18:42] VITALS: BMI 22.8
--- NOTE | 2023-02-13 | DI.US.S_ITS ---
PROCEDURE: US PARACENTESIS INDICATIONS: CIRRHOSIS TECHNIQUE: The indications, alternatives, benefits, risks, and complications of the procedure were explained to the patient. Written informed consent was obtained and placed in the chart. The abdomen and pelvis were examined sonographically, and an appropriate site was chosen for paracentesis. The skin was prepared and draped in the usual sterile fashion, and 1% lidocaine was infiltrated from the skin down through the peritoneal surface. A 19-gauge catheter-covered needle was then introduced into the peritoneal space, the catheter was advanced and the needle was withdrawn, and thereafter peritoneal fluid was withdrawn. The catheter was then removed and a dressing was applied. The fluid was discarded if the clinician did not order diagnostic testing of the fluid. COMPARISON: [facility], , PARACENTESIS, 02/10/2023, 13:02. FINDINGS: Access site: Right lower quadrant abdomen Needle: One-Step centesis catheter with introducer needle. Fluid volume and description: 5 L of yellowish callus fluid. Fluid sent for diagnostic testing: Non Medications: 1% lidocaine for local anaesthesia. Complications: None. IMPRESSION: Successful ultrasound-guided paracentesis. Dictated by: French Granado M.D. on 02/13/2023 at 10:43 Approved by: French Granado M.D. on 02/13/2023 at 10:44
== END ==
PROVIDERS: PCP Internal Medicine; Referring Provider Internal Medicine; Visit Provider Internal Medicine
DX: K70.31 Alcoholic cirrhosis of liver with ascites (principal)
CPT/HCPCS: 49083

== ENCOUNTER → 2023-02-17 09:48 | Outpatient (CLI) | payer OTHER, MEDICAID, SELFPAY ==
[2022-06-13 18:42] VITALS: BMI 22.8
--- NOTE | 2023-02-17 | DI.US.S_ITS ---
PROCEDURE: US PARACENTESIS INDICATIONS: cirrhosis TECHNIQUE: The indications, alternatives, benefits, risks, and complications of the procedure were explained to the patient. Written informed consent was obtained and placed in the chart. The abdomen and pelvis were examined sonographically, and an appropriate site was chosen for paracentesis. The skin was prepared and draped in the usual sterile fashion, and 1% lidocaine was infiltrated from the skin down through the peritoneal surface. A 19-gauge catheter-covered needle was then introduced into the peritoneal space, the catheter was advanced and the needle was withdrawn, and thereafter peritoneal fluid was withdrawn. The catheter was then removed and a dressing was applied. The fluid was discarded if the clinician did not order diagnostic testing of the fluid. COMPARISON: [facility], PARACENTESIS, 02/13/2023, 8:59. FINDINGS: Access site: Midline lower abdomen. Needle: One-Step centesis catheter with introducer needle. Fluid volume and description: 5 liters of milky chylous fluid. Fluid sent for diagnostic testing: None Medications: 1% lidocaine for local anaesthesia. Complications: None. IMPRESSION: Successful ultrasound-guided paracentesis. Dictated by: French Granado M.D. on 02/17/2023 at 13:47 Approved by: French Granado M.D. on 02/17/2023 at 13:48
== END ==
PROVIDERS: PCP Internal Medicine; Referring Provider Internal Medicine; Visit Provider Internal Medicine
DX: K74.60 Unspecified cirrhosis of liver (principal)
CPT/HCPCS: 49083

== ENCOUNTER → 2023-02-20 09:50 | Outpatient (CLI) | payer OTHER, MEDICAID, SELFPAY ==
[2022-06-13 18:42] VITALS: BMI 22.8
--- NOTE | 2023-02-20 | DI.US.S_ITS ---
PROCEDURE: US PARACENTESIS INDICATIONS: ASCITIES TECHNIQUE: The indications, alternatives, benefits, risks, and complications of the procedure were explained to the patient. Written informed consent was obtained and placed in the chart. The abdomen and pelvis were examined sonographically, and an appropriate site was chosen for paracentesis. The skin was prepared and draped in the usual sterile fashion, and 1% lidocaine was infiltrated from the skin down through the peritoneal surface. A 19-gauge catheter-covered needle was then introduced into the peritoneal space, the catheter was advanced and the needle was withdrawn, and thereafter peritoneal fluid was withdrawn. The catheter was then removed and a dressing was applied. The fluid was discarded if the clinician did not order diagnostic testing of the fluid. COMPARISON: [facility], PARACENTESIS, 02/13/2023, 8:59. FINDINGS: Access site: Right lower quadrant Needle: One-Step centesis catheter with introducer needle. Fluid volume and description: 1900 mL; chylous. Fluid sent for diagnostic testing: Not requested. Medications: 1% lidocaine for local anaesthesia. Complications: None. IMPRESSION: Successful ultrasound-guided paracentesis. Dictated by: Alon Velasquez M.D. on 02/20/2023 at 17:12 Approved by: Alon Velasquez M.D. on 02/20/2023 at 17:13
== END ==
PROVIDERS: PCP Internal Medicine; Referring Provider Internal Medicine; Visit Provider Internal Medicine
DX: K70.31 Alcoholic cirrhosis of liver with ascites (principal)
CPT/HCPCS: 49083

== ENCOUNTER → 2023-02-24 07:44 | Outpatient (CLI) | payer OTHER, MEDICAID, SELFPAY ==
[2022-06-13 18:42] VITALS: BMI 22.8
--- NOTE | 2023-02-24 | DI.US.S_ITS ---
PROCEDURE: US PARACENTESIS INDICATIONS: ALCOHOLIC CIRRHOSIS WITH ASCITES TECHNIQUE: The indications, alternatives, benefits, risks, and complications of the procedure were explained to the patient. Written informed consent was obtained and placed in the chart. The abdomen and pelvis were examined sonographically, and an appropriate site was chosen for paracentesis. The skin was prepared and draped in the usual sterile fashion, and 1% lidocaine was infiltrated from the skin down through the peritoneal surface. A 19-gauge catheter-covered needle was then introduced into the peritoneal space, the catheter was advanced and the needle was withdrawn, and thereafter peritoneal fluid was withdrawn. The catheter was then removed and a dressing was applied. The fluid was discarded if the clinician did not order diagnostic testing of the fluid. COMPARISON: [facility], PARACENTESIS, 02/20/2023, 10:03. FINDINGS: Access site: Left anterior abdomen Needle: One-Step centesis catheter with introducer needle. Fluid volume and description: 5 liter chylous fluid Fluid sent for diagnostic testing: No Medications: 1% lidocaine for local anaesthesia. Complications: None. IMPRESSION: Successful ultrasound-guided paracentesis. Dictated by: Moris Davila M.D. on 02/24/2023 at 11:19 Approved by: Moris Davila M.D. on 02/24/2023 at 11:20
== END ==
PROVIDERS: PCP Internal Medicine; Referring Provider Internal Medicine; Visit Provider Internal Medicine
DX: K70.31 Alcoholic cirrhosis of liver with ascites (principal)
CPT/HCPCS: 49083

== ENCOUNTER → 2023-02-27 07:37 | Outpatient (CLI) | payer OTHER, MEDICAID, SELFPAY ==
[2022-06-13 18:42] VITALS: BMI 22.8
--- NOTE | 2023-02-27 | DI.US.S_ITS ---
PROCEDURE: US PARACENTESIS INDICATIONS: ALCOHOLIC CIRRHOSIS WITH ASCITES TECHNIQUE: The indications, alternatives, benefits, risks, and complications of the procedure were explained to the patient. Written informed consent was obtained and placed in the chart. The abdomen and pelvis were examined sonographically, and an appropriate site was chosen for paracentesis. The skin was prepared and draped in the usual sterile fashion, and 1% lidocaine was infiltrated from the skin down through the peritoneal surface. A 19-gauge catheter-covered needle was then introduced into the peritoneal space, the catheter was advanced and the needle was withdrawn, and thereafter peritoneal fluid was withdrawn. The catheter was then removed and a dressing was applied. The fluid was discarded if the clinician did not order diagnostic testing of the fluid. COMPARISON: [facility], PARACENTESIS, 02/24/2023, 8:04. FINDINGS: Access site: Left lower quadrant Needle: One-Step centesis catheter with introducer needle. Fluid volume and description: 5000 mL chylous yellow/mariajose fluid Fluid sent for diagnostic testing: Not requested Medications: 1% lidocaine for local anaesthesia. Complications: None. IMPRESSION: Successful ultrasound-guided paracentesis. Dictated by: Niranjan Mendoza M.D. on 02/27/2023 at 10:06 Approved by: Niranjan Mendoza M.D. on 02/27/2023 at 10:08
== END ==
PROVIDERS: PCP Internal Medicine; Referring Provider Internal Medicine; Visit Provider Internal Medicine
DX: K70.31 Alcoholic cirrhosis of liver with ascites (principal)
CPT/HCPCS: 49083

== ENCOUNTER → 2023-03-03 07:45 | Outpatient (CLI) | payer OTHER, MEDICAID, SELFPAY ==
[2022-06-13 18:42] VITALS: BMI 22.8
--- NOTE | 2023-03-03 | DI.US.S_ITS ---
PROCEDURE: US PARACENTESIS INDICATIONS: ASCITIES TECHNIQUE: The indications, alternatives, benefits, risks, and complications of the procedure were explained to the patient. Written informed consent was obtained and placed in the chart. The abdomen and pelvis were examined sonographically, and an appropriate site was chosen for paracentesis. The skin was prepared and draped in the usual sterile fashion, and 1% lidocaine was infiltrated from the skin down through the peritoneal surface. A 19-gauge catheter-covered needle was then introduced into the peritoneal space, the catheter was advanced and the needle was withdrawn, and thereafter peritoneal fluid was withdrawn. The catheter was then removed and a dressing was applied. The fluid was discarded if the clinician did not order diagnostic testing of the fluid. COMPARISON: [facility], PARACENTESIS, 02/27/2023, 8:10. [facility], PARACENTESIS, 02/24/2023, 8:04. [facility], PARACENTESIS, 02/20/2023, 10:03. [facility], PARACENTESIS, 02/17/2023, 10:07. FINDINGS: Access site: Left lower quadrant Needle: One-Step centesis catheter with introducer needle. Fluid volume and description: 4400 cc of cloudy fluid Fluid sent for diagnostic testing: No Medications: 1% lidocaine for local anaesthesia. Complications: None. IMPRESSION: Successful ultrasound-guided paracentesis. Dictated by: Radha Zuniga M.D. on 03/03/2023 at 16:28 Approved by: Radha Zuniga M.D. on 03/03/2023 at 16:28
== END ==
PROVIDERS: PCP Internal Medicine; Referring Provider Internal Medicine; Visit Provider Internal Medicine
DX: K70.31 Alcoholic cirrhosis of liver with ascites (principal)
CPT/HCPCS: 49083

== ENCOUNTER → 2023-03-06 07:47 | Outpatient (CLI) | payer OTHER, MEDICAID, SELFPAY ==
[2022-06-13 18:42] VITALS: BMI 22.8
--- NOTE | 2023-03-06 | DI.US.S_ITS ---
PROCEDURE: US PARACENTESIS INDICATIONS: ASCITIES TECHNIQUE: The indications, alternatives, benefits, risks, and complications of the procedure were explained to the patient. Written informed consent was obtained and placed in the chart. The abdomen and pelvis were examined sonographically, and an appropriate site was chosen for paracentesis. The skin was prepared and draped in the usual sterile fashion, and 1% lidocaine was infiltrated from the skin down through the peritoneal surface. A 19-gauge catheter-covered needle was then introduced into the peritoneal space, the catheter was advanced and the needle was withdrawn, and thereafter peritoneal fluid was withdrawn. The catheter was then removed and a dressing was applied. The fluid was discarded if the clinician did not order diagnostic testing of the fluid. COMPARISON: [facility], PARACENTESIS, 03/03/2023, 7:49. FINDINGS: Access site: Left lower quadrant Needle: One-Step centesis catheter with introducer needle. Fluid volume and description: 5 L, chylous, mariajose fluid. Fluid sent for diagnostic testing: No Medications: 1% lidocaine for local anaesthesia. Complications: None. IMPRESSION: Successful ultrasound-guided paracentesis. Dictated by: Jarad Gan M.D. on 03/06/2023 at 10:48 Approved by: Jarad Gan M.D. on 03/06/2023 at 10:49
== END ==
PROVIDERS: PCP Internal Medicine; Referring Provider Internal Medicine; Visit Provider Internal Medicine
DX: K70.31 Alcoholic cirrhosis of liver with ascites (principal)
CPT/HCPCS: 49083

== ENCOUNTER → 2023-03-10 15:16 | Outpatient (CLI) | payer OTHER, MEDICAID, SELFPAY ==
[2022-06-13 18:42] VITALS: BMI 22.8
--- NOTE | 2023-03-10 | DI.US.S_ITS ---
PROCEDURE: US PARACENTESIS INDICATIONS: ALCOHOLIC CIRRHOSIS WITH ASCITES TECHNIQUE: The indications, alternatives, benefits, risks, and complications of the procedure were explained to the patient. Written informed consent was obtained and placed in the chart. The abdomen and pelvis were examined sonographically, and an appropriate site was chosen for paracentesis. The skin was prepared and draped in the usual sterile fashion, and 1% lidocaine was infiltrated from the skin down through the peritoneal surface. A 19-gauge catheter-covered needle was then introduced into the peritoneal space, the catheter was advanced and the needle was withdrawn, and thereafter peritoneal fluid was withdrawn. The catheter was then removed and a dressing was applied. The fluid was discarded if the clinician did not order diagnostic testing of the fluid. COMPARISON: [facility], PARACENTESIS, 03/03/2023, 7:49. FINDINGS: Access site: Right lower quadrant Needle: One-Step centesis catheter with introducer needle. Fluid volume and description: 5000 mL; chylous Fluid sent for diagnostic testing: Not requested. Medications: 1% lidocaine for local anaesthesia. Complications: None. IMPRESSION: Successful ultrasound-guided paracentesis. Dictated by: Alon Velasquez M.D. on 03/10/2023 at 17:03 Approved by: Alon Velasquez M.D. on 03/10/2023 at 17:05
== END ==
PROVIDERS: PCP Internal Medicine; Referring Provider Internal Medicine; Visit Provider Internal Medicine
DX: K70.31 Alcoholic cirrhosis of liver with ascites (principal)
CPT/HCPCS: 49083

== ENCOUNTER → 2023-03-12 09:48 | Outpatient (CLI) | payer OTHER, MEDICAID, SELFPAY ==
[2022-06-13 18:42] VITALS: BMI 22.8
[2023-03-12 10:21] LABS: Add Manual Diff / Slide Review NO; Basophils Absolute Auto 0 /uL (0-100); Basophils Percent Auto 0.8 % (0-2); Eosinophils Absolute Auto 100 /uL (0-450); Eosinophils Percent Auto 4.9 % (2-4); Hematocrit 26.1 % (41-53); Lymphocytes Absolute Auto 700 /uL (1100-4500); Lymphocytes Percent Auto 29.6 % (25-40); Mean Corpuscular HGB Conc 34.3 % (30-36); Mean Corpuscular Hemoglobin 29.8 PG (26-34); Mean Corpuscular Volume 86.8 fL (80-100); Monocytes Absolute Auto 200 /uL (0-900); Monocytes Percent Auto 8.1 % (3-14); Neutrophils Absolute Auto 1300 /uL (1500-7000); Neutrophils Percent Auto 56.6 % (50-75); Platelet Count 129 X10^3/uL (150-400); Red Blood Cell Count 3.01 X10^6/uL (4.5-5.9); Red Cell Distribution Width 15.8 % (11.6-14.8); White Blood Cell Count 2.2 X10^3/uL (4.5-11.0)
[2023-03-12 10:37] LABS: INR 1.1 (0.9-1.3); Prothrombin Time 12.5 SECONDS (10.1-12.7)
== END ==
PROVIDERS: PCP Internal Medicine; Referring Provider Internal Medicine; Visit Provider Internal Medicine
DX: K70.31 Alcoholic cirrhosis of liver with ascites (principal)
CPT/HCPCS: 36415; 85025; 85610

== ENCOUNTER → 2023-03-13 08:52 | Outpatient (CLI) | payer OTHER, MEDICAID, SELFPAY ==
[2022-06-13 18:42] VITALS: BMI 22.8
--- NOTE | 2023-03-13 08:53 | DI.US.S_ITS ---
PROCEDURE: US ABDOMEN LIMITED INDICATIONS: ASCITES. EVALUATION FOR PARACENTESIS. TECHNIQUE: Real-time focused scanning was performed of the abdomen, with image documentation. COMPARISON: [facility], PARACENTESIS, 03/10/2023, 15:19. [facility], PARACENTESIS, 03/06/2023, 8:06. [facility], ABDOMEN LIMITED, 01/27/2023, 9:04. FINDINGS: Small amount of abdominal free fluid, insufficient for safe beneficial therapeutic paracentesis. Pronounced abdominal wall edema, new compared to images from recent paracentesis. IMPRESSION: 1. Small amount of abdominal free fluid. Paracentesis was not performed. 2. Nonspecific abdominal wall edema. Dictated by: Niranjan Mendoza M.D. on 03/13/2023 at 10:28 Approved by: Niranjan Mendoza M.D. on 03/13/2023 at 10:38
== END ==
PROVIDERS: PCP Internal Medicine; Referring Provider Internal Medicine; Visit Provider Internal Medicine
DX: K70.31 Alcoholic cirrhosis of liver with ascites (principal)
CPT/HCPCS: 76705

== ENCOUNTER → 2023-03-17 07:50 | Outpatient (CLI) | payer OTHER, MEDICAID, SELFPAY ==
[2022-06-13 18:42] VITALS: BMI 22.8
--- NOTE | 2023-03-17 | DI.US.S_ITS ---
PROCEDURE: US PARACENTESIS INDICATIONS: Alcoholic cirrhosis of liver with ascites TECHNIQUE: The indications, alternatives, benefits, risks, and complications of the procedure were explained to the patient. Written informed consent was obtained and placed in the chart. The abdomen and pelvis were examined sonographically, and an appropriate site was chosen for paracentesis. The skin was prepared and draped in the usual sterile fashion, and 1% lidocaine was infiltrated from the skin down through the peritoneal surface. A 19-gauge catheter-covered needle was then introduced into the peritoneal space, the catheter was advanced and the needle was withdrawn, and thereafter peritoneal fluid was withdrawn. The catheter was then removed and a dressing was applied. The fluid was discarded if the clinician did not order diagnostic testing of the fluid. COMPARISON: [facility], PARACENTESIS, 03/06/2023, 8:06. FINDINGS: Access site: Right lower quadrant Needle: One-Step centesis catheter with introducer needle. Fluid volume and description: 5000 mL; cloudy. Fluid sent for diagnostic testing: Not requested. Medications: 1% lidocaine for local anaesthesia. Complications: None. IMPRESSION: Successful ultrasound-guided paracentesis. Dictated by: Alon Velasquez M.D. on 03/19/2023 at 10:45 Approved by: Alon Velasquez M.D. on 03/19/2023 at 10:46
== END ==
PROVIDERS: PCP Internal Medicine; Referring Provider Internal Medicine; Visit Provider Internal Medicine
DX: K70.31 Alcoholic cirrhosis of liver with ascites (principal)
CPT/HCPCS: 49083

== ENCOUNTER → 2023-03-20 07:49 | Outpatient (CLI) | payer OTHER, MEDICAID, SELFPAY ==
[2022-06-13 18:42] VITALS: BMI 22.8
--- NOTE | 2023-03-20 | DI.US.S_ITS ---
PROCEDURE: US PARACENTESIS INDICATIONS: Alcoholic cirrhosis of liver with ascites TECHNIQUE: The indications, alternatives, benefits, risks, and complications of the procedure were explained to the patient. Written informed consent was obtained and placed in the chart. The abdomen and pelvis were examined sonographically, and an appropriate site was chosen for paracentesis. The skin was prepared and draped in the usual sterile fashion, and 1% lidocaine was infiltrated from the skin down through the peritoneal surface. A 19-gauge catheter-covered needle was then introduced into the peritoneal space, the catheter was advanced and the needle was withdrawn, and thereafter peritoneal fluid was withdrawn. The catheter was then removed and a dressing was applied. The fluid was discarded if the clinician did not order diagnostic testing of the fluid. COMPARISON: [facility], , PARACENTESIS, 03/17/2023, 7:59. FINDINGS: Access site: Left lower quadrant Needle: One-Step centesis catheter with introducer needle. Fluid volume and description: 5000 cc yellow chylous fluid. Fluid sent for diagnostic testing: None. Medications: 1% lidocaine for local anaesthesia. Complications: None. Well tolerated. IMPRESSION: Successful ultrasound-guided paracentesis. 5 L removed. Dictated by: James Zapata M.D. on 03/20/2023 at 9:51 Approved by: James Zapata M.D. on 03/20/2023 at 9:52
== END ==
PROVIDERS: PCP Internal Medicine; Referring Provider Internal Medicine; Visit Provider Internal Medicine
DX: K70.31 Alcoholic cirrhosis of liver with ascites (principal)
CPT/HCPCS: 49083

== ENCOUNTER → 2023-03-24 07:48 | Outpatient (CLI) | payer OTHER, MEDICAID, SELFPAY ==
[2022-06-13 18:42] VITALS: BMI 22.8
--- NOTE | 2023-03-24 | DI.US.S_ITS ---
PROCEDURE: US PARACENTESIS INDICATIONS: Alcoholic cirrhosis of liver with ascites TECHNIQUE: The indications, alternatives, benefits, risks, and complications of the procedure were explained to the patient. Written informed consent was obtained and placed in the chart. The abdomen and pelvis were examined sonographically, and an appropriate site was chosen for paracentesis. The skin was prepared and draped in the usual sterile fashion, and 1% lidocaine was infiltrated from the skin down through the peritoneal surface. A 19-gauge catheter-covered needle was then introduced into the peritoneal space, the catheter was advanced and the needle was withdrawn, and thereafter peritoneal fluid was withdrawn. The catheter was then removed and a dressing was applied. The fluid was discarded if the clinician did not order diagnostic testing of the fluid. COMPARISON: [facility], PARACENTESIS, 03/20/2023, 8:18. FINDINGS: Access site: Right lower quadrant Needle: One-Step centesis catheter with introducer needle. Fluid volume and description: 5000 cc chylous straw-colored Fluid sent for diagnostic testing: None. Medications: 1% lidocaine for local anaesthesia. Complications: None. IMPRESSION: Successful ultrasound-guided paracentesis. 5 L removed. Consider HCC screening with cross-sectional imaging if not yet performed. Dictated by: James Zapata M.D. on 03/24/2023 at 17:09 Approved by: James Zapata M.D. on 03/24/2023 at 17:16
== END ==
PROVIDERS: PCP Internal Medicine; Referring Provider Internal Medicine; Visit Provider Internal Medicine
DX: K70.31 Alcoholic cirrhosis of liver with ascites (principal)
CPT/HCPCS: 49083

== ENCOUNTER → 2023-03-27 07:46 | Outpatient (CLI) | payer OTHER, MEDICAID, SELFPAY ==
[2022-06-13 18:42] VITALS: BMI 22.8
--- NOTE | 2023-03-27 | DI.US.S_ITS ---
PROCEDURE: US PARACENTESIS INDICATIONS: ASCITES TECHNIQUE: The indications, alternatives, benefits, risks, and complications of the procedure were explained to the patient. Written informed consent was obtained and placed in the chart. The abdomen and pelvis were examined sonographically, and an appropriate site was chosen for paracentesis. The skin was prepared and draped in the usual sterile fashion, and 1% lidocaine was infiltrated from the skin down through the peritoneal surface. A 19-gauge catheter-covered needle was then introduced into the peritoneal space, the catheter was advanced and the needle was withdrawn, and thereafter peritoneal fluid was withdrawn. The catheter was then removed and a dressing was applied. The fluid was discarded if the clinician did not order diagnostic testing of the fluid. COMPARISON: [facility], PARACENTESIS, 03/24/2023, 8:13. FINDINGS: Access site: Left lower quadrant Needle: One-Step centesis catheter with introducer needle. Fluid volume and description: 5000 cc clear/chylous fluid withdrawn Fluid sent for diagnostic testing: No Medications: 1% lidocaine for local anaesthesia. Complications: None. IMPRESSION: Successful therapeutic ultrasound-guided paracentesis. Dictated by: Chi Rao M.D. on 03/27/2023 at 10:57 Approved by: Chi Rao M.D. on 03/27/2023 at 10:59
== END ==
PROVIDERS: PCP Internal Medicine; Referring Provider Internal Medicine; Visit Provider Internal Medicine
DX: K70.31 Alcoholic cirrhosis of liver with ascites (principal)
CPT/HCPCS: 49083

== ENCOUNTER → 2023-03-31 12:47 | Outpatient (CLI) | payer OTHER, MEDICAID, SELFPAY ==
[2022-06-13 18:42] VITALS: BMI 22.8
--- NOTE | 2023-03-31 | DI.US.S_ITS ---
PROCEDURE: US PARACENTESIS INDICATIONS: ALCOHOLIC CIRRHOSIS WITH ASCITES TECHNIQUE: The indications, alternatives, benefits, risks, and complications of the procedure were explained to the patient. Written informed consent was obtained and placed in the chart. The abdomen and pelvis were examined sonographically, and an appropriate site was chosen for paracentesis. The skin was prepared and draped in the usual sterile fashion, and 1% lidocaine was infiltrated from the skin down through the peritoneal surface. A 19-gauge catheter-covered needle was then introduced into the peritoneal space, the catheter was advanced and the needle was withdrawn, and thereafter peritoneal fluid was withdrawn. The catheter was then removed and a dressing was applied. The fluid was discarded if the clinician did not order diagnostic testing of the fluid. COMPARISON: [facility], PARACENTESIS, 03/27/2023, 8:10. [facility], PARACENTESIS, 03/24/2023, 8:13. FINDINGS: Access site: Left lower quadrant Needle: One-Step centesis catheter with introducer needle. Fluid volume and description: 4950 mL clear/chylous fluid Fluid sent for diagnostic testing: Not requested Medications: 1% lidocaine for local anaesthesia. Complications: None. IMPRESSION: Successful ultrasound-guided paracentesis. Approved by: Niranjan Xavier M.D. on 03/31/2023 at 14:19
== END ==
PROVIDERS: PCP Internal Medicine; Referring Provider Internal Medicine; Visit Provider Internal Medicine
DX: K70.31 Alcoholic cirrhosis of liver with ascites (principal)
CPT/HCPCS: 49083

== ENCOUNTER → 2023-04-03 07:49 | Outpatient (CLI) | payer OTHER, MEDICAID, SELFPAY ==
[2022-06-13 18:42] VITALS: BMI 22.8
--- NOTE | 2023-04-03 | DI.US.S_ITS ---
PROCEDURE: US PARACENTESIS INDICATIONS: Alcoholic cirrhosis of liver with ascites TECHNIQUE: The indications, alternatives, benefits, risks, and complications of the procedure were explained to the patient. Written informed consent was obtained and placed in the chart. The abdomen and pelvis were examined sonographically, and an appropriate site was chosen for paracentesis. The skin was prepared and draped in the usual sterile fashion, and 1% lidocaine was infiltrated from the skin down through the peritoneal surface. A 19-gauge catheter-covered needle was then introduced into the peritoneal space, the catheter was advanced and the needle was withdrawn, and thereafter peritoneal fluid was withdrawn. The catheter was then removed and a dressing was applied. The fluid was discarded if the clinician did not order diagnostic testing of the fluid. COMPARISON: [facility], , PARACENTESIS, 03/27/2023, 8:10. FINDINGS: Access site: Left lower quadrant Needle: One-Step centesis catheter with introducer needle. Fluid volume and description: 3400 mL; cloudy. Fluid sent for diagnostic testing: Not requested. Medications: 1% lidocaine for local anaesthesia. Complications: None. IMPRESSION: Successful ultrasound-guided paracentesis. Dictated by: Alon Velasquez M.D. on 04/03/2023 at 11:29 Approved by: Alon Velasquez M.D. on 04/03/2023 at 11:29
== END ==
PROVIDERS: PCP Internal Medicine; Referring Provider Internal Medicine; Visit Provider Internal Medicine
DX: K70.31 Alcoholic cirrhosis of liver with ascites (principal)
CPT/HCPCS: 49083

== ENCOUNTER → 2023-04-07 09:45 | Outpatient (CLI) | payer OTHER, MEDICAID, SELFPAY ==
[2022-06-13 18:42] VITALS: BMI 22.8
--- NOTE | 2023-04-07 | DI.US.S_ITS ---
PROCEDURE: US PARACENTESIS INDICATIONS: ascitis TECHNIQUE: The indications, alternatives, benefits, risks, and complications of the procedure were explained to the patient. Written informed consent was obtained and placed in the chart. The abdomen and pelvis were examined sonographically, and an appropriate site was chosen for paracentesis. The skin was prepared and draped in the usual sterile fashion, and 1% lidocaine was infiltrated from the skin down through the peritoneal surface. A 19-gauge catheter-covered needle was then introduced into the peritoneal space, the catheter was advanced and the needle was withdrawn, and thereafter peritoneal fluid was withdrawn. The catheter was then removed and a dressing was applied. The fluid was discarded if the clinician did not order diagnostic testing of the fluid. COMPARISON: [facility], PARACENTESIS, 04/03/2023, 8:06. [facility], PARACENTESIS, 03/31/2023, 12:52. [facility], PARACENTESIS, 03/27/2023, 8:10. [facility], PARACENTESIS, 03/24/2023, 8:13. FINDINGS: Access site: Left lower quadrant Needle: One-Step centesis catheter with introducer needle. Fluid volume and description: 3700 cc of clear yellow fluid Fluid sent for diagnostic testing: No Medications: 1% lidocaine for local anaesthesia. Complications: None. IMPRESSION: Successful ultrasound-guided paracentesis. Dictated by: Radha Zuniga M.D. on 04/07/2023 at 11:33 Approved by: Radha Zuniga M.D. on 04/07/2023 at 11:40
== END ==
PROVIDERS: PCP Internal Medicine; Referring Provider Internal Medicine; Visit Provider Internal Medicine
DX: K70.31 Alcoholic cirrhosis of liver with ascites (principal)
CPT/HCPCS: 49083

== ENCOUNTER → 2023-04-10 07:39 | Outpatient (CLI) | payer OTHER, MEDICAID, SELFPAY ==
[2022-06-13 18:42] VITALS: BMI 22.8
--- NOTE | 2023-04-10 | DI.US.S_ITS ---
PROCEDURE: US ABDOMEN LIMITED INDICATIONS: ASCITES EVALUATION FOR PARACENTESIS TECHNIQUE: Real-time scanning was performed of the abdominal and retroperitoneal organs, with image documentation. COMPARISON: [facility], US PARACENTESIS, 04/03/2023, 8:06. [facility], US PARACENTESIS, 04/07/2023, 10:06. [facility], , US ABDOMEN LIMITED, 01/27/2023, 9:04. FINDINGS: [id number] amount of free abdominal fluid is present. IMPRESSION: Small to moderate amount ascites. After discussing with the patient, paracentesis is rescheduled. Dictated by: Alon Velasquez M.D. on 04/10/2023 at 13:43 Approved by: Alon Velasquez M.D. on 04/10/2023 at 13:45
[2023-04-10 08:41] LABS: Add Manual Diff / Slide Review NO; Basophils Absolute Auto 0 /uL (0-100); Basophils Percent Auto 1.1 % (0-2); Eosinophils Absolute Auto 100 /uL (0-450); Hematocrit 26.8 % (41-53); Hemoglobin 9.1 g/dL (13.5-17.5); Lymphocytes Absolute Auto 500 /uL (1100-4500); Lymphocytes Percent Auto 19.5 % (25-40); Mean Corpuscular Hemoglobin 29.9 PG (26-34); Monocytes Absolute Auto 200 /uL (0-900); Monocytes Percent Auto 9.7 % (3-14); Neutrophils Absolute Auto 1600 /uL (1500-7000); Neutrophils Percent Auto 63.7 % (50-75); Platelet Count 114 X10^3/uL (150-400); Red Blood Cell Count 3.05 X10^6/uL (4.5-5.9); Red Cell Distribution Width 14.8 % (11.6-14.8); White Blood Cell Count 2.5 X10^3/uL (4.5-11.0)
[2023-04-10 08:48] LABS: INR 1.1 (0.9-1.3)
[2023-04-10 09:38] LABS: BUN Creatinine Ratio 21.6 (6-22); Blood Urea Nitrogen 35 mg/dL (9-20); Calcium 8.4 mg/dL (8.4-10.2); Carbon Dioxide 24 mmol/L (22-32); Chloride 103 mmol/L (98-107); Estimated Glomerular Filt Rate 47 mL/min (>60); Glucose 99 mg/dL (80-110); HEMOLYSIS < 15 (0-50); Potassium 4.2 mmol/L (3.4-5.1); Sodium 134 mmol/L (137-145)
[2023-04-10 17:39] LABS: Creatinine Urine Random 23.3 mg/dL; Protein (Total) Urine Random 10 mg/dL (0-12); Protein Creatinine Ratio Urine 0.42 GRAM/24H
[2023-04-10 17:42] LABS: Microalbumin Urine Random < 0.6 mg/dL (0-1.6)
== END ==
PROVIDERS: Internal Medicine Nephrology; PCP Internal Medicine; Referring Provider Internal Medicine; Visit Provider Internal Medicine
DX: K70.31 Alcoholic cirrhosis of liver with ascites (principal); I12.9 Hypertensive chronic kidney disease with stage 1 through stage 4 chronic kidney disease, or unspecified chronic kidney disease; N18.31 Chronic kidney disease, stage 3a; K76.7 Hepatorenal syndrome; D64.9 Anemia, unspecified
CPT/HCPCS: 36415; 76705; 80048; 82043; 82570; 84156; 85025; 85610

== ENCOUNTER → 2023-04-14 07:48 | Outpatient (CLI) | payer OTHER, MEDICAID, SELFPAY ==
[2022-06-13 18:42] VITALS: BMI 22.8
--- NOTE | 2023-04-14 | DI.US.S_ITS ---
PROCEDURE: US ABDOMEN LIMITED INDICATIONS: ascitis TECHNIQUE: Real-time scanning was performed of the abdominal and retroperitoneal organs, with image documentation. COMPARISON: [facility], , US ABDOMEN LIMITED, 03/13/2023, 9:08. FINDINGS: There is [id number] amount of ascites. The largest pocket is in the left lower quadrant. Compared to the last exam, there is minimal increase in size. After discussing with the patient, ultrasound-guided therapeutic paracentesis is not performed after discussing with the patient. IMPRESSION: There is a yhscf-wp-oyalznxr amount of ascites. Ultrasound-guided therapeutic paracentesis is not performed today. Dictated by: Alon Velasquez M.D. on 04/14/2023 at 15:24 Approved by: Alon Velasquez M.D. on 04/14/2023 at 15:26
== END ==
PROVIDERS: PCP Internal Medicine; Referring Provider Internal Medicine; Visit Provider Internal Medicine
DX: K70.31 Alcoholic cirrhosis of liver with ascites (principal)
CPT/HCPCS: 76705

== ENCOUNTER → 2023-04-17 07:46 | Outpatient (CLI) | payer OTHER, MEDICAID, SELFPAY ==
[2022-06-13 18:42] VITALS: BMI 22.8
--- NOTE | 2023-04-17 | DI.US.S_ITS ---
PROCEDURE: US PARACENTESIS INDICATIONS: ASCITES TECHNIQUE: The indications, alternatives, benefits, risks, and complications of the procedure were explained to the patient. Written informed consent was obtained and placed in the chart. The abdomen and pelvis were examined sonographically, and an appropriate site was chosen for paracentesis. The skin was prepared and draped in the usual sterile fashion, and 1% lidocaine was infiltrated from the skin down through the peritoneal surface. A 19-gauge catheter-covered needle was then introduced into the peritoneal space, the catheter was advanced and the needle was withdrawn, and thereafter peritoneal fluid was withdrawn. The catheter was then removed and a dressing was applied. The fluid was discarded if the clinician did not order diagnostic testing of the fluid. COMPARISON: [facility], PARACENTESIS, 04/07/2023, 10:06. [facility], PARACENTESIS, 04/03/2023, 8:06. [facility], PARACENTESIS, 03/31/2023, 12:52. [facility], PARACENTESIS, 03/27/2023, 8:10. FINDINGS: Access site: Left lower quadrant Needle: One-Step centesis catheter with introducer needle. Fluid volume and description: 5000 cc of mariajose fluid Fluid sent for diagnostic testing: No Medications: 1% lidocaine for local anaesthesia. Complications: None. IMPRESSION: Successful ultrasound-guided paracentesis. Dictated by: Radha Zuniga M.D. on 04/17/2023 at 16:25 Approved by: Radha Zuniga M.D. on 04/17/2023 at 16:25
== END ==
PROVIDERS: PCP Internal Medicine; Referring Provider Internal Medicine; Visit Provider Internal Medicine
DX: K70.31 Alcoholic cirrhosis of liver with ascites (principal)
CPT/HCPCS: 49083

== ENCOUNTER → 2023-04-21 14:15 | Outpatient (CLI) | payer OTHER, MEDICAID, SELFPAY ==
[2022-06-13 18:42] VITALS: BMI 22.8
--- NOTE | 2023-04-21 | DI.US.S_ITS ---
PROCEDURE: US PARACENTESIS INDICATIONS: Alcoholic cirrhosis of liver with ascites TECHNIQUE: The indications, alternatives, benefits, risks, and complications of the procedure were explained to the patient. Written informed consent was obtained and placed in the chart. The abdomen and pelvis were examined sonographically, and an appropriate site was chosen for paracentesis. The skin was prepared and draped in the usual sterile fashion, and 1% lidocaine was infiltrated from the skin down through the peritoneal surface. A 19-gauge catheter-covered needle was then introduced into the peritoneal space, the catheter was advanced and the needle was withdrawn, and thereafter peritoneal fluid was withdrawn. The catheter was then removed and a dressing was applied. The fluid was discarded if the clinician did not order diagnostic testing of the fluid. COMPARISON: [facility], PARACENTESIS, 04/17/2023, 8:05. FINDINGS: Access site: Left lower abdominal wall. Needle: One-Step centesis catheter with introducer needle. Fluid volume and description: 4.4 L clear, yellow fluid. Fluid sent for diagnostic testing: No Medications: 1% lidocaine for local anaesthesia. Complications: None. IMPRESSION: Successful ultrasound-guided paracentesis. Dictated by: Moris Davila M.D. on 04/21/2023 at 17:03 Approved by: Moris Davila M.D. on 04/21/2023 at 17:03
== END ==
PROVIDERS: PCP Internal Medicine; Referring Provider Internal Medicine; Visit Provider Internal Medicine
DX: K70.31 Alcoholic cirrhosis of liver with ascites (principal)
CPT/HCPCS: 49083

== ENCOUNTER → 2023-04-28 10:18 | Outpatient (CLI) | payer OTHER, MEDICAID, SELFPAY ==
[2022-06-13 18:42] VITALS: BMI 22.8
--- NOTE | 2023-04-28 10:19 | DI.US.S_ITS ---
PROCEDURE: US PARACENTESIS INDICATIONS: Alcoholic cirrhosis of liver with ascites TECHNIQUE: The indications, alternatives, benefits, risks, and complications of the procedure were explained to the patient. Written informed consent was obtained and placed in the chart. The abdomen and pelvis were examined sonographically, and an appropriate site was chosen for paracentesis. The skin was prepared and draped in the usual sterile fashion, and 1% lidocaine was infiltrated from the skin down through the peritoneal surface. A 19-gauge catheter-covered needle was then introduced into the peritoneal space, the catheter was advanced and the needle was withdrawn, and thereafter peritoneal fluid was withdrawn. The catheter was then removed and a dressing was applied. The fluid was discarded if the clinician did not order diagnostic testing of the fluid. COMPARISON: [facility], , PARACENTESIS, 04/21/2023, 14:34. FINDINGS: Access site: Left lower quadrant Needle: One-Step centesis catheter with introducer needle. Fluid volume and description: 4100 milliliter straw-colored clear fluid. Fluid sent for diagnostic testing: No Medications: 1% lidocaine for local anaesthesia. Complications: None. IMPRESSION: Successful ultrasound-guided paracentesis. Dictated by: Moris Davila M.D. on 04/29/2023 at 12:03 Approved by: Moris Davila M.D. on 04/29/2023 at 12:05
== END ==
PROVIDERS: PCP Internal Medicine; Referring Provider Internal Medicine; Visit Provider Internal Medicine
DX: K70.31 Alcoholic cirrhosis of liver with ascites (principal)
CPT/HCPCS: 49083

== ENCOUNTER → 2023-05-01 10:15 | Outpatient (CLI) | payer OTHER, MEDICAID, SELFPAY ==
[2022-06-13 18:42] VITALS: BMI 22.8
--- NOTE | 2023-05-01 | DI.US.S_ITS ---
PROCEDURE: US ABDOMEN LIMITED INDICATIONS: CIRRHOSIS OF LIVER WITH ASCITES TECHNIQUE: Real-time focused scanning was performed of the abdomen, with image documentation. COMPARISON: [facility], , US ABDOMEN LIMITED, 04/14/2023, 7:54. FINDINGS: Multiple grayscale and color Doppler images of the abdomen were acquired to evaluate for adequate amount of ascites for therapeutic paracentesis. There is a small amount of fluid in the right lower quadrant but demonstrated multiple closely positioned loops of bowel. Given history of recent therapeutic paracentesis 3 days prior and patient not experiencing any clinical symptoms, ultrasound-guided paracentesis was not performed. The patient is scheduled to return for re-evaluation for paracentesis in approximately 4 days. IMPRESSION: Abdominal ascites. Insufficient amount visualized for therapeutic paracentesis. Patient will return in a few days to re-evaluate if there is adequate amount of ascites for therapeutic paracentesis at that time. Dictated by: Larry Roche M.D. on 05/01/2023 at 12:09 Approved by: Larry Roche M.D. on 05/01/2023 at 12:12
== END ==
PROVIDERS: PCP Internal Medicine; Referring Provider Internal Medicine; Visit Provider Internal Medicine
DX: K70.31 Alcoholic cirrhosis of liver with ascites (principal)
CPT/HCPCS: 76705

== ENCOUNTER → 2023-05-05 10:13 | Outpatient (CLI) | payer OTHER, MEDICAID, SELFPAY ==
[2022-06-13 18:42] VITALS: BMI 22.8
--- NOTE | 2023-05-05 | DI.US.S_ITS ---
PROCEDURE: US PARACENTESIS INDICATIONS: Alcoholic cirrhosis of liver with ascites TECHNIQUE: The indications, alternatives, benefits, risks, and complications of the procedure were explained to the patient. Written informed consent was obtained and placed in the chart. The abdomen and pelvis were examined sonographically, and an appropriate site was chosen for paracentesis. The skin was prepared and draped in the usual sterile fashion, and 1% lidocaine was infiltrated from the skin down through the peritoneal surface. A 19-gauge catheter-covered needle was then introduced into the peritoneal space, the catheter was advanced and the needle was withdrawn, and thereafter peritoneal fluid was withdrawn. The catheter was then removed and a dressing was applied. The fluid was discarded if the clinician did not order diagnostic testing of the fluid. COMPARISON: [facility], PARACENTESIS, 04/28/2023, 10:27. FINDINGS: Access site: Right lower quadrant Needle: One-Step centesis catheter with introducer needle. Fluid volume and description: 3900 mL Fluid sent for diagnostic testing: Therapeutic only, fluid not sent for testing Medications: 1% lidocaine for local anaesthesia. Complications: None. IMPRESSION: Successful ultrasound-guided paracentesis. Dictated by: Chi Rao M.D. on 05/06/2023 at 13:31 Approved by: Chi Rao M.D. on 05/06/2023 at 13:31
== END ==
PROVIDERS: PCP Internal Medicine; Referring Provider Internal Medicine; Visit Provider Internal Medicine
DX: K70.31 Alcoholic cirrhosis of liver with ascites (principal)
CPT/HCPCS: 49083

== ENCOUNTER → 2023-05-08 10:03 | Outpatient (CLI) | payer OTHER, MEDICAID, SELFPAY ==
[2022-06-13 18:42] VITALS: BMI 22.8
--- NOTE | 2023-05-08 | DI.US.S_ITS ---
PROCEDURE: US ABDOMEN LIMITED INDICATIONS: ASCITES TECHNIQUE: Real-time scanning was performed of the abdominal, with image documentation. COMPARISON: [facility], US PARACENTESIS, 05/05/2023, 10:23. [facility], US ABDOMEN LIMITED, 05/01/2023, 10:33. FINDINGS: There is a small amount ascites. IMPRESSION: Small amount of ascites. Patient reports mild abdominal distension. Decision was made to postpone paracentesis until more fluid accumulates. Consider increasing the interval for scheduled paracenteses. Dictated by: James Zapata M.D. on 05/08/2023 at 13:04 Approved by: James Zapata M.D. on 05/08/2023 at 13:05
== END ==
PROVIDERS: PCP Internal Medicine; Referring Provider Internal Medicine; Visit Provider Internal Medicine
DX: K70.31 Alcoholic cirrhosis of liver with ascites (principal)
CPT/HCPCS: 76705

== ENCOUNTER → 2023-05-15 10:19 | Outpatient (CLI) | payer OTHER, MEDICAID, SELFPAY ==
[2022-06-13 18:42] VITALS: BMI 22.8
--- NOTE | 2023-05-15 | DI.US.S_ITS ---
PROCEDURE: US PARACENTESIS INDICATIONS: ASCITIES TECHNIQUE: The indications, alternatives, benefits, risks, and complications of the procedure were explained to the patient. Written informed consent was obtained and placed in the chart. The abdomen and pelvis were examined sonographically, and an appropriate site was chosen for paracentesis. The skin was prepared and draped in the usual sterile fashion, and 1% lidocaine was infiltrated from the skin down through the peritoneal surface. A 19-gauge catheter-covered needle was then introduced into the peritoneal space, the catheter was advanced and the needle was withdrawn, and thereafter peritoneal fluid was withdrawn. The catheter was then removed and a dressing was applied. The fluid was discarded if the clinician did not order diagnostic testing of the fluid. COMPARISON: [facility], PARACENTESIS, 05/05/2023, 10:23. FINDINGS: Access site: Right lower quadrant Needle: One-Step centesis catheter with introducer needle. Fluid volume and description: 5000 cc, straw-colored Fluid sent for diagnostic testing: None. Medications: 1% lidocaine for local anaesthesia. Complications: None. IMPRESSION: Successful ultrasound-guided paracentesis. 5 L removed. Dictated by: James Zapata M.D. on 05/15/2023 at 17:06 Approved by: James Zapata M.D. on 05/15/2023 at 17:07
== END ==
PROVIDERS: PCP Internal Medicine; Referring Provider Internal Medicine; Visit Provider Internal Medicine
DX: K70.31 Alcoholic cirrhosis of liver with ascites (principal)
CPT/HCPCS: 49083

== ENCOUNTER → 2023-05-21 12:22 | Outpatient (CLI) | payer OTHER, MEDICAID, SELFPAY ==
[2022-06-13 18:42] VITALS: BMI 22.8
[2023-05-21 12:38] LABS: Add Manual Diff / Slide Review NO; Basophils Absolute Auto 0 /uL (0-100); Basophils Percent Auto 1.2 % (0-2); Eosinophils Absolute Auto 200 /uL (0-450); Eosinophils Percent Auto 7.1 % (2-4); Hematocrit 26.3 % (41-53); Hemoglobin 9.1 g/dL (13.5-17.5); Lymphocytes Absolute Auto 600 /uL (1100-4500); Lymphocytes Percent Auto 20.4 % (25-40); Mean Corpuscular HGB Conc 34.7 % (30-36); Mean Corpuscular Hemoglobin 30.4 PG (26-34); Mean Corpuscular Volume 87.6 fL (80-100); Monocytes Absolute Auto 200 /uL (0-900); Monocytes Percent Auto 7.4 % (3-14); Neutrophils Absolute Auto 1700 /uL (1500-7000); Neutrophils Percent Auto 63.9 % (50-75); Platelet Count 117 X10^3/uL (150-400); Red Blood Cell Count 3.01 X10^6/uL (4.5-5.9); Red Cell Distribution Width 14.4 % (11.6-14.8); White Blood Cell Count 2.7 X10^3/uL (4.5-11.0)
[2023-05-21 12:46] LABS: INR 1.1 (0.9-1.3); Prothrombin Time 12.3 SECONDS (10.1-12.7)
== END ==
PROVIDERS: PCP Internal Medicine; Referring Provider Internal Medicine; Visit Provider Internal Medicine
DX: K70.31 Alcoholic cirrhosis of liver with ascites (principal)
CPT/HCPCS: 36415; 85025; 85610

== ENCOUNTER → 2023-05-22 10:15 | Outpatient (CLI) | payer OTHER, MEDICAID, SELFPAY ==
[2022-06-13 18:42] VITALS: BMI 22.8
--- NOTE | 2023-05-22 | DI.US.S_ITS ---
PROCEDURE: US PARACENTESIS INDICATIONS: ALCOHOLIC CIRRHOSIS OF THE LIVER TECHNIQUE: The indications, alternatives, benefits, risks, and complications of the procedure were explained to the patient. Written informed consent was obtained and placed in the chart. The abdomen and pelvis were examined sonographically, and an appropriate site was chosen for paracentesis. The skin was prepared and draped in the usual sterile fashion, and 1% lidocaine was infiltrated from the skin down through the peritoneal surface. A 19-gauge catheter-covered needle was then introduced into the peritoneal space, the catheter was advanced and the needle was withdrawn, and thereafter peritoneal fluid was withdrawn. The catheter was then removed and a dressing was applied. The fluid was discarded if the clinician did not order diagnostic testing of the fluid. COMPARISON: [facility], , ABDOMEN LIMITED, 05/08/2023, 10:26. [facility], US PARACENTESIS, 05/05/2023, 10:23. FINDINGS: Access site: Right lower quadrant Needle: One-Step centesis catheter with introducer needle. Fluid volume and description: 4400 mL; clear. Fluid sent for diagnostic testing: Not requested. Medications: 1% lidocaine for local anaesthesia. Complications: None. IMPRESSION: Successful ultrasound-guided paracentesis. Dictated by: Alon Velasquez M.D. on 05/22/2023 at 13:04 Approved by: Alon Velasquez M.D. on 05/22/2023 at 13:05
== END ==
PROVIDERS: PCP Internal Medicine; Referring Provider Internal Medicine; Visit Provider Internal Medicine
DX: K70.31 Alcoholic cirrhosis of liver with ascites (principal)
CPT/HCPCS: 49083

== ENCOUNTER → 2023-05-29 10:19 | Outpatient (CLI) | payer OTHER, MEDICAID, SELFPAY ==
[2022-06-13 18:42] VITALS: BMI 22.8
--- NOTE | 2023-05-29 | DI.US.S_ITS ---
PROCEDURE: US PARACENTESIS INDICATIONS: Alcoholic cirrhosis of liver with ascites TECHNIQUE: The indications, alternatives, benefits, risks, and complications of the procedure were explained to the patient. Written informed consent was obtained and placed in the chart. The abdomen and pelvis were examined sonographically, and an appropriate site was chosen for paracentesis. The skin was prepared and draped in the usual sterile fashion, and 1% lidocaine was infiltrated from the skin down through the peritoneal surface. A 19-gauge catheter-covered needle was then introduced into the peritoneal space, the catheter was advanced and the needle was withdrawn, and thereafter peritoneal fluid was withdrawn. The catheter was then removed and a dressing was applied. The fluid was discarded if the clinician did not order diagnostic testing of the fluid. COMPARISON: [facility], PARACENTESIS, 05/22/2023, 10:30. [facility], PARACENTESIS, 05/15/2023, 10:32. FINDINGS: Access site: Right lower quadrant Needle: One-Step centesis catheter with introducer needle. Fluid volume and description: Clear, red tinged. 4950 cc Fluid sent for diagnostic testing: No Medications: 1% lidocaine for local anaesthesia. Complications: None. IMPRESSION: Successful ultrasound-guided paracentesis. Dictated by: Keesha English M.D. on 05/29/2023 at 15:07 Approved by: Keesha English M.D. on 05/29/2023 at 15:08
== END ==
PROVIDERS: PCP Internal Medicine; Referring Provider Internal Medicine; Visit Provider Internal Medicine
DX: K70.31 Alcoholic cirrhosis of liver with ascites (principal)
CPT/HCPCS: 49083

== ENCOUNTER → 2023-06-05 10:13 | Outpatient (CLI) | payer OTHER, MEDICAID, SELFPAY ==
[2022-06-13 18:42] VITALS: BMI 22.8
--- NOTE | 2023-06-05 | DI.US.S_ITS ---
PROCEDURE: US PARACENTESIS INDICATIONS: Alcoholic cirrhosis of liver with ascites TECHNIQUE: The indications, alternatives, benefits, risks, and complications of the procedure were explained to the patient. Written informed consent was obtained and placed in the chart. The abdomen and pelvis were examined sonographically, and an appropriate site was chosen for paracentesis. The skin was prepared and draped in the usual sterile fashion, and 1% lidocaine was infiltrated from the skin down through the peritoneal surface. A 19-gauge catheter-covered needle was then introduced into the peritoneal space, the catheter was advanced and the needle was withdrawn, and thereafter peritoneal fluid was withdrawn. The catheter was then removed and a dressing was applied. The fluid was discarded if the clinician did not order diagnostic testing of the fluid. COMPARISON: [facility], , PARACENTESIS, 05/29/2023, 10:27. FINDINGS: Access site: Right lower quadrant Needle: One-Step centesis catheter with introducer needle. Fluid volume and description: 5 liters serosanguineous Fluid sent for diagnostic testing: No Medications: 1% lidocaine for local anaesthesia. Complications: None. IMPRESSION: Successful ultrasound-guided paracentesis. Dictated by: Jarad Gan M.D. on 06/05/2023 at 11:17 Approved by: Jarad Gan M.D. on 06/05/2023 at 11:22
== END ==
PROVIDERS: PCP Internal Medicine; Referring Provider Internal Medicine; Visit Provider Internal Medicine
DX: K70.31 Alcoholic cirrhosis of liver with ascites (principal)
CPT/HCPCS: 49083

== ENCOUNTER → 2023-06-18 11:41 | Outpatient (CLI) | payer OTHER, MEDICAID, SELFPAY ==
[2022-06-13 18:42] VITALS: BMI 22.8
[2023-06-18 12:37] LABS: Hemoglobin 9.1 g/dL (13.5-17.5)
[2023-06-18 13:07] LABS: BUN Creatinine Ratio 20.2 (6-22); Blood Urea Nitrogen 35 mg/dL (9-20); Calcium 8.7 mg/dL (8.4-10.2); Carbon Dioxide 19 mmol/L (22-32); Chloride 99 mmol/L (98-107); Estimated Glomerular Filt Rate 44 mL/min (>60); Glucose 99 mg/dL (80-110); HEMOLYSIS < 15 (0-50); Potassium 4.5 mmol/L (3.4-5.1); Sodium 132 mmol/L (137-145)
== END ==
PROVIDERS: Internal Medicine Nephrology; PCP Internal Medicine; Referring Provider Internal Medicine; Visit Provider Internal Medicine
DX: N18.31 Chronic kidney disease, stage 3a (principal); I10 Essential (primary) hypertension; K76.7 Hepatorenal syndrome; D64.9 Anemia, unspecified
CPT/HCPCS: 36415; 80048; 85014; 85018

== ENCOUNTER → 2023-06-19 10:40 | Outpatient (CLI) | payer OTHER, MEDICAID, SELFPAY ==
[2022-06-13 18:42] VITALS: BMI 22.8
--- NOTE | 2023-06-19 | DI.US.S_ITS ---
PROCEDURE: US PARACENTESIS INDICATIONS: ASCITES TECHNIQUE: The indications, alternatives, benefits, risks, and complications of the procedure were explained to the patient. Written informed consent was obtained and placed in the chart. The abdomen and pelvis were examined sonographically, and an appropriate site was chosen for paracentesis. The skin was prepared and draped in the usual sterile fashion, and 1% lidocaine was infiltrated from the skin down through the peritoneal surface. A 19-gauge catheter-covered needle was then introduced into the peritoneal space, the catheter was advanced and the needle was withdrawn, and thereafter peritoneal fluid was withdrawn. The catheter was then removed and a dressing was applied. The fluid was discarded if the clinician did not order diagnostic testing of the fluid. COMPARISON: [facility], PARACENTESIS, 06/05/2023, 10:27. FINDINGS: Access site: Left lower quadrant Needle: One-Step centesis catheter with introducer needle. Fluid volume and description: Clear, red fluid Fluid sent for diagnostic testing: No Medications: 1% lidocaine for local anaesthesia. Complications: None. In the right lower quadrant there is a hematoma measuring 12.8 x 9.3 x 2.7 centimeters with minimal vascularity in the inferior portion. This is at the site of paracentesis 2 weeks prior. IMPRESSION: 1. Successful ultrasound-guided paracentesis. 2. Hematoma within the right lower quadrant in the region of prior paracentesis. Recommend re-evaluation on subsequent paracentesis. Dictated by: Jarad Gan M.D. on 06/19/2023 at 12:16 Approved by: Jarad Gan M.D. on 06/19/2023 at 12:19
== END ==
PROVIDERS: PCP Internal Medicine; Referring Provider Internal Medicine; Visit Provider Internal Medicine
DX: K70.31 Alcoholic cirrhosis of liver with ascites (principal); K91.870 Postprocedural hematoma of a digestive system organ or structure following a digestive system procedure
CPT/HCPCS: 49083

== ENCOUNTER → 2023-06-25 08:02 | Outpatient (CLI) | payer OTHER, MEDICAID, SELFPAY ==
[2022-06-13 18:42] VITALS: BMI 22.8
--- NOTE | 2023-06-25 08:07 | DI.US.S_ITS ---
PROCEDURE: US PARACENTESIS INDICATIONS: Alcoholic cirrhosis of liver with ascites TECHNIQUE: The indications, alternatives, benefits, risks, and complications of the procedure were explained to the patient. Written informed consent was obtained and placed in the chart. The abdomen and pelvis were examined sonographically, and an appropriate site was chosen for paracentesis. The skin was prepared and draped in the usual sterile fashion, and 1% lidocaine was infiltrated from the skin down through the peritoneal surface. A 19-gauge catheter-covered needle was then introduced into the peritoneal space, the catheter was advanced and the needle was withdrawn, and thereafter peritoneal fluid was withdrawn. The catheter was then removed and a dressing was applied. The fluid was discarded if the clinician did not order diagnostic testing of the fluid. COMPARISON: [facility], , PARACENTESIS, 06/05/2023, 10:27. FINDINGS: Access site: Left lower quadrant Needle: One-Step centesis catheter with introducer needle. Fluid volume and description: 4 solid and 450 mL, slightly blood-tinged Fluid sent for diagnostic testing: Not requested. Medications: 1% lidocaine for local anaesthesia. Complications: None. In the right anterior abdominal wall, there is a elliptical shaped complex fluid measuring 7.7 x 6.6 x 2.3 cm, compatible with a subcutaneous hematoma. Previously, it measured 12.8 x 9.3 x 2.7 cm. IMPRESSION: 1. Successful ultrasound-guided paracentesis. 2. Decrease in size of subcutaneous hematoma in the right anterior abdominal wall. Dictated by: Alon Velasquez M.D. on 06/25/2023 at 16:07 Approved by: Alon Velasquez M.D. on 06/25/2023 at 16:09
[2023-06-25 09:02] LABS: Hematocrit 28.1 % (41-53)
[2023-06-25 09:15] LABS: INR 1.1 (0.9-1.3); Prothrombin Time 12.2 SECONDS (9.4-12.5)
== END ==
PROVIDERS: PCP Internal Medicine; Referring Provider Internal Medicine; Visit Provider Internal Medicine
DX: K70.31 Alcoholic cirrhosis of liver with ascites (principal)
CPT/HCPCS: 36415; 49083; 85014; 85610

== ENCOUNTER → 2023-07-03 08:42 | Outpatient (CLI) | payer OTHER, MEDICAID, SELFPAY ==
[2022-06-13 18:42] VITALS: BMI 22.8
--- NOTE | 2023-07-03 | DI.US.S_ITS ---
PROCEDURE: US PARACENTESIS INDICATIONS: ASCITES TECHNIQUE: The indications, alternatives, benefits, risks, and complications of the procedure were explained to the patient. Written informed consent was obtained and placed in the chart. The abdomen and pelvis were examined sonographically, and an appropriate site was chosen for paracentesis. The skin was prepared and draped in the usual sterile fashion, and 1% lidocaine was infiltrated from the skin down through the peritoneal surface. A 19-gauge catheter-covered needle was then introduced into the peritoneal space, the catheter was advanced and the needle was withdrawn, and thereafter peritoneal fluid was withdrawn. The catheter was then removed and a dressing was applied. The fluid was discarded if the clinician did not order diagnostic testing of the fluid. COMPARISON: [facility], PARACENTESIS, 06/25/2023, 9:41. FINDINGS: Access site: Left lower quadrant Needle: One-Step centesis catheter with introducer needle. Fluid volume and description: Alaina Fluid sent for diagnostic testin cc Medications: 1% lidocaine for local anaesthesia. Complications: None. Right abdominal wall fluid collection measuring 6.8 x 5.6 x 1.2 cm, estimated volume of 24 cc. (Previously measured 7.7 x 6.6 x 2.3 cm, estimated volume of 61 cc). No internal vascularity. IMPRESSION: Successful ultrasound-guided paracentesis. 4.7 L removed. Right abdominal wall fluid collection measuring 6.8 cm, estimated volume of 24 cc is decreased in size. Dictated by: James Zapata M.D. on 07/03/2023 at 15:02 Approved by: James Zapata M.D. on 07/03/2023 at 15:05
== END ==
PROVIDERS: PCP Internal Medicine; Referring Provider Internal Medicine; Visit Provider Internal Medicine
DX: K70.31 Alcoholic cirrhosis of liver with ascites (principal)
CPT/HCPCS: 49083

== ENCOUNTER → 2023-07-10 10:03 | Outpatient (CLI) | payer OTHER, MEDICAID, SELFPAY ==
[2022-06-13 18:42] VITALS: BMI 22.8
--- NOTE | 2023-07-10 | DI.US.S_ITS ---
PROCEDURE: US PARACENTESIS INDICATIONS: Alcoholic cirrhosis of liver with ascites TECHNIQUE: The indications, alternatives, benefits, risks, and complications of the procedure were explained to the patient. Written informed consent was obtained and placed in the chart. The abdomen and pelvis were examined sonographically, and an appropriate site was chosen for paracentesis. The skin was prepared and draped in the usual sterile fashion, and 1% lidocaine was infiltrated from the skin down through the peritoneal surface. A 19-gauge catheter-covered needle was then introduced into the peritoneal space, the catheter was advanced and the needle was withdrawn, and thereafter peritoneal fluid was withdrawn. The catheter was then removed and a dressing was applied. The fluid was discarded if the clinician did not order diagnostic testing of the fluid. COMPARISON: [facility], , PARACENTESIS, 07/03/2023, 9:02. FINDINGS: Access site: Right lower quadrant. Moderate volume of ascites. Needle: One-Step centesis catheter with introducer needle. Fluid volume and description: Straw-colored. 4100 cc. Fluid sent for diagnostic testing: None. Medications: 1% lidocaine for local anaesthesia. Complications: None. Right lower abdominal fluid collection measuring 5.2 x 4.6 x 1.2 cm. (Previously 6.8 x 5.6 x 1.2 cm). No internal vascularity. IMPRESSION: Successful ultrasound-guided therapeutic paracentesis. 4.1 L removed. Right lower abdominal wall fluid collection measuring 5.2 cm is mildly decreased in size. Dictated by: James Zapata M.D. on 07/10/2023 at 13:09 Approved by: James Zapata M.D. on 07/10/2023 at 13:11
== END ==
PROVIDERS: PCP Internal Medicine; Referring Provider Internal Medicine; Visit Provider Internal Medicine
DX: K70.31 Alcoholic cirrhosis of liver with ascites (principal)
CPT/HCPCS: 49083

== ENCOUNTER 2023-07-12 08:26 | Emergency (ER) | payer OTHER, MEDICAID, SELFPAY ==
[2022-06-13 18:42] VITALS: BMI 22.8
[2023-07-12 08:30] VITALS: BP 168/81; PULSE 86; RESP 18; TEMP 36.6; O2SAT 98; BMI 26.8
--- NOTE | 2023-07-12 09:00 | ED.RECABL ---
HPI - Recheck/Abnormal Lab/Rx General Chief Complaint: Recheck/Abnormal Lab/Rx Stated Complaint: had paracentesis 07/10, drainage Time Seen by Provider: 07/12/23 08:45 History of Present Illness HPI narrative: Patient here for ascites leak from paracentesis site that was done 2 days ago, interventional radiology at this facility. No fever chills no abdominal pain. Patient has history of alcoholic cirrhosis. He was getting twice a week outpatient paracentesis. He has improved and now it is only once a week. He has not had ascites leak in the past. He has in no distress. Denies any pain. He states he had 4-1/2 L removed 2 days ago. He has been changing bandages frequently. No blood or pus from the site. No erythema Related Data Home Medications Medication Instructions Recorded Confirmed spironolactone 25 mg tablet 12.5 mg PO QPM 09/25/22 06/26/23 torsemide 20 mg tablet 40 mg PO QAM 09/25/22 06/26/23 Previous Rx's Medication Instructions Recorded cyanocobalamin (vitamin B-12) 1,000 mcg PO DAILY #90 tabs 04/25/22 1,000 mcg tablet folic acid 1 mg tablet 1 mg PO DAILY #90 tabs 04/25/22 levothyroxine 75 mcg tablet 75 mcg PO DAILY #90 tabs 02/23/23 quetiapine 300 mg tablet,extended 450 mg (1.5 x 300 mg) PO BID #270 04/10/23 release 24 hr (Seroquel XR) tabs trazodone 100 mg tablet 300 mg (3 x 100 mg) PO HS #90 tabs 04/10/23 atorvastatin 20 mg tablet 20 mg PO BEDTIME #90 tabs 04/13/23 Allergies Allergy/AdvReac Type Severity Reaction Status Date / Time No Known Drug Allergies Allergy Verified 06/26/23 15:34 Review of Systems Review of Systems Narrative: GENERAL: negative chills, fatigue, malaise, fever, sweats. HEENT: negative sinus pain, ear pain, sore throat RESPIRATORY: negative dyspnea, cough CARDIOVASCULAR: negative chest pain, palpitations GASTROINTESTINAL: negative nausea, vomiting, abdominal pain : negative dysuria, frequency, hematuria MUSCULOSKELETAL: negative muscle or bony pain SKIN: negative rash, skin lesions NEUROLOGIC: negative weakness, numbness ROS Unobtainable: All systems reviewed & are unremarkable except as noted in HPI and below Patient History Medical History Anemia in chronic kidney disease Chronic renal failure, stage 3 (moderate) Hernia, umbilical Gout Hearing loss Anxiety Bipolar disorder (2007) Depression (2008) Hypothyroidism (09/30/17) Hyperlipidemia Obesity Essential hypertension Surgical History H/O hernia repair Status post colonoscopy Family History Father Age: 90 History of stroke History of cancer Prostate cancer Social History household members: none Smoking Status: Never smoker second hand exposure: No alcohol intake: current substance use type: former substance user Smoking Status: Never smoker alcohol intake frequency: 0-2 drinks per day Alcohol type: beer Substance Use Type: does not use Exam Narrative Exam Narrative: GENERAL: in no distress, not toxic not dyspneic HEAD: Normocephalic. EYES: Pupils equal round ENT: Mucous membranes moist. NECK: Trachea midline. CARDIOVASCULAR: Regular rate and rhythm RESPIRATORY: Clear to auscultation. Breath sounds equal bilaterally. No wheezes, rales, or rhonchi. GASTROINTESTINAL: Abdomen soft, non-tender. Mild distention of the abdomen. It is soft nontender. Small puncture site in the right side abdomen with very very slow ascites leak. Clear fluid. No pus no blood. No peritoneal signs. No induration or erythema. Bowel insert present. EXTREMITIES: No gross deformities. BACK: No flank tenderness. NEURO: AOx4. SKIN: Warm and dry PSYCH: Not anxious, is cooperative Initial Vital Signs Initial Vital Signs: Vital Signs Temperature 97.9 F 07/12/23 08:30 Pulse Rate 86 07/12/23 08:30 Respiratory Rate 18 07/12/23 08:30 Blood Pressure 168/81 H 07/12/23 08:30 Pulse Oximetry 98 07/12/23 08:30 Oxygen Delivery Method Room Air 07/12/23 08:30 Course Vital Signs Vital signs: Vital Signs - 8 hr 07/12/23 08:30 Temperature 97.9 F Pulse Rate 86 Respiratory Rate 18 Blood Pressure 168/81 H Pulse Oximetry 98 Oxygen Delivery Method Room Air MDM - Recheck/Abnormal Lab/Rx MDM Narrative Medical decision making narrative: Patient here for ascites leak from paracentesis site that was done 2 days ago, interventional radiology at this facility. No fever chills no abdominal pain. Patient has history of alcoholic cirrhosis. He was getting twice a week outpatient paracentesis. He has improved and now it is only once a week. He has not had ascites leak in the past. He has in no distress. Denies any pain. He states he had 4-1/2 L removed 2 days ago. He has been changing bandages frequently. No blood or pus from the site. No erythema After history and exam consult to General surgery. No laboratory studies indicate this time. No fever no pain. Abdominal exam is reassuring. [facility] [place] CC: Fluid leak Complicating co-morbidities: Alcohol cirrhosis Data collected from: Patient Medical records reviewed: Office notes from Dr. Silver this past month Differential considered: Includes but not limited to peritonitis, puncture site leak Exam documented above, pertinent findings include: Clear fluid from puncture site Consultations: 9:00 a.m.. Spoke with General surgery, Dr. Bey. Reasonable plan at this time is apply ostomy bag until family doctor can arrange more frequent paracentesis weekly to give the puncture site to heal. Patient has low volume ascites at this time since he just had drainage 2 days ago. It would be difficult to try to drain from the left side to reduce pressure. However patient states his abdominal distention is much less. It would be difficult due obtain fluid from the left side. There would be risk for complications. 9:[address] Koo, on-call for primary care Dr. Silver, agrees with treatment plan. He will inform Dr. Silver on Thursday as tomorrow is a holiday, day, office is closed, to increase paracentesis this week. This will help the right side puncture site heal. Treatments: Ostomy bag Re-evaluations: Reviewed my discussion with patient with primary care and general surgeon with patient. He agrees with treatment plan. He does understand the mechanism of treatment plan to increase paracentesis week to help the right side heal. He is comfortable with ostomy bag. He knows how to change it. Return precautions reviewed. He desires discharge home Discussion: Appropriate for discharge home. No laboratory studies indicated this time. Patient is not toxic dyspneic feverish or any abdominal pain. Return precautions reviewed. He is comfortable with managing ostomy bag until Thursday. He understands will need more frequent paracentesis to help the right side heal. Return precautions reviewed. Nontoxic at discharge. He desires discharge home Diagnosis: Paracentesis leak Discharge Plan Departure Patient Disposition: Home Clinical Impression: Complication of procedure Qualifiers: Encounter type: initial encounter Qualified Code(s): T81.9XXA - Unspecified complication of procedure, initial encounter Instructions: DI for Ascites, DI for Abdominal Paracentesis Activity Restrictions/Additional Instructions: Please change ostomy bag as needed when it feels up. We have reviewed with the treatment plan for the ascites leak. You will need to contact Dr. Silver this Thursday as tomorrow is a holiday, in order to increase your paracentesis this week to allow the puncture site on the right side to resolve. Paracentesis should be done on the left side. No laboratory studies or radiographs are indicated today. Your primary care provider on-call has been contacted today and is aware. We have reviewed with general surgery as well. Return if worse if any questions or concerns. Prescriptions: No Action levothyroxine 75 mcg tablet 75 mcg PO DAILY Qty: 90 3RF Rx Instructions: Take one tablet daily. atorvastatin 20 mg tablet 20 mg PO BEDTIME Qty: 90 3RF folic acid 1 mg tablet 1 mg PO DAILY Qty: 90 3RF cyanocobalamin (vitamin B-12) 1,000 mcg tablet 1,000 mcg PO DAILY Qty: 90 3RF spironolactone 25 mg tablet 12.5 mg PO QPM torsemide 20 mg tablet 40 mg PO QAM trazodone 100 mg tablet 300 mg PO HS Qty: 90 6RF quetiapine [Seroquel XR] 300 mg tablet extended release 24 hr 450 mg PO BID Qty: 270 6RF Referrals: Neil Silver MD [Primary Care Provider] - Stand Alone Forms: Patient Portal/API
[2023-07-12 09:03] VITALS: PULSE 78; RESP 15; O2SAT 97
--- NOTE | 2023-07-12 09:33 | CM.MNRNOTE ---
placed a urostomy bag / wafer over paracentesis site. instructed patient how to drain the fluid from his bag. the ascites leak is on his right side of abdomen
== END 2023-07-12 09:36 | disposition home or self-care (01) ==
PROVIDERS: Emergency Provider Emergency Medicine; PCP Internal Medicine
DX: T81.9XXA Unspecified complication of procedure, initial encounter (principal); R18.8 Other ascites
CPT/HCPCS: 99281

== ENCOUNTER → 2023-07-14 13:41 | Outpatient (CLI) | payer OTHER, MEDICAID, SELFPAY ==
[2022-06-13 18:42] VITALS: BMI 22.8
--- NOTE | 2023-07-14 | DI.US.S_ITS ---
PROCEDURE: US ABDOMEN LIMITED INDICATIONS: ASCITES TECHNIQUE: Real-time scanning was performed of the abdominal and retroperitoneal organs, with image documentation. COMPARISON: [facility], , US PARACENTESIS, 07/10/2023, 10:11. [facility], , US ABDOMEN LIMITED, 05/08/2023, 10:26. FINDINGS: There is a small amount of ascites. Spleen is enlarged measuring 19.2 cm. Question a splenule measuring 1.4 cm. IMPRESSION: A small amount of ascites. Paracentesis was not performed. Dictated by: Alon Velasquez M.D. on 07/15/2023 at 8:39 Approved by: Alon Velasquez M.D. on 07/15/2023 at 8:41
== END ==
PROVIDERS: PCP Internal Medicine; Referring Provider Internal Medicine; Visit Provider Internal Medicine
DX: K70.31 Alcoholic cirrhosis of liver with ascites (principal)
CPT/HCPCS: 76705

== ENCOUNTER → 2023-07-17 10:07 | Outpatient (CLI) | payer OTHER, MEDICAID, SELFPAY ==
[2022-06-13 18:42] VITALS: BMI 22.8
--- NOTE | 2023-07-17 | DI.US.S_ITS ---
PROCEDURE: US ABDOMEN LIMITED INDICATIONS: ASCITES TECHNIQUE: Real-time focused scanning was performed of the abdomen, with image documentation. COMPARISON: [facility], , US ABDOMEN LIMITED, 07/14/2023, 13:59. FINDINGS: Mild ascites is present in the left lower quadrant. IMPRESSION: Mild ascites most prominent in the left lower quadrant. Dictated by: Yvonne Aponte M.D. on 07/17/2023 at 15:46 Approved by: Yvonne Aponte M.D. on 07/17/2023 at 15:47
== END ==
LOC: US 10:07
PROVIDERS: PCP Internal Medicine; Referring Provider Internal Medicine; Visit Provider Internal Medicine
DX: K70.31 Alcoholic cirrhosis of liver with ascites (principal)
CPT/HCPCS: 76705

== ENCOUNTER → 2023-07-24 10:05 | Outpatient (CLI) | payer OTHER, MEDICAID, SELFPAY ==
[2022-06-13 18:42] VITALS: BMI 22.8
--- NOTE | 2023-07-24 10:07 | DI.US.S_ITS ---
PROCEDURE: US PARACENTESIS INDICATIONS: ASCITIES TECHNIQUE: The indications, alternatives, benefits, risks, and complications of the procedure were explained to the patient. Written informed consent was obtained and placed in the chart. The abdomen and pelvis were examined sonographically, and an appropriate site was chosen for paracentesis. The skin was prepared and draped in the usual sterile fashion, and 1% lidocaine was infiltrated from the skin down through the peritoneal surface. A 19-gauge catheter-covered needle was then introduced into the peritoneal space, the catheter was advanced and the needle was withdrawn, and thereafter peritoneal fluid was withdrawn. The catheter was then removed and a dressing was applied. The fluid was discarded if the clinician did not order diagnostic testing of the fluid. COMPARISON: [facility], PARACENTESIS, 07/03/2023, 9:02. FINDINGS: Access site: Left lower quadrant Needle: One-Step centesis catheter with introducer needle. Fluid volume and description: 3200 mL; clear. Fluid sent for diagnostic testing: Not request by referring physician. Medications: 1% lidocaine for local anaesthesia. Complications: None. IMPRESSION: Successful ultrasound-guided paracentesis. Dictated by: Alon Velasquez M.D. on 07/24/2023 at 15:14 Approved by: Alon Velasquez M.D. on 07/24/2023 at 15:15
== END ==
LOC: US 10:06
PROVIDERS: PCP Internal Medicine; Referring Provider Internal Medicine; Visit Provider Internal Medicine
DX: K70.31 Alcoholic cirrhosis of liver with ascites (principal)
CPT/HCPCS: 49083

== ENCOUNTER 2023-07-27 10:35 | Emergency (ER) | payer OTHER, MEDICAID, SELFPAY ==
[2022-06-13 18:42] VITALS: BMI 22.8
[2023-07-27 10:35] VITALS: BP 149/70; PULSE 87; RESP 18; TEMP 36.7; O2SAT 98; BMI 29.7
[2023-07-27 10:42] VITALS: PULSE 87; O2SAT 98
[2023-07-27 11:00] VITALS: PULSE 74; O2SAT 97
[2023-07-27 11:30] VITALS: PULSE 79; O2SAT 96
[2023-07-27 12:00] VITALS: PULSE 76; O2SAT 96
--- NOTE | 2023-07-27 12:25 | ED_ITS ---
HPI - Recheck/Abnormal Lab/Rx General Chief Complaint: Recheck/Abnormal Lab/Rx Stated Complaint: drainage from a recent procedure Time Seen by Provider: 07/27/23 11:14 Mode of arrival: Ambulatory History of Present Illness HPI narrative: 63-year-old man with a history of cirrhosis and ascites requiring serial paracentesis. He is here today with leakage of ascitic fluid. He had a therapeutic paracentesis 4 days ago. Leaking began today. He has been taking h is diuretics and ascites has not by his report been accumulating quickly. I did review a primary care note from June 26 noted that he had fairly rapid accumulation of ascites also reviewed a recent emergency department note where he presented with the same problem and an ostomy bag was placed. The patient stated that that worked well for him. His primary care provider is aware that he had a problem with a leak previously. The patient is not having increasing abdominal pain fevers vomiting shaking chills or other acute symptoms. Related Data Home Medications Medication Instructions Recorded Confirmed spironolactone 25 mg tablet 12.5 mg PO QPM 09/25/22 06/26/23 torsemide 20 mg tablet 40 mg PO QAM 09/25/22 06/26/23 Previous Rx's Medication Instructions Recorded cyanocobalamin (vitamin B-12) 1,000 mcg PO DAILY #90 tabs 04/25/22 1,000 mcg tablet folic acid 1 mg tablet 1 mg PO DAILY #90 tabs 04/25/22 levothyroxine 75 mcg tablet 75 mcg PO DAILY #90 tabs 02/23/23 quetiapine 300 mg tablet,extended 450 mg (1.5 x 300 mg) PO BID #270 04/10/23 release 24 hr (Seroquel XR) tabs trazodone 100 mg tablet 300 mg (3 x 100 mg) PO HS #90 tabs 04/10/23 atorvastatin 20 mg tablet 20 mg PO BEDTIME #90 tabs 04/13/23 Allergies Allergy/AdvReac Type Severity Reaction Status Date / Time No Known Drug Allergies Allergy Verified 06/26/23 15:34 Patient History Medical History Anemia in chronic kidney disease Chronic renal failure, stage 3 (moderate) Hernia, umbilical Gout Hearing loss Anxiety Bipolar disorder (2007) Depression (2007) Hypothyroidism (09/30/17) Hyperlipidemia Obesity Essential hypertension Surgical History H/O hernia repair Status post colonoscopy Family History Father Age: 90 History of stroke History of cancer Prostate cancer Social History household members: none Smoking Status: Never smoker second hand exposure: No alcohol intake: current substance use type: former substance user Smoking Status: Never smoker alcohol intake frequency: 0-2 drinks per day Alcohol type: beer Substance Use Type: does not use Exam Initial Vital Signs Initial Vital Signs: Vital Signs Temperature 98.1 F 07/27/23 10:35 Pulse Rate 87 07/27/23 10:35 Respiratory Rate 18 07/27/23 10:35 Blood Pressure 149/70 H 07/27/23 10:35 Pulse Oximetry 98 07/27/23 10:35 Oxygen Delivery Method Room Air 07/27/23 10:35 Const General: No acute distress HENMT Head: normocephalic and atraumatic Resp Effort & Inspection: normal respiratory effort Cardio Other: Heart rate is normal GI Other: Abdomen is distended with normal bowel sounds and nontender. Obviously has palpable ascites, there is a left lower quadrant ascitic fluid leak. The area around that is not inflamed. Course Vital Signs Vital signs: Vital Signs - 8 hr 07/27/23 10:35 Temperature 98.1 F Pulse Rate 87 Respiratory Rate 18 Blood Pressure 149/70 H Pulse Oximetry 98 Oxygen Delivery Method Room Air MDM - Recheck/Abnormal Lab/Rx MDM Narrative Medical decision making narrative: 63-year-old male with cirrhosis and ascites presenting with a recurrent ascitic fluid leak. We have placed an ostomy bag, this should temporize him I recommended he contact his primary care provider regarding continuing paracentesis possibly increasing the frequency. Discharge Plan Departure Patient Disposition: Home Clinical Impression: Ascites Qualifiers: Ascites type: due to alcoholic cirrhosis Qualified Code(s): K70.31 - Alcoholic cirrhosis of liver with ascites Activity Restrictions/Additional Instructions: Today we placed an ostomy bag over your leaking paracentesis site. This hopefully will catch the fluid until the leak stops. Contact your primary care provider for further instructions and keep your scheduled appointment for paracentesis later this week. Return to the emergency department if having fevers increasing abdominal pain or other acute symptoms Prescriptions: No Action levothyroxine 75 mcg tablet 75 mcg PO DAILY Qty: 90 3RF Rx Instructions: Take one tablet daily. atorvastatin 20 mg tablet 20 mg PO BEDTIME Qty: 90 3RF folic acid 1 mg tablet 1 mg PO DAILY Qty: 90 3RF cyanocobalamin (vitamin B-12) 1,000 mcg tablet 1,000 mcg PO DAILY Qty: 90 3RF spironolactone 25 mg tablet 12.5 mg PO QPM torsemide 20 mg tablet 40 mg PO QAM trazodone 100 mg tablet 300 mg PO HS Qty: 90 6RF quetiapine [Seroquel XR] 300 mg tablet extended release 24 hr 450 mg PO BID Qty: 270 6RF Referrals: Neil Silver MD [Primary Care Provider] - Stand Alone Forms: Patient Portal/API
[2023-07-27 12:27] VITALS: BP 118/72
== END 2023-07-27 12:35 | disposition home or self-care (01) ==
PROVIDERS: Emergency Provider Emergency Medicine; PCP Internal Medicine
DX: K70.31 Alcoholic cirrhosis of liver with ascites (principal)
CPT/HCPCS: 99281

== ENCOUNTER → 2023-07-30 10:10 | Outpatient (CLI) | payer OTHER, MEDICAID, SELFPAY ==
[2022-06-13 18:42] VITALS: BMI 22.8
[2023-07-30 10:27] LABS: Hematocrit 27.8 % (41-53); Hemoglobin 9.6 g/dL (13.5-17.5); Mean Corpuscular HGB Conc 34.4 % (30-36); Mean Corpuscular Hemoglobin 32.4 PG (26-34); Mean Corpuscular Volume 94.1 fL (80-100); Platelet Count 90 X10^3/uL (150-400); Red Blood Cell Count 2.95 X10^6/uL (4.5-5.9); Red Cell Distribution Width 14.7 % (11.6-14.8); White Blood Cell Count 2.1 X10^3/uL (4.5-11.0)
[2023-07-30 10:35] LABS: INR 1.1 (0.9-1.3); Prothrombin Time 12.7 SECONDS (9.4-12.5)
[2023-07-30 10:42] LABS: Triglycerides 143 mg/dL (35-150)
== END ==
PROVIDERS: PCP Internal Medicine; Referring Provider Internal Medicine; Visit Provider Internal Medicine
DX: K70.31 Alcoholic cirrhosis of liver with ascites (principal)
CPT/HCPCS: 36415; 84478; 85027; 85610

== ENCOUNTER → 2023-07-31 08:48 | Outpatient (CLI) | payer OTHER, MEDICAID, SELFPAY ==
[2022-06-13 18:42] VITALS: BMI 22.8
--- NOTE | 2023-07-31 | DI.US.S_ITS ---
PROCEDURE: US ABDOMEN LIMITED INDICATIONS: ASCITES TECHNIQUE: Real-time focused scanning was performed of the abdomen, with image documentation. COMPARISON: [facility], , US ABDOMEN LIMITED, 07/17/2023, 10:23. FINDINGS: Sonographic evaluation of the abdomen was performed to evaluate for adequate volume of ascites for ultrasound-guided paracentesis. Only a trace amount of ascites noted in the lower abdomen. Incidental note of mild-moderate subcutaneous soft tissue edema of the lower abdominal wall. No focal fluid collection seen. IMPRESSION: Trace lower abdominal ascites. Insufficient volume for paracentesis. Dictated by: Larry Roche M.D. on 07/31/2023 at 9:54 Approved by: Larry Roche M.D. on 07/31/2023 at 9:56
== END ==
LOC: US 08:48
PROVIDERS: PCP Internal Medicine; Referring Provider Internal Medicine; Visit Provider Internal Medicine
DX: K70.31 Alcoholic cirrhosis of liver with ascites (principal)
CPT/HCPCS: 76705

== ENCOUNTER → 2023-08-07 08:41 | Outpatient (CLI) | payer OTHER, MEDICAID, SELFPAY ==
[2022-06-13 18:42] VITALS: BMI 22.8
--- NOTE | 2023-08-07 | DI.US.S_ITS ---
PROCEDURE: US PARACENTESIS INDICATIONS: Alcoholic cirrhosis of liver with ascites TECHNIQUE: The indications, alternatives, benefits, risks, and complications of the procedure were explained to the patient. Written informed consent was obtained and placed in the chart. The abdomen and pelvis were examined sonographically, and an appropriate site was chosen for paracentesis. The skin was prepared and draped in the usual sterile fashion, and 1% lidocaine was infiltrated from the skin down through the peritoneal surface. A 19-gauge catheter-covered needle was then introduced into the peritoneal space, the catheter was advanced and the needle was withdrawn, and thereafter peritoneal fluid was withdrawn. The catheter was then removed and a dressing was applied. The fluid was discarded if the clinician did not order diagnostic testing of the fluid. COMPARISON: [facility], , PARACENTESIS, 07/24/2023, 10:32. FINDINGS: Access site: Right lower quadrant Needle: One-Step centesis catheter with introducer needle. Fluid volume and description: 3000, clear yellow tinged Fluid sent for diagnostic testing: None Medications: 1% lidocaine for local anaesthesia. Complications: None. IMPRESSION: Successful ultrasound-guided paracentesis. Dictated by: Keesha English M.D. on 08/07/2023 at 11:36 Approved by: Keesha English M.D. on 08/07/2023 at 11:37
== END ==
LOC: US 08:41
PROVIDERS: PCP Internal Medicine; Referring Provider Internal Medicine; Visit Provider Internal Medicine
DX: K70.31 Alcoholic cirrhosis of liver with ascites (principal)
CPT/HCPCS: 49083

== ENCOUNTER → 2023-08-21 07:43 | Outpatient (CLI) | payer OTHER, MEDICAID, SELFPAY ==
[2022-06-13 18:42] VITALS: BMI 22.8
--- NOTE | 2023-08-21 07:44 | DI.US.S_ITS ---
PROCEDURE: US PARACENTESIS INDICATIONS: Alcoholic cirrhosis of liver with ascites TECHNIQUE: The indications, alternatives, benefits, risks, and complications of the procedure were explained to the patient. Written informed consent was obtained and placed in the chart. The abdomen and pelvis were examined sonographically, and an appropriate site was chosen for paracentesis. The skin was prepared and draped in the usual sterile fashion, and 1% lidocaine was infiltrated from the skin down through the peritoneal surface. A 19-gauge catheter-covered needle was then introduced into the peritoneal space, the catheter was advanced and the needle was withdrawn, and thereafter peritoneal fluid was withdrawn. The catheter was then removed and a dressing was applied. The fluid was discarded if the clinician did not order diagnostic testing of the fluid. COMPARISON: [facility], , PARACENTESIS, 08/07/2023, 8:51. FINDINGS: Access site: Left lower quadrant Needle: One-Step centesis catheter with introducer needle. Fluid volume and description: 4 liters, clear mariajose fluid Fluid sent for diagnostic testing: No Medications: 1% lidocaine for local anaesthesia. Complications: None. IMPRESSION: Successful ultrasound-guided paracentesis. Dictated by: Jarad Gan M.D. on 08/21/2023 at 9:35 Approved by: Jarad Gan M.D. on 08/21/2023 at 9:36
== END ==
LOC: US 07:44
PROVIDERS: PCP Internal Medicine; Referring Provider Internal Medicine; Visit Provider Internal Medicine
DX: K70.31 Alcoholic cirrhosis of liver with ascites (principal)
CPT/HCPCS: 49083

== ENCOUNTER → 2023-08-31 08:26 | Outpatient (CLI) | payer OTHER, MEDICAID, SELFPAY ==
[2022-06-13 18:42] VITALS: BMI 22.8
[2023-08-31 08:49] LABS: Hematocrit 28.1 % (41-53); Mean Corpuscular HGB Conc 35.4 % (30-36); Mean Corpuscular Hemoglobin 33.6 PG (26-34); Mean Corpuscular Volume 95.1 fL (80-100); Platelet Count 78 X10^3/uL (150-400); Red Blood Cell Count 2.96 X10^6/uL (4.5-5.9); Red Cell Distribution Width 13.4 % (11.6-14.8); White Blood Cell Count 2.3 X10^3/uL (4.5-11.0)
[2023-08-31 08:57] LABS: INR 1.1 (0.9-1.3); Prothrombin Time 12.2 SECONDS (9.4-12.5)
== END ==
PROVIDERS: PCP Internal Medicine; Referring Provider Internal Medicine; Visit Provider Internal Medicine
DX: K70.31 Alcoholic cirrhosis of liver with ascites (principal)
CPT/HCPCS: 36415; 85027; 85610

== ENCOUNTER → 2023-08-31 08:35 | Outpatient (CLI) | payer OTHER, MEDICAID, SELFPAY ==
[2022-06-13 18:42] VITALS: BMI 22.8
--- NOTE | 2023-08-31 | DI.US.S_ITS ---
PROCEDURE: US PARACENTESIS INDICATIONS: Alcoholic cirrhosis of liver with ascites TECHNIQUE: The indications, alternatives, benefits, risks, and complications of the procedure were explained to the patient. Written informed consent was obtained and placed in the chart. The abdomen and pelvis were examined sonographically, and an appropriate site was chosen for paracentesis. The skin was prepared and draped in the usual sterile fashion, and 1% lidocaine was infiltrated from the skin down through the peritoneal surface. A 19-gauge catheter-covered needle was then introduced into the peritoneal space, the catheter was advanced and the needle was withdrawn, and thereafter peritoneal fluid was withdrawn. The catheter was then removed and a dressing was applied. The fluid was discarded if the clinician did not order diagnostic testing of the fluid. COMPARISON: [facility], PARACENTESIS, 08/21/2023, 8:00. FINDINGS: Access site: Left lower quadrant Needle: One-Step centesis catheter with introducer needle. Fluid volume and description: 3.8 liters of clear, yellow fluid. Fluid sent for diagnostic testing: No Medications: 1% lidocaine for local anaesthesia. Complications: None. IMPRESSION: Successful ultrasound-guided paracentesis. Dictated by: Moris Davila M.D. on 08/31/2023 at 12:15 Approved by: Moris Davila M.D. on 08/31/2023 at 12:16
== END ==
PROVIDERS: PCP Internal Medicine; Referring Provider Internal Medicine; Visit Provider Internal Medicine
DX: K70.31 Alcoholic cirrhosis of liver with ascites (principal)
CPT/HCPCS: 36415; 49083; 85027; 85610

== ENCOUNTER → 2023-09-04 08:29 | Outpatient (CLI) | payer OTHER, MEDICAID, SELFPAY ==
[2022-06-13 18:42] VITALS: BMI 22.8
--- NOTE | 2023-09-04 | DI.US.S_ITS ---
PROCEDURE: US ABDOMEN LIMITED INDICATIONS: ASCITES CHECK FOR PARACENTESIS TECHNIQUE: Real-time focused scanning was performed of the abdomen, with image documentation. COMPARISON: [facility], , US ABDOMEN LIMITED, 07/31/2023, 9:01. FINDINGS: Minimal ascites which is insufficient for a paracentesis. IMPRESSION: Minimal ascites which is insufficient for paracentesis. Dictated by: Eugene Cole M.D. on 09/04/2023 at 10:21 Approved by: Eugene Cole M.D. on 09/04/2023 at 10:21
== END ==
LOC: US 08:29
PROVIDERS: PCP Internal Medicine; Referring Provider Internal Medicine; Visit Provider Internal Medicine
DX: K70.31 Alcoholic cirrhosis of liver with ascites (principal)
CPT/HCPCS: 76705

== ENCOUNTER → 2023-09-11 08:29 | Outpatient (CLI) | payer OTHER, MEDICAID, SELFPAY ==
[2022-06-13 18:42] VITALS: BMI 22.8
--- NOTE | 2023-09-11 08:30 | DI.US.S_ITS ---
PROCEDURE: US PARACENTESIS INDICATIONS: ASCITES TECHNIQUE: The indications, alternatives, benefits, risks, and complications of the procedure were explained to the patient. Written informed consent was obtained and placed in the chart. The abdomen and pelvis were examined sonographically, and an appropriate site was chosen for paracentesis. The skin was prepared and draped in the usual sterile fashion, and 1% lidocaine was infiltrated from the skin down through the peritoneal surface. A 19-gauge catheter-covered needle was then introduced into the peritoneal space, the catheter was advanced and the needle was withdrawn, and thereafter peritoneal fluid was withdrawn. The catheter was then removed and a dressing was applied. The fluid was discarded if the clinician did not order diagnostic testing of the fluid. COMPARISON: [facility], , PARACENTESIS, 08/31/2023, 9:41. FINDINGS: Access site: Right lower quadrant Needle: One-Step centesis catheter with introducer needle. Fluid volume and description: 3200 cc of red tinged fluid. Fluid sent for diagnostic testing: None Medications: 1% lidocaine for local anaesthesia. Complications: None. IMPRESSION: Successful ultrasound-guided paracentesis. Dictated by: French Granado M.D. on 09/11/2023 at 11:18 Approved by: French Granado M.D. on 09/11/2023 at 11:21
== END ==
LOC: US 08:29
PROVIDERS: PCP Internal Medicine; Referring Provider Internal Medicine; Visit Provider Internal Medicine
DX: K70.31 Alcoholic cirrhosis of liver with ascites (principal)
CPT/HCPCS: 49083

== ENCOUNTER → 2023-09-18 12:32 | Outpatient (CLI) | payer OTHER, MEDICAID, SELFPAY ==
[2022-06-13 18:42] VITALS: BMI 22.8
--- NOTE | 2023-09-18 | DI.US.S_ITS ---
PROCEDURE: US PARACENTESIS INDICATIONS: Alcoholic cirrhosis of liver with ascites TECHNIQUE: The indications, alternatives, benefits, risks, and complications of the procedure were explained to the patient. Written informed consent was obtained and placed in the chart. The abdomen and pelvis were examined sonographically, and an appropriate site was chosen for paracentesis. The skin was prepared and draped in the usual sterile fashion, and 1% lidocaine was infiltrated from the skin down through the peritoneal surface. A 19-gauge catheter-covered needle was then introduced into the peritoneal space, the catheter was advanced and the needle was withdrawn, and thereafter peritoneal fluid was withdrawn. The catheter was then removed and a dressing was applied. The fluid was discarded if the clinician did not order diagnostic testing of the fluid. COMPARISON: [facility], PARACENTESIS, 09/11/2023, 9:00. FINDINGS: Access site: Left lower quadrant Needle: One-Step centesis catheter with introducer needle. Fluid volume and description: Clear, pink fluid. 2.6 L. Fluid sent for diagnostic testing: No. Medications: 1% lidocaine for local anaesthesia. Complications: None. IMPRESSION: Successful ultrasound-guided paracentesis. Dictated by: Moris Davila M.D. on 09/18/2023 at 13:51 Approved by: Moris Davila M.D. on 09/18/2023 at 13:51
== END ==
LOC: US 12:33
PROVIDERS: PCP Internal Medicine; Referring Provider Internal Medicine; Visit Provider Internal Medicine
DX: K70.31 Alcoholic cirrhosis of liver with ascites (principal)
CPT/HCPCS: 49083

== ENCOUNTER → 2023-09-25 08:48 | Outpatient (CLI) | payer OTHER, MEDICAID, SELFPAY ==
[2022-06-13 18:42] VITALS: BMI 22.8
--- NOTE | 2023-09-25 08:49 | DI.US.S_ITS ---
PROCEDURE: US PARACENTESIS INDICATIONS: ASCITIES TECHNIQUE: The indications, alternatives, benefits, risks, and complications of the procedure were explained to the patient. Written informed consent was obtained and placed in the chart. The abdomen and pelvis were examined sonographically, and an appropriate site was chosen for paracentesis. The skin was prepared and draped in the usual sterile fashion, and 1% lidocaine was infiltrated from the skin down through the peritoneal surface. A 19-gauge catheter-covered needle was then introduced into the peritoneal space, the catheter was advanced and the needle was withdrawn, and thereafter peritoneal fluid was withdrawn. The catheter was then removed and a dressing was applied. The fluid was discarded if the clinician did not order diagnostic testing of the fluid. COMPARISON: [facility], PARACENTESIS, 09/18/2023, 12:44. FINDINGS: Access site: Right lower quadrant Needle: One-Step centesis catheter with introducer needle. Fluid volume and description: Red straw-colored Fluid sent for diagnostic testin cc Medications: 1% lidocaine for local anaesthesia. Complications: None. IMPRESSION: Successful ultrasound-guided paracentesis. 2.8 L removed. Dictated by: James Zapata M.D. on 09/25/2023 at 15:08 Approved by: James Zapata M.D. on 09/25/2023 at 15:10
== END ==
LOC: US 08:48
PROVIDERS: PCP Internal Medicine; Referring Provider Internal Medicine; Visit Provider Internal Medicine
DX: K70.31 Alcoholic cirrhosis of liver with ascites (principal)
CPT/HCPCS: 49083

== ENCOUNTER → 2023-10-01 11:42 | Outpatient (CLI) | payer OTHER, MEDICAID, SELFPAY ==
[2022-06-13 18:42] VITALS: BMI 22.8
--- NOTE | 2023-10-01 | DI.US.S_ITS ---
PROCEDURE: US ABDOMEN LIMITED INDICATIONS: ASCITIES; POSSIBLE PARACENTESIS TECHNIQUE: Real-time focused scanning was performed of the abdomen, with image documentation. COMPARISON: [facility], , US ABDOMEN LIMITED, 09/04/2023, 8:40. FINDINGS: Overall small volume of ascites. Small pocket in the RLQ. Bowel in the LLQ. Discussion was made to delay ultrasound paracentesis due to lower volume. IMPRESSION: Small volume ascites. Ultrasounds paracentesis not performed due to lower volume. Dictated by: James Zapata M.D. on 10/01/2023 at 19:50 Approved by: James Zapata M.D. on 10/01/2023 at 19:53
[2023-10-01 12:18] LABS: Hematocrit 25.6 % (41-53); Mean Corpuscular HGB Conc 35.3 % (30-36); Mean Corpuscular Hemoglobin 33.6 PG (26-34); Mean Corpuscular Volume 95.4 fL (80-100); Platelet Count 87 X10^3/uL (150-400); Red Blood Cell Count 2.68 X10^6/uL (4.5-5.9); Red Cell Distribution Width 13.7 % (11.6-14.8)
[2023-10-01 12:29] LABS: Prothrombin Time 11.8 SECONDS (9.4-12.5)
== END ==
PROVIDERS: PCP Internal Medicine; Referring Provider Internal Medicine; Visit Provider Internal Medicine
DX: K70.31 Alcoholic cirrhosis of liver with ascites (principal)
CPT/HCPCS: 36415; 76705; 85027; 85610

== ENCOUNTER → 2023-10-09 08:50 | Outpatient (CLI) | payer OTHER, MEDICAID, SELFPAY ==
[2022-06-13 18:42] VITALS: BMI 22.8
--- NOTE | 2023-10-09 08:51 | DI.US.S_ITS ---
PROCEDURE: US ABDOMEN LIMITED INDICATIONS: ASCITIES TECHNIQUE: Real-time scanning was performed of the abdominal, with image documentation. COMPARISON: [facility], , US ABDOMEN LIMITED, 10/01/2023, 13:08. FINDINGS: Small volume of ascites in the right lower quadrant and left lower quadrant. Insufficient for therapeutic paracentesis. IMPRESSION: Small volume of ascites. Insufficient volume for therapeutic paracentesis. Procedure was postponed. Dictated by: James Zapata M.D. on 10/09/2023 at 12:37 Approved by: James Zapata M.D. on 10/09/2023 at 12:38
== END ==
PROVIDERS: PCP Internal Medicine; Referring Provider Internal Medicine; Visit Provider Internal Medicine
DX: K70.31 Alcoholic cirrhosis of liver with ascites (principal)
CPT/HCPCS: 76705

== ENCOUNTER → 2023-10-23 12:18 | Outpatient (CLI) | payer OTHER, MEDICAID, SELFPAY ==
[2022-06-13 18:42] VITALS: BMI 22.8
--- NOTE | 2023-10-23 12:19 | DI.US.S_ITS ---
PROCEDURE: US ABDOMEN LIMITED INDICATIONS: ASCITIES TECHNIQUE: Real-time focused scanning was performed of the abdomen, with image documentation. COMPARISON: [facility], , US ABDOMEN LIMITED, 10/09/2023, 9:00. FINDINGS: Small to moderate volume ascites. IMPRESSION: Small to moderate volume ascites. Dictated by: Moris Davila M.D. on 10/23/2023 at 14:57 Approved by: Moris Davila M.D. on 10/23/2023 at 14:57
== END ==
LOC: US 12:18
PROVIDERS: PCP Internal Medicine; Referring Provider Internal Medicine; Visit Provider Internal Medicine
DX: K70.31 Alcoholic cirrhosis of liver with ascites (principal)
CPT/HCPCS: 76705

== ENCOUNTER → 2023-11-09 10:39 | Outpatient (CLI) | payer OTHER, MEDICAID, SELFPAY ==
[2022-06-13 18:42] VITALS: BMI 22.8
[2023-11-09 11:35] LABS: Alanine Aminotransferase 16 IU/L (<50); Albumin Globulin Ratio 1.2 (1.0-2.8); Alkaline Phosphatase 91 U/L (38-126); Aspartate Aminotransferase 30 IU/L (17-59); Bilirubin Total 0.4 mg/dL (0.2-1.3); Bilirubin Unconjugated 0.2 mg/dL (0.0-1.1); Globulin 3.4 g/dL (1.7-4.1); HEMOLYSIS < 15 (0-50); Total Protein 7.4 g/dL (6.3-8.2)
[2023-11-09 12:05] LABS: Thyroid Stimulating Hormone 2.67 uIU/mL (0.47-4.68)
== END ==
LOC: LAB 10:42
PROVIDERS: PCP Internal Medicine; Referring Provider Internal Medicine; Visit Provider Internal Medicine
DX: K74.60 Unspecified cirrhosis of liver (principal); E03.9 Hypothyroidism, unspecified
CPT/HCPCS: 36415; 80076; 84439; 84443

== ENCOUNTER → 2023-11-27 10:14 | Outpatient (CLI) | payer OTHER, MEDICAID, SELFPAY ==
[2022-06-13 18:42] VITALS: BMI 22.8
[2023-11-27 11:28] LABS: Hematocrit 21.3 % (41-53); Hemoglobin 7.4 g/dL (13.5-17.5); Platelet Count 97 X10^3/uL (150-400)
[2023-11-27 17:31] LABS: BUN Creatinine Ratio 18.5 (6-22); Blood Urea Nitrogen 32 mg/dL (9-20); Carbon Dioxide 21 mmol/L (22-32); Chloride 92 mmol/L (98-107); Estimated Glomerular Filt Rate 44 mL/min (>60); Glucose 109 mg/dL (80-110); HEMOLYSIS < 15 (0-50); Potassium 4.4 mmol/L (3.4-5.1); Sodium 125 mmol/L (137-145)
== END ==
PROVIDERS: Internal Medicine Nephrology; PCP Internal Medicine; Referring Provider Internal Medicine; Visit Provider Internal Medicine
DX: K70.31 Alcoholic cirrhosis of liver with ascites (principal)
CPT/HCPCS: 36415; 80048; 85014; 85018; 85049; 85610

== ENCOUNTER → 2023-11-30 07:46 | Outpatient (CLI) | payer OTHER, MEDICAID, SELFPAY ==
[2022-06-13 18:42] VITALS: BMI 22.8
--- NOTE | 2023-11-30 07:47 | DI.US.S_ITS ---
PROCEDURE: US PARACENTESIS INDICATIONS: Alcoholic cirrhosis of liver with ascites TECHNIQUE: The indications, alternatives, benefits, risks, and complications of the procedure were explained to the patient. Written informed consent was obtained and placed in the chart. The abdomen and pelvis were examined sonographically, and an appropriate site was chosen for paracentesis. The skin was prepared and draped in the usual sterile fashion, and 1% lidocaine was infiltrated from the skin down through the peritoneal surface. A 19-gauge catheter-covered needle was then introduced into the peritoneal space, the catheter was advanced and the needle was withdrawn, and thereafter peritoneal fluid was withdrawn. The catheter was then removed and a dressing was applied. The fluid was discarded if the clinician did not order diagnostic testing of the fluid. COMPARISON: [facility], , PARACENTESIS, 09/25/2023, 9:04. FINDINGS: Access site: Left lower quadrant Needle: One-Step centesis catheter with introducer needle. Fluid volume and description: 4250 milliliter of clear, red tinged fluid Fluid sent for diagnostic testing: None Medications: 1% lidocaine for local anaesthesia. Complications: None. IMPRESSION: Successful ultrasound-guided paracentesis. Dictated by: Moris Davila M.D. on 11/30/2023 at 9:26 Approved by: Moris Davila M.D. on 11/30/2023 at 9:27
== END ==
PROVIDERS: PCP Internal Medicine; Referring Provider Internal Medicine; Visit Provider Internal Medicine
DX: K70.31 Alcoholic cirrhosis of liver with ascites (principal)
CPT/HCPCS: 49083

== ENCOUNTER → 2023-12-04 12:45 | Outpatient (CLI) | payer OTHER, MEDICAID, SELFPAY ==
[2022-06-13 18:42] VITALS: BMI 22.8
--- NOTE | 2023-12-04 12:47 | DI.US.S_ITS ---
PROCEDURE: US ABDOMEN LIMITED INDICATIONS: ASCITES TECHNIQUE: Real-time focused scanning was performed of the abdomen, with image documentation. COMPARISON: [facility], , US ABDOMEN LIMITED, 10/23/2023, 12:46. Findings and impression: Small amount of ascites is seen, not sufficient for safe paracentesis. Patient will be rescheduled. Dictated by: Chun Hobson M.D. on 12/04/2023 at 16:16 Approved by: Chun Hobson M.D. on 12/04/2023 at 16:17
== END ==
LOC: US 12:46
PROVIDERS: PCP Internal Medicine; Referring Provider Internal Medicine; Visit Provider Internal Medicine
DX: K70.31 Alcoholic cirrhosis of liver with ascites (principal)
CPT/HCPCS: 76705

== ENCOUNTER → 2023-12-11 09:43 | Outpatient (CLI) | payer OTHER, MEDICAID, SELFPAY ==
[2022-06-13 18:42] VITALS: BMI 22.8
--- NOTE | 2023-12-11 09:44 | DI.US.S_ITS ---
PROCEDURE: US ABDOMEN LIMITED INDICATIONS: ASCITES TECHNIQUE: Real-time focused scanning was performed of the abdomen, with image documentation. COMPARISON: [facility], US ABDOMEN LIMITED, 12/04/2023, 12:58. [facility], US ABDOMEN LIMITED, 10/23/2023, 12:46. FINDINGS: There is a owczz-cw-xddgsvwg amount of ascites in abdomen, slightly increased compared to the last exam. IMPRESSION: Riulw-cn-gewfigvu amount of ascites. After discussing with the patient, schedule paracentesis is postponed. Dictated by: Alon Velasquez M.D. on 12/11/2023 at 12:13 Approved by: Alon Velasquez M.D. on 12/11/2023 at 12:14
== END ==
PROVIDERS: PCP Internal Medicine; Referring Provider Internal Medicine; Visit Provider Internal Medicine
DX: K70.31 Alcoholic cirrhosis of liver with ascites (principal)
CPT/HCPCS: 76705

== ENCOUNTER → 2023-12-18 08:46 | Outpatient (CLI) | payer OTHER, MEDICAID, SELFPAY ==
[2022-06-13 18:42] VITALS: BMI 22.8
--- NOTE | 2023-12-18 | DI.US.S_ITS ---
PROCEDURE: US ABDOMEN LIMITED INDICATIONS: EVAL FOR ASCTIES TECHNIQUE: Real-time focused scanning was performed of the abdomen, with image documentation. COMPARISON: [facility], , US ABDOMEN LIMITED, 12/11/2023, 9:59. FINDINGS: Small volume ascites. Decision was made to not undergo paracentesis. IMPRESSION: Small volume ascites. Dictated by: Moris Davila M.D. on 12/18/2023 at 10:32 Approved by: Moris Davila M.D. on 12/18/2023 at 10:32
== END ==
LOC: US 08:46
PROVIDERS: PCP Internal Medicine; Referring Provider Internal Medicine; Visit Provider Internal Medicine
DX: K70.31 Alcoholic cirrhosis of liver with ascites (principal)
CPT/HCPCS: 76705

== ENCOUNTER → 2023-12-25 08:47 | Outpatient (CLI) | payer OTHER, MEDICAID, SELFPAY ==
[2022-06-13 18:42] VITALS: BMI 22.8
--- NOTE | 2023-12-25 08:49 | DI.US.S_ITS ---
PROCEDURE: US ABDOMEN LIMITED INDICATIONS: ASCITES TECHNIQUE: Real-time focused scanning was performed of the abdomen to evaluate for ascites, with image documentation. COMPARISON: [facility], , US ABDOMEN LIMITED, 12/18/2023, 9:10. FINDINGS: Small volume ascites. Decision was made not to undergo paracentesis. IMPRESSION: Small volume ascites. Dictated by: Jarad Gan M.D. on 12/25/2023 at 11:11 Approved by: Jarad Gan M.D. on 12/25/2023 at 11:12
== END ==
LOC: US 08:48
PROVIDERS: PCP Internal Medicine; Referring Provider Internal Medicine; Visit Provider Internal Medicine
DX: K70.31 Alcoholic cirrhosis of liver with ascites (principal)
CPT/HCPCS: 76705

== ENCOUNTER → 2024-01-01 08:47 | Outpatient (CLI) | payer OTHER, MEDICAID, SELFPAY ==
[2022-06-13 18:42] VITALS: BMI 22.8
--- NOTE | 2024-01-01 | DI.US.S_ITS ---
PROCEDURE: US ABDOMEN LIMITED INDICATIONS: Alcoholic cirrhosis of liver with ascites TECHNIQUE: Real-time scanning was performed of the abdominal and retroperitoneal organs, with image documentation. COMPARISON: [facility], , US ABDOMEN LIMITED, 12/25/2023, 9:04. [facility], , US ABDOMEN LIMITED, 12/11/2023, 9:59. [facility], , US ABDOMEN LIMITED, 12/04/2023, 12:58. [facility], , US ABDOMEN LIMITED, 12/18/2023, 9:10. FINDINGS: There is a teoql-da-xpvcaxwe amount of ascites. IMPRESSION: 1. There is a infjt-ic-qjgsovtr amount of ascites. The planned paracentesis is postponed after discussing with the patient considering the risks and benefits of the procedure. Dictated by: Alon Velasquez M.D. on 01/01/2024 at 11:04 Approved by: Alon Velasquez M.D. on 01/01/2024 at 11:09
== END ==
LOC: US 08:47
PROVIDERS: PCP Internal Medicine; Referring Provider Internal Medicine; Visit Provider Internal Medicine
DX: K70.31 Alcoholic cirrhosis of liver with ascites (principal)
CPT/HCPCS: 76705

== ENCOUNTER → 2024-01-08 07:47 | Outpatient (CLI) | payer OTHER, MEDICAID, SELFPAY ==
[2022-06-13 18:42] VITALS: BMI 22.8
--- NOTE | 2024-01-08 08:00 | DI.US.S_ITS ---
PROCEDURE: US PARACENTESIS INDICATIONS: ASCITES TECHNIQUE: The indications, alternatives, benefits, risks, and complications of the procedure were explained to the patient. Written informed consent was obtained and placed in the chart. The abdomen and pelvis were examined sonographically, and an appropriate site was chosen for paracentesis. The skin was prepared and draped in the usual sterile fashion, and 1% lidocaine was infiltrated from the skin down through the peritoneal surface. A 19-gauge catheter-covered needle was then introduced into the peritoneal space, the catheter was advanced and the needle was withdrawn, and thereafter peritoneal fluid was withdrawn. The catheter was then removed and a dressing was applied. The fluid was discarded if the clinician did not order diagnostic testing of the fluid. COMPARISON: [facility], PARACENTESIS, 11/30/2023, 8:06. FINDINGS: Access site: Right lower quadrant Needle: One-Step centesis catheter with introducer needle. Fluid volume and description: 5000 cc. Clear mariajose. Fluid sent for diagnostic testing: None. Medications: 1% lidocaine for local anaesthesia. Complications: None. IMPRESSION: Successful ultrasound-guided therapeutic paracentesis. 5 L removed. Dictated by: James Zapaat M.D. on 01/08/2024 at 16:05 Approved by: James Zapata M.D. on 01/08/2024 at 16:06
[2024-01-08 08:24] LABS: Platelet Count 84 X10^3/uL (150-400)
[2024-01-08 08:31] LABS: INR 1.1 (0.9-1.3); Prothrombin Time 12.1 SECONDS (9.4-12.5)
[2024-01-08 08:34] LABS: PTT Partial Thromboplastin Tim 35 SECONDS (25.1-36.5)
== END ==
PROVIDERS: PCP Internal Medicine; Referring Provider Internal Medicine; Visit Provider Internal Medicine
DX: K70.31 Alcoholic cirrhosis of liver with ascites (principal)
CPT/HCPCS: 36415; 49083; 85049; 85610; 85730

== ENCOUNTER → 2024-01-12 13:46 | Outpatient (CLI) | payer OTHER, MEDICAID, SELFPAY ==
[2022-06-13 18:42] VITALS: BMI 22.8
--- NOTE | 2024-01-12 | DI.US.S_ITS ---
PROCEDURE: US ABDOMEN LIMITED INDICATIONS: ASCITIES EVAL TECHNIQUE: Real-time scanning was performed of the abdominal for ascites, with image documentation. COMPARISON: [facility], PARACENTESIS, 01/08/2024, 8:42. [facility], , US ABDOMEN LIMITED, 01/01/2024, 9:00. FINDINGS: Small volume of ascites. Paracentesis not performed. IMPRESSION: Paracentesis not performed. Dictated by: James Zapata M.D. on 01/12/2024 at 17:52 Approved by: James Zapata M.D. on 01/12/2024 at 17:54
== END ==
PROVIDERS: PCP Internal Medicine; Referring Provider Internal Medicine; Visit Provider Internal Medicine
DX: K70.31 Alcoholic cirrhosis of liver with ascites (principal)
CPT/HCPCS: 76705

== ENCOUNTER → 2024-01-15 07:48 | Outpatient (CLI) | payer OTHER, MEDICAID, SELFPAY ==
[2022-06-13 18:42] VITALS: BMI 22.8
--- NOTE | 2024-01-15 07:50 | DI.US.S_ITS ---
PROCEDURE: US ABDOMEN LIMITED INDICATIONS: Alcoholic cirrhosis of liver with ascites TECHNIQUE: Real-time focused scanning was performed of the abdomen, with image documentation. COMPARISON: [facility], , US ABDOMEN LIMITED, 01/12/2024, 16:55. FINDINGS: Targeted ultrasound of the abdomen demonstrates small volume ascites, without adequate window to allow for safe paracentesis. IMPRESSION: No paracentesis performed. Dictated by: Moris Davila M.D. on 01/15/2024 at 8:41 Approved by: Moris Davila M.D. on 01/15/2024 at 8:42
== END ==
PROVIDERS: PCP Internal Medicine; Referring Provider Internal Medicine; Visit Provider Internal Medicine
DX: K70.31 Alcoholic cirrhosis of liver with ascites (principal)
CPT/HCPCS: 76705

== ENCOUNTER → 2024-01-19 15:24 | Outpatient (CLI) | payer OTHER, MEDICAID, SELFPAY ==
[2024-01-18 10:20] VITALS: BMI 22.8
[2024-01-19 15:48] LABS: Add Manual Diff / Slide Review NO; Basophils Absolute Auto 0 /uL (0-100); Basophils Percent Auto 0.6 % (0-2); Eosinophils Absolute Auto 200 /uL (0-450); Eosinophils Percent Auto 7.2 % (2-4); Hematocrit 23.6 % (41-53); Hemoglobin 8.3 g/dL (13.5-17.5); Lymphocytes Absolute Auto 400 /uL (1100-4500); Lymphocytes Percent Auto 16.9 % (25-40); Mean Corpuscular HGB Conc 35.1 % (30-36); Mean Corpuscular Hemoglobin 34.7 PG (26-34); Mean Corpuscular Volume 98.9 fL (80-100); Monocytes Absolute Auto 300 /uL (0-900); Monocytes Percent Auto 15.5 % (3-14); Neutrophils Absolute Auto 1300 /uL (1500-7000); Neutrophils Percent Auto 59.8 % (50-75); Platelet Count 82 X10^3/uL (150-400); Red Blood Cell Count 2.38 X10^6/uL (4.5-5.9); Red Cell Distribution Width 14.8 % (11.6-14.8); White Blood Cell Count 2.2 X10^3/uL (4.5-11.0)
[2024-01-19 16:09] LABS: Alanine Aminotransferase 12 IU/L (<50); Albumin 3.4 g/dL (3.5-5.0); Alkaline Phosphatase 94 U/L (38-126); Aspartate Aminotransferase 25 IU/L (17-59); BUN Creatinine Ratio 16.8 (6-22); Bilirubin Total 0.4 mg/dL (0.2-1.3); Blood Urea Nitrogen 24 mg/dL (9-20); C-Reactive Protein Quant 4.1 mg/dL (<1.0); Carbon Dioxide 20 mmol/L (22-32); Chloride 98 mmol/L (98-107); Estimated Glomerular Filt Rate 55 mL/min (>60); Globulin 3.4 g/dL (1.7-4.1); Glucose 93 mg/dL (80-110); HEMOLYSIS < 15 (0-50); Potassium 4.3 mmol/L (3.4-5.1); Sodium 131 mmol/L (137-145); Total Protein 6.8 g/dL (6.3-8.2)
[2024-01-19 16:12] LABS: Erythrocyte Sedimentation Rate 79 MM/HR (0-15)
[2024-01-19 16:13] LABS: NT-proBNP (BNP-Adult 18+) 1560 pg/mL (<125)
== END ==
PROVIDERS: Physician Assistant; PCP Internal Medicine; Referring Provider Internal Medicine; Visit Provider Internal Medicine
DX: R60.9 Edema, unspecified (principal)
CPT/HCPCS: 36415; 80053; 83880; 85025; 85651; 86140

== ENCOUNTER → 2024-01-22 07:45 | Outpatient (CLI) | payer OTHER, MEDICAID, SELFPAY ==
[2022-06-13 18:42] VITALS: BMI 22.8
[2024-01-18 10:20] VITALS: BMI 22.8
--- NOTE | 2024-01-22 07:46 | DI.US.S_ITS ---
PROCEDURE: US PARACENTESIS INDICATIONS: ASCITIES TECHNIQUE: The indications, alternatives, benefits, risks, and complications of the procedure were explained to the patient. Written informed consent was obtained and placed in the chart. The abdomen and pelvis were examined sonographically, and an appropriate site was chosen for paracentesis. The skin was prepared and draped in the usual sterile fashion, and 1% lidocaine was infiltrated from the skin down through the peritoneal surface. A 19-gauge catheter-covered needle was then introduced into the peritoneal space, the catheter was advanced and the needle was withdrawn, and thereafter peritoneal fluid was withdrawn. The catheter was then removed and a dressing was applied. The fluid was discarded if the clinician did not order diagnostic testing of the fluid. COMPARISON: [facility], PARACENTESIS, 01/08/2024, 8:42. FINDINGS: Access site: Right lower quadrant abdomen. Needle: One-Step centesis catheter with introducer needle. Fluid volume and description: 5 liters of clear straw-colored fluid. Fluid sent for diagnostic testing: None. Medications: 1% lidocaine for local anaesthesia. Complications: None. IMPRESSION: Successful ultrasound-guided paracentesis. Dictated by: French Granado M.D. on 01/22/2024 at 9:41 Approved by: French Granado M.D. on 01/22/2024 at 9:42
== END ==
LOC: US 07:46
PROVIDERS: PCP Internal Medicine; Referring Provider Internal Medicine; Visit Provider Internal Medicine
DX: K70.31 Alcoholic cirrhosis of liver with ascites (principal); N18.31 Chronic kidney disease, stage 3a
CPT/HCPCS: 36415; 49083; 80048

== ENCOUNTER → 2024-01-22 08:44 | Outpatient (CLI) | payer OTHER, MEDICAID, SELFPAY ==
[2024-01-18 10:20] VITALS: BMI 22.8
[2024-01-22 10:10] LABS: BUN Creatinine Ratio 16.8 (6-22); Blood Urea Nitrogen 25 mg/dL (9-20); Calcium 8.2 mg/dL (8.4-10.2); Carbon Dioxide 23 mmol/L (22-32); Chloride 98 mmol/L (98-107); Estimated Glomerular Filt Rate 52 mL/min (>60); Glucose 99 mg/dL (80-110); HEMOLYSIS < 15 (0-50); Potassium 4.2 mmol/L (3.4-5.1); Sodium 130 mmol/L (137-145)
== END ==
PROVIDERS: PCP Internal Medicine; Referring Provider Physician Assistant; Visit Provider Physician Assistant
DX: N18.31 Chronic kidney disease, stage 3a (principal)
CPT/HCPCS: 36415; 80048

== ENCOUNTER → 2024-01-29 07:53 | Outpatient (CLI) | payer OTHER, MEDICAID, SELFPAY ==
[2022-06-13 18:42] VITALS: BMI 22.8
[2024-01-18 10:20] VITALS: BMI 22.8
--- NOTE | 2024-01-29 | DI.US.S_ITS ---
PROCEDURE: US PARACENTESIS INDICATIONS: Alcoholic cirrhosis of liver with ascites TECHNIQUE: The indications, alternatives, benefits, risks, and complications of the procedure were explained to the patient. Written informed consent was obtained and placed in the chart. The abdomen and pelvis were examined sonographically, and an appropriate site was chosen for paracentesis. The skin was prepared and draped in the usual sterile fashion, and 1% lidocaine was infiltrated from the skin down through the peritoneal surface. A 19-gauge catheter-covered needle was then introduced into the peritoneal space, the catheter was advanced and the needle was withdrawn, and thereafter peritoneal fluid was withdrawn. The catheter was then removed and a dressing was applied. The fluid was discarded if the clinician did not order diagnostic testing of the fluid. COMPARISON: [facility], , PARACENTESIS, 01/22/2024, 8:09. FINDINGS: Access site: Left lower quadrant Needle: One-Step centesis catheter with introducer needle. Fluid volume and description: 3300 cc of clear mariajose colored fluid. Fluid sent for diagnostic testing: None Medications: 1% lidocaine for local anaesthesia. Complications: None. IMPRESSION: Successful ultrasound-guided paracentesis. Dictated by: French Granado M.D. on 01/29/2024 at 16:36 Approved by: French Granado M.D. on 01/29/2024 at 16:36
[2024-01-29 10:08] LABS: BUN Creatinine Ratio 17.4 (6-22); Blood Urea Nitrogen 29 mg/dL (9-20); Calcium 8.1 mg/dL (8.4-10.2); Carbon Dioxide 21 mmol/L (22-32); Chloride 92 mmol/L (98-107); Estimated Glomerular Filt Rate 45 mL/min (>60); Glucose 98 mg/dL (80-110); HEMOLYSIS < 15 (0-50); Magnesium 1.9 mg/dL (1.6-2.3); Potassium 4.4 mmol/L (3.4-5.1); Sodium 126 mmol/L (137-145)
== END ==
LOC: US 07:53
PROVIDERS: PCP Internal Medicine; Referring Provider Internal Medicine; Visit Provider Internal Medicine
DX: K70.31 Alcoholic cirrhosis of liver with ascites (principal); N18.30 Chronic kidney disease, stage 3 unspecified
CPT/HCPCS: 36415; 49083; 80048; 83735

== ENCOUNTER → 2024-02-05 07:47 | Outpatient (CLI) | payer OTHER, MEDICAID, SELFPAY ==
[2022-06-13 18:42] VITALS: BMI 22.8
[2024-01-18 10:20] VITALS: BMI 22.8
--- NOTE | 2024-02-05 07:48 | DI.US.S_ITS ---
PROCEDURE: US ABDOMEN LIMITED INDICATIONS: Alcoholic cirrhosis of liver with ascites TECHNIQUE: Real-time focused scanning was performed of the abdomen, with image documentation. COMPARISON: [facility], , US ABDOMEN LIMITED, 01/15/2024, 8:03. FINDINGS: Real-time evaluation of the abdomen showed mild ascites. A good location for paracentesis was not identified and so no further action was taken. IMPRESSION: Ascites. Because inadequate localized fluid collection could not be determined, paracentesis was not performed. Dictated by: Aleks Tucker M.D. on 02/05/2024 at 9:37 Approved by: Aleks Tucker M.D. on 02/05/2024 at 9:40
== END ==
PROVIDERS: PCP Internal Medicine; Referring Provider Internal Medicine; Visit Provider Internal Medicine
DX: K70.31 Alcoholic cirrhosis of liver with ascites (principal)
CPT/HCPCS: 76705

== ENCOUNTER → 2024-02-12 07:46 | Outpatient (CLI) | payer OTHER, MEDICAID, SELFPAY ==
[2024-01-18 10:20] VITALS: BMI 22.8
--- NOTE | 2024-02-12 | DI.US.S_ITS ---
PROCEDURE: US ABDOMEN LIMITED INDICATIONS: ALCOHOLIC CIRRHOSIS OF LIVER WITH ASCITES TECHNIQUE: Real-time scanning was performed to assess for are ascites. COMPARISON: [facility], , US ABDOMEN LIMITED, 02/05/2024, 7:59. FINDINGS/IMPRESSION: Paracentesis was not performed due to a small amount of fluid within the abdomen. Dictated by: Ruben Barcenas M.D. on 02/12/2024 at 12:23 Approved by: Ruben Barcenas M.D. on 02/12/2024 at 12:26
== END ==
PROVIDERS: PCP Internal Medicine; Referring Provider Internal Medicine; Visit Provider Internal Medicine
DX: K70.31 Alcoholic cirrhosis of liver with ascites (principal)
CPT/HCPCS: 76705

== ENCOUNTER → 2024-02-26 07:45 | Outpatient (CLI) | payer OTHER, MEDICAID, SELFPAY ==
[2024-01-18 10:20] VITALS: BMI 22.8
--- NOTE | 2024-02-26 07:47 | DI.US.S_ITS ---
PROCEDURE: US ABDOMEN LIMITED INDICATIONS: ALCOHOLIC CIRRHOSIS OF LIVER WITH ASCITES TECHNIQUE: Real-time scanning was performed to assess for peritoneal fluid. COMPARISON: [facility], , US ABDOMEN LIMITED, 02/12/2024, 7:58. FINDINGS/IMPRESSION: A paracentesis was not performed due to a small amount of fluid within the abdomen. Dictated by: Ruben Barcenas M.D. on 02/26/2024 at 16:11 Approved by: Ruben Barcenas M.D. on 02/26/2024 at 16:13
== END ==
LOC: US 07:46
PROVIDERS: PCP Internal Medicine; Referring Provider Internal Medicine; Visit Provider Internal Medicine
DX: K70.31 Alcoholic cirrhosis of liver with ascites (principal)
CPT/HCPCS: 76705

== ENCOUNTER → 2024-03-18 08:53 | Outpatient (CLI) | payer MEDICARE, SELFPAY ==
[2024-01-18 10:20] VITALS: BMI 22.8
--- NOTE | 2024-03-18 | DI.US.S_ITS ---
PROCEDURE: US ABDOMEN LIMITED INDICATIONS: ASCITES - EVALUATE FOR PARACENTESIS TECHNIQUE: Real-time focused scanning was performed of the abdomen, with image documentation. COMPARISON: [facility], , US ABDOMEN LIMITED, 02/26/2024, 8:07. Findings and impression: Insufficient fluid identified for paracentesis. No procedure was performed. Dictated by: Chun Hobson M.D. on 03/18/2024 at 14:53 Approved by: Chun Hobson M.D. on 03/18/2024 at 14:53
== END ==
LOC: US 08:54
PROVIDERS: PCP Internal Medicine; Referring Provider Internal Medicine; Visit Provider Internal Medicine
DX: K70.31 Alcoholic cirrhosis of liver with ascites (principal)
CPT/HCPCS: 76705

== ENCOUNTER → 2024-04-14 11:51 | Outpatient (CLI) | payer MEDICARE, SELFPAY ==
[2024-01-18 10:20] VITALS: BMI 22.8
[2024-04-14 12:34] LABS: Hematocrit 22.6 % (41-53); Mean Corpuscular HGB Conc 35.3 % (30-36); Mean Corpuscular Hemoglobin 34.4 PG (26-34); Mean Corpuscular Volume 97.3 fL (80-100); Platelet Count 60 X10^3/uL (150-400); Red Blood Cell Count 2.32 X10^6/uL (4.5-5.9); Red Cell Distribution Width 15.3 % (11.6-14.8); White Blood Cell Count 2.4 X10^3/uL (4.5-11.0)
== END ==
PROVIDERS: PCP Internal Medicine; Referring Provider Internal Medicine; Visit Provider Internal Medicine
DX: K70.31 Alcoholic cirrhosis of liver with ascites (principal)
CPT/HCPCS: 36415; 85027; 85610

== ENCOUNTER → 2024-04-15 08:49 | Outpatient (CLI) | payer MEDICARE, SELFPAY ==
[2024-01-18 10:20] VITALS: BMI 22.8
--- NOTE | 2024-04-15 08:50 | DI.US.S_ITS ---
PROCEDURE: US ABDOMEN LIMITED INDICATIONS: ASCITES TECHNIQUE: Real-time focused scanning was performed of the abdomen, with image documentation. COMPARISON: [facility], , US ABDOMEN LIMITED, 03/18/2024, 9:09. FINDINGS: Small volume ascites in all 4 quadrants. No safe window for paracentesis. IMPRESSION: Small volume ascites. No safe window for paracentesis. Dictated by: Jarad Gan M.D. on 04/15/2024 at 10:17 Approved by: Jarad Gan M.D. on 04/15/2024 at 10:18
== END ==
PROVIDERS: PCP Internal Medicine; Referring Provider Internal Medicine; Visit Provider Internal Medicine
DX: K70.31 Alcoholic cirrhosis of liver with ascites (principal)
CPT/HCPCS: 76705

== ENCOUNTER 2024-07-20 12:08 | Outpatient (CLI) | payer MEDICARE, SELFPAY ==
[2024-01-18 10:20] VITALS: BMI 22.8
--- NOTE | 2024-07-20 12:09 | DI.US.S_ITS ---
PROCEDURE: US ABDOMEN LIMITED INDICATIONS: ascites TECHNIQUE: Real-time scanning was performed of the abdominal and retroperitoneal organs, with image documentation. COMPARISON: [facility], , US ABDOMEN LIMITED, 04/15/2024, 9:00. FINDINGS: No significant ascites in the right lower quadrant or midline lower abdomen. There is trace ascites in the left lower quadrant. IMPRESSION: Insufficient fluid for paracentesis. Dr. Zapata discussed with the patient. Dictated by: James Zapata M.D. on 07/21/2024 at 13:07 Approved by: James Zapata M.D. on 07/21/2024 at 13:09
[2024-07-20 12:50] VITALS: BP 153/77; PULSE 79; RESP 18; TEMP 36.4; O2SAT 95
[2024-07-20 13:19] LABS: Mean Corpuscular HGB Conc 34.9 % (30-36); Mean Corpuscular Hemoglobin 35.1 PG (26-34); Mean Corpuscular Volume 100.6 fL (80-100); Platelet Count 73 X10^3/uL (150-400); Red Blood Cell Count 2.28 X10^6/uL (4.5-5.9); Red Cell Distribution Width 15.2 % (11.6-14.8); White Blood Cell Count 2.4 X10^3/uL (4.5-11.0)
[2024-07-20 13:30] LABS: INR 1.2 (0.9-1.3); Prothrombin Time 13.1 SECONDS (9.4-12.5)
== END 2024-07-20 13:36 | disposition home or self-care (01) ==
LOC: US 12:08
PROVIDERS: PCP Internal Medicine; Referring Provider Radiology Diagnostic Radiology; Visit Provider Radiology Diagnostic Radiology
DX: K70.31 Alcoholic cirrhosis of liver with ascites (principal)
CPT/HCPCS: 76705; 85027; 85610

== ENCOUNTER → 2024-07-26 14:05 | Outpatient (CLI) | payer MEDICARE, SELFPAY ==
[2024-01-18 10:20] VITALS: BMI 22.8
[2024-07-26 14:47] LABS: Erythrocyte Sedimentation Rate 108 MM/HR (0-15)
[2024-07-26 14:52] LABS: Alanine Aminotransferase 17 IU/L (<50); Albumin 4.3 g/dL (3.5-5.0); Albumin Globulin Ratio 1.2 (1.0-2.8); Alkaline Phosphatase 86 U/L (38-126); Aspartate Aminotransferase 25 IU/L (17-59); BUN Creatinine Ratio 19.1 (6-22); Bilirubin Total 0.4 mg/dL (0.2-1.3); Blood Urea Nitrogen 54 mg/dL (9-20); C-Reactive Protein Quant 0.8 mg/dL (<1.0); Carbon Dioxide 19 mmol/L (22-32); Chloride 94 mmol/L (98-107); Estimated Glomerular Filt Rate 24 mL/min (>60); Globulin 3.6 g/dL (1.7-4.1); Glucose 103 mg/dL (80-110); HEMOLYSIS < 15 (0-50); Potassium 4.4 mmol/L (3.4-5.1); Sodium 129 mmol/L (137-145); Total Protein 7.9 g/dL (6.3-8.2)
[2024-07-26 15:06] LABS: Free T4, Direct Thyroxine 1.03 ng/dL (0.78-2.19)
[2024-07-26 15:20] LABS: Thyroid Stimulating Hormone 5.15 uIU/mL (0.47-4.68); Uric Acid 15.7 mg/dL (3.5-8.5)
== END ==
PROVIDERS: PCP Internal Medicine; Referring Provider Internal Medicine; Visit Provider Internal Medicine
DX: E03.9 Hypothyroidism, unspecified (principal); R60.0 Localized edema; M10.9 Gout, unspecified
CPT/HCPCS: 36415; 80053; 84439; 84443; 84550; 85651; 86140

== ENCOUNTER 2024-08-03 12:56 | Emergency (ER) | payer MEDICARE, MEDICAID, SELFPAY ==
[2024-01-18 10:20] VITALS: BMI 22.8
[2024-08-03 13:00] VITALS: BP 122/57; PULSE 87; RESP 15; TEMP 36.1; O2SAT 96; BMI 30.8
--- NOTE | 2024-08-03 13:04 | DI.RAD.S_ITS ---
PROCEDURE: XR WRIST RT MIN 3V INDICATIONS: wrist pain TECHNIQUE: 4 views of the wrist were acquired. COMPARISON: None. FINDINGS: Bones: No acute fracture or dislocation. Old deformity involving 5th metacarpal neck is seen. 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 No suspicious bony lesions. Soft tissues: No suspicious soft tissue calcifications. IMPRESSION: No acute wrist fracture or dislocation. Old fracture involving 5th metacarpal neck. Mild wrist joint osteoarthritis. No gross soft tissue abnormalities. Dictated by: French Granado M.D. on 08/03/2024 at 13:58 Approved by: French Granado M.D. on 08/03/2024 at 14:00
--- NOTE | 2024-08-03 14:28 | ED_ITS ---
HPI - Extremity Problem <Jazmin Rios PA-C - Last Filed: 08/03/24 15:19> General Chief complaint: Extremity Problem,Nontraumatic Stated complaint: rt wrist pain x 2 weeks Time Seen by Provider: 08/03/24 14:28 Source: patient Mode of arrival: Ambulatory History of Present Illness HPI Narrative: Mr. Bae is a 64-year-old male with a past medical history of bipolar 1, CKD, anemia, liver cirrhosis, hypertension, hyperlipidemia, gout, hypothyroidism who presents to the emergency department for nontraumatic right wrist pain x2 weeks. Patient saw his PCP on 07/26/2024 for this concern was placed on prednisone for 1 week. Patient states the prednisone is not helped. Patient reports pain primarily over the ulnar aspect of the right wrist worse with movement. He also notes the wrist is swollen. Heat and right wrist brace improve the pain. Denies similar in the past. States he fractured his right hand when he was 14 years old. 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 He still has range of motion and sensation of the hand. Denies fevers, chills, nausea, vomiting, redness, increased warmth. He drove himself to the ED. States that his PCP asked him to follow up with Nephrology due to worsening kidney function, he has an appointment scheduled for September 01. Related Data Home Medications Medication Instructions Recorded Confirmed cyanocobalamin (vitamin B-12) 1,000 mcg PO DAILY 01/19/24 07/26/24 1,000 mcg tablet Previous Rx's Medication Instructions Recorded folic acid 1 mg tablet 1 mg PO DAILY #90 tabs 04/25/22 triamcinolone acetonide 0.1 % 1 applic topical TID #80 grams 10/26/23 topical cream trazodone 100 mg tablet 200 mg (2 x 100 mg) PO BID #360 11/13/23 tabs sildenafil 100 mg tablet 50 - 100 mg (0.5 - 1 x 100 mg) PO 01/04/24 DAILY PRN sexual activity #7 tabs spironolactone 25 mg tablet 25 mg PO BID #180 tabs 01/28/24 levothyroxine 75 mcg tablet 75 mcg PO DAILY #90 tabs 02/15/24 atorvastatin 20 mg tablet 20 mg PO BEDTIME #90 tabs 04/12/24 quetiapine 300 mg tablet,extended 450 mg (1.5 x 300 mg) PO BID #270 04/27/24 release 24 hr (Seroquel XR) tabs torsemide 20 mg tablet 60 mg (3 x 20 mg) PO QAM #90 tabs 06/06/24 hydrocodone 5 mg-acetaminophen 325 1 tab PO Q6H PRN pain #12 tabs 08/03/24 mg tablet Allergies Allergy/AdvReac Type Severity Reaction Status Date / Time No Known Drug Allergies Allergy Verified 08/03/24 13:00 Review of Systems <Jazmin Rios PA-C - Last Filed: 08/03/24 15:19> Review of Systems ROS Unobtainable: All systems reviewed & are unremarkable except as noted in HPI and below Patient History <Jazmin Rios PA-C - Last Filed: 08/03/24 15:19> Medical History Peripheral edema Erectile dysfunction Anemia in chronic kidney disease Chronic renal failure, stage 3 (moderate) Hernia, umbilical Gout Hearing loss Anxiety Bipolar disorder (2007) Depression (2007) Hypothyroidism (09/30/17) Hyperlipidemia Obesity Essential hypertension Surgical History H/O hernia repair Status post colonoscopy Family History Father Age: 91 History of stroke History of cancer Prostate cancer Social History household members: none Smoking Status: Never smoker second hand exposure: No alcohol intake: current substance use type: former substance user Smoking Status: Never smoker alcohol intake frequency: 0-2 drinks per day Alcohol type: beer Exam <Jazmin Rios PA-C - Last Filed: 08/03/24 15:19> Narrative Exam Narrative: GENERAL: 64 year old patient appears stated age. Chronic ill appearing pt, in NAD. HEAD: Atraumatic. Normocephalic. NECK: Trachea midline. Cervical ROM intact. CARDIOVASCULAR: Regular rate and rhythm. Strong right radial pulse, capillary refill intact on right hand. RESPIRATORY: ?Nonlabored respirations. ?Speaking in clear, full sentences. EXTREMITIES: Diffuse swelling of right wrist without erythema or increased warmth. Pain with flexion and extension of right wrist and pain with palpation of the ulnar wrist. No pain to palpation of the hand or phalanx is. Sensation intact to light touch in the distribution of the median, radial, ulnar nerves. NEURO: AOx3. ?Clear speech. ? SKIN: No rash or erythema of visible areas Initial Vital Signs Initial Vital Signs: Vital Signs Temperature 97.0 F L 08/03/24 13:00 Pulse Rate 87 08/03/24 13:00 Respiratory Rate 15 08/03/24 13:00 Blood Pressure 122/57 L 08/03/24 13:00 Pulse Oximetry 96 08/03/24 13:00 Oxygen Delivery Method Room Air 08/03/24 13:00 <Philip Arango MD - Last Filed: 08/16/24 07:53> Initial Vital Signs Initial Vital Signs: Vital Signs Temperature 97.0 F L 08/03/24 13:00 Pulse Rate 87 08/03/24 13:00 Respiratory Rate 15 08/03/24 13:00 Blood Pressure 122/57 L 08/03/24 13:00 Pulse Oximetry 96 08/03/24 13:00 Oxygen Delivery Method Room Air 08/03/24 13:00 Course <Jazmin Rios PA-C - Last Filed: 08/03/24 15:19> Orders Ordered: ED Orders 08/03/24 13:04 XR wrist RT min 3V Stat Vital Signs Vital signs: Vital Signs - 8 hr 08/03/24 13:00 08/03/24 15:00 Temperature 97.0 F L Pulse Rate 87 55 L Respiratory Rate 15 Blood Pressure 122/57 L 127/69 Pulse Oximetry 96 96 Oxygen Delivery Method Room Air Room Air <Philip Arango MD - Last Filed: 08/16/24 07:53> Orders Ordered: ED Orders 08/03/24 13:04 XR wrist RT min 3V Stat Vital Signs Vital signs: Vital Signs - 8 hr 08/03/24 13:00 08/03/24 15:00 Temperature 97.0 F L Pulse Rate 87 55 L Respiratory Rate 15 Blood Pressure 122/57 L 127/69 Pulse Oximetry 96 96 Oxygen Delivery Method Room Air Room Air MDM - Extremity (Nontraumatic) <Jazmin Rios PA-C - Last Filed: 08/03/24 15:19> Medical Records Attestation: I reviewed the patient's medical records. [facility] Narrative Medical decision making narrative: 64-year-old male with a past medical history of bipolar 1, CKD, anemia, liver cirrhosis, hypertension, hyperlipidemia, gout, hypothyroidism who presents to the emergency department for nontraumatic right wrist pain x2 weeks. Differential diagnosis includes but is not limited to arthritis, gout, fracture, sprain, strain, effusion, septic arthritis, etc. Case discussed with ED attending, Dr. Arango. On exam patient is in no acute distress, nontoxic appearing. He is swelling of the right wrist without erythema or increased warmth. No fever. He was previously evaluated on 07/26/2024 with his PCP. Outpatient labs were ordered and he was treated with prednisone however prednisone did not help his pain. Labs this month reveal worsening CKD, elevated uric acid, negative CRP at 0.8. ESR is chronically elevated, 108 yesterday. No fever, no redness, negative CRP, overall not consistent with a septic joint. X-ray obtained in triage reveals an old 5th metacarpal fracture and some osteoarthritis. Due to patient's CKD, we will avoid NSAIDs. Symptoms could be related to gout however he had no relief with prednisone. We will continue with right wrist brace for support and compression, hydrocodone-acetaminophen as needed for severe pain, topical Voltaren cream, rice therapy. Patient's right hand is neurovascularly intact. Advised he follow up with Orthopedics, Nephrology, PCP, ED return precautions discussed. Patient drove himself to the ED so prescription sent to his pharmacy, we will not give hydrocodone in the ED at this time. Patient verbalized understanding of all information is agreeable to the plan. He is stable for discharge home. Discharge Plan Departure Patient Disposition: Home Clinical Impression: Pain and swelling of right wrist Osteoarthritis of right wrist Qualifiers: Osteoarthritis type: unspecified Qualified Code(s): M19.031 - Primary osteoarthritis, right wrist Instructions: DI for Wrist Pain Activity Restrictions/Additional Instructions: Today you were evaluated for right wrist pain and swelling. An x-ray of your right wrist showed an old fracture and did show osteoarthritis of the wrist. I have prescribed you a short course of hydrocodone-acetaminophen if needed for severe pain. I also want you to use topical Voltaren cream to the right wrist and continue using the right wrist brace. Do NOT use any type of oral NSAIDs such as ibuprofen, naproxen, aspirin, etc. as this can worsen kidney function. Please call to schedule an appointment with [facility] Orthopedics: Dr. Brandie Lyman [phone]. Please use RICE therapy for your pain in addition to ibuprofen/acetaminophen. Rest the painful area. Ice the area of pain/swelling for at least 15 minutes, 4x a day. Compress the area of swelling using a brace, wrap, or splint if applied. Elevate the painful or swollen extremity by supporting it above the level of the heart with pillows when sitting or laying. Return to the ER immediately if you develop redness or heat of the right wrist, fevers or chills, not producing urine, any other concerns. You have been prescribed a short course of narcotic medications. These are potentially dangerous and addictive medications that should be used carefully. While on these medications you cannot drive or operate heavy machinery. Additionally, you cannot sign legal documents or perform any duties such as this. 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 Please understand that we cannot provide further refills of narcotics or controlled substances through the ED and your pain management will need to be through your Primary Care Provider Please follow up with your primary care doctor within the next 2-3 days for ER follow-up. (If you do not have a PCP you can call [phone]. ?to schedule an appointment with an [facility] Primary Care Provider) IF YOU DEVELOP ANY NEW OR WORSENING SYMPTOMS, RETURN TO THE ER! Please read the attached instructions, they highlight more specific treatments and interventions for you at home. Thank you for letting me participate in your care, Jazmin Rios PA-C Prescriptions: New hydrocodone-acetaminophen 5-325 mg tablet 1 tab PO Q6H PRN (Reason: pain) Qty: 12 0RF No Action sildenafil 100 mg tablet 50 - 100 mg PO DAILY PRN (Reason: sexual activity) Qty: 7 0RF Rx Instructions: administer 30 minutes to 4 hours before activity levothyroxine 75 mcg tablet 75 mcg PO DAILY Qty: 90 3RF Rx Instructions: Take one tablet daily. atorvastatin 20 mg tablet 20 mg PO BEDTIME Qty: 90 3RF quetiapine [Seroquel XR] 300 mg tablet extended release 24 hr 450 mg PO BID Qty: 270 6RF torsemide 20 mg tablet 60 mg PO QAM Qty: 90 3RF folic acid 1 mg tablet 1 mg PO DAILY Qty: 90 3RF trazodone 100 mg tablet 200 mg PO BID Qty: 360 3RF triamcinolone acetonide 0.1 % cream 1 applic topical TID Qty: 80 0RF cyanocobalamin (vitamin B-12) 1,000 mcg tablet 1,000 mcg PO DAILY spironolactone 25 mg tablet 25 mg PO BID Qty: 180 3RF Referrals: Neil Silver MD [Primary Care Provider] - Stand Alone Forms: Patient Portal/API/Survey ED Sign-out <Philip Arango MD - Last Filed: 08/16/24 07:53> Cosign ED Attending Cosignature Attestation: I was immediately available in the department for consultation. ?This documentation has been reviewed and I agree with assessment and plan. Supervised by Philip Arango MD
[2024-08-03 15:00] VITALS: BP 127/69; PULSE 55; O2SAT 96
== END 2024-08-03 15:20 | disposition home or self-care (01) ==
PROVIDERS: Emergency Provider Physician Assistant; PCP Internal Medicine
DX: M25.531 Pain in right wrist (principal); M19.031 Primary osteoarthritis, right wrist; E78.5 Hyperlipidemia, unspecified; Z86.59 Personal history of other mental and behavioral disorders; Z87.448 Personal history of other diseases of urinary system; E66.9 Obesity, unspecified; Z68.30 Body mass index [BMI] 30.0-30.9, adult; E03.9 Hypothyroidism, unspecified; I12.9 Hypertensive chronic kidney disease with stage 1 through stage 4 chronic kidney disease, or unspecified chronic kidney disease; N18.30 Chronic kidney disease, stage 3 unspecified
CPT/HCPCS: 73110; 99281; 99283

== ENCOUNTER → 2024-10-12 15:52 | Outpatient (CLI) | payer MEDICARE, SELFPAY ==
[2024-01-18 10:20] VITALS: BMI 22.8
[2024-10-12 16:36] LABS: Hematocrit 24.3 % (41-53); Hemoglobin 8.6 g/dL (13.5-17.5); Mean Corpuscular HGB Conc 35.2 % (30-36); Mean Corpuscular Hemoglobin 34.3 PG (26-34); Mean Corpuscular Volume 97.4 fL (80-100); Platelet Count 57 X10^3/uL (150-400); Red Cell Distribution Width 14.7 % (11.6-14.8); White Blood Cell Count 2.6 X10^3/uL (4.5-11.0)
[2024-10-12 16:49] LABS: BUN Creatinine Ratio 19.5 (6-22); Blood Urea Nitrogen 34 mg/dL (9-20); Calcium 8.7 mg/dL (8.4-10.2); Carbon Dioxide 15 mmol/L (22-32); Chloride 87 mmol/L (98-107); Estimated Glomerular Filt Rate 43 mL/min (>60); Glucose 111 mg/dL (80-110); HEMOLYSIS < 15 (0-50); Uric Acid 6.4 mg/dL (3.5-8.5)
[2024-10-12 17:23] LABS: Ferritin 85 ng/mL (18-464)
[2024-10-12 17:24] LABS: Sodium 118 mmol/L (137-145)
[2024-10-12 17:36] LABS: Total Iron Binding Capacity 267 ug/dL (261-462)
[2024-10-12 17:50] LABS: Iron 98 ug/dL (49-181); Percent Iron Saturation 37 % (20-50)
[2024-10-14 14:13] LABS: Osmolality, Serum 264 mOsmol/kg (280-301)
== END ==
PROVIDERS: PCP Internal Medicine; Referring Provider Internal Medicine Nephrology; Visit Provider Internal Medicine Nephrology
DX: N18.4 Chronic kidney disease, stage 4 (severe) (principal)
CPT/HCPCS: 80048; 82040; 82728; 83540; 83550; 83930; 84550; 85027

== ENCOUNTER 2024-10-13 12:56 | Inpatient (IN) | payer MEDICARE, MEDICAID, SELFPAY ==
[2024-01-18 10:20] VITALS: BMI 22.8
[2024-10-13] VITALS (13 sets, daily range): BP systolic 111–161; BP diastolic 54–75; PULSE 68–84; RESP 12–25; TEMP 35.6–36.3; O2SAT 96–99; BMI 30.2; BMI 29.9
[2024-10-13 13:34] LABS: Add Manual Diff / Slide Review NO; Basophils Absolute Auto 0 /uL (0-100); Basophils Percent Auto 0.9 % (0-2); Eosinophils Absolute Auto 100 /uL (0-450); Eosinophils Percent Auto 2.1 % (2-4); Hematocrit 25.4 % (41-53); Lymphocytes Absolute Auto 500 /uL (1100-4500); Lymphocytes Percent Auto 12.4 % (25-40); Mean Corpuscular HGB Conc 35.3 % (30-36); Mean Corpuscular Hemoglobin 34.3 PG (26-34); Mean Corpuscular Volume 97.3 fL (80-100); Monocytes Absolute Auto 400 /uL (0-900); Monocytes Percent Auto 10.1 % (3-14); Neutrophils Absolute Auto 2800 /uL (1500-7000); Neutrophils Percent Auto 74.5 % (50-75); Platelet Count 63 X10^3/uL (150-400); Red Blood Cell Count 2.62 X10^6/uL (4.5-5.9); Red Cell Distribution Width 14.7 % (11.6-14.8); White Blood Cell Count 3.7 X10^3/uL (4.5-11.0)
[2024-10-13 13:48] LABS: Alanine Aminotransferase 17 IU/L (<50); Albumin 4.2 g/dL (3.5-5.0); Albumin Globulin Ratio 1.4 (1.0-2.8); Alkaline Phosphatase 76 U/L (38-126); Aspartate Aminotransferase 25 IU/L (17-59); BUN Creatinine Ratio 18.6 (6-22); Bilirubin Total 0.6 mg/dL (0.2-1.3); Blood Urea Nitrogen 35 mg/dL (9-20); Calcium 8.9 mg/dL (8.4-10.2); Carbon Dioxide 14 mmol/L (22-32); Chloride 86 mmol/L (98-107); Estimated Glomerular Filt Rate 39 mL/min (>60); Glucose 109 mg/dL (80-110); HEMOLYSIS < 15 (0-50); Potassium 4.8 mmol/L (3.4-5.1); Total Protein 7.2 g/dL (6.3-8.2)
[2024-10-13 13:49] LABS: Sodium 118 mmol/L (137-145)
--- NOTE | 2024-10-13 13:58 | PC.NURSE ---
Pt was attempting to sit in a chair when he lost his balance and went to the ground on his knees and then fell over. Pt hit the right side of his head on the floor. Pt had a negative loc and does not take blood thinners. Pt denies any injury or pain related to the fall.
[2024-10-13] MEDS: SODIUM CHLORIDE 0.9% 1,000 ML 100 ML IV (15:09)
[2024-10-13 15:12] LABS: Thyroid Stimulating Hormone 2.65 uIU/mL (0.47-4.68)
--- NOTE | 2024-10-13 15:21 | ED.RECABL ---
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 Who reports that he was hyponatremic. It was confirmed by blood work that he has a sodium of 118. He reports he was drinking fluids wire about 24 oz daily and eating normally. He was a little off balance in the ED stumbled a bit but did not fall or hit his head. Not on anticoagulation. He feels like his abdomen is normal no significant distention or dizziness. Related Data Home Medications Medication Instructions Recorded Confirmed cyanocobalamin (vitamin B-12) 1,000 mcg PO DAILY 01/19/24 10/13/24 1,000 mcg tablet allopurinol 100 mg tablet 200 mg PO DAILY 09/19/24 10/13/24 pantoprazole 40 mg tablet,delayed 40 mg PO DAILY 10/13/24 10/13/24 release trazodone 100 mg tablet See Rx Instructions .Route .COMPLEX 10/13/24 10/13/24 Previous Rx's Medication Instructions Recorded folic acid 1 mg tablet 1 mg PO DAILY #90 tabs 04/25/22 sildenafil 100 mg tablet 50 - 100 mg (0.5 - 1 x 100 mg) PO 01/04/24 DAILY PRN sexual activity #7 tabs spironolactone 25 mg tablet 25 mg PO BID #180 tabs 01/28/24 levothyroxine 75 mcg tablet 75 mcg PO DAILY #90 tabs 02/15/24 atorvastatin 20 mg tablet 20 mg PO BEDTIME #90 tabs 04/12/24 quetiapine 300 mg tablet,extended 450 mg (1.5 x 300 mg) PO BID #270 04/27/24 release 24 hr (Seroquel XR) tabs torsemide 20 mg tablet 40 mg (2 x 20 mg) PO QAM #180 tabs 10/05/24 Allergies Allergy/AdvReac Type Severity Reaction Status Date / Time No Known Drug Allergies Allergy Verified 09/19/24 14:53 Patient History Medical History Peripheral edema Erectile dysfunction Anemia in chronic kidney disease Chronic renal failure, stage 3 (moderate) Hernia, umbilical Gout Hearing loss Anxiety Bipolar disorder (2008) Depression (2008) Hypothyroidism (09/30/17) Hyperlipidemia Obesity Essential hypertension Surgical History H/O hernia repair Status post colonoscopy Family History Father Age: 91 History of stroke History of cancer Prostate cancer Social History household members: none Smoking Status: Never smoker second hand exposure: No alcohol intake: current substance use type: former substance user Smoking Status: Never smoker alcohol intake frequency: 0-2 drinks per day Alcohol type: beer Exam Initial Vital Signs Initial Vital Signs: Vital Signs Temperature 97.4 F L 10/13/24 13:08 Pulse Rate 68 10/13/24 13:08 Respiratory Rate 18 10/13/24 13:08 Blood Pressure 133/72 10/13/24 13:08 Pulse Oximetry 99 10/13/24 13:08 Oxygen Delivery Method Room Air 10/13/24 13:08 GENERAL: Alert pleasant 64-year-old male HEENT: Head atraumatic,EOMI, pupils reactive, face symmetric, moist mucous membranes CARDIOVASCULAR: Regular rate and rhythm without murmurs, rubs or gallops. RESPIRATORY: Breath sounds equal bilaterally, no wheezes rales or rhonchi. ABDOMEN: Soft, positive fluid wave soft no significant distention EXTREMITIES: Normal range of motion, no clubbing or edema. Neurovascularly intact NEUROLOGICAL: Alert and oriented x4.Normal gait and speech. SKIN: Warm, dry, no laceration, no petechiae, no rashes or lesions. Course Orders Ordered: ED Orders 10/13/24 13:21 Complete Blood Count AUTO DIFF Stat Comprehensive Metabolic Panel Stat TSH [Thyroid Stimulating Hormone] Stat 10/13/24 16:33 Sodium Urine Random Stat UA Complete [Urinalysis and Microscopic] Stat Acetaminophen (Acetaminophen 325 Mg Tablet) 650 mg PO Q8H PRN PRN Reason: Fever/Mild Pain (1-3) Allopurinol (Allopurinol 100 Mg Tablet) 200 mg PO DAILY JANIE Atorvastatin Calcium (Atorvastatin 20 Mg Tablet) 20 mg PO BEDTIME JANIE Cyanocobalamin (Cyanocobalamin (Vitamin B-12) 500 Mcg Tablet) 1,000 mcg PO DAILY [facility] Enoxaparin Sodium (Enoxaparin 40 Mg/0.4 Ml Syringe) 40 mg SUBCUT DAILY [facility] Folic Acid (Folic Acid 1 Mg Tablet) 1 mg PO DAILY [facility] Sodium Chloride (Normal Saline 0.9%) 1,000 mls @ 125 mls/hr IV CONT [facility] Last Admin: 10/13/24 17:12 Dose: 125 mls/hr Documented By: LILIANE Levothyroxine Sodium (Levothyroxine 75 Mcg Tablet) 75 mcg PO 0600 [facility] Naloxone HCl (Naloxone 0.4 Mg/Ml Vial) 0.2 mg IV Q2MIN PRN PRN Reason: Opiate Reversal Nf - Quetiapine ( Seroquel Xr) 300 Mg Er Tablet 450 mg PO BID [facility] Ondansetron HCl (Ondansetron 4 Mg/2 Ml Inj) 4 mg IV Q8HR PRN PRN Reason: Nausea And Vomiting Oxycodone HCl (Oxycodone Ir 5 Mg Tablet) 5 mg PO Q3H PRN PRN Reason: Pain, Moderate (4-6) Oxycodone HCl (Oxycodone Ir 10 Mg Tablet) 10 mg PO Q3H PRN PRN Reason: Pain, Severe (7-10) Pantoprazole Sodium (Pantoprazole Dr 40 Mg Tablet) 40 mg PO DAILY [facility] Trazodone HCl (Trazodone 50 Mg Tablet) 300 mg PO BEDTIME JANIE Trazodone HCl (Trazodone 50 Mg Tablet) 200 mg PO DAILY [facility] Discontinued Medications Sodium Chloride (Normal Saline 0.9%) 1,000 mls @ 100 mls/hr IV CONT [facility] Last Infusion: 10/13/24 16:41 Dose: 0 mls/hr Documented By: Admin: 10/13/24 15:09 Dose: 100 mls/hr Documented By: TRAVIS Non-Formulary Medication (Trazodone) 0 mg .ROUTE .COMPLEX [facility] Vital Signs Vital signs: Vital Signs - 8 hr 10/13/24 13:08 10/13/24 14:03 10/13/24 14:04 Temperature 97.4 F L Pulse Rate 68 Respiratory Rate 18 Blood Pressure 133/72 159/75 H Pulse Oximetry 99 97 Oxygen Delivery Method Room Air 10/13/24 14:04 10/13/24 14:30 10/13/24 15:00 Temperature Pulse Rate 75 71 72 Respiratory Rate 16 25 H Blood Pressure Pulse Oximetry 99 97 98 Oxygen Delivery Method 10/13/24 15:06 10/13/24 15:06 10/13/24 15:30 Temperature Pulse Rate 71 Respiratory Rate 20 Blood Pressure 128/61 133/68 Pulse Oximetry 99 Oxygen Delivery Method 10/13/24 15:30 Temperature Pulse Rate 71 Respiratory Rate 20 Blood Pressure Pulse Oximetry 97 Oxygen Delivery Method Room Air MDM - Recheck/Abnormal Lab/Rx Lab Data 10/13/24 13:21 10/13/24 18:00 Labs: Lab Results 10/13/24 Range/Units 13:21 WBC 3.7 L (4.5-11.0) X10^3/uL RBC 2.62 L (4.5-5.9) X10^6/uL Hgb 9.0 L (13.5-17.5) g/dL Hct 25.4 L (41-53) % MCV 97.3 (80-100) fL MCH 34.3 H (26-34) PG MCHC 35.3 (30-36) % RDW 14.7 (11.6-14.8) % Plt Count 63 L (150-400) X10^3/uL Neut % (Auto) 74.5 (50-75) % Lymph % (Auto) 12.4 L (25-40) % Creek % (Auto) 10.1 (3-14) % Eos % (Auto) 2.1 (2-4) % Baso % (Auto) 0.9 (0-2) % Neut # (Auto) 2800 (3727-5193) /uL Lymph # (Auto) 500 L (0830-3131) /uL Creek # (Auto) 400 (0-900) /uL Eos # (Auto) 100 (0-450) /uL Baso # (Auto) 0 (0-100) /uL Sodium 118 L* (137-145) mmol/L Potassium 4.8 (3.4-5.1) mmol/L Chloride 86 L (98-107) mmol/L Carbon Dioxide 14 L (22-32) mmol/L BUN 35 H (9-20) mg/dL Creatinine 1.88 H (0.66-1.25) mg/dL Estimated GFR 39 L (>60) mL/min BUN/Creatinine Ratio 18.6 (6-22) Glucose 109 (80-110) mg/dL Calcium 8.9 (8.4-10.2) mg/dL Total Bilirubin 0.6 (0.2-1.3) mg/dL AST 25 (17-59) IU/L ALT 17 (<50) IU/L Alkaline Phosphatase 76 (38-126) U/L Total Protein 7.2 (6.3-8.2) g/dL Albumin 4.2 (3.5-5.0) g/dL Globulin 3.0 (1.7-4.1) g/dL Albumin/Globulin Ratio 1.4 (1.0-2.8) TSH 2.65 (0.47-4.68) uIU/mL MDM Narrative Medical decision making narrative: Patient 64-year-old male history of chronic kidney disease cirrhosis found to be hyponatremic sodium 118. He was drinking some fluids but eating. Other blood work reviewed she was creatinine 1.8, WBC 3.7 hemoglobin stable at 9.0/25.4, previously 8.6/24.3 He was placed on normal saline. Abdomen is soft does not appear fluid overloaded breath sounds are clear. Hyponatremia maybe due to diuretics vs SIADH vs other. Appears euvolemic. Overall hemodynamically stable Dr. Silver updated on patient's symptoms test results Ludmila accepts patient Discharge Plan Departure Patient Disposition: Admitted As Inpatient Clinical Impression: Acute hyponatremia Admit Date/Time: 10/13/24 15:44 Admit Provider: Neil Silver
--- NOTE | 2024-10-13 15:54 | PM.HP.IH.1 ---
History of Present Illness History of Present Illness Date Patient Seen: 10/13/24 Time Patient Seen: 15:54 Chief complaint: Low blood count sent from PCP Narrative: 64-year-old male with cirrhosis and some degree of kidney disease who had routine lab work drawn by Nephrology this morning which demonstrated severe hyponatremia. He was directed to the ER by that physician and repeat labs demonstrate persistence of hyponatremia with a sodium of 118 Patient himself has been feeling fine doing fine really no complaints issues. He was on chronic diuretic therapy for his cirrhosis and ascites which includes torsemide plus spironolactone. In the ER did find himself to be a bit weaker and more unsteady on his feet then he thinks he should be Laboratory workup for Nephrology this morning and in the ER this afternoon are essentially unremarkable otherwise Per ER physician no clear etiology patient has been drinking normal amounts of water not excessive, he has a minimal ascites he thinks, which has been his steady state recently etcetera Creatinine is actually quite good and normal for him at his baseline [facility] Medical History Peripheral edema Erectile dysfunction Anemia in chronic kidney disease Chronic renal failure, stage 3 (moderate) Hernia, umbilical Gout Hearing loss Anxiety Bipolar disorder (2007) Depression (2007) Hypothyroidism (09/30/17) Hyperlipidemia Obesity Essential hypertension Surgical History H/O hernia repair Status post colonoscopy Family History Father Age: 91 History of stroke History of cancer Prostate cancer Social History household members: none Smoking Status: Never smoker second hand exposure: No alcohol intake: current substance use type: former substance user Meds Home Medications and Allergies Home Medications Medication Instructions Recorded Confirmed Type folic acid 1 mg tablet 1 mg PO DAILY #90 tabs 04/25/22 10/13/24 Rx sildenafil 100 mg tablet 50 - 100 mg (0.5 - 1 x 100 mg) PO 01/04/24 10/13/24 Rx DAILY PRN sexual activity #7 tabs cyanocobalamin (vitamin B-12) 1,000 mcg PO DAILY 01/19/24 10/13/24 History 1,000 mcg tablet spironolactone 25 mg tablet 25 mg PO BID #180 tabs 01/28/24 10/13/24 Rx levothyroxine 75 mcg tablet 75 mcg PO DAILY #90 tabs 02/15/24 10/13/24 Rx atorvastatin 20 mg tablet 20 mg PO BEDTIME #90 tabs 04/12/24 10/13/24 Rx quetiapine 300 mg tablet,extended 450 mg (1.5 x 300 mg) PO BID #270 04/27/24 10/13/24 Rx release 24 hr (Seroquel XR) tabs allopurinol 100 mg tablet 200 mg PO DAILY 09/19/24 10/13/24 History torsemide 20 mg tablet 40 mg (2 x 20 mg) PO QAM #180 tabs 10/05/24 10/13/24 Rx pantoprazole 40 mg tablet,delayed 40 mg PO DAILY 10/13/24 10/13/24 History release trazodone 100 mg tablet See Rx Instructions .Route .COMPLEX 10/13/24 10/13/24 History Allergies Allergy/AdvReac Type Severity Reaction Status Date / Time No Known Drug Allergies Allergy Verified 09/19/24 14:53 Review of Systems Review of Systems ROS: Yes All systems reviewed with the patient and are negative except as otherwise documented Exam Vital Signs (past 8 hours): - 10/13/24 13:08 10/13/24 14:03 10/13/24 14:04 Temperature 97.4 F L Pulse Rate 68 Respiratory Rate 18 Blood Pressure 133/72 159/75 H Pulse Oximetry 99 97 Oxygen Delivery Method Room Air 10/13/24 14:04 10/13/24 14:30 10/13/24 15:00 Temperature Pulse Rate 75 71 72 Respiratory Rate 16 25 H Blood Pressure Pulse Oximetry 99 97 98 Oxygen Delivery Method 10/13/24 15:06 10/13/24 15:06 10/13/24 15:30 Temperature Pulse Rate 71 Respiratory Rate 20 Blood Pressure 128/61 133/68 Pulse Oximetry 99 Oxygen Delivery Method 10/13/24 15:30 Temperature Pulse Rate 71 Respiratory Rate 20 Blood Pressure Pulse Oximetry 97 Oxygen Delivery Method Room Air Oxygen Delivery Method Room Air Narrative Exam Narrative: Pale middle-aged male who looks older than stated age sitting on a gurney HEENT-unremarkable Lungs-clear with good breath sounds Heart-regular rate and rhythm Abdomen-positive bowel tones minimal distention no real fluid wave palpable Extremities-no cyanosis clubbing or edema Neuro-alert and oriented x3 no focal neurologic defects, able to walk from gurney to bed in hospital room (with assistance) Objective Labs 10/13/24 13:21 10/13/24 13:21 Labs: Laboratory Results - last 24 hr 10/13/24 13:21 WBC 3.7 L RBC 2.62 L Hgb 9.0 L Hct 25.4 L MCV 97.3 MCH 34.3 H MCHC 35.3 RDW 14.7 Plt Count 63 L Neut % (Auto) 74.5 Lymph % (Auto) 12.4 L [place] % (Auto) 10.1 Eos % (Auto) 2.1 Baso % (Auto) 0.9 Neut # (Auto) 2800 Lymph # (Auto) 500 L [place] # (Auto) 400 Eos # (Auto) 100 Baso # (Auto) 0 Sodium 118 L* Potassium 4.8 Chloride 86 L Carbon Dioxide 14 L BUN 35 H Creatinine 1.88 H Estimated GFR 39 L BUN/Creatinine Ratio 18.6 Glucose 109 Calcium 8.9 Total Bilirubin 0.6 AST 25 ALT 17 Alkaline Phosphatase 76 Total Protein 7.2 Albumin 4.2 Globulin 3.0 Albumin/Globulin Ratio 1.4 TSH 2.65 Assessment & Plan Assessment & Plan narrative: 1. Hyponatremia-given lack of other etiology I am going to assume that is related to his diuretic therapy for his ascites. Will check a chest x-ray to be sure there is not some intrathoracic lesion that could cause sort of an SIADH process. We could check his osmolality he fractional excretion of sodium numbers etcetera but those results all take well over a week to get results at this institution so not really helpful in the acute setting and will not be ordered at this time Will start with IV normal saline and hold his diuretic therapy. Plan to recheck electrolytes later this evening and again in the morning and decide on next steps based on clinical course. I obviously want to go slow and replacing his sodium, which appears to be baseline in about the 125-126 range 2. Anemia-patient with a chronic anemia related to his chronic liver disease primarily. Numbers appear to be stable for him no evidence of any acute bleed or other change. No concerns no anticipation of transfusion etcetera 3. Liver disease-obviously going to hold patient's diuretics and watch carefully for reaccumulation of ascites. Hopefully we can avoid having to treat that at the same time. If need be would probably reinstitute spironolactone before loop diuretic 4. Renal-patient's renal function appears stable. Do not believe that is the primary source of his hyponatremia and no need for particular intervention 5. Hypertension-patient's blood pressure adequately controlled for now. No change in meds 6. Hypothyroidism-continue patient's usual thyroid replacement therapy 7. Bipolar disease with depression-continue patient's usual quetiapine 8. VTE prophylaxis-Lovenox appropriate and ordered 9. Code status-patient requests full code in the event of a sudden cardiac or respiratory arrest which is not at this time anticipated Time-Based Coding :: [TOTAL MINUTES] spent with patient and on the chart (including review of chart, obtaining history, exam, reviewing outside data, placing orders, documenting exam and treatment plan, and counseling patient) on [DATE]. PROFEE Head Of Marketing [employer] Document charge(s): Yes Charge Codes Initial inpatient/observation care: [id number]
[2024-10-13 16:44] LABS: Appearance Urine UA CLEAR; Bilirubin Urine UA NEGATIVE (NEGATIVE); Color Urine UA YELLOW; Glucose Urine UA NEGATIVE (Negative); Ketones Urine UA NEGATIVE (NEGATIVE); Leukocyte Esterase Urine UA NEGATIVE (NEGATIVE); Nitrite Urine UA NEGATIVE (Negative); Occult Blood Urine UA 1+ (Negative); Protein Urine UA NEGATIVE (Negative); Specific Gravity Urine UA <=1.005 (1.000-1.035); Urobilinogen Urine UA 0.2 E.U./dL (0.2); pH Urine UA 5.5 (4.5-8.0)
[2024-10-13 17:02] LABS: Sodium Urine Random 34 mmol/L (30-90)
--- NOTE | 2024-10-13 17:02 | DI.RAD.S_ITS ---
PROCEDURE: XR CHEST 2V INDICATIONS: hyponatremia TECHNIQUE: 2 views of the chest were acquired. COMPARISON: [facility], CR, XR CHEST 1V, 07/09/2022, 14:27. FINDINGS: Surgical changes and devices: None. Lungs and pleura: Bibasilar subsegmental atelectasis. Otherwise, no focal lung consolidation. No pleural effusions or pneumothorax. Mediastinum: Prominent hilar regions, which may be secondary to underlying pulmonary arterial hypertension. Heart size is normal. Bones and chest wall: No suspicious bony abnormalities. Soft tissues appear unremarkable. IMPRESSION: 1. Bibasilar subsegmental atelectasis. 2. Possible pulmonary arterial hypertension. Dictated by: Saji Pérez M.D. on 10/13/2024 at 19:25 Approved by: Saji Pérez M.D. on 10/13/2024 at 19:26
[2024-10-13 17:05] LABS: Bacteria Urine None Seen; Culture Indicated Urine Cult Not Indicated; RBC Urine 0-1/HPF (0-5/HPF); Squamous Epithelial Cell Urine None Seen (0-5/HPF); Urine Volume 10mL (spun); WBC Urine None Seen (0-5/HPF)
[2024-10-13] MEDS: SODIUM CHLORIDE 0.9% 1,000 ML 125 ML IV ×2 (17:12→22:54)
[2024-10-13 18:20] LABS: BUN Creatinine Ratio 19.3 (6-22); Blood Urea Nitrogen 35 mg/dL (9-20); Calcium 8.5 mg/dL (8.4-10.2); Carbon Dioxide 16 mmol/L (22-32); Chloride 86 mmol/L (98-107); Estimated Glomerular Filt Rate 41 mL/min (>60); Glucose 110 mg/dL (80-110); Potassium 4.2 mmol/L (3.4-5.1)
[2024-10-13 18:30] LABS: HEMOLYSIS < 15 (0-50); Sodium 119 mmol/L (137-145)
[2024-10-13] MEDS: QUETIAPINE 100 MG TABLET 450 MG PO (20:45)
[2024-10-13] MEDS: ATORVASTATIN 20 MG TABLET PO (20:47)
[2024-10-13] MEDS: TRAZODONE 50 MG TABLET 300 MG PO (20:47)
[2024-10-13 21:50] LABS: BUN Creatinine Ratio 21.1 (6-22); Blood Urea Nitrogen 38 mg/dL (9-20); Calcium 8.6 mg/dL (8.4-10.2); Carbon Dioxide 21 mmol/L (22-32); Chloride 87 mmol/L (98-107); Estimated Glomerular Filt Rate 41 mL/min (>60); Glucose 120 mg/dL (80-110); HEMOLYSIS < 15 (0-50); Potassium 4.5 mmol/L (3.4-5.1)
[2024-10-13 21:53] LABS: Sodium 118 mmol/L (137-145)
[2024-10-14 03:00] VITALS: BP 129/57; PULSE 72; RESP 20; TEMP 36.1; O2SAT 98
[2024-10-14] MEDS: LEVOTHYROXINE 75 MCG TABLET PO (05:04)
[2024-10-14 05:21] LABS: BUN Creatinine Ratio 21.4 (6-22); Blood Urea Nitrogen 39 mg/dL (9-20); Calcium 8.7 mg/dL (8.4-10.2); Carbon Dioxide 20 mmol/L (22-32); Chloride 90 mmol/L (98-107); Estimated Glomerular Filt Rate 41 mL/min (>60); Glucose 106 mg/dL (80-110); HEMOLYSIS < 15 (0-50); Potassium 4.4 mmol/L (3.4-5.1); Sodium 121 mmol/L (137-145)
--- NOTE | 2024-10-14 06:41 | PM.PN.IH.1 ---
Subjective Subjective Date Patient Seen: 10/14/24 Time Patient Seen: 06:41 Interval history: Uneventful evening for patient Sodium slowly rising now 121 verses 118 upon admission Exam Vital Signs (past 8 hours): - 10/14/24 03:00 Temperature 96.9 F L Pulse Rate 72 Respiratory Rate 20 Blood Pressure 129/57 L Pulse Oximetry 98 Oxygen Flow Rate 0 Oxygen Delivery Method Room Air Oxygen Flow Rate 0 Objective Labs 10/13/24 13:21 10/14/24 13:01 Labs: Laboratory Results - last 24 hr 10/13/24 10/13/24 10/13/24 13:21 16:33 18:00 WBC 3.7 L RBC 2.62 L Hgb 9.0 L Hct 25.4 L MCV 97.3 MCH 34.3 H MCHC 35.3 RDW 14.7 Plt Count 63 L Neut % (Auto) 74.5 Lymph % (Auto) 12.4 L [place] % (Auto) 10.1 Eos % (Auto) 2.1 Baso % (Auto) 0.9 Neut # (Auto) 2800 Lymph # (Auto) 500 L [place] # (Auto) 400 Eos # (Auto) 100 Baso # (Auto) 0 Sodium 118 L* 119 L* Potassium 4.8 4.2 Chloride 86 L 86 L Carbon Dioxide 14 L 16 L BUN 35 H 35 H Creatinine 1.88 H 1.81 H Estimated GFR 39 L 41 L BUN/Creatinine Ratio 18.6 19.3 Glucose 109 110 Calcium 8.9 8.5 Total Bilirubin 0.6 AST 25 ALT 17 Alkaline Phosphatase 76 Total Protein 7.2 Albumin 4.2 Globulin 3.0 Albumin/Globulin Ratio 1.4 TSH 2.65 Urine Color Yellow Urine Appearance Clear Urine pH 5.5 Ur Specific [place] <=1.005 Urine Protein Negative Urine Glucose (UA) Negative Urine Ketones Negative Urine Occult Blood 1+ H Urine Nitrate Negative Urine Bilirubin Negative Urine Urobilinogen 0.2 Ur Leukocyte Esterase Negative Urine RBC 0-1/hpf Urine WBC None seen Ur Squamous Epith Cells None seen Urine Bacteria None seen Ur Culture Indicated? Cult not indicated Vol Urine Centrifuged 10ml (spun) Ur Random Sodium 34 10/13/24 10/14/24 21:24 04:50 WBC RBC Hgb Hct MCV MCH MCHC RDW Plt Count Neut % (Auto) Lymph % (Auto) [place] % (Auto) Eos % (Auto) Baso % (Auto) Neut # (Auto) Lymph # (Auto) [place] # (Auto) Eos # (Auto) Baso # (Auto) Sodium 118 L* 121 L Potassium 4.5 4.4 Chloride 87 L 90 L Carbon Dioxide 21 L 20 L BUN 38 H 39 H Creatinine 1.80 H 1.82 H Estimated GFR 41 L 41 L BUN/Creatinine Ratio 21.1 21.4 Glucose 120 H 106 Calcium 8.6 8.7 Total Bilirubin AST ALT Alkaline Phosphatase Total Protein Albumin Globulin Albumin/Globulin Ratio TSH Urine Color Urine Appearance Urine pH Ur Specific [place] Urine Protein Urine Glucose (UA) Urine Ketones Urine Occult Blood Urine Nitrate Urine Bilirubin Urine Urobilinogen Ur Leukocyte Esterase Urine RBC Urine WBC Ur Squamous Epith Cells Urine Bacteria Ur Culture Indicated? Vol Urine Centrifuged Ur Random Sodium PFSH Medical History Peripheral edema Erectile dysfunction Anemia in chronic kidney disease Chronic renal failure, stage 3 (moderate) Hernia, umbilical Gout Hearing loss Anxiety Bipolar disorder (2007) Depression (2007) Hypothyroidism (09/30/17) Hyperlipidemia Obesity Essential hypertension Surgical History H/O hernia repair Status post colonoscopy Family History Father Age: 91 History of stroke History of cancer Prostate cancer Social History household members: none Smoking Status: Never smoker second hand exposure: No alcohol intake: current substance use type: former substance user Assessment & Plan Assessment & Plan narrative: 1. Hyponatremia-chest x-ray negative. Continue with IV normal saline. Recheck numbers this afternoon, and in the morning. Consider giving some furosemide to perhaps seeing crease the speed with which the sodium rises by increasing free water elimination 2. Liver disease-obviously going to hold patient's diuretics and watch carefully for reaccumulation of ascites. Hopefully we can avoid having to treat that at the same time. If need be would probably reinstitute spironolactone before loop diuretic for this indication 4. Renal-renal function remained stable. Continue monitor as we are checking his electrolytes 5. Hypertension-patient's blood pressure adequately controlled for now. No change in meds 6. Hypothyroidism-continue patient's usual thyroid replacement therapy 7. Bipolar disease with depression-continue patient's usual quetiapine and trazodone 8. VTE prophylaxis-Lovenox appropriate and ordered Time-Based Coding :: [TOTAL MINUTES] spent with patient and on the chart (including review of chart, obtaining history, exam, reviewing outside data, placing orders, documenting exam and treatment plan, and counseling patient) on [DATE]. Quality VTE Deep Vein Thrombosis/Pulmonary Embolism Present on Admission: No PROFEE Furniture Repairer Document charge(s): Yes Charge Codes Subsequent inpatient/observation care: [id number]
[2024-10-14 07:22] VITALS: O2SAT 97
[2024-10-14] MEDS: ENOXAPARIN 40 MG/0.4 ML SYRINGE SUBCUT (08:53)
[2024-10-14] MEDS: QUETIAPINE 100 MG TABLET 450 MG PO ×2 (08:53→20:35)
[2024-10-14] MEDS: SODIUM CHLORIDE 0.9% 1,000 ML 125 ML IV ×2 (08:54→16:36)
[2024-10-14] MEDS: allopurinoL 100 MG TABLET 200 MG PO (08:54)
[2024-10-14] MEDS: TRAZODONE 50 MG TABLET 200 MG PO (08:54)
[2024-10-14] MEDS: CYANOCOBALAMIN (VITAMIN B-12) 500 MCG TABLET 1000 MCG PO (08:55)
[2024-10-14] MEDS: PANTOPRAZOLE DR 40 MG TABLET PO (08:55)
[2024-10-14] MEDS: FOLIC ACID 1 MG TABLET PO (08:55)
[2024-10-14 12:00] VITALS: BP 124/70; PULSE 77; RESP 18; TEMP 36.2; O2SAT 98
[2024-10-14 13:21] LABS: BUN Creatinine Ratio 20.5 (6-22); Blood Urea Nitrogen 38 mg/dL (9-20); Calcium 8.8 mg/dL (8.4-10.2); Carbon Dioxide 19 mmol/L (22-32); Chloride 93 mmol/L (98-107); Estimated Glomerular Filt Rate 40 mL/min (>60); Glucose 120 mg/dL (80-110); HEMOLYSIS < 15 (0-50); Potassium 4.5 mmol/L (3.4-5.1); Sodium 123 mmol/L (137-145)
--- NOTE | 2024-10-14 15:45 | CM.DANOTE ---
DCP Assessement Visit Note Reviewed EMR and team rounds for status updates. Met with patient at bedside to introduce self and role, pt was found to be alert/oriented, able to express his plan for home d/c, and that he's feeling improved since the time of admission. Pt lives independently in his own RV, is , and has a son that lives in [place] as his local family support. He declines any CM d/c assistance or resource needs at this time. Payor: Medicare PCP: Dr. Silver Pt is a 64 year-old M who presented to the ED at the urging of his Risk Control Field Representative due to hyponatremia. He has a hx of cirrhosis and chronic kidney disease. Pt remained with low sodium through Thursday, is receiving IV fluids. Plan is home once medically cleared for d/c, likely on 10/15 (Sat). DCP will continue to monitor for any further evolving needs prior to his d/c. Discharge Planning/Care Management CM Discharge Assessment Start: 10/14/24 15:43 Freq: Status: Active Protocol: Document 10/14/24 15:43 DPL (Rec: 10/14/24 15:45 DPL [id number]) Discharge Planning Assessment Assigned Retail Attendant EBER Lockhart Advance Directives? No Advance Directives on File No History Provided By Patient,Significant Other, Medical Record Has Patient been admitted in last 30 No days? Prior Living Arrangements RV Household Members none Type of transporation used prior to Drives own vehicle admit Independent with ADL's Yes Is patient alert and oriented? Yes Caregiver for Another No Comment OP Nephrology Comment Patient plans to discharge home; willing to discuss services if recommneded upon DC Discharge Plan Home Transportation Arrangement Family Referrals Initiated None needed Whiteboard Updated in Patient Room with Yes name and ext. # of Retail Attendant Review Status In Process Please Provide Date Initial DC 10/14/24 Assessment Was Performed
[2024-10-14 18:00] VITALS: BP 116/67; PULSE 74; RESP 14; TEMP 36.2; O2SAT 99
[2024-10-14 20:00] VITALS: BP 118/64; PULSE 72; RESP 20; TEMP 36.1; O2SAT 96
[2024-10-14] MEDS: TRAZODONE 50 MG TABLET 300 MG PO (20:34)
[2024-10-14] MEDS: ATORVASTATIN 20 MG TABLET PO (20:34)
[2024-10-14 20:55] VITALS: O2SAT 96
[2024-10-15] MEDS: SODIUM CHLORIDE 0.9% 1,000 ML 125 ML IV ×2 (00:23→08:44)
[2024-10-15 02:00] VITALS: BP 136/66; PULSE 72; RESP 16; TEMP 36.1; O2SAT 97
[2024-10-15 05:36] LABS: BUN Creatinine Ratio 19.4 (6-22); Blood Urea Nitrogen 35 mg/dL (9-20); Calcium 8.7 mg/dL (8.4-10.2); Carbon Dioxide 18 mmol/L (22-32); Chloride 101 mmol/L (98-107); Estimated Glomerular Filt Rate 41 mL/min (>60); Glucose 109 mg/dL (80-110); HEMOLYSIS < 15 (0-50); Potassium 4.2 mmol/L (3.4-5.1); Sodium 128 mmol/L (137-145)
[2024-10-15] MEDS: LEVOTHYROXINE 75 MCG TABLET PO (05:36)
[2024-10-15 05:37] LABS: Hematocrit 22.8 % (41-53); Hemoglobin 7.8 g/dL (13.5-17.5); Mean Corpuscular HGB Conc 34.3 % (30-36); Mean Corpuscular Hemoglobin 34.1 PG (26-34); Mean Corpuscular Volume 99.6 fL (80-100); Platelet Count 56 X10^3/uL (150-400); Red Blood Cell Count 2.29 X10^6/uL (4.5-5.9); Red Cell Distribution Width 14.5 % (11.6-14.8)
[2024-10-15 05:39] LABS: Add Manual Diff / Slide Review YES
[2024-10-15 05:41] LABS: White Blood Cell Count 1.4 X10^3/uL (4.5-11.0)
[2024-10-15 06:24] LABS: Neutrophils Absolute Manual 896 /uL (3000-5900); Nucleated Red Blood Cells 1 #/Diff; Total Cells Counted 100
[2024-10-15 06:25] LABS: Macrocytosis 1+; Platelet Estimate Decreased on smear
[2024-10-15 07:22] VITALS: O2SAT 96
[2024-10-15] MEDS: TRAZODONE 50 MG TABLET 200 MG PO (08:40)
[2024-10-15] MEDS: allopurinoL 100 MG TABLET 200 MG PO (08:40)
[2024-10-15] MEDS: PANTOPRAZOLE DR 40 MG TABLET PO (08:40)
[2024-10-15] MEDS: QUETIAPINE 100 MG TABLET 450 MG PO (08:40)
[2024-10-15] MEDS: CYANOCOBALAMIN (VITAMIN B-12) 500 MCG TABLET 1000 MCG PO (08:40)
[2024-10-15] MEDS: FOLIC ACID 1 MG TABLET PO (08:40)
[2024-10-15] MEDS: SPIRONOLACTONE 25 MG TABLET PO (09:28)
--- NOTE | 2024-10-15 10:12 | P.DS_ITS ---
History of Present Illness History of Present Illness Date Patient Seen: 10/15/24 Time Patient Seen: 10:12 Chief complaint: Low blood count sent from PCP Narrative: 64-year-old male with cirrhosis and some degree of kidney disease who had routine lab work drawn by Nephrology this morning which demonstrated severe hyponatremia. He was directed to the ER by that physician and repeat labs demonstrate persistence of hyponatremia with a sodium of 118 Patient himself has been feeling fine doing fine really no complaints issues. He was on chronic diuretic therapy for his cirrhosis and ascites which includes torsemide plus spironolactone. In the ER did find himself to be a bit weaker and more unsteady on his feet then he thinks he should be Laboratory workup for Nephrology this morning and in the ER this afternoon are essentially unremarkable otherwise Per ER physician no clear etiology patient has been drinking normal amounts of water not excessive, he has a minimal ascites he thinks, which has been his steady state recently etcetera Creatinine is actually quite good and normal for him at his baseline Discharge Providers Provider Date of admission: 10/13/24 15:44 Discharge Date: 10/15/24 Primary care physician: Neil Silver MD Discharge provider: Neil Silver MD Summary Hospital Course Discharge Diagnosis: 1. Acute hyponatremia 2. Cirrhosis of liver 3. Chronic thrombocytopenia 4. Chronic anemia 5. Chronic leukopenia 6. Hypothyroidism 7. Chronic renal failure stage 3a 8. Bipolar disease with depression 9. Myelodysplastic syndrome Hospital Course: As above patient was admitted because of his acute hyponatremia with sodium of 118. No clear etiology was discovered beyond his diuretic therapy. However there were limitations inability to work this up at this institution given delay in lab results for things such as sodium excretion etcetera In any event diuretics were held he was placed on IV normal saline and his sodium slowly increased into the low 120s and then back to his baseline at 01:28. Patient had minimal symptoms to begin with perhaps mostly a bit of weakness and unsteadiness on his feet and this all resolved when he was sodium returned to more normal levels Patient's CBC remained quite abnormal which he had has been in the past. Combination of his liver disease as well as a known myelodysplastic syndrome. However numbers were within his usual range not felt to be acutely changed or requiring further evaluation or treatment Renal function remained stable Blood pressure remained well controlled without particular issues Patient's other medical problems remained stable Exam Vital Signs (past 8 hours): - 10/15/24 07:22 Pulse Oximetry 96 Oxygen Delivery Method Room Air Oxygen Flow Rate 0 Oxygen Delivery Method Room Air Oxygen Flow Rate 0 Objective Labs 10/15/24 05:03 10/15/24 05:03 Labs: Laboratory Results - last 24 hr 10/14/24 10/15/24 13:01 05:03 WBC 1.4 L* D RBC 2.29 L Hgb 7.8 L Hct 22.8 L MCV 99.6 MCH 34.1 H MCHC 34.3 RDW 14.5 Plt Count 56 L Neut % (Auto) Not Reportable Lymph % (Auto) Not Reportable [place] % (Auto) Not Reportable Eos % (Auto) Not Reportable Baso % (Auto) Not Reportable Lymph # (Auto) Not Reportable [place] # (Auto) Not Reportable Baso # (Auto) Not Reportable Total Counted 100 Seg Neutrophils % 60.0 Band Neutrophils % 4.0 Lymphocytes % (Manual) 15.0 L Monocytes % (Manual) 14.0 H Eosinophils % (Manual) 5.0 H Basophils % (Manual) 2.0 H Neutrophils # (Manual) 896 L Nucleated RBCs 1 H Platelet Estimate Decreased on smear RBC Morphology See below Macrocytosis 1+ H Sodium 123 L 128 L Potassium 4.5 4.2 Chloride 93 L 101 Carbon Dioxide 19 L 18 L BUN 38 H 35 H Creatinine 1.85 H 1.80 H Estimated GFR 40 L 41 L BUN/Creatinine Ratio 20.5 19.4 Glucose 120 H 109 Calcium 8.8 8.7 PFSH Medical History Peripheral edema Erectile dysfunction Anemia in chronic kidney disease Chronic renal failure, stage 3 (moderate) Hernia, umbilical Gout Hearing loss Anxiety Bipolar disorder (2007) Depression (2007) Hypothyroidism (09/30/17) Hyperlipidemia Obesity Essential hypertension Surgical History H/O hernia repair Status post colonoscopy Family History Father Age: 91 History of stroke History of cancer Prostate cancer Social History household members: none Smoking Status: Never smoker second hand exposure: No alcohol intake: current substance use type: former substance user Discharge Assessment & Plan Assessment and Plan Plan of Treatment: Patient will be discharged home to continue all his usual medications except I am asking him to hold his torsemide until he can be seen in the clinic within the next 5-7 days. He was likely will need to return to lower dose torsemide. He will continue with spironolactone however Plan to follow up on labs including CBC as well as chemistries at his follow up appointment Discharge Plan Discharge Plan Patient Disposition: Home Discharge orders & Medications Prescriptions: Continued sildenafil 100 mg tablet 50 - 100 mg PO DAILY PRN (Reason: sexual activity) Qty: 7 0RF Rx Instructions: administer 30 minutes to 4 hours before activity levothyroxine 75 mcg tablet 75 mcg PO DAILY Qty: 90 3RF Rx Instructions: Take one tablet daily. atorvastatin 20 mg tablet 20 mg PO BEDTIME Qty: 90 3RF quetiapine [Seroquel XR] 300 mg tablet extended release 24 hr 450 mg PO BID Qty: 270 6RF folic acid 1 mg tablet 1 mg PO DAILY Qty: 90 3RF cyanocobalamin (vitamin B-12) 1,000 mcg tablet 1,000 mcg PO DAILY spironolactone 25 mg tablet 25 mg PO BID Qty: 180 3RF allopurinol 100 mg tablet 200 mg PO DAILY pantoprazole 40 mg tablet,delayed release (DR/EC) 40 mg PO DAILY trazodone 100 mg tablet See Rx Instructions .ROUTE .COMPLEX Rx Instructions: 200 mg (2 pills) every morning & 300 mg (3 pills) every evening/hs Discontinued torsemide 20 mg tablet 40 mg PO QAM Qty: 180 3RF Follow up/Referrals: Neil Silver MD [Primary Care Provider] - 1 Week Discharge Health Status Multidrug resistant organism: No MDRO Diet/Activity/Treatments Diet: Diet as Tolerated Visit Report/Discharge Packet Stand Alone Forms: Patient Portal/API Discharge Data Primary Care Provider: Neil Silver Quality VTE Deep Vein Thrombosis/Pulmonary Embolism Present on Admission: No IH PROFEE Charge Codes Discharge inpatient/observation: [id number]
== END 2024-10-15 11:07 | disposition home or self-care (01) | DRG 641 ==
LOC: ED 15:45 → AC 15:45
PROVIDERS: Family Medicine; Pharmacist Pharmacist Clinician (PhC)/ Clinical Pharmacy Specialist; Admitting Provider Internal Medicine; Emergency Provider Emergency Medicine; PCP Internal Medicine; Referring Provider Emergency Medicine; Visit Provider Internal Medicine
DX: E87.1 Hypo-osmolality and hyponatremia (principal); C94.6 Myelodysplastic disease, not elsewhere classified; R18.8 Other ascites; E03.9 Hypothyroidism, unspecified; F31.9 Bipolar disorder, unspecified; K74.60 Unspecified cirrhosis of liver; D69.6 Thrombocytopenia, unspecified; N18.31 Chronic kidney disease, stage 3a; D63.1 Anemia in chronic kidney disease; E78.5 Hyperlipidemia, unspecified; I12.9 Hypertensive chronic kidney disease with stage 1 through stage 4 chronic kidney disease, or unspecified chronic kidney disease; M10.9 Gout, unspecified; N52.9 Male erectile dysfunction, unspecified; Z79.890 Hormone replacement therapy
CPT/HCPCS: 36415; 71046; 80048; 80053; 81001; 82040; 82728; 83540; 83550; 83930; 84300; 84443; 84550; 85007; 85025; 85027; 96360; 96361; 99223; 99233; 99238; 99284; J1650

== ENCOUNTER → 2024-10-24 12:04 | Outpatient (CLI) | payer MEDICARE, SELFPAY ==
[2024-10-13 17:05] VITALS: BMI 29.9
[2024-10-24 12:47] LABS: Add Manual Diff / Slide Review NO; Basophils Absolute Auto 0 /uL (0-100); Basophils Percent Auto 0.6 % (0-2); Eosinophils Absolute Auto 100 /uL (0-450); Eosinophils Percent Auto 4.3 % (2-4); Hematocrit 24.9 % (41-53); Hemoglobin 8.5 g/dL (13.5-17.5); Lymphocytes Absolute Auto 300 /uL (1100-4500); Lymphocytes Percent Auto 14.4 % (25-40); Mean Corpuscular Hemoglobin 33.9 PG (26-34); Mean Corpuscular Volume 99.7 fL (80-100); Monocytes Absolute Auto 200 /uL (0-900); Monocytes Percent Auto 8.1 % (3-14); Neutrophils Absolute Auto 1500 /uL (1500-7000); Neutrophils Percent Auto 72.6 % (50-75); Platelet Count 73 X10^3/uL (150-400); Red Cell Distribution Width 14.7 % (11.6-14.8)
[2024-10-24 13:12] LABS: Alanine Aminotransferase 15 IU/L (<50); Albumin 3.7 g/dL (3.5-5.0); Albumin Globulin Ratio 1.3 (1.0-2.8); Alkaline Phosphatase 92 U/L (38-126); Aspartate Aminotransferase 21 IU/L (17-59); BUN Creatinine Ratio 10.6 (6-22); Bilirubin Total 0.5 mg/dL (0.2-1.3); Blood Urea Nitrogen 15 mg/dL (9-20); Calcium 8.6 mg/dL (8.4-10.2); Carbon Dioxide 14 mmol/L (22-32); Chloride 96 mmol/L (98-107); Estimated Glomerular Filt Rate 55 mL/min (>60); Globulin 2.9 g/dL (1.7-4.1); Glucose 100 mg/dL (80-110); HEMOLYSIS < 15 (0-50); Magnesium 1.5 mg/dL (1.6-2.3); Sodium 122 mmol/L (137-145); Total Protein 6.6 g/dL (6.3-8.2)
[2024-10-24 13:19] LABS: Potassium 6.4 mmol/L (3.4-5.1)
== END ==
LOC: LAB 12:05
PROVIDERS: PCP Internal Medicine; Referring Provider Internal Medicine; Visit Provider Internal Medicine
DX: E78.1 Pure hyperglyceridemia (principal); I10 Essential (primary) hypertension; E87.1 Hypo-osmolality and hyponatremia; K74.60 Unspecified cirrhosis of liver; D46.Z Other myelodysplastic syndromes
CPT/HCPCS: 36415; 80053; 83735; 85025

== ENCOUNTER → 2024-11-03 13:43 | Outpatient (CLI) | payer MEDICARE, SELFPAY ==
[2024-10-13 17:05] VITALS: BMI 29.9
[2024-11-03 15:51] LABS: BUN Creatinine Ratio 11.4 (6-22); Blood Urea Nitrogen 17 mg/dL (9-20); Calcium 8.5 mg/dL (8.4-10.2); Carbon Dioxide 14 mmol/L (22-32); Chloride 100 mmol/L (98-107); Estimated Glomerular Filt Rate 52 mL/min (>60); Glucose 99 mg/dL (70-99); HEMOLYSIS < 15 (0-50); Potassium 4.9 mmol/L (3.4-5.1); Sodium 128 mmol/L (137-145)
== END ==
PROVIDERS: PCP Internal Medicine; Referring Provider Internal Medicine; Visit Provider Internal Medicine
DX: E87.5 Hyperkalemia (principal); E87.1 Hypo-osmolality and hyponatremia
CPT/HCPCS: 36415; 80048

== ENCOUNTER 2024-11-12 14:14 | Emergency (ER) | payer MEDICARE, MEDICAID, SELFPAY ==
[2024-10-13 17:05] VITALS: BMI 29.9
[2024-11-12] VITALS (22 sets, daily range): BP systolic 132–190; BP diastolic 63–88; PULSE 74–88; RESP 16–22; TEMP 36.1; O2SAT 95–99; BMI 33.7
[2024-11-12 14:53] LABS: Add Manual Diff / Slide Review NO; Basophils Absolute Auto 0 /uL (0-100); Basophils Percent Auto 0.1 % (0-2); Eosinophils Absolute Auto 100 /uL (0-450); Eosinophils Percent Auto 7.3 % (2-4); Hematocrit 22.9 % (41-53); Hemoglobin 7.9 g/dL (13.5-17.5); Lymphocytes Absolute Auto 300 /uL (1100-4500); Lymphocytes Percent Auto 18.2 % (25-40); Mean Corpuscular HGB Conc 34.4 % (30-36); Mean Corpuscular Volume 98.8 fL (80-100); Monocytes Absolute Auto 100 /uL (0-900); Neutrophils Absolute Auto 1200 /uL (1500-7000); Neutrophils Percent Auto 66.4 % (50-75); Platelet Count 61 X10^3/uL (150-400); Red Blood Cell Count 2.32 X10^6/uL (4.5-5.9); Red Cell Distribution Width 14.9 % (11.6-14.8)
[2024-11-12 14:57] LABS: White Blood Cell Count 1.8 X10^3/uL (4.5-11.0)
[2024-11-12 15:05] LABS: Alanine Aminotransferase 15 IU/L (<50); Albumin 3.5 g/dL (3.5-5.0); Albumin Globulin Ratio 1.3 (1.0-2.8); Alkaline Phosphatase 87 U/L (38-126); Aspartate Aminotransferase 24 IU/L (17-59); BUN Creatinine Ratio 9.7 (6-22); Bilirubin Total 0.4 mg/dL (0.2-1.3); Blood Urea Nitrogen 12 mg/dL (9-20); Calcium 8.1 mg/dL (8.4-10.2); Carbon Dioxide 15 mmol/L (22-32); Chloride 96 mmol/L (98-107); Estimated Glomerular Filt Rate > 60 mL/min (>60); Globulin 2.8 g/dL (1.7-4.1); Glucose 103 mg/dL (70-99); HEMOLYSIS < 15 (0-50); Lipase 228 U/L (23-300); Magnesium 1.5 mg/dL (1.6-2.3); Potassium 5.1 mmol/L (3.4-5.1); Sodium 123 mmol/L (137-145); Total Protein 6.3 g/dL (6.3-8.2)
[2024-11-12 15:14] LABS: NT-proBNP (BNP-Adult 18+) 2350 pg/mL (<125)
--- NOTE | 2024-11-12 15:26 | EKG_ITS ---
[facility] [address] [place] [address] Test Date: 2024-11-12 Pat Name: Moris Bae Department: [facility] Room: Gender: Male D[place]: : 1960 Requested By: Order Number: [id number] Reading MD: Neil Silver MD Measurements Intervals [place] Rate: 76 P: 46 FL: 174 QRS: 2 QRSD: 92 T: 18 QT: 398 QTc: 447 Interpretive Statements Sinus rhythm with occasional premature ventricular complexes and fusion complexes Electronically Signed On 11-13-2024 9:34:05 PDT by Neil Silver MD
[2024-11-12 16:35] LABS: Bacteria Urine Occasional (0-1); RBC Urine 0-1/HPF (0-5/HPF); Squamous Epithelial Cell Urine None Seen (0-5/HPF); Urine Volume 10mL (spun); WBC Urine None Seen (0-5/HPF)
[2024-11-12 16:36] LABS: Culture Indicated Urine Cult Not Indicated
--- NOTE | 2024-11-12 17:30 | ED.ABDPAIN ---
HPI - Abdominal Pain <Jana Gracia, - Last Filed: 11/23/24 07:37> General Chief Complaint: Abdominal Pain Stated Complaint: Sent by Physician; Retaining fluid Time Seen by Provider: 11/12/24 14:56 Source: patient Mode of arrival: Ambulatory Limitations: no limitations History of Present Illness HPI narrative: 64-year-old male history of cirrhosis, chronic kidney disease, chronic hyponatremia, chronic thrombocytopenia who presents with complaint of increased swelling in his abdomen feels he needs paracentesis. Patient denies fevers. No chest pain or shortness of breath. Denies any nausea or vomiting. Denies any new GI or urinary symptoms. He states it is abdomen has been more distended and feels tight. He denies any pain. Denies new swelling in his extremities. Notes that he did stop his diuretics about a month ago secondary to hyponatremia. He does follow with Dr. Kelly for Gastroenterology at [facility]. Dr. Silver is his primary care physician. Related Data Home Medications Medication Instructions Recorded Confirmed cyanocobalamin (vitamin B-12) 1,000 mcg PO DAILY 01/19/24 11/22/24 1,000 mcg tablet pantoprazole 40 mg tablet,delayed 40 mg PO DAILY 10/13/24 11/22/24 release allopurinol 100 mg tablet 300 mg PO DAILY 11/22/24 11/22/24 Previous Rx's Medication Instructions Recorded folic acid 1 mg tablet 1 mg PO DAILY #90 tabs 04/25/22 sildenafil 100 mg tablet 50 - 100 mg (0.5 - 1 x 100 mg) PO 01/04/24 DAILY PRN sexual activity #7 tabs levothyroxine 75 mcg tablet 75 mcg PO DAILY #90 tabs 02/15/24 atorvastatin 20 mg tablet 20 mg PO BEDTIME #90 tabs 04/12/24 quetiapine 300 mg tablet,extended 450 mg (1.5 x 300 mg) PO BID #270 04/27/24 release 24 hr (Seroquel XR) tabs trazodone 100 mg tablet See Rx Instructions .Route 11/11/24 .COMPLEX #450 tabs spironolactone 25 mg tablet 25 mg PO BID #180 tabs 11/22/24 Allergies Allergy/AdvReac Type Severity Reaction Status Date / Time No Known Drug Allergies Allergy Verified 11/22/24 13:51 Review of Systems <Jana Gracia DO - Last Filed: 11/23/24 07:37> Review of Systems ROS Unobtainable: All systems reviewed & are unremarkable except as noted in HPI and below Patient History <Jana Gracia DO - Last Filed: 11/23/24 07:37> Medical History Peripheral edema Erectile dysfunction Anemia in chronic kidney disease Chronic renal failure, stage 3 (moderate) Hernia, umbilical Gout Hearing loss Anxiety Bipolar disorder (2007) Depression (2007) Hypothyroidism (09/30/17) Hyperlipidemia Obesity Essential hypertension Surgical History H/O hernia repair Status post colonoscopy Family History Father Age: 91 History of stroke History of cancer Prostate cancer Social History household members: none second hand exposure: No alcohol intake: current substance use type: former substance user alcohol intake frequency: 0-2 drinks per day Alcohol type: beer Exam <Jana Gracia DO - Last Filed: 11/23/24 07:37> Narrative Exam Narrative: GENERAL: Alert and oriented x three, male in mild distress HEENT: Head normocephalic, atraumatic, EOMI, pupils reactive, face symmetric, moist mucous membranes NECK: Supple, full range of motion CARDIOVASCULAR: Regular rate and rhythm without murmurs, rubs or gallops. RESPIRATORY: Breath sounds equal bilaterally, no wheezes rales or rhonchi. ABDOMEN: Soft, nontender. Abdomen is distended, slightly tight on exam. Normoactive bowel sounds all 4 quadrants. No guarding or rebound, rigidity, no mass : No CVA tenderness EXTREMITIES: Normal range of motion, no clubbing or edema. Neurovascularly intact NEUROLOGICAL: Cranial nerves II through XII grossly intact. Moving all extremities SKIN: Warm, dry, no petechiae, no rashes or lesions. Initial Vital Signs Initial Vital Signs: Vital Signs Temperature 97.0 F L 11/12/24 14:19 Pulse Rate 88 11/12/24 14:19 Respiratory Rate 18 11/12/24 14:19 Blood Pressure 186/88 H 05/03/25 14:19 Pulse Oximetry 97 11/12/24 14:19 Oxygen Delivery Method Room Air 11/12/24 14:19 <Neil Anderson, DO - Last Filed: 11/13/24 04:34> Initial Vital Signs Initial Vital Signs: Vital Signs Temperature 97.0 F L 11/12/24 14:19 Pulse Rate 88 11/12/24 14:19 Respiratory Rate 18 11/12/24 14:19 Blood Pressure 186/88 H 11/12/24 14:19 Pulse Oximetry 97 11/12/24 14:19 Oxygen Delivery Method Room Air 11/12/24 14:19 Procedures <Neil Anderson, DO - Last Filed: 11/13/24 04:34> Paracentesis Time of procedure: 18:46 Time Out Performed: Yes Indication: Ascites Procedure: therapeutic paracentesis Location: LLQ Local Anesthetic: lidocaine 2% Amount of anesthesia used (mL): 10 Bedside Ultrasound Used: yes, Ascites confirmed and location marked Preparation: sterile prep and drape and Blade used to make south in skin Fluid: clear (with a tinge of red) Size of Needle Used: 25 Post Procedure Exam: awake, alert Patient Tolerated Procedure: Well and No complications Complications: none Course <Jana Gracia, DO - Last Filed: 11/23/24 07:37> Orders Ordered: Discontinued Medications Ondansetron HCl (Ondansetron 4 Mg/2 Ml Inj) 4 mg IV NOW PRN PRN Reason: Nausea And Vomiting Ondansetron HCl (Ondansetron 4 Mg Odt) 4 mg PO NOW PRN PRN Reason: Nausea And Vomiting Vital Signs Vital signs: Vital Signs - 8 hr 11/12/24 14:19 11/12/24 15:21 11/12/24 15:22 Temperature 97.0 F L Pulse Rate 88 76 Respiratory Rate 18 Blood Pressure 186/88 H 157/73 H Pulse Oximetry 97 96 Oxygen Delivery Method Room Air Room Air 11/12/24 15:30 11/12/24 16:00 11/12/24 18:22 Temperature Pulse Rate 74 76 88 Respiratory Rate 16 Blood Pressure 169/79 H 155/73 H Pulse Oximetry 96 95 Oxygen Delivery Method Room Air 11/12/24 18:24 11/12/24 18:24 11/12/24 18:25 Temperature Pulse Rate 87 Respiratory Rate 19 Blood Pressure 175/86 H 178/79 H Pulse Oximetry 99 Oxygen Delivery Method 11/12/24 18:25 11/12/24 18:30 11/12/24 18:30 Temperature Pulse Rate 85 83 Respiratory Rate 20 20 Blood Pressure 138/63 Pulse Oximetry 99 98 Oxygen Delivery Method Room Air 11/12/24 18:35 11/12/24 18:35 11/12/24 18:40 Temperature Pulse Rate 84 84 Respiratory Rate 19 22 Blood Pressure 155/72 H Pulse Oximetry 98 98 Oxygen Delivery Method Room Air 11/12/24 18:40 11/12/24 18:48 11/12/24 18:48 Temperature Pulse Rate 82 Respiratory Rate 17 Blood Pressure 167/82 H 132/72 Pulse Oximetry 99 Oxygen Delivery Method 11/12/24 18:50 11/12/24 18:50 11/12/24 18:56 Temperature Pulse Rate 81 Respiratory Rate 20 Blood Pressure 143/75 H 175/76 H Pulse Oximetry 98 Oxygen Delivery Method Room Air 11/12/24 18:56 11/12/24 19:00 11/12/24 19:00 Temperature Pulse Rate 81 81 Respiratory Rate 16 19 Blood Pressure 165/76 H Pulse Oximetry 98 99 Oxygen Delivery Method 11/12/24 19:05 11/12/24 19:05 11/12/24 19:10 Temperature Pulse Rate 81 81 Respiratory Rate 18 19 Blood Pressure 167/77 H Pulse Oximetry 98 98 Oxygen Delivery Method Room Air 11/12/24 19:10 11/12/24 19:15 11/12/24 19:15 Temperature Pulse Rate 82 Respiratory Rate 19 Blood Pressure 170/77 H 170/81 H Pulse Oximetry 98 Oxygen Delivery Method Room Air 11/12/24 19:20 11/12/24 19:20 11/12/24 19:25 Temperature Pulse Rate 82 82 Respiratory Rate 16 Blood Pressure 190/84 H Pulse Oximetry 98 98 Oxygen Delivery Method 11/12/24 19:27 11/12/24 19:27 11/12/24 19:30 Temperature Pulse Rate 81 Respiratory Rate 20 Blood Pressure 161/77 H 176/79 H Pulse Oximetry 98 Oxygen Delivery Method 11/12/24 19:30 Temperature Pulse Rate 81 Respiratory Rate 16 Blood Pressure Pulse Oximetry 98 Oxygen Delivery Method Room Air <Neil Anderson, DO - Last Filed: 11/13/24 04:34> Orders Ordered: Discontinued Medications Ondansetron HCl (Ondansetron 4 Mg/2 Ml Inj) 4 mg IV NOW PRN PRN Reason: Nausea And Vomiting Ondansetron HCl (Ondansetron 4 Mg Odt) 4 mg PO NOW PRN PRN Reason: Nausea And Vomiting Vital Signs Vital signs: Vital Signs - 8 hr 11/12/24 14:19 11/12/24 15:21 11/12/24 15:22 Temperature 97.0 F L Pulse Rate 88 76 Respiratory Rate 18 Blood Pressure 186/88 H 157/73 H Pulse Oximetry 97 96 Oxygen Delivery Method Room Air Room Air 11/12/24 15:30 11/12/24 16:00 11/12/24 18:22 Temperature Pulse Rate 74 76 88 Respiratory Rate 16 Blood Pressure 169/79 H 155/73 H Pulse Oximetry 96 95 Oxygen Delivery Method Room Air 11/12/24 18:24 11/12/24 18:24 11/12/24 18:25 Temperature Pulse Rate 87 Respiratory Rate 19 Blood Pressure 175/86 H 178/79 H Pulse Oximetry 99 Oxygen Delivery Method 11/12/24 18:25 11/12/24 18:30 11/12/24 18:30 Temperature Pulse Rate 85 83 Respiratory Rate 20 20 Blood Pressure 138/63 Pulse Oximetry 99 98 Oxygen Delivery Method Room Air 11/12/24 18:35 11/12/24 18:35 11/12/24 18:40 Temperature Pulse Rate 84 84 Respiratory Rate 19 22 Blood Pressure 155/72 H Pulse Oximetry 98 98 Oxygen Delivery Method Room Air 11/12/24 18:40 11/12/24 18:48 11/12/24 18:48 Temperature Pulse Rate 82 Respiratory Rate 17 Blood Pressure 167/82 H 132/72 Pulse Oximetry 99 Oxygen Delivery Method 11/12/24 18:50 11/12/24 18:50 11/12/24 18:56 Temperature Pulse Rate 81 Respiratory Rate 20 Blood Pressure 143/75 H 175/76 H Pulse Oximetry 98 Oxygen Delivery Method Room Air 11/12/24 18:56 11/12/24 19:00 11/12/24 19:00 Temperature Pulse Rate 81 81 Respiratory Rate 16 19 Blood Pressure 165/76 H Pulse Oximetry 98 99 Oxygen Delivery Method 11/12/24 19:05 11/12/24 19:05 11/12/24 19:10 Temperature Pulse Rate 81 81 Respiratory Rate 18 19 Blood Pressure 167/77 H Pulse Oximetry 98 98 Oxygen Delivery Method Room Air 11/12/24 19:10 11/12/24 19:15 11/12/24 19:15 Temperature Pulse Rate 82 Respiratory Rate 19 Blood Pressure 170/77 H 170/81 H Pulse Oximetry 98 Oxygen Delivery Method Room Air 11/12/24 19:20 11/12/24 19:20 11/12/24 19:25 Temperature Pulse Rate 82 82 Respiratory Rate 16 Blood Pressure 190/84 H Pulse Oximetry 98 98 Oxygen Delivery Method 11/12/24 19:27 11/12/24 19:27 11/12/24 19:30 Temperature Pulse Rate 81 Respiratory Rate 20 Blood Pressure 161/77 H 176/79 H Pulse Oximetry 98 Oxygen Delivery Method 11/12/24 19:30 Temperature Pulse Rate 81 Respiratory Rate 16 Blood Pressure Pulse Oximetry 98 Oxygen Delivery Method Room Air MDM - Abdominal Pain <Jana Gracia, DO - Last Filed: 11/23/24 07:37> Lab Data 11/12/24 14:45 11/12/24 14:45 Labs: Lab Results 11/12/24 11/12/24 11/12/24 Range/Units 14:45 16:22 19:20 WBC 1.8 L* (4.5-11.0) X10^3/uL RBC 2.32 L (4.5-5.9) X10^6/uL Hgb 7.9 L (13.5-17.5) g/dL Hct 22.9 L (41-53) % MCV 98.8 (80-100) fL MCH 34.0 (26-34) PG MCHC 34.4 (30-36) % RDW 14.9 H (11.6-14.8) % Plt Count 61 L (150-400) X10^3/uL Neut % (Auto) 66.4 (50-75) % Lymph % (Auto) 18.2 L (25-40) % Bell % (Auto) 8.0 (3-14) % Eos % (Auto) 7.3 H (2-4) % Baso % (Auto) 0.1 (0-2) % Neut # (Auto) 1200 L (0974-7431) /uL Lymph # (Auto) 300 L (4833-0788) /uL Bell # (Auto) 100 (0-900) /uL Eos # (Auto) 100 (0-450) /uL Baso # (Auto) 0 (0-100) /uL PT 11.9 (9.4-12.5) SECONDS INR 1.1 (0.9-1.3) Sodium 123 L (137-145) mmol/L Potassium 5.1 (3.4-5.1) mmol/L Chloride 96 L (98-107) mmol/L Carbon Dioxide 15 L (22-32) mmol/L BUN 12 (9-20) mg/dL Creatinine 1.24 (0.66-1.25) mg/dL Estimated GFR > 60 (>60) mL/min BUN/Creatinine Ratio 9.7 (6-22) Glucose 103 H (70-99) mg/dL Calcium 8.1 L (8.4-10.2) mg/dL Magnesium 1.5 L (1.6-2.3) mg/dL Total Bilirubin 0.4 (0.2-1.3) mg/dL AST 24 (17-59) IU/L ALT 15 (<50) IU/L Alkaline Phosphatase 87 (38-126) U/L NT-Pro-B Natriuret Pep 2350 H (<125) pg/mL Total Protein 6.3 (6.3-8.2) g/dL Albumin 3.5 (3.5-5.0) g/dL Globulin 2.8 (1.7-4.1) g/dL Albumin/Globulin Ratio 1.3 (1.0-2.8) Lipase 228 (23-300) U/L Urine RBC 0-1/hpf (0-5/HPF) Urine WBC None seen (0-5/HPF) Ur Squamous Epith Cells None seen (0-5/HPF) Urine Bacteria Occasional (0-1) (None) Ur Culture Indicated? Cult not indicated Vol Urine Centrifuged 10ml (spun) Fluid Color Red Fluid Appearance Cloudy Fluid RBC 43364 /uL Fld Tot Nucleated Cell 284 /uL Fluid Neutrophils % 1 % Fluid Lymphocytes % 12 % Fluid Meso/Macro/Bell % 88 % Body Fluid Clot No clots present Point of care testing: Urine Dip Bedside Urine Glucose Negative Bedside Urine Bilirubin - Negative Bedside Urine Ketone - Negative Urine Specific [place] 1.015 Bedside Urine Occult Blood ++ Bedside Urine pH 5.5 Bedside Urine Protein +/- 15 Bedside Urine Urobilinogen - Negative Bedside Urine Nitrite - Negative Bedside Urine Leukocytes - Negative Esterase MDM Narrative Medical decision making narrative: 64-year-old male complaint of increased abdominal fluid does note he has stopped his diuretics about a month ago has known cirrhosis. Patient is requesting paracentesis. Patient's white count 1.8 today has been in the 2 range to 1.4 range in the past. Hemoglobin 7.9 looks fairly consistent with priors, platelets are 61 he has been chronically thrombocytopenic at that range. Sodium is 123 fairly close to patient's baseline, potassium is at 5 1 chloride is appropriate CO2 is 15 creatinine is improved at 1.24 glucose is 103 BNP is 2350. Point of care urine shows blood, Urine micro shows 1 RBC, white cells, occasional squamous, 1 bacteria. Discussed with patient, majority of labs have returned.signed out to Dr. Anderson. Patient is requesting paracentesis does not appear to be in significant distress could be performed potentially as outpatient versus through the emergency department. Patient signed out to me at shift change pending final disposition by . Patient is willing to have paracentesis completed today in light of being short of breath. He has had paracentesis before the last 1 being last year where they took between 3 and 5 L and they were all of red color when it was drained. Patient tolerated paracentesis without any complications 5 bottles collected. His vital signs including blood pressure was normal throughout and never became hypotensive and did not need albumin. Patient has upcoming appointment with Dr. Silver his PCP. Fluid samples were sent off but clinically he does not present with signs and symptoms of spontaneous bacterial peritonitis. Differential diagnosis includes cirrhosis, end-stage liver disease, electrolyte derangement. <Neil Anderson, DO - Last Filed: 11/13/24 04:34> Lab Data Labs: Lab Results 11/12/24 11/12/24 11/12/24 Range/Units 14:45 16:22 19:20 WBC 1.8 L* (4.5-11.0) X10^3/uL RBC 2.32 L (4.5-5.9) X10^6/uL Hgb 7.9 L (13.5-17.5) g/dL Hct 22.9 L (41-53) % MCV 98.8 (80-100) fL MCH 34.0 (26-34) PG MCHC 34.4 (30-36) % RDW 14.9 H (11.6-14.8) % Plt Count 61 L (150-400) X10^3/uL Neut % (Auto) 66.4 (50-75) % Lymph % (Auto) 18.2 L (25-40) % Bell % (Auto) 8.0 (3-14) % Eos % (Auto) 7.3 H (2-4) % Baso % (Auto) 0.1 (0-2) % Neut # (Auto) 1200 L (3632-5861) /uL Lymph # (Auto) 300 L (8518-7886) /uL Bell # (Auto) 100 (0-900) /uL Eos # (Auto) 100 (0-450) /uL Baso # (Auto) 0 (0-100) /uL PT 11.9 (9.4-12.5) SECONDS INR 1.1 (0.9-1.3) Sodium 123 L (137-145) mmol/L Potassium 5.1 (3.4-5.1) mmol/L Chloride 96 L (98-107) mmol/L Carbon Dioxide 15 L (22-32) mmol/L BUN 12 (9-20) mg/dL Creatinine 1.24 (0.66-1.25) mg/dL Estimated GFR > 60 (>60) mL/min BUN/Creatinine Ratio 9.7 (6-22) Glucose 103 H (70-99) mg/dL Calcium 8.1 L (8.4-10.2) mg/dL Magnesium 1.5 L (1.6-2.3) mg/dL Total Bilirubin 0.4 (0.2-1.3) mg/dL AST 24 (17-59) IU/L ALT 15 (<50) IU/L Alkaline Phosphatase 87 (38-126) U/L NT-Pro-B Natriuret Pep 2350 H (<125) pg/mL Total Protein 6.3 (6.3-8.2) g/dL Albumin 3.5 (3.5-5.0) g/dL Globulin 2.8 (1.7-4.1) g/dL Albumin/Globulin Ratio 1.3 (1.0-2.8) Lipase 228 (23-300) U/L Urine RBC 0-1/hpf (0-5/HPF) Urine WBC None seen (0-5/HPF) Ur Squamous Epith Cells None seen (0-5/HPF) Urine Bacteria Occasional (0-1) (None) Ur Culture Indicated? Cult not indicated Vol Urine Centrifuged 10ml (spun) Fluid Color Red Fluid Appearance Cloudy Fluid RBC 30772 /uL Fld Tot Nucleated Cell 284 /uL Fluid Neutrophils % 1 % Fluid Lymphocytes % 12 % Fluid Meso/Macro/Bell % 88 % Body Fluid Clot No clots present Point of care testing: Urine Dip Bedside Urine Glucose Negative Bedside Urine Bilirubin - Negative Bedside Urine Ketone - Negative Urine Specific [place] 1.015 Bedside Urine Occult Blood ++ Bedside Urine pH 5.5 Bedside Urine Protein +/- 15 Bedside Urine Urobilinogen - Negative Bedside Urine Nitrite - Negative Bedside Urine Leukocytes - Negative Esterase ECG Data Interpretation: SR with occasional PVC HR 76 NV 174 QRS [address]-t wave change No previous ekg to compare against MDM Narrative Medical decision making narrative: 64-year-old male complaint of increased abdominal fluid does note he has stopped his diuretics about a month ago has known cirrhosis. Patient is requesting paracentesis. Patient's white count 1.8 today has been in the 2 range to 1.4 range in the past. Hemoglobin 7.9 looks fairly consistent with priors, platelets are 61 he has been chronically thrombocytopenic at that range. Sodium is 123 fairly close to patient's baseline, potassium is at 5 1 chloride is appropriate CO2 is 15 creatinine is improved at 1.24 glucose is 103 BNP is 2350. Point of care urine shows blood, Urine micro shows 1 RBC, white cells, occasional squamous, 1 bacteria. Discussed with patient we will signed out to Dr. Anderson. Patient is requesting paracentesis does not appear to be in significant distress could be performed potentially as outpatient versus through the emergency department. Patient signed out to me at shift change pending final disposition by . Patient is willing to have paracentesis completed today in light of being short of breath. He has had paracentesis before the last 1 being last year where they took between 3 and 5 L and they were all of red color when it was drained. Patient tolerated paracentesis without any complications 5 bottles collected. His vital signs including blood pressure was normal throughout and never became hypotensive and did not need albumin. Patient has upcoming appointment with Dr. Silver his PCP. Fluid samples were sent off but clinically he does not present with signs and symptoms of spontaneous bacterial peritonitis. Differential diagnosis includes cirrhosis, end-stage liver disease, electrolyte derangement. Discharge Plan Departure Patient Disposition: Home Clinical Impression: Ascites Qualifiers: Ascites type: due to alcoholic hepatitis Qualified Code(s): K70.11 - Alcoholic hepatitis with ascites Cirrhosis of liver Qualifiers: Hepatic cirrhosis type: alcoholic cirrhosis Ascites presence: with ascites Qualified Code(s): K70.31 - Alcoholic cirrhosis of liver with ascites Instructions: DI for Abdominal Paracentesis Activity Restrictions/Additional Instructions: Return with new or worsening symptoms. Follow up with Dr. Silver your PCP at your upcoming scheduled appointment. Prescriptions: No Action sildenafil 100 mg tablet 50 - 100 mg PO DAILY PRN (Reason: sexual activity) Qty: 7 0RF Rx Instructions: administer 30 minutes to 4 hours before activity levothyroxine 75 mcg tablet 75 mcg PO DAILY Qty: 90 3RF Rx Instructions: Take one tablet daily. atorvastatin 20 mg tablet 20 mg PO BEDTIME Qty: 90 3RF quetiapine [Seroquel XR] 300 mg tablet extended release 24 hr 450 mg PO BID Qty: 270 6RF trazodone 100 mg tablet See Rx Instructions .ROUTE .COMPLEX Qty: 450 3RF Rx Instructions: 200 mg (2 pills), by mouth, every morning & 300 mg (3 pills), by mouth, every evening/hs folic acid 1 mg tablet 1 mg PO DAILY Qty: 90 3RF spironolactone 25 mg tablet 25 mg PO BID Qty: 180 3RF cyanocobalamin (vitamin B-12) 1,000 mcg tablet 1,000 mcg PO DAILY allopurinol 100 mg tablet 300 mg PO DAILY pantoprazole 40 mg tablet,delayed release (DR/EC) 40 mg PO DAILY Referrals: Neil Silver MD [Primary Care Provider] - Stand Alone Forms: Patient Portal/API/Survey
--- NOTE | 2024-11-12 17:39 | DI.US.S_ITS ---
PROCEDURE: US ABDOMEN LIMITED INDICATIONS: HECTOR FOR PARA TECHNIQUE: Real-time scanning was performed of the abdomen to hector for ascites. COMPARISON: [facility], , US ABDOMEN LIMITED, 07/20/2024, 13:08. FINDINGS: There is moderate volume ascites most abundant within left lower quadrant. Center fluid pocket measures approximately 5 cm deep to the location marked by repairer sash and door. IMPRESSION: Moderate volume pocket of ascites within the left lower quadrant where marked by mica splitter. Dictated by: Philip Diallo M.D. on 11/12/2024 at 17:50 Approved by: Philip Diallo M.D. on 11/12/2024 at 17:52
[2024-11-12 17:53] LABS: INR 1.1 (0.9-1.3); Prothrombin Time 11.9 SECONDS (9.4-12.5)
--- NOTE | 2024-11-12 18:40 | PC.NURSE ---
Dr. Carey and Dr. Gracia at bedside to perform left paracentesis. Pt was administered lidocaine and Dr. carey placed paracentesis catheter. Pt drained 4L of serosanguinous-brown ascitic fluid. A sample was obtained and sent to lab. Dr. Carey back at bedside to reassess pt. Pt vitals stable and pt denies dizziness, chest pain, SOB. He endorses feeling better. Pt agreeable to remove 1 more liter of fluid for a total output of 5L ascitic fluid. Suction tubing clamped and Dr. Carey notified of pt's status.
[2024-11-12 19:31] LABS: Body Fluid Red Blood Cells 23408 /uL; Body Fluid Tot Nucleated Cells 284 /uL
[2024-11-12 19:34] LABS: Body Fluid Appearance CLOUDY; Body Fluid Clotted? NO CLOTS PRESENT; Body Fluid Color RED
--- NOTE | 2024-11-12 19:54 | PC.NURSE ---
Removed paracentesis catheter without complications, applied allevyn dressing.
[2024-11-12 19:56] LABS: Lymphocytes Body Fluid 12 %; Neutrophils Body Fluid 1 %
[2024-11-12 19:57] LABS: MESO/MACRO/MONO Body Fluid 88 %
== END 2024-11-12 19:55 | disposition home or self-care (01) ==
PROVIDERS: Emergency Medicine; Emergency Provider Family Medicine; PCP Internal Medicine
DX: K70.31 Alcoholic cirrhosis of liver with ascites (principal); K70.11 Alcoholic hepatitis with ascites; I49.3 Ventricular premature depolarization; Z86.79 Personal history of other diseases of the circulatory system
CPT/HCPCS: 36415; 49083; 76705; 80053; 81003; 81015; 83690; 83735; 83880; 85025; 85610; 87070; 87075; 87205; 89051; 93005; 93010; 99283; 99284

== ENCOUNTER 2024-11-23 08:49 | Outpatient (CLI) | payer MEDICARE, SELFPAY ==
[2024-10-13 17:05] VITALS: BMI 29.9
--- NOTE | 2024-11-23 08:51 | DI.US.S_ITS ---
PROCEDURE: US PARACENTESIS INDICATIONS: Ascites TECHNIQUE: The indications, alternatives, benefits, risks, and complications of the procedure were explained to the patient. Written informed consent was obtained and placed in the chart. The abdomen and pelvis were examined sonographically, and an appropriate site was chosen for paracentesis. The skin was prepared and draped in the usual sterile fashion, and 1% lidocaine was infiltrated from the skin down through the peritoneal surface. A 19-gauge catheter-covered needle was then introduced into the peritoneal space, the catheter was advanced and the needle was withdrawn, and thereafter peritoneal fluid was withdrawn. The catheter was then removed and a dressing was applied. The fluid was discarded if the clinician did not order diagnostic testing of the fluid. COMPARISON: [facility], PARACENTESIS, 01/29/2024, 7:59. FINDINGS: Access site: Right lower quadrant Needle: One-Step paracentesis catheter with introducer needle. Fluid volume and description: 5000 mL of mariajose colored ascites Fluid sent for diagnostic testing: No Medications: 1% lidocaine for local anaesthesia. Complications: None. IMPRESSION: Successful ultrasound-guided paracentesis. Dictated by: Shaji Roberson M.D. on 11/23/2024 at 21:32 Approved by: Shaji Roberson M.D. on 11/23/2024 at 21:37
[2024-11-23 09:15] VITALS: BP 165/81; PULSE 85; RESP 18; TEMP 36.1; O2SAT 97
[2024-11-23 10:10] VITALS: BP 152/79; PULSE 77; RESP 18; O2SAT 95
[2024-11-23 10:15] VITALS: BP 150/82; PULSE 75; RESP 16; O2SAT 94
[2024-11-23 10:30] VITALS: BP 151/88; PULSE 77; RESP 16; O2SAT 97
[2024-11-23 10:45] VITALS: BP 156/82; PULSE 77; RESP 16; O2SAT 97
--- NOTE | 2024-11-25 11:07 | PC.NURSE ---
late note for 11/23/24: Patient stated he wanted to stop at 5L removed when he was informed that it appeared more than 5L would be able to be removed and would necessitate an albumin infusion which would lengthen his stay. He stated he did not wish to stay to receive an infusion and that he was comfortable after removal of 5 L.
== END 2024-11-23 10:55 | disposition home or self-care (01) ==
LOC: US 08:50
PROVIDERS: PCP Internal Medicine; Referring Provider Internal Medicine; Visit Provider Internal Medicine
DX: K70.31 Alcoholic cirrhosis of liver with ascites (principal)
CPT/HCPCS: 49083

== ENCOUNTER 2024-12-14 12:18 | Outpatient (CLI) | payer MEDICARE, MEDICAID, SELFPAY ==
[2024-10-13 17:05] VITALS: BMI 29.9
--- NOTE | 2024-12-14 12:20 | DI.US.S_ITS ---
PROCEDURE: ULTRASOUND PARA THERAPUTIC INDICATIONS: ALCOHOLIC CIRRHOSIS LIVER W ASCITES TECHNIQUE: The indications, alternatives, benefits, risks, and complications of the procedure were explained to the patient. Written informed consent was obtained and placed in the chart. The abdomen and pelvis were examined sonographically, and an appropriate site was chosen for paracentesis. The skin was prepared and draped in the usual sterile fashion, and 1% lidocaine was infiltrated from the skin down through the peritoneal surface. A 19-gauge catheter-covered needle was then introduced into the peritoneal space, the catheter was advanced and the needle was withdrawn, and thereafter peritoneal fluid was withdrawn. The catheter was then removed and a dressing was applied. The fluid was discarded if the clinician did not order diagnostic testing of the fluid. COMPARISON: [facility], , PARACENTESIS, 11/23/2024, 9:57. FINDINGS: Access site: Left lower quadrant Needle: One-Step centesis catheter with introducer needle. Fluid volume and description: 4600 cc, mariajose blood tinged Fluid sent for diagnostic testing: None. Medications: 1% lidocaine for local anaesthesia. Complications: None. IMPRESSION: Successful ultrasound-guided therapeutic paracentesis. 4.6 L removed. Dictated by: James Zapata M.D. on 12/14/2024 at 15:00 Approved by: James Zapata M.D. on 12/14/2024 at 15:18
[2024-12-14 12:30] VITALS: BP 170/86; PULSE 83; RESP 18; TEMP 36.3; O2SAT 96
--- NOTE | 2024-12-14 13:07 | PC.NURSE ---
1305 phoned lab as we were still not seeing labs pending in the chart for hand-delivered stat labs that were delivered directly to lab staff after collection at 1235. They were not yet being processed but they stated they would process now
[2024-12-14 13:09] LABS: Hematocrit 25.7 % (41-53); Hemoglobin 8.6 g/dL (13.5-17.5); Mean Corpuscular HGB Conc 33.5 % (30-36); Mean Corpuscular Hemoglobin 33.5 PG (26-34); Platelet Count 77 X10^3/uL (150-400); Red Blood Cell Count 2.57 X10^6/uL (4.5-5.9); Red Cell Distribution Width 15.7 % (11.6-14.8)
[2024-12-14 13:11] LABS: INR 1.1 (0.9-1.3); Prothrombin Time 12.5 SECONDS (9.4-12.5)
[2024-12-14 13:13] LABS: PTT Partial Thromboplastin Tim 37 SECONDS (25.1-36.5)
[2024-12-14 13:38] VITALS: BP 159/79; PULSE 74; RESP 18; O2SAT 95
[2024-12-14 13:58] VITALS: BP 160/85; PULSE 73; RESP 16; O2SAT 96
== END 2024-12-14 13:58 | disposition home or self-care (01) ==
LOC: US 12:19
PROVIDERS: Radiology Diagnostic Radiology; PCP Internal Medicine; Referring Provider Internal Medicine; Visit Provider Internal Medicine
DX: K70.31 Alcoholic cirrhosis of liver with ascites (principal)
CPT/HCPCS: 49083; 85027; 85610; 85730

== ENCOUNTER 2024-12-26 09:46 | Outpatient (CLI) | payer MEDICARE, MEDICAID, SELFPAY ==
[2024-10-13 17:05] VITALS: BMI 29.9
--- NOTE | 2024-12-26 09:49 | DI.US.S_ITS ---
PROCEDURE: US ABDOMEN LIMITED INDICATIONS: Ascites TECHNIQUE: Real-time focused scanning was performed of the abdomen, with image documentation. COMPARISON: [facility], , US ABDOMEN LIMITED, 11/12/2024, 18:06. FINDINGS: Four-quadrant abdominal ultrasound shows [id number] abdominal ascites particularly in the left lower quadrant IMPRESSION: Abdominal ascites Approved by: Justyn Taveras M.D. on 12/26/2024 at 15:18
[2024-12-26 10:35] VITALS: BP 175/84; PULSE 92; RESP 16; TEMP 36.5; O2SAT 96
== END 2024-12-26 10:47 | disposition home or self-care (01) ==
LOC: US 09:48
PROVIDERS: PCP Internal Medicine; Referring Provider Internal Medicine; Visit Provider Internal Medicine
DX: K70.31 Alcoholic cirrhosis of liver with ascites (principal)
CPT/HCPCS: 76705

== ENCOUNTER 2025-01-04 09:46 | Outpatient (CLI) | payer MEDICARE, MEDICAID, SELFPAY ==
[2024-10-13 17:05] VITALS: BMI 29.9
--- NOTE | 2025-01-04 09:48 | DI.US.S_ITS ---
PROCEDURE: ULTRASOUND PARA THERAPUTIC INDICATIONS: ASCITES TECHNIQUE: The indications, alternatives, benefits, risks, and complications of the procedure were explained to the patient. Written informed consent was obtained and placed in the chart. The abdomen and pelvis were examined sonographically, and an appropriate site was chosen for paracentesis. The skin was prepared and draped in the usual sterile fashion, and 1% lidocaine was infiltrated from the skin down through the peritoneal surface. A 19-gauge catheter-covered needle was then introduced into the peritoneal space, the catheter was advanced and the needle was withdrawn, and thereafter peritoneal fluid was withdrawn. The catheter was then removed and a dressing was applied. The fluid was discarded if the clinician did not order diagnostic testing of the fluid. COMPARISON: [facility], , ULTRASOUND PARA THERAPUTIC, 12/14/2024, 13:09. FINDINGS: Access site: Right lower quadrant Needle: One-Step centesis catheter with introducer needle. Fluid volume and description: 3150 mL blood tinged fluid Fluid sent for diagnostic testing: Not requested Medications: 1% lidocaine for local anaesthesia. Complications: None. IMPRESSION: Successful ultrasound-guided paracentesis. Approved by: Niranjan Xavier M.D. on 01/04/2025 at 20:41
[2025-01-04 10:15] VITALS: BP 171/85; PULSE 83; RESP 20; TEMP 36; O2SAT 97
[2025-01-04 10:30] VITALS: BP 151/78; PULSE 71; RESP 20; O2SAT 96
[2025-01-04 10:57] VITALS: BP 152/82; PULSE 73; RESP 20; O2SAT 96
== END 2025-01-04 10:57 | disposition home or self-care (01) ==
LOC: US 09:48
PROVIDERS: PCP Internal Medicine; Referring Provider Internal Medicine; Visit Provider Internal Medicine
DX: K70.31 Alcoholic cirrhosis of liver with ascites (principal)
CPT/HCPCS: 49083

== ENCOUNTER 2025-01-18 08:29 | Outpatient (CLI) | payer MEDICARE, MEDICAID, SELFPAY ==
[2024-10-13 17:05] VITALS: BMI 29.9
--- NOTE | 2025-01-18 08:31 | DI.US.S_ITS ---
PROCEDURE: US ABDOMEN LIMITED INDICATIONS: ASCITES TECHNIQUE: Real-time focused scanning was performed of the abdomen, with image documentation. COMPARISON: [facility], , US ABDOMEN LIMITED, 12/26/2024, 10:33. FINDINGS: Small ascites. IMPRESSION: Small volume ascites. Not enough for paracentesis. Dictated by: Jarad Gan M.D. on 01/18/2025 at 11:21 Approved by: Jarad Gan M.D. on 01/18/2025 at 11:22
[2025-01-18 08:40] VITALS: BP 152/77; PULSE 89; RESP 18; TEMP 36.1; O2SAT 96
== END 2025-01-18 09:00 | disposition home or self-care (01) ==
LOC: US 08:29
PROVIDERS: PCP Internal Medicine; Referring Provider Internal Medicine; Visit Provider Internal Medicine
DX: K70.31 Alcoholic cirrhosis of liver with ascites (principal)
CPT/HCPCS: 76705

== ENCOUNTER 2025-02-17 10:15 | Outpatient (CLI) | payer MEDICARE, MEDICAID, SELFPAY ==
[2024-10-13 17:05] VITALS: BMI 29.9
[2025-02-17 10:54] LABS: Hematocrit 25.2 % (41-53); Hemoglobin 8.5 g/dL (13.5-17.5); Mean Corpuscular HGB Conc 33.7 % (30-36); Mean Corpuscular Hemoglobin 34.4 PG (26-34); Mean Corpuscular Volume 102.0 fL (80-100); Platelet Count 73 X10^3/uL (150-400)
[2025-02-17 10:56] VITALS: BP 156/83; PULSE 76; RESP 18; O2SAT 96
[2025-02-17 11:02] LABS: INR 1.1 (0.9-1.3); Prothrombin Time 12.4 SECONDS (9.4-12.5)
--- NOTE | 2025-02-17 11:08 | DI.US.S_ITS ---
PROCEDURE: US PARACENTESIS W/ALBUMIN INDICATIONS: ASCITES TECHNIQUE: The indications, alternatives, benefits, risks, and complications of the procedure were explained to the patient. Written informed consent was obtained and placed in the chart. The abdomen and pelvis were examined sonographically, and an appropriate site was chosen for paracentesis. The skin was prepared and draped in the usual sterile fashion, and 1% lidocaine was infiltrated from the skin down through the peritoneal surface. A 19-gauge catheter-covered needle was then introduced into the peritoneal space, the catheter was advanced and the needle was withdrawn, and thereafter peritoneal fluid was withdrawn. The catheter was then removed and a dressing was applied. The fluid was discarded if the clinician did not order diagnostic testing of the fluid. COMPARISON: None. FINDINGS: Access site: Left upper quadrant Needle: One-Step centesis catheter with introducer needle. Fluid volume and description: 4800 mL of light red colored ascites. Fluid sent for diagnostic testing: Therapeutic. No absent. Medications: 1% lidocaine for local anaesthesia. Complications: None. IMPRESSION: Successful ultrasound-guided paracentesis. Dictated by: Larry Roche M.D. on 02/17/2025 at 17:48 Approved by: Larry Roche M.D. on 02/17/2025 at 17:50
[2025-02-17 12:18] VITALS: BP 154/75; PULSE 78; RESP 17; O2SAT 96
== END 2025-02-17 12:23 | disposition home or self-care (01) ==
LOC: US 10:17
PROVIDERS: PCP Internal Medicine; Visit Provider Radiology Diagnostic Radiology
DX: K70.31 Alcoholic cirrhosis of liver with ascites (principal)
CPT/HCPCS: 49083; 85027; 85610

== ENCOUNTER 2025-04-26 13:38 | Outpatient (CLI) | payer MEDICARE, MEDICAID, SELFPAY ==
[2024-10-13 17:05] VITALS: BMI 29.9
--- NOTE | 2025-04-26 13:40 | DI.US.S_ITS ---
PROCEDURE: US PARACENTESIS INDICATIONS: Alcoholic cirrhosis TECHNIQUE: The indications, alternatives, benefits, risks, and complications of the procedure were explained to the patient. Written informed consent was obtained and placed in the chart. The abdomen and pelvis were examined sonographically, and an appropriate site was chosen for paracentesis. The skin was prepared and draped in the usual sterile fashion, and 1% lidocaine was infiltrated from the skin down through the peritoneal surface. A 19-gauge catheter-covered needle was then introduced into the peritoneal space, the catheter was advanced and the needle was withdrawn, and thereafter peritoneal fluid was withdrawn. The catheter was then removed and a dressing was applied. The fluid was discarded if the clinician did not order diagnostic testing of the fluid. COMPARISON: [facility], PARACENTESIS, 11/23/2024, 9:57. FINDINGS: Access site: Right lower quadrant of the abdomen Needle: One-Step paracentesis catheter with introducer needle. Fluid volume and description: 5000 mL mariajose colored ascites fluid Fluid sent for diagnostic testing: No Medications: 1% lidocaine for local anaesthesia. Complications: None. IMPRESSION: Successful ultrasound-guided paracentesis. Dictated by: Shaji Roberson M.D. on 04/27/2025 at 11:12 Approved by: Shaji Roberson M.D. on 04/27/2025 at 11:13
[2025-04-26 14:15] VITALS: BP 134/66; PULSE 89; RESP 16; TEMP 36; O2SAT 97
[2025-04-26 14:55] VITALS: BP 149/85; PULSE 77; RESP 16; O2SAT 95
[2025-04-26 14:55] LABS: Hematocrit 27.1 % (41-53); Hemoglobin 9.2 g/dL (13.5-17.5); Mean Corpuscular HGB Conc 33.9 % (30-36); Mean Corpuscular Hemoglobin 34.7 PG (26-34); Mean Corpuscular Volume 102.5 fL (80-100); Platelet Count 82 X10^3/uL (150-400)
[2025-04-26 14:56] LABS: INR 1.1 (0.9-1.3); Prothrombin Time 13.0 SECONDS (9.4-12.5)
[2025-04-26 14:58] LABS: PTT Partial Thromboplastin Tim 32 SECONDS (25.1-36.5)
[2025-04-26 15:15] VITALS: BP 153/88; PULSE 78; RESP 16; O2SAT 95
== END 2025-04-26 15:29 | disposition home or self-care (01) ==
LOC: US 13:39
PROVIDERS: Internal Medicine; PCP Internal Medicine; Referring Provider Internal Medicine; Visit Provider Radiology Diagnostic Radiology
DX: K70.31 Alcoholic cirrhosis of liver with ascites (principal)
CPT/HCPCS: 49083; 85027; 85610; 85730

== ENCOUNTER 2025-05-10 14:26 | Outpatient (CLI) | payer MEDICARE, MEDICAID, SELFPAY ==
[2024-10-13 17:05] VITALS: BMI 29.9
--- NOTE | 2025-05-10 14:27 | DI.US.S_ITS ---
PROCEDURE: US PARACENTESIS INDICATIONS: ASCITES TECHNIQUE: The indications, alternatives, benefits, risks, and complications of the procedure were explained to the patient. Written informed consent was obtained and placed in the chart. The abdomen and pelvis were examined sonographically, and an appropriate site was chosen for paracentesis. The skin was prepared and draped in the usual sterile fashion, and 1% lidocaine was infiltrated from the skin down through the peritoneal surface. A 19-gauge catheter-covered needle was then introduced into the peritoneal space, the catheter was advanced and the needle was withdrawn, and thereafter peritoneal fluid was withdrawn. The catheter was then removed and a dressing was applied. The fluid was discarded if the clinician did not order diagnostic testing of the fluid. COMPARISON: [facility], PARACENTESIS, 04/26/2025, 14:38. FINDINGS: Access site: Right lower quadrant Needle: One-Step centesis catheter with introducer needle. Fluid volume and description: 4500 mL of clear, light mariajose ascites Fluid sent for diagnostic testing: None sent for testing Medications: 1% lidocaine for local anaesthesia. Complications: None. IMPRESSION: Successful ultrasound-guided paracentesis. Dictated by: Larry Roche M.D. on 05/10/2025 at 18:33 Approved by: Larry Roche M.D. on 05/10/2025 at 18:36
[2025-05-10 14:44] VITALS: BP 162/78; PULSE 84; RESP 17; TEMP 36.2; O2SAT 96
[2025-05-10 15:40] VITALS: BP 150/81; PULSE 81; RESP 17; O2SAT 97
== END 2025-05-10 15:57 | disposition home or self-care (01) ==
PROVIDERS: PCP Internal Medicine; Visit Provider Family Medicine
DX: K70.31 Alcoholic cirrhosis of liver with ascites (principal)
CPT/HCPCS: 49083

== ENCOUNTER 2025-06-05 14:48 | Outpatient (CLI) | payer MEDICARE, MEDICAID, SELFPAY ==
[2024-10-13 17:05] VITALS: BMI 29.9
--- NOTE | 2025-06-05 14:50 | DI.US.S_ITS ---
PROCEDURE: US ABDOMEN LIMITED INDICATIONS: CIrrhosis TECHNIQUE: Real-time focused scanning was performed of the abdomen, with image documentation. COMPARISON: [facility], , US ABDOMEN LIMITED, 01/18/2025, 8:50. FINDINGS: Linear ultrasound images were obtained of the bilateral lower quadrants in preparation for possible paracentesis. There is a small volume of fluid in the left lower quadrant. IMPRESSION: Insufficient fluid for therapeutic paracentesis. The findings were discussed with the patient at the time of exam by the reporting radiologist. Dictated by: Claus Salcido M.D. on 06/05/2025 at 16:23 Approved by: Claus Salcido M.D. on 06/05/2025 at 16:23
[2025-06-05 15:15] VITALS: BP 160/84; PULSE 82; RESP 16; TEMP 36.3; O2SAT 96
[2025-06-05 15:50] LABS: Hematocrit 27.6 % (41-53); Hemoglobin 9.5 g/dL (13.5-17.5); Mean Corpuscular HGB Conc 34.3 % (30-36); Mean Corpuscular Hemoglobin 34.6 PG (26-34); Mean Corpuscular Volume 101.0 fL (80-100); Platelet Count 64 X10^3/uL (150-400)
[2025-06-05 15:58] LABS: INR 1.1 (0.9-1.3); Prothrombin Time 12.7 SECONDS (9.4-12.5)
[2025-06-05 16:01] LABS: PTT Partial Thromboplastin Tim 31 SECONDS (25.1-36.5)
== END 2025-06-05 15:49 | disposition home or self-care (01) ==
PROVIDERS: Student in an Organized Health Care Education/Training Program; PCP Internal Medicine; Referring Provider Internal Medicine; Visit Provider Internal Medicine
DX: K70.31 Alcoholic cirrhosis of liver with ascites (principal)
CPT/HCPCS: 76705; 85027; 85610; 85730